=== PATIENT | female | born 1975 | race Caucasian/White ===

== ENCOUNTER 2016-04-16 11:28 | Inpatient (IN) | payer OTHER ==
[2016-04-16 12:50] VITALS: BMI 25.9
[2016-04-16] MEDS ORDERED: NICOTINE POLACRILEX 4 MG GUM BUC PRN (14:50)
[2016-04-16] MEDS ORDERED: ACETAMINOPHEN 325 MG TABLET (FP) PO PRN (14:50)
[2016-04-16] MEDS ORDERED: MENTHOL/PHENOL 1 EACH UD MM PRN (14:50)
[2016-04-16] MEDS ORDERED: IBUPROFEN 400 MG TABLET (FP) PO PRN (14:50)
[2016-04-16] MEDS ORDERED: hydrOXYzine PAMOATE 25 MG CAPSULE (FP) PO PRN (14:50)
[2016-04-16] MEDS ORDERED: P-EPHED 60MG/TRIPROLIDI 2.5MG TABLET PO PRN (14:50)
[2016-04-16] MEDS ORDERED: guaiFENesin/D-METHORPHAN HB 10 ML UNIT-DOSE CUPS PO PRN (14:50)
[2016-04-16] MEDS ORDERED: MAGNESIUM CITRATE 300 ML BOTTLE PO PRN (14:50)
[2016-04-16] MEDS ORDERED: LOPERAMIDE HCL 2 MG CAPSULE PO PRN (14:50)
[2016-04-16] MEDS ORDERED: MAG HYDROX/AL HYDROX/SIMETH 30 ML UNIT-DOSE CUP PO PRN (14:50)
[2016-04-16] MEDS ORDERED: diphenhydrAMINE HCL 50 MG CAPSULE PO PRN (14:50)
[2016-04-16] MEDS ORDERED: MAGNESIUM HYDROX 2400MG/30ML ORAL SUSPENSION 30 ML CUP PO PRN (14:50)
--- NOTE | 2016-04-16 14:58 | HP ---
CIWA Score - CIWA Score Nausea/Vomitin Muscle Tremors: 3 Anxiety: 3 Agitation: 3 Paroxysmal Sweats: 2 Orientation: 0-Oriented Tacttile Disturbances: 1-Very Mild Itch/Numbness Auditory Disturbances: 0-None Visual Disturbances: 0-None Headache: 0-None Present CIWA-Ar Total Score: 15 Admission ROS BHS - HPI Chief Complaint: I need help to stop using drugs Allergies/Adverse Reactions: Allergies Allergy/AdvReac Type Severity Reaction Status Date / Time Penicillins Allergy Rash Verified 04/16/16 14:40 fish derived AdvReac Verified 04/16/16 14:40 Exam Limitations: No Limitations - Ebola screening Have you traveled outside of the country in the last 21 days: No Have you had contact with anyone from an Ebola affected area: No Have you been sick,other than usual withdrawal symptoms: No Do you have a fever: No - Review of Systems Constitutional: Malaise, Changes in sleep EENT: reports: Dental Problems Respiratory: reports: No Symptoms reported Cardiac: reports: No Symptoms Reported GI: reports: Abdominal cramping : reports: No Symptoms Reported Musculoskeletal: reports: Muscle Pain Integumentary: reports: No Symptoms Reported Neuro: reports: Tremors Endocrine: reports: No Symptoms Reported Hematology: reports: No Symptoms Reported Psychiatric: reports: No Sypmtoms Reported, Orientated x3, Agitated, Anxious Patient History - Patient Medical History Hx Anemia: No Hx Asthma: No Hx Chronic Obstructive Pulmonary Disease (COPD): No Hx Cancer: No Hx Cardiac Disorders: No Hx Hypertension: No Hx Hypercholesterolemia: No HX Cerebrovascular Accident: No Hx Seizures: No Hx Diabetes: No Hx Gastrointestinal Disorders: No Hx Genitourinary Disorders: No Hx Sexually Transmitted Disorders: No Hx Renal Disease (ESRD): No Hx Thyroid Disease: No Hx Human Immunodeficiency Virus (HIV): No (NEGATIVE HX) Hx Hepatitis C: Yes (NOT TREATED YET) Hx Depression: Yes Hx Suicide Attempt: No Hx Bipolar Disorder: Yes Hx Schizophrenia: No - Patient Surgical History Past Surgical History: No Hx Neurologic Surgery: No Hx Cataract Extraction: No Hx Cardiac Surgery: No Hx Lung Surgery: No Hx Breast Surgery: No Hx Breast Biopsy: No Hx Abdominal Surgery: No Hx Appendectomy: No Hx Cholecystectomy: No Hx Genitourinary Surgery: No Hx Section: No Hx Orthopedic Surgery: No Hx Hysterectomy: No Anesthesia Reaction: No - PPD History Previous Implant?: Yes Documented Results: Negative w/proof Implanted On Prior R Admission?: Yes Date: 02/25/16 Results: 0 MM - Reproductive History Patient is a Female of Child Bearing Age (11 -55 yrs old): Yes Last Menstrual Period: 03/23/16 Patient : No - Smoking Cessation Smoking history: Current every day smoker Have you smoked in the past 12 months: Yes Aproximately how many cigarettes per day: 8 Cigars Per Day: 0 Hx Chewing Tobacco Use: No Initiated information on smoking cessation: Yes 'Breaking Loose' booklet given: 04/16/16 - Substance & Tx. History Hx Alcohol Use: Yes Hx Substance Use: Yes Substance Use Type: Alcohol, Cocaine Hx Substance Use Treatment: Yes - Substances Abused Cocaine Route: Injection Frequency: Daily Amount used: $100 Age of first use: 18 Date of Last Use: 04/15/16 Heroin Route: Injection Frequency: 1-2 times per week Amount used: 2 BAGS Age of first use: 18 Date of Last Use: 04/13/16 Alcohol Route: Oral Frequency: 3-6 times per week Amount used: 1 BEER Age of first use: 14 Date of Last Use: 04/09/16 KLONOPIN Route: Oral Frequency: Daily Amount used: 8MG Age of first use: 28 Date of Last Use: 04/16/16 Family Disease History - Family Disease History Family Disease History: Other: Father (HTN;ALCOHOLISM) Admission Physical Exam BHS - Vital Signs Vital Signs: Vital Signs - 24 hr 04/16/16 12:47 Temperature 96.8 F L Pulse Rate 72 Respiratory 16 Rate Blood Pressure 122/62 - Physical General Appearance: Yes: Tremorous, Irritable, Sweating, Anxious HEENTM: Yes: EOMI, Hearing grossly Normal, Normocephalic, Normal Voice, EDITA Respiratory: Yes: Chest Non-Tender, Lungs Clear, Normal Breath Sounds, No Respiratory Distress Neck: Yes: Within Normal Limits Breast: Yes: Breast Exam Deferred Cardiology: Yes: Within Normal Limits Abdominal: Yes: Non Tender, Flat, Soft, Increased Bowel Sounds Genitourinary: Yes: Within Normal Limits Back: Yes: Muscle Spasm Musculoskeletal: Yes: Within Normal Limits, Back pain, Muscle weakness Extremities: Yes: Within Normal Limits, Tremors Neurological: Yes: data migration consultant II-XII NML intact, Fully Oriented, Alert, Motor Strength 5/5, Normal Response Integumentary: Yes: Within Normal Limits Lymphatic: Yes: Within Normal Limits - Diagnostic (1) Opioid dependence on agonist therapy Current Visit: Yes Status: Chronic (2) Alcohol dependence with uncomplicated withdrawal Current Visit: Yes Status: Chronic (3) Benzodiazepine dependence Current Visit: Yes Status: Chronic (4) Bipolar disorder Current Visit: Yes Status: Chronic Qualifiers: Active/Remission status: currently active Current episode severity: unspecified Comment: By history. (5) Cocaine dependence Current Visit: Yes Status: Chronic Qualifiers: Substance use status: uncomplicated Qualified Code(s): F14.20 - Cocaine dependence, uncomplicated (6) Hepatitis C Current Visit: Yes Status: Chronic Qualifiers: Viral hepatitis chronicity: chronic Hepatic coma status: without hepatic coma Qualified Code(s): B18.2 - Chronic viral hepatitis C Cleared for Admission BHS - Detox or Rehab [facility] Level of Care: Medically Managed Detox Regimen/Protocol: Valium [facility] Breath Alcohol Content Breath Alcohol Content: 0 Urine Pregancy Test - Result Urine Test Results: Negative- NO Line Present Urine Drug Screen - Results Drug Screen Negative: No Urine Drug Screen Results: THC-Marijuana, STEVIE-Cocaine, OPI-Opiates, BZO- Benzodiazepines, MTD-Methadone, TCA-Tricyclic Antidepress, OXY-Oxycodone
[2016-04-16] MEDS ORDERED: diazePAM 5 MG TABLET PO ONE (15:40)
[2016-04-16 20:30] LABS: URINE APPEARANCE CLOUDY; URINE BILIRUBIN NEGATIVE (NEGATIVE); URINE BLOOD NEGATIVE (NEGATIVE); URINE COLOR AMBER; URINE GLUCOSE (UA) NEGATIVE (NEGATIVE); URINE KETONE NEGATIVE (NEGATIVE); URINE LEUK ESTERASE 2+ (NEGATIVE); URINE NITRITE NEGATIVE (NEGATIVE); URINE PROTEIN 1+ (NEGATIVE); URINE UROBILINOGEN 4.0 E.U/dl E.U./dl (0.2-1.0)
[2016-04-16 20:38] LABS: URINE BACTERIA RARE /hpf (NONE SEEN); URINE MUCUS MANY; URINE RBC 5 /hpf (0-3); URINE WBC 47 /hpf (3-5)
[2016-04-16] MEDS: diazePAM 5 MG TABLET PO SCH (22:07)
[2016-04-16] MEDS: THIAMINE HCL 100 MG TABLET (FP) PO SCH (22:08)
[2016-04-17] MEDS: diazePAM 5 MG TABLET PO SCH ×3 (05:21→22:08)
[2016-04-17] MEDS ORDERED: METHADONE HCL 10 MG TABLET PO SCH (07:15)
[2016-04-17] MEDS ORDERED: METHADONE HCL 40 MG DISPERSABLE TABLET ONE (08:39)
[2016-04-17] MEDS ORDERED: METHADONE HCL 10 MG TABLET ONE (08:39)
[2016-04-17] MEDS: METHADONE 80 MG, METHADONE 10 MG PO SCH (08:40)
[2016-04-17 09:36] LABS: HIV 1 & 2 AB NEGATIVE; HIV 1 AGp24 NEGATIVE
[2016-04-17] MEDS: NICOTINE 14 MG/24 HOURS TOPICAL PATCH TD SCH (10:06)
[2016-04-17] MEDS: PRENATAL VITAMINS W/ FOLIC ACID TABLET (FP) PO SCH (10:06)
[2016-04-17] MEDS: diazePAM 5 MG TABLET PO PRN ×2 (10:08→19:07)
--- NOTE | 2016-04-17 10:09 | CONSULT ---
[facility] Psychiatric Consult - Data Date of interview: 04/17/16 Admission source: [facility] Identifying data: This is 40 nyears old female with psychiatric hospitalization history intoxicated with: lcohol, Heroin, Cocaine, Benzodoazepins and Nicotine Substance Abuse History: - Smoking Cessation. Smoking history: Current every day smoker. Have you smoked in the past 12 months: Yes. Aproximately how many cigarettes per day: 8. Cigars Per Day: 0. Hx Chewing Tobacco Use: No. Initiated information on smoking cessation: Yes. 'Breaking Loose' booklet given : 04/16/16. - Substance & Tx. History. Hx Alcohol Use: Yes. Hx Substance Use : Yes. Substance Use Type: Alcohol, Cocaine. Hx Substance Use Treatment: Yes. - Substances Abused. Cocaine. Route: Injection. Frequency: Daily. Amount used: $100. Age of first use: 18. Date of Last Use: 04/15/16. Heroin. Route: Injection. Frequency: 1-2 times per week. Amount used: 2 BAGS. Age of first use: 18. Date of Last Use: 04/13/16. Alcohol. Route: Oral. Frequency: 3-6 times per week. Amount used: 1 BEER. Age of first use: 14. Date of Last Use: 04/09/16. KLONOPIN. Route: Oral. Frequency: Daily. Amount used: 8MG. Age of first use: 28. Date of Last Use: 04/16/16 Medical History: Hep C+, M,MTP 90mg per day Psychiatric History: Patient reprots history of Bipolar Disorder with most recent psychiatric admission on 2015 at [facility] for safety, reports taking prior to admisison: Abilify 20mg po qhs. Benadryl 50mg po qhs Physical/Sexual Abuse/Trauma History: Denies Additional Comment: Abilify 20mg po qhs. Benadryl 50mg po qhs Mental Status Exam - Mental Status Exam Alert and Oriented to: Person Cognitive Function: Fair Patient Appearance: Unkempt Mood: Sad Affect: Flat Patient Behavior: Sedated Speech Pattern: Delayed Voice Loudness: Mildly Soft/Quiet Thought Process: Circumstantial Thought Disorder: Being Controlled Hallucinations: Denies Suicidal Ideation: Denies Homicidal Ideation: Denies Insight/Judgement: Fair Sleep: Difficulty falling asleep Appetite: Fair Muscle strength/Tone: Mild Hypotonicity Gait/Station: Shuffling Additional Comments: Abilify 20mg po qhs. Benadryl 50mg po qhs Psychiatric Findings - Problem List ([place] 1, 2,3) (1) Alcohol dependence with uncomplicated withdrawal Current Visit: Yes Status: Chronic (2) Benzodiazepine dependence Current Visit: Yes Status: Chronic (3) Bipolar disorder Current Visit: Yes Status: Chronic Qualifiers: Active/Remission status: currently active Current episode severity: unspecified Comment: By history. (4) Cocaine dependence Current Visit: Yes Status: Chronic Qualifiers: Substance use status: uncomplicated Qualified Code(s): F14.20 - Cocaine dependence, uncomplicated (5) Opioid dependence on agonist therapy Current Visit: Yes Status: Chronic (6) Methadone maintenance therapy patient Current Visit: No Status: Chronic (7) Nicotine dependence Current Visit: No Status: Chronic Qualifiers: Nicotine product type: cigarettes Substance use status: uncomplicated Qualified Code(s): F17.210 - Nicotine dependence, cigarettes, uncomplicated
--- NOTE | 2016-04-17 10:41 | PN ---
S CIWA - CIWA Score Nausea/Vomitin-No Nausea/No Vomiting Muscle Tremors: 4-Moderate,w/Arms Extend Anxiety: 3 Agitation: 4-Moderately Restless Paroxysmal Sweats: 3 Orientation: 0-Oriented Tacttile Disturbances: 0-None Auditory Disturbances: 0-None Visual Disturbances: 0-None Headache: 1-Very Mild CIWA-Ar Total Score: 15 BHS Progress Note (SOAP) Subjective: sweats shakes interrupted sleep dizzy agitation anxiety Objective: 04/17/16 10:40 Vital Signs Temperature 98.4 F 04/17/16 09:39 Pulse Rate 84 04/17/16 09:39 Respiratory Rate 18 04/17/16 09:39 Blood Pressure 109/71 04/17/16 09:39 O2 Sat by Pulse Oximetry (%) Laboratory Tests 04/16/16 04/16/16 14:00 19:00 Urine Color Halle Urine Appearance Cloudy Urine pH 6.0 Ur Specific [place] 1.020 Urine Protein 1+ H Urine Glucose (UA) Negative Urine Ketones Negative Urine Blood Negative Urine Nitrite Negative Urine Bilirubin Negative Urine Urobilinogen 4.0 e.u/dl H Ur Leukocyte Esterase 2+ H Urine RBC 5 Urine WBC 47 Ur Epithelial Cells Moderate Urine Bacteria Rare Urine Mucus Many HIV 1&2 Antibody Screen Negative HIV P24 Antigen Negative repeat u/a labs pending awake/alert ambulating no acute distress Assessment: 04/17/16 10:41 withdrawal sx Plan: continue detox increase fluids repeat u/a labs pending
[2016-04-17 10:52] LABS: ALK PHOS 79 U/L (45-117); ANION GAP 9 (8-16); BILIRUBIN,TOTAL 0.7 mg/dL (0.2-1.0); CALCIUM 9.2 mg/dL (8.5-10.1); CO2 25 mmol/L (21-32); CREATININE 0.6 mg/dL (0.55-1.02); GLUCOSE,RANDOM 91 mg/dL (74-106); SGOT/AST 23 U/L (15-37); SGPT/ALT 24 U/L (12-78); TOT PROT 7.9 g/dl (6.4-8.2)
[2016-04-17 10:53] LABS: MCH 30.6 pg (25.7-33.7); MEAN CELL VOLUME 90.2 fl (80-96); MEAN PLT VOLUME 8.5 fl (7.5-11.1); PLATELET COUNT 393 K/MM3 (134-434); RDW 14.2 % (11.6-15.6); WHITE BLOOD COUNT 9.2 K/mm3 (4.0-10.0)
--- NOTE | 2016-04-17 12:31 | EKG ---
Test Reason : Blood Pressure : / mmHG Vent. Rate : 057 BPM Atrial Rate : 057 BPM P-R Int : 144 ms QRS Dur : 082 ms QT Int : 430 ms P-R-T Axes : 053 066 059 degrees QTc Int : 418 ms SINUS BRADYCARDIA OTHERWISE NORMAL ECG WHEN COMPARED WITH ECG OF 17-JAN-2009 15:28, VENT. RATE HAS DECREASED BY 44 BPM T WAVE INVERSION NO LONGER EVIDENT IN INFERIOR LEADS T WAVE INVERSION LESS EVIDENT IN ANTEROLATERAL LEADS Confirmed by ROSA MARIA ROMERO, IRWIN ([id number]) on 04/17/2016 12:31:28 PM Referred By: Anuel Lima Confirmed By:IRWIN CRANE MD
[2016-04-17 16:49] LABS: URINE APPEARANCE CLOUDY; URINE BILIRUBIN NEGATIVE (NEGATIVE); URINE BLOOD NEGATIVE (NEGATIVE); URINE COLOR AMBER; URINE GLUCOSE (UA) NEGATIVE (NEGATIVE); URINE KETONE NEGATIVE (NEGATIVE); URINE NITRITE NEGATIVE (NEGATIVE); URINE PROTEIN NEGATIVE (NEGATIVE); URINE UROBILINOGEN 4.0 E.U/dl E.U./dl (0.2-1.0)
[2016-04-17 17:12] LABS: URINE LEUK ESTERASE 2+ (NEGATIVE)
[2016-04-17 18:00] LABS: CALCIUM OXALATE CRYSTALS FEW /hpf (NONE SEEN); URINE BACTERIA RARE /hpf (NONE SEEN); URINE MUCUS MODERATE; URINE RBC 2 /hpf (0-3); URINE WBC 24 /hpf (3-5)
[2016-04-17] MEDS ORDERED: diphenhydrAMINE HCL 25 MG CAPSULE (FP) PO ONE (21:31)
[2016-04-17] MEDS: diphenhydrAMINE HCL 50 MG CAPSULE PO SCH (22:08)
[2016-04-17] MEDS: ARIPiprazole 10 MG TABLET PO SCH (22:08)
[2016-04-17] MEDS: THIAMINE HCL 100 MG TABLET (FP) PO SCH (22:10)
[2016-04-18] MEDS ORDERED: METHADONE HCL 40 MG DISPERSABLE TABLET ONE (04:48)
[2016-04-18] MEDS ORDERED: METHADONE HCL 10 MG TABLET ONE (04:48)
[2016-04-18] MEDS: METHADONE 80 MG, METHADONE 10 MG PO SCH (05:15)
[2016-04-18] MEDS: diazePAM 5 MG TABLET PO PRN ×2 (06:16→14:44)
[2016-04-18] MEDS: PRENATAL VITAMINS W/ FOLIC ACID TABLET (FP) PO SCH (10:03)
[2016-04-18] MEDS: NICOTINE 14 MG/24 HOURS TOPICAL PATCH TD SCH (10:03)
[2016-04-18] MEDS: diazePAM 5 MG TABLET PO SCH ×2 (10:03→22:19)
--- NOTE | 2016-04-18 12:32 | PN ---
S CIWA - CIWA Score Nausea/Vomitin Muscle Tremors: 2 Anxiety: 2 Agitation: 2 Paroxysmal Sweats: 3 Orientation: 0-Oriented Tacttile Disturbances: 1-Very Mild Itch/Numbness Auditory Disturbances: 0-None Visual Disturbances: 0-None Headache: 0-None Present CIWA-Ar Total Score: 12 S Progress Note (SOAP) Subjective: 0sleeping better, constipation Objective: 04/18/16 12:31 Vital Signs Temperature 98.1 F 04/18/16 10:01 Pulse Rate 67 04/18/16 10:01 Respiratory Rate 18 04/18/16 10:01 Blood Pressure 104/51 04/18/16 10:01 O2 Sat by Pulse Oximetry (%) Laboratory Results - last 24 hr 04/17/16 04/17/16 06:00 13:25 Urine Color Halle Urine Appearance Cloudy Urine pH 7.0 Ur Specific [place] 1.019 Urine Protein Negative Urine Glucose (UA) Negative Urine Ketones Negative Urine Blood Negative Urine Nitrite Negative Urine Bilirubin Negative Urine Urobilinogen 4.0 e.u/dl H Ur Leukocyte Esterase 2+ H Urine RBC 2 Urine WBC 24 Ur Epithelial Cells Moderate Calcium Oxalate Crystal Few Urine Bacteria Rare Urine Mucus Moderate RPR Titer Nonreactive pending labs pt aox3 in nad ambulating Assessment: 04/18/16 12:31 withdrawl sx's Plan: cont. detox increase fluids
[2016-04-18] MEDS: ARIPiprazole 10 MG TABLET PO SCH (22:18)
[2016-04-18] MEDS: diphenhydrAMINE HCL 50 MG CAPSULE PO SCH (22:18)
[2016-04-18] MEDS: THIAMINE HCL 100 MG TABLET (FP) PO SCH (22:19)
[2016-04-19] MEDS ORDERED: METHADONE HCL 10 MG TABLET ONE (04:38)
[2016-04-19] MEDS ORDERED: METHADONE HCL 40 MG DISPERSABLE TABLET ONE (04:39)
[2016-04-19] MEDS: METHADONE 80 MG, METHADONE 10 MG PO SCH (05:25)
[2016-04-19] MEDS: diazePAM 5 MG TABLET PO PRN ×2 (06:41→14:17)
[2016-04-19] MEDS: PRENATAL VITAMINS W/ FOLIC ACID TABLET (FP) PO SCH (10:02)
[2016-04-19] MEDS: diazePAM 5 MG TABLET PO SCH ×2 (10:02→22:03)
[2016-04-19] MEDS: NICOTINE 14 MG/24 HOURS TOPICAL PATCH TD SCH (10:03)
--- NOTE | 2016-04-19 10:36 | PN ---
BHS Progress Note (SOAP) Subjective: anxiety agitation sweats Objective: 04/19/16 10:35 Vital Signs Temperature 98.1 F 04/19/16 09:55 Pulse Rate 81 04/19/16 09:55 Respiratory Rate 16 04/19/16 09:55 Blood Pressure 130/55 04/19/16 09:55 O2 Sat by Pulse Oximetry (%) awake/alert ambulating no acute distress Assessment: 04/19/16 10:36 withdrawal sx Plan: continue detox increase fluids d/c in am
[2016-04-19] MEDS: ARIPiprazole 10 MG TABLET PO SCH (22:02)
[2016-04-19] MEDS: diphenhydrAMINE HCL 50 MG CAPSULE PO SCH (22:04)
[2016-04-19] MEDS: THIAMINE HCL 100 MG TABLET (FP) PO SCH (22:05)
[2016-04-20] MEDS ORDERED: METHADONE HCL 10 MG TABLET ONE (04:44)
[2016-04-20] MEDS ORDERED: METHADONE HCL 40 MG DISPERSABLE TABLET ONE (04:44)
[2016-04-20] MEDS: METHADONE 80 MG, METHADONE 10 MG PO SCH (05:09)
[2016-04-20 06:47] VITALS: BP 120/61; PULSE 92; TEMP 96.8
--- NOTE | 2016-04-20 09:55 | PN ---
BHS Progress Note (SOAP) Subjective: no complaints Objective: 04/20/16 09:54 Vital Signs - 8 hr 04/20/16 04/20/16 03:30 06:00 Temperature 96.8 F L Pulse Rate 92 H Respiratory 18 18 Rate Blood Pressure 120/61 Laboratory Tests 04/16/16 04/16/16 04/17/16 14:00 19:00 06:00 WBC 9.2 RBC 4.42 Hgb 13.5 D Hct 39.9 MCV 90.2 MCHC 34.0 RDW 14.2 Plt Count 393 D MPV 8.5 Sodium Potassium Chloride Carbon Dioxide Anion Gap BUN Creatinine Creat Clearance w eGFR Random Glucose Calcium Total Bilirubin AST ALT Alkaline Phosphatase Total Protein Albumin Urine Color Halle Urine Appearance Cloudy Urine pH 6.0 Ur Specific [place] 1.020 Urine Protein 1+ H Urine Glucose (UA) Negative Urine Ketones Negative Urine Blood Negative Urine Nitrite Negative Urine Bilirubin Negative Urine Urobilinogen 4.0 e.u/dl H Ur Leukocyte Esterase 2+ H Urine RBC 5 Urine WBC 47 Ur Epithelial Cells Moderate Calcium Oxalate Crystal Urine Bacteria Rare Urine Mucus Many RPR Titer HIV 1&2 Antibody Screen Negative HIV P24 Antigen Negative 04/17/16 04/17/16 04/17/16 06:00 06:00 13:25 WBC RBC Hgb Hct MCV MCHC RDW Plt Count MPV Sodium 139 Potassium 3.6 Chloride 105 Carbon Dioxide 25 Anion Gap 9 BUN 10 D Creatinine 0.6 Creat Clearance w eGFR > 60 Random Glucose 91 Calcium 9.2 Total Bilirubin 0.7 AST 23 D ALT 24 D Alkaline Phosphatase 79 D Total Protein 7.9 D Albumin 4.0 D Urine Color Halle Urine Appearance Cloudy Urine pH 7.0 Ur Specific [place] 1.019 Urine Protein Negative Urine Glucose (UA) Negative Urine Ketones Negative Urine Blood Negative Urine Nitrite Negative Urine Bilirubin Negative Urine Urobilinogen 4.0 e.u/dl H Ur Leukocyte Esterase 2+ H Urine RBC 2 Urine WBC 24 Ur Epithelial Cells Moderate Calcium Oxalate Crystal Few Urine Bacteria Rare Urine Mucus Moderate RPR Titer Nonreactive HIV 1&2 Antibody Screen HIV P24 Antigen Assessment: 04/20/16 09:55 completed detox, medically stable Plan: d/c today, f/u PCP for abnormal labwork u/a and bloodwork
--- NOTE | 2016-04-20 09:57 | DS ---
[facility] Detox Discharge Summary Admission Date: 04/16/16 Discharge Date: 04/20/16 - History Present History: Alcohol Dependence, Cocaine Dependence, Sedative Dependence Pertinent Past History: anxiety, depression and insomnia - Physical Exam Results Vital Signs: Vital Signs Temperature 96.8 F L 04/20/16 06:00 Pulse Rate 92 H 04/20/16 06:00 Respiratory Rate 18 04/20/16 06:00 Blood Pressure 120/61 04/20/16 06:00 O2 Sat by Pulse Oximetry (%) Pertinent Admission Physical Exam Findings: withdrawal sx - Treatment Hospital Course: Detox Protocol Followed, Detoxed Safely, Responded well, Discharged Condition Good, Rehab Referral Accepted - Medication Discharge Medications: Ambulatory Orders Aripiprazole [Abilify -] 20 mg PO HS 02/23/16 Diphenhydramine [Benadryl Capsule -] 50 mg PO HS 04/16/16 Hydroxyzine HCl [Atarax -] 50 mg PO BID 04/16/16 Aripiprazole [Abilify -] 20 mg PO HS #30 tablet 04/17/16 Diphenhydramine [Benadryl Capsule -] 50 mg PO HS #30 capsule 04/17/16 - Diagnosis (1) Alcohol dependence with uncomplicated withdrawal Status: Chronic (2) Benzodiazepine dependence Status: Chronic (3) Bipolar disorder Status: Chronic Qualifiers: Active/Remission status: currently active Current episode severity: unspecified (4) Cocaine dependence Status: Chronic Qualifiers: Substance use status: uncomplicated Qualified Code(s): F14.20 - Cocaine dependence, uncomplicated (5) Hepatitis C Status: Chronic Qualifiers: Viral hepatitis chronicity: chronic Hepatic coma status: without hepatic coma Qualified Code(s): B18.2 - Chronic viral hepatitis C (6) Nicotine dependence Status: Chronic Qualifiers: Nicotine product type: cigarettes Substance use status: in withdrawal Qualified Code(s): F17.213 - Nicotine dependence, cigarettes, with withdrawal (7) Opioid dependence on agonist therapy Status: Chronic - AMA Did Patient Leave Against Medical Advice: No
[2016-04-20] MEDS ORDERED: diazePAM 5 MG TABLET PO SCH (10:00)
== END 2016-04-20 09:42 | disposition home or self-care (01) | DRG 773 ==
LOC: YASAS 11:28 → Y6N 15:32
PROVIDERS: ADMIT Internal Medicine Addiction Medicine; ATTEND Internal Medicine Addiction Medicine
PROC: HZ2ZZZZ Detoxification Services for Substance Abuse Treatment (ICD-10-PCS; principal; 2016-04-16)
DX: F10.230 Alcohol dependence with withdrawal, uncomplicated (principal); F13.20 Sedative, hypnotic or anxiolytic dependence, uncomplicated; F11.20 Opioid dependence, uncomplicated; F14.20 Cocaine dependence, uncomplicated; F17.210 Nicotine dependence, cigarettes, uncomplicated; F31.9 Bipolar disorder, unspecified; B18.2 Chronic viral hepatitis C
CPT/HCPCS: 36415; 80053; 81003; 81015; 85027; 86593; 87389; 93005; 93010

== ENCOUNTER 2016-06-25 10:12 | Emergency (ER) | payer OTHER ==
[2016-06-25 11:04] VITALS: BP 109/67; PULSE 69; TEMP 98.2; BMI 25.9
--- NOTE | 2016-06-25 12:43 | PDOC ---
History of Present Illness - General Chief Complaint: Pain Stated Complaint: RT LEG PAIN Time Seen by Provider: 06/25/16 11:43 History Source: Patient Exam Limitations: No Limitations - History of Present Illness Initial Comments: 06/25/16 12:43 CHIEF COMPLAINT: Ankle pain HISTORY OF PRESENT ILLNESS: This is a 40 year old female with a history of bipolar disorder and polysubstance abuse who presents complaining of two days of right ankle and foot pain. She does not recall injuring herself. Vital signs on arrival are all within normal limits. REVIEW OF SYSTEMS: GENERAL/CONSTITUTIONAL: No fever or chills. No weakness. No weight change. MUSCULOSKELETAL: See HPI. SKIN: No rash or easy bruising. NEUROLOGIC: No numbness loss of sensation. HEMATOLOGIC/LYMPHATIC: No anemia, easy bleeding, or history of blood clots. ALLERGIC/IMMUNOLOGIC: No hives or skin allergy. No latex allergy. PHYSICAL EXAM: GENERAL: The patient is awake, alert, and fully oriented, in no acute distress. EXTREMITIES: Bimalleolar tenderness, mild edema. No erythema. Normal range of motion. NEUROLOGICAL: Normal speech, normal gait. CN II-XII grossly intact. PSYCH: Normal mood, normal affect. SKIN: Warm, dry, normal turgor, no rashes or lesions noted. Past History - Past Medical History Allergies/Adverse Reactions: Allergies Allergy/AdvReac Type Severity Reaction Status Date / Time Penicillins Allergy Rash Verified 06/25/16 10:51 fish derived AdvReac Verified 06/25/16 10:51 Home Medications: Ambulatory Orders Aripiprazole [Abilify -] 20 mg PO HS 02/23/16 Diphenhydramine [Benadryl Capsule -] 50 mg PO HS 04/16/16 Hydroxyzine HCl [Atarax -] 50 mg PO BID 04/16/16 Aripiprazole [Abilify -] 20 mg PO HS #30 tablet 04/17/16 Diphenhydramine [Benadryl Capsule -] 50 mg PO HS #30 capsule 04/17/16 Ibuprofen 600 mg PO Q6H PRN #30 tablet 06/25/16 Anemia: No Asthma: No Cancer: No Cardiac Disorders: No CVA: No COPD: No Diabetes: No GI Disorders: No Disorders: No HTN: No Hypercholesterolemia: No Kidney Stones: No Psychiatric Problems: Yes (BIPOLAR,ANXIETY) Suicide Attempt (Hx): No Seizures: No Thyroid Disease: No - Surgical History Abdominal Surgery: No Appendectomy: No Cardiac Surgery: No Cholecystectomy: No Lung Surgery: No Neurologic Surgery: No Orthopedic Surgery: No - Reproductive History PID: No - Psycho/Social/Smoking Cessation Hx Anxiety: Yes Suicidal Ideation: No Smoking History: Current every day smoker Have you smoked in the past 12 months: Yes Number of Cigarettes Smoked Daily: 10 Cigars Per Day: 0 Information on smoking cessation initiated: No 'Breaking Loose' booklet given: 04/16/16 Hx Alcohol Use: Yes Drug/Substance Use Hx: Yes Substance Use Type: Alcohol, Cocaine Hx Substance Use Treatment: Yes *Physical Exam - Vital Signs Last Vital Signs Temp Pulse Resp BP Pulse Ox 98.2 F 69 19 109/67 97 06/25/16 10:52 06/25/16 10:52 06/25/16 10:52 06/25/16 10:52 06/25/16 10:52 ED Treatment Course - ADDITIONAL ORDERS Additional order review: Laboratory Results 06/25/16 12:00 Urine HCG, Qual Negative Medical Decision Making - Medical Decision Making A/P: 40 year old female with ankle pain and mild swelling. Xray: no acute fracture -Brace and crutches -RICE therapy, NSAIDs -Followup instructions and return precautions reviewed *DC/Admit/Observation/Transfer Diagnosis at time of Disposition: Ankle pain, right Qualifiers: Chronicity: acute Qualified Code(s): M25.571 - Pain in right ankle and joints of right foot - Discharge Dispostion Disposition: HOME Condition at time of disposition: Stable Admit: No - Prescriptions Prescriptions: Ibuprofen 600 mg PO Q6H PRN #30 tablet PRN Reason: Pain - Referrals Referrals: Jermaine Calderon MD [Staff Physician] - Call tomorrow (Orthopedics) - Patient Instructions Printed Discharge Instructions: DI for Ankle Pain Additional Instructions: You were seen today for ankle pain. Your xray is normal. Rest and apply ice to the painful area. Take ibuprofen as prescribed for pain. Use the ankle brace and crutches to limit weight-bearing. Follow up with orthopedics (referral enclosed) if your symptoms do not improve. Return here for any new or concerning symptoms.
[2016-06-25] MEDS ORDERED: IBUPROFEN 600 MG TABLET (FP) PO ONE ×2 (12:55→13:02)
== END 2016-06-25 16:35 | disposition home or self-care (01) ==
LOC: JER 10:12 → JERFT 10:12
DX: M25.571 Pain in right ankle and joints of right foot (principal); F41.9 Anxiety disorder, unspecified; F31.9 Bipolar disorder, unspecified; F17.210 Nicotine dependence, cigarettes, uncomplicated
CPT/HCPCS: 73610-TC-RT; 73630-TC-RT; 84703; 99281-25

== ENCOUNTER 2016-08-26 12:26 | Inpatient (IN) | payer OTHER ==
[2016-08-26 15:41] VITALS: BMI 21.4
--- NOTE | 2016-08-26 16:49 | HP ---
CIWA Score - CIWA Score Nausea/Vomitin-No Nausea/No Vomiting Muscle Tremors: 4-Moderate,w/Arms Extend Anxiety: 4-Mod. Anxious/Guarded Agitation: 4-Moderately Restless Paroxysmal Sweats: 1-Minimal Palms Moist Orientation: 2-Disoriented Date<2 days Tacttile Disturbances: 0-None Auditory Disturbances: 0-None Visual Disturbances: 0-None Headache: 0-None Present CIWA-Ar Total Score: 15 Admission ROS S - HPI Chief Complaint: WITHDRAWAL SX Allergies/Adverse Reactions: Allergies Allergy/AdvReac Type Severity Reaction Status Date / Time Penicillins Allergy Rash Verified 08/26/16 16:42 fish derived AdvReac Verified 08/26/16 16:42 History of Present Illness: 40 YEARS OLD FEMALE WITH LONG HISTORY OF ALCOHOL NICOTINE DEPENDENCE, HAS CONSTIPATION, HEPATITIS C AND BIPOLAR II IS ADMITTED TO DETOX Exam Limitations: No Limitations - Ebola screening Have you traveled outside of the country in the last 21 days: No Have you had contact with anyone from an Ebola affected area: No Have you been sick,other than usual withdrawal symptoms: No Do you have a fever: No - Review of Systems Constitutional: Chills, Loss of Appetite, Changes in sleep, Unintentional Wgt. Loss, Unexplained wgt Loss EENT: reports: Nose Congestion, Dental Problems Respiratory: reports: No Symptoms reported Cardiac: reports: No Symptoms Reported GI: reports: Poor Appetite, Poor Fluid Intake, Abdominal cramping : reports: No Symptoms Reported Musculoskeletal: reports: No Symptoms Reported Integumentary: reports: Change in Color (HANDS + WRISTS IV OPIOID) Neuro: reports: Tremors Endocrine: reports: No Symptoms Reported Hematology: reports: No Symptoms Reported Psychiatric: reports: Judgement Intact, Anxious, Depressed Other Systems: Reviewed and Negative Patient History - Patient Medical History Hx Anemia: No Hx Asthma: No Hx Chronic Obstructive Pulmonary Disease (COPD): No Hx Cancer: No Hx Cardiac Disorders: No Hx Congestive Heart Failure: No Hx Hypertension: No Hx Hypercholesterolemia: No Hx Pacemaker: No HX Cerebrovascular Accident: No Hx Seizures: No Hx Dementia: No Hx Diabetes: No Hx Gastrointestinal Disorders: No Hx Liver Disease: No Hx Genitourinary Disorders: No Hx Sexually Transmitted Disorders: No Hx Renal Disease (ESRD): No Hx Thyroid Disease: No Hx Human Immunodeficiency Virus (HIV): No (NEGATIVE HX) Hx Hepatitis C: Yes (SCHEDULE TO TREAT) Hx Depression: No Hx Suicide Attempt: Yes (AGE 30 OVER DOSE) Hx Bipolar Disorder: Yes Hx Schizophrenia: No - Patient Surgical History Past Surgical History: No Hx Neurologic Surgery: No Hx Cataract Extraction: No Hx Cardiac Surgery: No Hx Lung Surgery: No Hx Breast Surgery: No Hx Breast Biopsy: No Hx Abdominal Surgery: No Hx Appendectomy: No Hx Cholecystectomy: No Hx Genitourinary Surgery: No Hx Section: No Hx Orthopedic Surgery: No Hx Hysterectomy: No - PPD History Previous Implant?: Yes Documented Results: Negative w/proof Implanted On Prior R Admission?: Yes Date: 02/25/16 Results: 0 MM PPD to be Administered?: No - Reproductive History Patient is a Female of Child Bearing Age (11 -55 yrs old): Yes Last Menstrual Period: 06/26/16 Patient : No - Smoking Cessation Smoking history: Current every day smoker Have you smoked in the past 12 months: Yes Aproximately how many cigarettes per day: 8 Cigars Per Day: 0 Hx Chewing Tobacco Use: No Initiated information on smoking cessation: Yes 'Breaking Loose' booklet given: 08/26/16 - Substance & Tx. History Hx Alcohol Use: Yes Hx Substance Use: Yes Substance Use Type: Alcohol, Cocaine, Opiates Hx Substance Use Treatment: Yes Family Disease History - Family Disease History Family Disease History: Heart Disease: Father (HTN;ALCOHOLISM), Other: Father Admission Physical Exam BHS - Vital Signs Vital Signs: Vital Signs - 24 hr 08/26/16 15:38 Temperature 96 F L Pulse Rate 86 Respiratory 16 Rate Blood Pressure 92/56 - Physical General Appearance: Yes: Appropriately Dressed, Mild Distress, Thin, Tremorous, Irritable, Sweating, Anxious HEENTM: Yes: Hearing grossly Normal, Normal ENT Inspection, Normocephalic, Normal Voice Respiratory: Yes: Chest Non-Tender, Lungs Clear, Normal Breath Sounds, No Respiratory Distress, No Accessory Muscle Use Neck: Yes: Supple, Trachea in good position Breast: Yes: Breasts Symetrical Cardiology: Yes: Regular Rhythm, Regular Rate, S1, S2 Abdominal: Yes: Non Tender, Soft, Increased Bowel Sounds Genitourinary: Yes: Within Normal Limits Back: Yes: Normal Inspection Musculoskeletal: Yes: full range of Motion, Gait Steady Extremities: Yes: Normal Range of Motion, Non-Tender, Tremors, Other (HANDS + WRISTS IV OPIOID) Neurological: Yes: Motor Strength 5/5, Normal Mood/Affect, Normal Response, Depressed Affect Integumentary: Yes: Warm, Track Guevara Lymphatic: Yes: Within Normal Limits - Diagnostic (1) Alcohol dependence with uncomplicated withdrawal Current Visit: Yes Status: Acute (2) Hepatitis C Current Visit: Yes Status: Chronic Qualifiers: Viral hepatitis chronicity: chronic Hepatic coma status: without hepatic coma Qualified Code(s): B18.2 - Chronic viral hepatitis C (3) Nicotine dependence Current Visit: Yes Status: Acute Qualifiers: Nicotine product type: cigarettes Substance use status: in withdrawal Qualified Code(s): F17.213 - Nicotine dependence, cigarettes, with withdrawal (4) Bipolar II disorder Current Visit: Yes Status: Suspected (5) Weight loss Current Visit: Yes Status: Acute (6) Hemorrhoid Current Visit: Yes Status: Chronic Qualifiers: Hemorrhoid type: other Qualified Code(s): K64.8 - Other hemorrhoids (7) Methadone maintenance therapy patient Current Visit: Yes Status: Chronic Comment: 90 MG VERIFICATION PENDING Cleared for Admission [facility] - Detox or Rehab [facility] Level of Care: Medically Managed Detox Regimen/Protocol: Valium [facility] Breath Alcohol Content Breath Alcohol Content: 0 Urine Pregancy Test - Result Urine Test Results: Negative- NO Line Present Urine Drug Screen - Results Drug Screen Negative: No Urine Drug Screen Results: STEVIE-Cocaine, OPI-Opiates, MTD-Methadone
[2016-08-26] MEDS ORDERED: LOPERAMIDE HCL 2 MG CAPSULE PO PRN (17:00)
[2016-08-26] MEDS ORDERED: NICOTINE POLACRILEX 2 MG GUM BC PRN (17:00)
[2016-08-26] MEDS ORDERED: MENTHOL/PHENOL 1 EACH UD MM PRN (17:00)
[2016-08-26] MEDS ORDERED: P-EPHED 60MG/TRIPROLIDI 2.5MG TABLET PO PRN (17:00)
[2016-08-26] MEDS ORDERED: MAGNESIUM HYDROX 2400MG/30ML ORAL SUSPENSION 30 ML CUP PO PRN (17:00)
[2016-08-26] MEDS ORDERED: IBUPROFEN 400 MG TABLET (FP) PO PRN (17:00)
[2016-08-26] MEDS ORDERED: guaiFENesin/D-METHORPHAN HB 10 ML UNIT-DOSE CUPS PO PRN (17:00)
[2016-08-26] MEDS ORDERED: ACETAMINOPHEN 325 MG TABLET (FP) PO PRN (17:00)
[2016-08-26] MEDS ORDERED: diphenhydrAMINE HCL 50 MG CAPSULE PO PRN (17:00)
[2016-08-26] MEDS ORDERED: MAG HYDROX/AL HYDROX/SIMETH 30 ML UNIT-DOSE CUP PO PRN (17:00)
[2016-08-26] MEDS ORDERED: MAGNESIUM CITRATE 300 ML BOTTLE PO PRN (17:00)
[2016-08-26] MEDS ORDERED: BENZOCAINE 28 GM HEMORRHOIDAL OINTMENT PR PRN (17:11)
[2016-08-26] MEDS ORDERED: diazePAM 5 MG TABLET PO ONE (17:45)
[2016-08-26] MEDS: diazePAM 5 MG TABLET PO SCH (22:17)
[2016-08-26] MEDS: THIAMINE HCL 100 MG TABLET (FP) PO SCH (22:17)
[2016-08-26 23:27] LABS: URINE APPEARANCE SLCLOUDY; URINE BILIRUBIN NEGATIVE (NEGATIVE); URINE BLOOD NEGATIVE (NEGATIVE); URINE COLOR AMBER; URINE GLUCOSE (UA) NEGATIVE (NEGATIVE); URINE KETONE NEGATIVE (NEGATIVE); URINE LEUK ESTERASE 2+ (NEGATIVE); URINE NITRITE NEGATIVE (NEGATIVE); URINE PROTEIN NEGATIVE (NEGATIVE); URINE UROBILINOGEN 4.0 E.U/dl E.U./dl (0.2-1.0)
[2016-08-26 23:47] LABS: CALCIUM OXALATE CRYSTALS FEW /hpf (NONE SEEN); URINE BACTERIA FEW /hpf (NONE SEEN); URINE MUCUS MANY; URINE RBC 4 /hpf (0-3); URINE WBC 34 /hpf (3-5)
[2016-08-27] MEDS: diazePAM 5 MG TABLET PO SCH ×3 (05:56→22:24)
[2016-08-27] MEDS ORDERED: METHADONE HCL 40 MG DISPERSABLE TABLET PO SCH (07:30)
[2016-08-27] MEDS ORDERED: METHADONE HCL 40 MG DISPERSABLE TABLET ONE (07:44)
[2016-08-27] MEDS ORDERED: METHADONE HCL 10 MG TABLET ONE (07:45)
[2016-08-27] MEDS: METHADONE 80 MG, METHADONE 10 MG PO SCH (07:48)
[2016-08-27 10:08] LABS: MCH 30.5 pg (25.7-33.7); MCHC 34.2 g/dl (32.0-36.0); MEAN CELL VOLUME 89.2 fl (80-96); MEAN PLT VOLUME 7.8 fl (7.5-11.1); PLATELET COUNT 383 K/MM3 (134-434); RDW 14.4 % (11.6-15.6); WHITE BLOOD COUNT 7.1 K/mm3 (4.0-10.0)
[2016-08-27] MEDS: PRENATAL VITAMINS W/ FOLIC ACID TABLET (FP) PO SCH (10:35)
[2016-08-27] MEDS: NICOTINE 14 MG/24 HOURS TOPICAL PATCH TD SCH (10:35)
[2016-08-27] MEDS: diazePAM 5 MG TABLET PO PRN (10:36)
[2016-08-27 10:41] LABS: ALBUMIN 3.7 g/dl (3.4-5.0); ALK PHOS 65 U/L (45-117); ANION GAP 9 (8-16); BILIRUBIN,TOTAL 0.5 mg/dL (0.2-1.0); CALCIUM 8.7 mg/dL (8.5-10.1); CO2 27 mmol/L (21-32); COCKROFT - GAULT 102.255; CREATININE 0.6 mg/dL (0.55-1.02); GLUCOSE,RANDOM 90 mg/dL (74-106); SGOT/AST 21 U/L (15-37); SGPT/ALT 23 U/L (12-78)
--- NOTE | 2016-08-27 11:16 | PN ---
[facility] CIWA - CIWA Score Nausea/Vomitin-No Nausea/No Vomiting Muscle Tremors: 3 Anxiety: 3 Agitation: 4-Moderately Restless Paroxysmal Sweats: 3 Orientation: 0-Oriented Tacttile Disturbances: 0-None Auditory Disturbances: 0-None Visual Disturbances: 0-None Headache: 0-None Present CIWA-Ar Total Score: 13 BHS Progress Note (SOAP) Subjective: chills sweats constipation muscle spasms body aches interrupted sleep Objective: 08/27/16 11:20 Vital Signs Temperature 97.9 F 08/27/16 10:50 Pulse Rate 86 08/27/16 10:50 Respiratory Rate 16 08/27/16 10:50 Blood Pressure 114/63 08/27/16 10:50 O2 Sat by Pulse Oximetry (%) Laboratory Tests 08/26/16 08/27/16 08/27/16 Unknown 06:00 06:00 WBC 7.1 RBC 4.07 Hgb 12.4 Hct 36.3 MCV 89.2 MCHC 34.2 RDW 14.4 Plt Count 383 MPV 7.8 Sodium 139 Potassium 3.3 L Chloride 103 Carbon Dioxide 27 Anion Gap 9 BUN 15 D Creatinine 0.6 Creat Clearance w eGFR > 60 Random Glucose 90 Calcium 8.7 Total Bilirubin 0.5 D AST 21 ALT 23 Alkaline Phosphatase 65 Total Protein 7.0 Albumin 3.7 Urine Color Halle Urine Appearance Slcloudy Urine pH 6.0 Urine Protein Negative Urine Glucose (UA) Negative Urine Ketones Negative Urine Blood Negative Urine Nitrite Negative Urine Bilirubin Negative Urine Urobilinogen 4.0 e.u/dl H Ur Leukocyte Esterase 2+ H Urine RBC 4 Urine WBC 34 Ur Epithelial Cells Moderate Calcium Oxalate Crystal Few Urine Bacteria Few Urine Mucus Many repeat u/a awake/alert low potassium 3.3 awake/alert ambulating no acute distress Assessment: 08/27/16 11:28 withdrawal sx Plan: continue detox increase fluids flexiril 10mg prn motrin 600mg prn zantac bid kdur 20meq x 4 days repeat u/a
[2016-08-27 11:24] LABS: HIV 1 & 2 AB NEGATIVE; HIV 1 AGp24 NEGATIVE
[2016-08-27] MEDS ORDERED: IBUPROFEN 600 MG TABLET (FP) PO PRN (11:30)
[2016-08-27] MEDS: POTASSIUM CHLORIDE TABS 20 MEQ TABLET.ER (FP) PO SCH (11:50)
[2016-08-27] MEDS: CYCLOBENZAPRINE HCL 10 MG TABLET (FP) PO PRN ×2 (11:50→22:24)
--- NOTE | 2016-08-27 12:00 | EKG ---
Test Reason : Blood Pressure : / mmHG Vent. Rate : 062 BPM Atrial Rate : 062 BPM P-R Int : 130 ms QRS Dur : 084 ms QT Int : 428 ms P-R-T Axes : 042 070 053 degrees QTc Int : 434 ms NORMAL SINUS RHYTHM NORMAL ECG WHEN COMPARED WITH ECG OF 16-APR-2016 17:05, NO SIGNIFICANT CHANGE WAS FOUND Confirmed by KAJAL BRANDT MD ([id number]) on 08/27/2016 12:00:04 PM Referred By: Confirmed By:KAJAL BRANDT MD
--- NOTE | 2016-08-27 14:49 | CONSULT ---
[facility] Psychiatric Consult - Data Date of interview: 08/27/16 Admission source: [facility] Identifying data: Another admission to [facility] for this 40 y/o female seeking detox treatment on for alcohol,heroin,benzodiazepine ( xanax) and cocaine dependence.Patient is single,a mother of two,domiciled, unemployed and supported on SSI benefits. Substance Abuse History: - Smoking Cessation. Smoking history: Current every day smoker. Have you smoked in the past 12 months: Yes. Aproximately how many cigarettes per day: 8. Cigars Per Day: 0. Hx Chewing Tobacco Use: No. Initiated information on smoking cessation: Yes. 'Breaking Loose' booklet given : 08/26/16. - Substance & Tx. History. Hx Alcohol Use: Yes. Hx Substance Use : Yes. Substance Use Type: Alcohol, Cocaine, Opiates. Hx Substance Use Treatment: Yes. Confirmed by patient. Medical History: Hepatitis C. Psychiatric History: Patient presents with an extensive history of psychiatric illness.Discharged from [facility] about two weeks ago.Diagnosed with Bipolar Disorder,MDD and Anxiety Disorder.Ms Camarillo reports that she was " thrown out " of [facility] in 2016 for " non-compliance with rules " and non-adherence to her aftercare plan.Patient reports that she is prescribed abilify 20 mg/hs and ambien 10 mg/hs.On methadone maintenance (90 mg/day).She denies history of suicide attempts. Physical/Sexual Abuse/Trauma History: Patient denies. Additional Comment: Urine Drug Screen Results: STEVIE-Cocaine, OPI-Opiates, MTD- Methadone.Noted. Mental Status Exam - Mental Status Exam Alert and Oriented to: Time, Place, Person Cognitive Function: Good Patient Appearance: Well Groomed (hin frame) Mood: Nervous, Anxious Affect: Mood Congruent Patient Behavior: Fatigued, Cooperative Speech Pattern: Clear, Excessive Voice Loudness: Normal Thought Process: Goal Oriented Thought Disorder: Not Present Hallucinations: Denies Suicidal Ideation: Denies Homicidal Ideation: Denies Insight/Judgement: Poor Sleep: Poorly, Difficulty falling asleep Appetite: Good Muscle strength/Tone: Normal Gait/Station: Normal Psychiatric Findings - Problem List ([place] 1, 2,3) (1) Alcohol dependence with uncomplicated withdrawal Current Visit: Yes Status: Acute (2) Cocaine dependence Current Visit: Yes Status: Chronic Qualifiers: Substance use status: uncomplicated Qualified Code(s): F14.20 - Cocaine dependence, uncomplicated (3) Opioid dependence on agonist therapy Current Visit: Yes Status: Chronic (4) Nicotine dependence Current Visit: Yes Status: Acute Qualifiers: Nicotine product type: cigarettes Substance use status: in withdrawal Qualified Code(s): F17.213 - Nicotine dependence, cigarettes, with withdrawal (5) Bipolar disorder Current Visit: Yes Status: Chronic Qualifiers: Active/Remission status: currently active Current episode severity: unspecified Comment: By history. (6) Weight loss Current Visit: Yes Status: Acute (7) Hemorrhoid Current Visit: Yes Status: Chronic Qualifiers: Hemorrhoid type: other Qualified Code(s): K64.8 - Other hemorrhoids (8) Hepatitis C Current Visit: Yes Status: Chronic Qualifiers: Viral hepatitis chronicity: chronic Hepatic coma status: without hepatic coma Qualified Code(s): B18.2 - Chronic viral hepatitis C (9) Insomnia Current Visit: Yes Status: Acute - Initial Treatment Plan Initial Treatment Plan: Psychoeducation.Detoxification.Medications : abilify 20 mg po hs + ambien 5 mg po hs.Side effects/benefits discussed with the patient.She is in agreement with this careplan.Observation.Pharmacy claims are reviewed : noted scripts for lexapro 20 mg/day + seroquel 100 mg/hs + abilify 15 mg/day on 08/15/16 at [facility].Patient apppears to be unconcerned with this discrepancy.She only wants ambien and abilify.NO scripts will be issued at discharge from [facility].
[2016-08-27] MEDS ORDERED: ONDANSETRON *ODT* 4 MG TABLET SL PRN (16:30)
[2016-08-27] MEDS: ARIPiprazole 15 MG TABLET PO SCH (22:24)
[2016-08-27] MEDS: RANITIDINE HCL 150 MG TABLET (FP) PO SCH (22:24)
[2016-08-27] MEDS: THIAMINE HCL 100 MG TABLET (FP) PO SCH (22:24)
[2016-08-28] MEDS ORDERED: METHADONE HCL 40 MG DISPERSABLE TABLET ONE (03:14)
[2016-08-28] MEDS ORDERED: METHADONE HCL 10 MG TABLET ONE (03:15)
[2016-08-28] MEDS: METHADONE 80 MG, METHADONE 10 MG PO SCH (06:09)
[2016-08-28] MEDS: diazePAM 5 MG TABLET PO PRN ×2 (06:52→14:01)
--- NOTE | 2016-08-28 09:26 | PN ---
Psychiatric Progress Note Vital Signs: Vital Signs Period Temp Pulse Resp BP Sys/Real Pulse Ox Last 24 Hr 97.3 F-98.6 F 54-94 16-18 100-114/52-70 Date of Session: 08/28/16 Chief Complaint:: Insomnia HPI: Patient reports taking prior to admsision for severe insomnia Ambien 10mg po prn qhs Current Medications: Active Medications Generic Name Dose Route Start Last Admin Trade Name Freq PRN Reason Stop Dose Admin Acetaminophen 650 mg 08/26/16 17:00 Tylenol - PO Q4H PRN FEVER OR PAIN Al Hydroxide/Mg Hydroxide 30 ml 08/26/16 17:00 Mylanta Oral Suspension - PO Q6H PRN DYSPEPSIA Aripiprazole 15 mg 08/27/16 22:00 08/27/16 22:24 Abilify PO 15 mg HS OSVALDO Administration Benzocaine 1 applic 08/26/16 17:11 Americaine Ointment - SD PRN PRN PAIN Cyclobenzaprine HCl 10 mg 08/27/16 11:31 08/27/16 22:24 Flexeril - PO 10 mg TID PRN Administration MUSCLE SPASMS Diazepam 10 mg 08/26/16 17:00 08/28/16 06:52 Valium - PO 08/29/16 16:59 10 mg Q4H PRN Administration WITHDRAWAL(CONT SUBST) Diazepam 5 mg 08/28/16 10:00 Valium - PO 08/29/16 22:01 BID OSVALDO Diazepam 5 mg 08/30/16 10:00 Valium - PO 08/30/16 10:01 DAILY OSVALDO Diphenhydramine HCl 50 mg 08/26/16 17:00 08/26/16 22:17 Benadryl - PO 50 mg HSMR1 PRN Administration INSOMNIA Eucalyptus/Menthol/Phenol/Sorbitol 1 each 08/26/16 17:00 Cepastat Lozenge - MM Q4H PRN SORE THROAT Guaifenesin 10 ml 08/26/16 17:00 Robitussin Dm - PO Q6H PRN COUGH Ibuprofen 600 mg 08/27/16 11:30 Motrin - PO Q6H PRN SEVERE PAIN Loperamide HCl 4 mg 08/26/16 17:00 08/27/16 16:56 Imodium - PO 4 mg Q6H PRN Administration DIARRHEA Magnesium Citrate 300 ml 08/26/16 17:00 Citroma - PO Q48H PRN CONSTIPATION Magnesium Hydroxide 30 ml 08/26/16 17:00 Milk Of Magnesia - PO DAILY PRN CONSTIPATION Methadone HCl 80 mg/ Methadone 90 mg 08/27/16 07:45 08/28/16 06:09 HCl 10 mg PO 90 mg DAILY@0600 OSVALDO Administration Nicotine 14 mg 08/27/16 10:00 08/27/16 10:35 Nicoderm Patch - TD 14 mg DAILY OSVALDO Administration Nicotine Polacrilex 2 mg 08/26/16 17:00 Nicorette Gum - BC Q2H PRN NICOTINE REPLACEMENT RX Ondansetron HCl 4 mg 08/27/16 16:30 08/27/16 16:56 Zofran Odt - SL 4 mg Q6H PRN Administration NAUSEA AND/OR VOMITING Potassium Chloride 20 meq 08/27/16 11:15 08/27/16 11:50 K-Dur - PO 08/31/16 11:14 20 meq DAILY OSVALDO Administration Multivit/Folic Acid/Iron 1 tab 08/27/16 10:00 08/27/16 10:35 Vitamins (Sjr) - PO 1 tab DAILY OSVALDO Administration Pseudoephedrine/Triprolidine 1 combo 08/26/16 17:00 Actifed - PO TID PRN NASAL CONGESTION Ranitidine HCl 150 mg 08/27/16 22:00 08/27/16 22:24 Zantac - PO 150 mg BID OSVALDO Administration Thiamine HCl 100 mg 08/26/16 22:00 08/27/16 22:24 Vitamin B1 - PO 100 mg HS OSVALDO Administration Zolpidem Tartrate 10 mg 08/28/16 22:00 Ambien - PO 08/31/16 21:59 HS PRN INSOMNIA Medication(s) Change(s): Ambien 10mg po prn qhs Mental Status Exam - Mental Status Exam Alert and Oriented to: Person Cognitive Function: Fair Patient Appearance: Unkempt Mood: Anxious Affect: Flat Patient Behavior: Sedated Speech Pattern: Delayed Voice Loudness: Mildly Soft/Quiet Thought Process: Goal Oriented Thought Disorder: Being Controlled Hallucinations: Denies Suicidal Ideation: Denies Homicidal Ideation: Denies Sleep: Difficulty falling asleep Appetite: Weight gain Muscle strength/Tone: Normal Gait/Station: Normal Additional Comments: Ambien 10mg po prn qhs Psychiatric Treatment Plan - Problem List (1) Alcohol dependence with uncomplicated withdrawal Current Visit: Yes (2) Nicotine dependence Current Visit: Yes Qualifiers: Nicotine product type: cigarettes Substance use status: in withdrawal Qualified Code(s): F17.213 - Nicotine dependence, cigarettes, with withdrawal (3) Weight loss Current Visit: Yes (4) Bipolar disorder Current Visit: Yes Qualifiers: Active/Remission status: currently active Current episode severity: unspecified Comment: By history. (5) Cocaine dependence Current Visit: Yes Qualifiers: Substance use status: uncomplicated Qualified Code(s): F14.20 - Cocaine dependence, uncomplicated (6) Opioid dependence on agonist therapy Current Visit: Yes (7) Benzodiazepine dependence Current Visit: No Initial treatment plan: Ambien 10mg po prn qhs
[2016-08-28] MEDS: PRENATAL VITAMINS W/ FOLIC ACID TABLET (FP) PO SCH (10:43)
[2016-08-28] MEDS: diazePAM 5 MG TABLET PO SCH ×2 (10:43→22:39)
[2016-08-28] MEDS: RANITIDINE HCL 150 MG TABLET (FP) PO SCH ×2 (10:43→22:39)
[2016-08-28] MEDS: NICOTINE 14 MG/24 HOURS TOPICAL PATCH TD SCH (10:43)
[2016-08-28] MEDS: POTASSIUM CHLORIDE TABS 20 MEQ TABLET.ER (FP) PO SCH (10:43)
--- NOTE | 2016-08-28 10:43 | PN ---
[facility] CIWA - CIWA Score Nausea/Vomitin-No Nausea/No Vomiting Muscle Tremors: 3 Anxiety: 3 Agitation: 3 Paroxysmal Sweats: 3 Orientation: 0-Oriented Tacttile Disturbances: 0-None Auditory Disturbances: 0-None Visual Disturbances: 0-None Headache: 0-None Present CIWA-Ar Total Score: 12 S Progress Note (SOAP) Subjective: agitation sweats interrupted sleep I need to see psych again Objective: 08/28/16 10:43 Vital Signs Temperature 97.2 F L 08/28/16 10:11 Pulse Rate 78 08/28/16 10:11 Respiratory Rate 20 08/28/16 10:11 Blood Pressure 97/50 08/28/16 10:11 O2 Sat by Pulse Oximetry (%) Laboratory Tests 08/26/16 08/26/16 08/27/16 06:00 Unknown 06:00 WBC 7.1 RBC 4.07 Hgb 12.4 Hct 36.3 MCV 89.2 MCHC 34.2 RDW 14.4 Plt Count 383 MPV 7.8 Sodium Potassium Chloride Carbon Dioxide Anion Gap BUN Creatinine Creat Clearance w eGFR Random Glucose Calcium Total Bilirubin AST ALT Alkaline Phosphatase Total Protein Albumin Urine Color Halle Urine Appearance Slcloudy Urine pH 6.0 Ur Specific [place] 1.025 Urine Protein Negative Urine Glucose (UA) Negative Urine Ketones Negative Urine Blood Negative Urine Nitrite Negative Urine Bilirubin Negative Urine Urobilinogen 4.0 e.u/dl H Ur Leukocyte Esterase 2+ H Urine RBC 4 Urine WBC 34 Ur Epithelial Cells Moderate Calcium Oxalate Crystal Few Urine Bacteria Few Urine Mucus Many RPR Titer HIV 1&2 Antibody Screen Negative HIV P24 Antigen Negative 08/27/16 08/27/16 06:00 06:00 WBC RBC Hgb Hct MCV MCHC RDW Plt Count MPV Sodium 139 Potassium 3.3 L Chloride 103 Carbon Dioxide 27 Anion Gap 9 BUN 15 D Creatinine 0.6 Creat Clearance w eGFR > 60 Random Glucose 90 Calcium 8.7 Total Bilirubin 0.5 D AST 21 ALT 23 Alkaline Phosphatase 65 Total Protein 7.0 Albumin 3.7 Urine Color Urine Appearance Urine pH Ur Specific [place] Urine Protein Urine Glucose (UA) Urine Ketones Urine Blood Urine Nitrite Urine Bilirubin Urine Urobilinogen Ur Leukocyte Esterase Urine RBC Urine WBC Ur Epithelial Cells Calcium Oxalate Crystal Urine Bacteria Urine Mucus RPR Titer Nonreactive HIV 1&2 Antibody Screen HIV P24 Antigen repeat u/a awake/alert ambulating no acute distress Assessment: 08/28/16 10:44 withdrawal sx Plan: continue detox increase fluids psych order for revisit
[2016-08-28] MEDS ORDERED: ZOLPIDEM TARTRATE 10 MG TABLET (PARK CARE ONLY) PO PRN (22:00)
[2016-08-28] MEDS: ARIPiprazole 15 MG TABLET PO SCH (22:38)
[2016-08-28] MEDS: CYCLOBENZAPRINE HCL 10 MG TABLET (FP) PO PRN (22:38)
[2016-08-28] MEDS: THIAMINE HCL 100 MG TABLET (FP) PO SCH (22:39)
[2016-08-29] MEDS ORDERED: METHADONE HCL 40 MG DISPERSABLE TABLET ONE (03:52)
[2016-08-29] MEDS ORDERED: METHADONE HCL 10 MG TABLET ONE (03:53)
[2016-08-29] MEDS: METHADONE 80 MG, METHADONE 10 MG PO SCH (05:24)
[2016-08-29] MEDS: diazePAM 5 MG TABLET PO PRN ×2 (06:31→14:06)
[2016-08-29] MEDS: RANITIDINE HCL 150 MG TABLET (FP) PO SCH ×2 (10:28→22:14)
[2016-08-29] MEDS: PRENATAL VITAMINS W/ FOLIC ACID TABLET (FP) PO SCH (10:28)
[2016-08-29] MEDS: POTASSIUM CHLORIDE TABS 20 MEQ TABLET.ER (FP) PO SCH (10:29)
[2016-08-29] MEDS: NICOTINE 14 MG/24 HOURS TOPICAL PATCH TD SCH (10:29)
[2016-08-29] MEDS: diazePAM 5 MG TABLET PO SCH ×2 (10:29→22:14)
--- NOTE | 2016-08-29 11:13 | PN ---
[facility] Progress Note (SOAP) Subjective: sweats feeling better Objective: 08/29/16 11:11 Vital Signs Temperature 98.1 F 08/29/16 09:50 Pulse Rate 79 08/29/16 09:50 Respiratory Rate 18 08/29/16 09:50 Blood Pressure 103/57 08/29/16 09:50 O2 Sat by Pulse Oximetry (%) awake/alert ambulating no acute distress Assessment: 08/29/16 11:12 withdrawals sx Plan: continue detox increase fluids d/c in the am
[2016-08-29] MEDS: CYCLOBENZAPRINE HCL 10 MG TABLET (FP) PO PRN (22:14)
[2016-08-29] MEDS: THIAMINE HCL 100 MG TABLET (FP) PO SCH (22:14)
[2016-08-29] MEDS: ARIPiprazole 15 MG TABLET PO SCH (22:14)
[2016-08-30] MEDS ORDERED: METHADONE HCL 10 MG TABLET ONE (05:27)
[2016-08-30] MEDS ORDERED: METHADONE HCL 40 MG DISPERSABLE TABLET ONE (05:27)
[2016-08-30] MEDS: METHADONE 80 MG, METHADONE 10 MG PO SCH (05:47)
[2016-08-30 06:43] VITALS: BP 100/61; PULSE 85; TEMP 97.9
--- NOTE | 2016-08-30 08:40 | DS ---
[facility] Detox Discharge Summary Admission Date: 08/26/16 Discharge Date: 08/30/16 - History Present History: Alcohol Dependence, Cocaine Dependence, Sedative Dependence, MMTP - Physical Exam Results Vital Signs: Vital Signs Temperature 97.9 F 08/30/16 06:00 Pulse Rate 85 08/30/16 06:00 Respiratory Rate 16 08/30/16 06:00 Blood Pressure 100/61 08/30/16 06:00 O2 Sat by Pulse Oximetry (%) - Treatment Hospital Course: Detox Protocol Followed, Detoxed Safely, Responded well, Discharged Condition Good, Rehab Referral Accepted - Medication Discharge Medications: Ambulatory Orders Aripiprazole [Abilify -] 20 mg PO HS 02/23/16 - Diagnosis (1) Alcohol dependence with uncomplicated withdrawal Current Visit: Yes Status: Chronic (2) Insomnia Current Visit: Yes Status: Acute (3) Nicotine dependence Current Visit: Yes Status: Chronic Qualifiers: Nicotine product type: cigarettes Substance use status: uncomplicated Qualified Code(s): F17.210 - Nicotine dependence, cigarettes, uncomplicated (4) Weight loss Current Visit: Yes Status: Acute (5) Bipolar disorder Current Visit: Yes Status: Chronic Qualifiers: Active/Remission status: currently active Current episode severity: unspecified (6) Cocaine dependence Current Visit: Yes Status: Chronic Qualifiers: Substance use status: uncomplicated Qualified Code(s): F14.20 - Cocaine dependence, uncomplicated (7) Hemorrhoid Current Visit: Yes Status: Resolved Qualifiers: Hemorrhoid type: other Qualified Code(s): K64.8 - Other hemorrhoids (8) Hepatitis C Current Visit: Yes Status: Chronic Qualifiers: Viral hepatitis chronicity: chronic Hepatic coma status: without hepatic coma Qualified Code(s): B18.2 - Chronic viral hepatitis C (9) Methadone maintenance therapy patient Current Visit: Yes Status: Chronic (10) Opioid dependence on agonist therapy Current Visit: Yes Status: Chronic (11) Bipolar II disorder Current Visit: Yes Status: Suspected (12) Ankle pain, right Current Visit: No Status: Acute Qualifiers: Chronicity: acute Qualified Code(s): M25.571 - Pain in right ankle and joints of right foot (13) Benzodiazepine dependence Current Visit: Yes Status: Chronic - AMA Did Patient Leave Against Medical Advice: No (referred to go to [facility] rehab)
[2016-08-30] MEDS ORDERED: diazePAM 5 MG TABLET PO SCH (10:00)
[2016-08-30] MEDS: POTASSIUM CHLORIDE TABS 20 MEQ TABLET.ER (FP) PO SCH (10:59)
[2016-08-30] MEDS: RANITIDINE HCL 150 MG TABLET (FP) PO SCH (10:59)
[2016-08-30] MEDS: PRENATAL VITAMINS W/ FOLIC ACID TABLET (FP) PO SCH (10:59)
== END 2016-08-30 12:36 | disposition home or self-care (01) | DRG 773 ==
LOC: YASAS 12:26 → Y6N 18:12
PROVIDERS: ADMIT Internal Medicine; ATTEND Internal Medicine
PROC: HZ2ZZZZ Detoxification Services for Substance Abuse Treatment (ICD-10-PCS; principal; 2016-08-26)
DX: F10.230 Alcohol dependence with withdrawal, uncomplicated (principal); F11.20 Opioid dependence, uncomplicated; F14.20 Cocaine dependence, uncomplicated; F13.20 Sedative, hypnotic or anxiolytic dependence, uncomplicated; F17.210 Nicotine dependence, cigarettes, uncomplicated; F31.81 Bipolar II disorder; E87.6 Hypokalemia; B18.2 Chronic viral hepatitis C; G47.00 Insomnia, unspecified; K64.8 Other hemorrhoids; M25.571 Pain in right ankle and joints of right foot; Z87.898 Personal history of other specified conditions; Z91.5 Personal history of self-harm
CPT/HCPCS: 36415; 80053; 81003; 81015; 85027; 86593; 87389; 93005; 93010

== ENCOUNTER 2016-10-07 11:34 | Inpatient (IN) | payer OTHER ==
[2016-10-07 13:17] VITALS: BMI 20.6
--- NOTE | 2016-10-07 18:41 | HP ---
CIWA Score - CIWA Score Nausea/Vomitin Muscle Tremors: 4-Moderate,w/Arms Extend Anxiety: 3 Agitation: 3 Paroxysmal Sweats: 1-Minimal Palms Moist Orientation: 0-Oriented Tacttile Disturbances: 0-None Auditory Disturbances: 0-None Visual Disturbances: 0-None Headache: 1-Very Mild CIWA-Ar Total Score: 14 Admission ROS BHS - HPI Chief Complaint: WITHDRAWAL SX LAST DETOX 08/26- [facility] Allergies/Adverse Reactions: Allergies Allergy/AdvReac Type Severity Reaction Status Date / Time Penicillins Allergy Rash Verified 10/07/16 16:43 fish derived AdvReac Verified 10/07/16 16:43 History of Present Illness: 40 YEARS OLD FEMALE WITH LONG HISTORY OF ALCOHOL NICOTINE DEPENDENCE DENIES MEDICAL ISSUE HAS BIPOLAR II NONE COMPLIANCE WITH MEDICATION IS ADMITTED TO DETOX Exam Limitations: No Limitations - Ebola screening Have you traveled outside of the country in the last 21 days: No Have you had contact with anyone from an Ebola affected area: No Have you been sick,other than usual withdrawal symptoms: No Do you have a fever: No - Review of Systems Constitutional: Chills, Loss of Appetite, Changes in sleep, Unintentional Wgt. Loss, Unexplained wgt Loss EENT: reports: Dental Problems (UPPER AND LOWER DENTURE) Respiratory: reports: No Symptoms reported Cardiac: reports: No Symptoms Reported GI: reports: Nausea, Poor Appetite, Poor Fluid Intake, Vomiting, Abdominal cramping : reports: No Symptoms Reported Musculoskeletal: reports: Joint Pain (LEFT FOOT FX TREATED WITH 09/29/16 HALF HARD CAST AMBULATE WITH CRUTCHES) Integumentary: reports: No Symptoms Reported Neuro: reports: Tremors Endocrine: reports: No Symptoms Reported Hematology: reports: No Symptoms Reported Psychiatric: reports: Judgement Intact, Mood/Affect Appropiate, Orientated x3 Other Systems: Reviewed and Negative Patient History - Patient Medical History Hx Anemia: No Hx Asthma: No Hx Chronic Obstructive Pulmonary Disease (COPD): No Hx Cancer: No Hx Cardiac Disorders: No Hx Congestive Heart Failure: No Hx Hypertension: No Hx Hypercholesterolemia: No Hx Pacemaker: No HX Cerebrovascular Accident: No Hx Seizures: No Hx Dementia: No Hx Diabetes: No Hx Gastrointestinal Disorders: No Hx Liver Disease: No Hx Genitourinary Disorders: No Hx Sexually Transmitted Disorders: No Hx Renal Disease (ESRD): No Hx Thyroid Disease: No Hx Human Immunodeficiency Virus (HIV): No (NEGATIVE HX) Hx Hepatitis C: Yes (SCHEDULE TO TREAT) Hx Depression: No Hx Suicide Attempt: Yes (AGE 30 OVER DOSE) Hx Bipolar Disorder: Yes Hx Schizophrenia: No - Patient Surgical History Past Surgical History: No Hx Neurologic Surgery: No Hx Cataract Extraction: No Hx Cardiac Surgery: No Hx Lung Surgery: No Hx Breast Surgery: No Hx Breast Biopsy: No Hx Abdominal Surgery: No Hx Appendectomy: No Hx Cholecystectomy: No Hx Genitourinary Surgery: No Hx Section: No Hx Orthopedic Surgery: No Hx Hysterectomy: No - PPD History Previous Implant?: Yes Documented Results: Negative w/proof Implanted On Prior [facility] Admission?: Yes Date: 02/25/16 Results: 0 MM PPD to be Administered?: No - Reproductive History Patient is a Female of Child Bearing Age (11 -55 yrs old): Yes Last Menstrual Period: 09/26/16 Patient : No - Smoking Cessation Smoking history: Current every day smoker Have you smoked in the past 12 months: Yes Aproximately how many cigarettes per day: 8 Cigars Per Day: 0 Hx Chewing Tobacco Use: No Initiated information on smoking cessation: Yes 'Breaking Loose' booklet given: 10/07/16 - Substance & Tx. History Hx Alcohol Use: Yes Hx Substance Use: Yes Substance Use Type: Alcohol, Cocaine Hx Substance Use Treatment: Yes (08/26-08/30/16 [facility]) - Substances Abused Alcohol Route: Oral Frequency: Daily Amount used: BEER- 1 SIX PACK(18oz) Age of first use: 13 Date of Last Use: 10/07/16 Cocaine Route: Injection Frequency: Daily Amount used: 10 bags Age of first use: 24 Date of Last Use: 10/06/16 Heroin Route: Injection Frequency: Daily Amount used: 4 bags Age of first use: 24 Date of Last Use: 10/06/16 Family Disease History - Family Disease History Family Disease History: Heart Disease: Father (HTN;ALCOHOLISM), Other: Father Admission Physical Exam S - Vital Signs Vital Signs: Vital Signs - 24 hr 10/07/16 13:10 Temperature 97.8 F Pulse Rate 65 Respiratory 18 Rate Blood Pressure 99/59 - Physical General Appearance: Yes: Appropriately Dressed, Mild Distress, Thin, Tremorous, Irritable, Sweating, Anxious HEENTM: Yes: Hearing grossly Normal, Normal ENT Inspection, Normocephalic, Normal Voice Respiratory: Yes: Chest Non-Tender, Lungs Clear, Normal Breath Sounds, No Respiratory Distress, No Accessory Muscle Use Neck: Yes: Supple, Trachea in good position Breast: Yes: Breasts Symetrical Cardiology: Yes: Regular Rhythm, Regular Rate, S1, S2 Abdominal: Yes: Non Tender, Soft Genitourinary: Yes: Within Normal Limits Back: Yes: Normal Inspection Musculoskeletal: Yes: Gait Steady (CRUTCHES), Muscle Pain (LEFT FOOT) Extremities: Yes: Non-Tender, Tremors, Swelling (LEFT FOOT) Neurological: Yes: Fully Oriented, Alert, Normal Mood/Affect, Normal Response Integumentary: Yes: Normal Color, Warm Lymphatic: Yes: Within Normal Limits - Diagnostic (1) Weight loss Current Visit: Yes Status: Acute (2) Alcohol dependence with uncomplicated withdrawal Current Visit: Yes Status: Acute (3) Hepatitis C Current Visit: Yes Status: Chronic Qualifiers: Viral hepatitis chronicity: chronic Hepatic coma status: without hepatic coma Qualified Code(s): B18.2 - Chronic viral hepatitis C (4) Methadone maintenance therapy patient Current Visit: Yes Status: Chronic Comment: 100 MG VERIFICATION PENDING (5) Nicotine dependence Current Visit: Yes Status: Acute Qualifiers: Nicotine product type: cigarettes Substance use status: in withdrawal Qualified Code(s): F17.213 - Nicotine dependence, cigarettes, with withdrawal (6) Bipolar II disorder Current Visit: Yes Status: Suspected (7) Cocaine dependence, uncomplicated Current Visit: Yes Status: Chronic Cleared for Admission [facility] - Detox or Rehab [facility] Level of Care: Medically Managed Detox Regimen/Protocol: Valium [facility] Breath Alcohol Content Breath Alcohol Content: 0 Urine Pregancy Test - Result Urine Test Results: Negative- NO Line Present Urine Drug Screen - Results Drug Screen Negative: No Urine Drug Screen Results: STEVIE-Cocaine, OPI-Opiates, MTD-Methadone
[2016-10-07] MEDS ORDERED: P-EPHED 60MG/TRIPROLIDI 2.5MG TABLET PO PRN (18:55)
[2016-10-07] MEDS ORDERED: MENTHOL/PHENOL 1 EACH UD MM PRN (18:55)
[2016-10-07] MEDS ORDERED: guaiFENesin/D-METHORPHAN HB 10 ML UNIT-DOSE CUPS PO PRN (18:55)
[2016-10-07] MEDS ORDERED: NICOTINE POLACRILEX 2 MG GUM BUC PRN (18:55)
[2016-10-07] MEDS ORDERED: MAGNESIUM HYDROX 2400MG/30ML ORAL SUSPENSION 30 ML CUP PO PRN (18:55)
[2016-10-07] MEDS ORDERED: ACETAMINOPHEN 325 MG TABLET (FP) PO PRN (18:55)
[2016-10-07] MEDS ORDERED: LOPERAMIDE HCL 2 MG CAPSULE PO PRN (18:55)
[2016-10-07] MEDS ORDERED: MAG HYDROX/AL HYDROX/SIMETH 30 ML UNIT-DOSE CUP PO PRN (18:55)
[2016-10-07] MEDS ORDERED: MAGNESIUM CITRATE 300 ML BOTTLE PO PRN (18:55)
[2016-10-07] MEDS ORDERED: diazePAM 5 MG TABLET PO ONE (19:15)
[2016-10-07] MEDS: diazePAM 5 MG TABLET PO SCH (22:08)
[2016-10-07] MEDS: THIAMINE HCL 100 MG TABLET (FP) PO SCH (22:08)
[2016-10-07] MEDS: IBUPROFEN 400 MG TABLET (FP) PO PRN (22:09)
[2016-10-07 23:12] LABS: URINE APPEARANCE CLOUDY; URINE COLOR AMBER; URINE GLUCOSE (UA) NEGATIVE (NEGATIVE); URINE KETONE TRACE (NEGATIVE); URINE NITRITE NEGATIVE (NEGATIVE); URINE UROBILINOGEN 4.0 E.U/dl mg/dL (0.2-1.0)
[2016-10-07 23:14] LABS: URINE BLOOD 1+ (NEGATIVE); URINE LEUK ESTERASE 2+ (NEGATIVE); URINE PROTEIN 1+ (NEGATIVE)
[2016-10-07 23:22] LABS: URINE BACTERIA RARE /hpf (NONE SEEN); URINE MUCUS MANY; URINE RBC 11 /hpf (0-3); URINE WBC 53 /hpf (3-5)
[2016-10-08] MEDS: diazePAM 5 MG TABLET PO PRN (00:58)
[2016-10-08] MEDS: diazePAM 5 MG TABLET PO SCH ×3 (05:55→22:08)
[2016-10-08] MEDS ORDERED: METHADONE HCL 40 MG DISPERSABLE TABLET PO SCH (07:30)
[2016-10-08] MEDS ORDERED: METHADONE HCL 10 MG TABLET ONE (07:47)
[2016-10-08] MEDS ORDERED: METHADONE HCL 40 MG DISPERSABLE TABLET ONE (07:47)
[2016-10-08] MEDS: METHADONE 80 MG, METHADONE 20 MG PO SCH (07:48)
--- NOTE | 2016-10-08 09:33 | PN ---
S CIWA - CIWA Score Nausea/Vomitin-No Nausea/No Vomiting Muscle Tremors: 4-Moderate,w/Arms Extend Anxiety: 3 Agitation: 4-Moderately Restless Paroxysmal Sweats: 3 Orientation: 0-Oriented Tacttile Disturbances: 0-None Auditory Disturbances: 0-None Visual Disturbances: 0-None Headache: 2-Mild CIWA-Ar Total Score: 16 BHS Progress Note (SOAP) Subjective: diarrhea sweats body aches shakes irritable Objective: 10/08/16 09:31 Vital Signs Temperature 98.1 F 10/08/16 06:25 Pulse Rate 73 10/08/16 06:25 Respiratory Rate 18 10/08/16 06:25 Blood Pressure 94/50 10/08/16 06:25 O2 Sat by Pulse Oximetry (%) Laboratory Tests 10/07/16 19:05 Urine Color Halle Urine Appearance Cloudy Urine pH 6.0 Ur Specific [place] 1.025 Urine Protein 1+ H Urine Glucose (UA) Negative Urine Ketones Trace H Urine Blood 1+ H Urine Nitrite Negative Urine Bilirubin 2.0 Urine Urobilinogen 4.0 e.u/dl H Ur Leukocyte Esterase 2+ H Urine RBC 11 Urine WBC 53 Ur Epithelial Cells Moderate Urine Bacteria Rare Urine Mucus Many repeat u/a with c&s labs pending awake/alert ambulating with crutches Assessment: 10/08/16 09:33 withdrawal sx Plan: continue detox increase fluids f/u pending labs
[2016-10-08 10:06] LABS: MCH 30.4 pg (25.7-33.7); MCHC 34.1 g/dl (32.0-36.0); MEAN CELL VOLUME 89.4 fl (80-96); PLATELET COUNT 356 K/MM3 (134-434); RDW 14.1 % (11.6-15.6)
[2016-10-08] MEDS: PRENATAL VITAMINS W/ FOLIC ACID TABLET (FP) PO SCH (10:08)
[2016-10-08] MEDS: NICOTINE 14 MG/24 HOURS TOPICAL PATCH TD SCH (10:08)
[2016-10-08] MEDS: SULFAMETHOXAZOLE/TRIMETHOPRIM 800MG/160MG D.S. TABLET PO SCH ×2 (10:10→22:10)
[2016-10-08 10:19] LABS: ALBUMIN 3.2 g/dl (3.4-5.0); ANION GAP 6 (8-16); CALCIUM 8.9 mg/dL (8.5-10.1); CO2 34 mmol/L (21-32); GLUCOSE,RANDOM 68 mg/dL (74-106)
[2016-10-08 10:23] LABS: ALK PHOS 77 U/L (45-117); BILIRUBIN,TOTAL 0.6 mg/dL (0.2-1.0); CREATININE 0.6 mg/dL (0.55-1.02); SGOT/AST 23 U/L (15-37); SGPT/ALT 24 U/L (12-78)
--- NOTE | 2016-10-08 13:47 | CONSULT ---
[facility] Psychiatric Consult - Data Date of interview: 10/08/16 Admission source: [facility] Identifying data: Readmission to [facility] for this 40 y/o female seeking detox treatment on for alcohol,heroin,benzodiazepine (xanax) and cocaine dependence.Patient is single,a mother of two,domiciled,unemployed and supported on SSI benefits. Substance Abuse History: Patient admits to abusing alcohol since age 13.Consumes on e 6 pack of beer daily and last used alcohol on 10/07/16.Uses 4 bags of heroin a day (intarvenous route).Started at age 22.Used heroin last week.Spends 100 dollars a day of crack.Used two days ago.Age at onset : 22. Medical History: Hepatitis C and recent fracture of left foot (09/29/16).Wears a 1 /2 hard cast and uses crutches for ambulation. Psychiatric History: Extensive history of psychiatric illness.Discharged from [facility] about three months ago.Diagnosed with Bipolar Disorder,MDD and Anxiety Disorder.Patient reports that she is prescribed abilify 20 mg/hs and clonazepam.Reports non-adherence to medications for past four months.On methadone maintenance (100 mg/day) at the [facility] MMTP program.Ms araujo denies history of suicide attempts. Physical/Sexual Abuse/Trauma History: Patient denies. Additional Comment: Urine Drug Screen is positive for cocaine,opiates and methadone. Mental Status Exam - Mental Status Exam Alert and Oriented to: Time, Place, Person Cognitive Function: Good Patient Appearance: Well Groomed Mood: Anxious, Apprehensive Affect: Mood Congruent Patient Behavior: Fatigued, Cooperative Speech Pattern: Clear Voice Loudness: Normal Thought Process: Goal Oriented Thought Disorder: Not Present Hallucinations: Denies Suicidal Ideation: Denies Homicidal Ideation: Denies Insight/Judgement: Poor Sleep: Fair Appetite: Good Muscle strength/Tone: Normal (no complaint of rigidity) Gait/Station: Other (uses a pair of crutches for ambulation) Psychiatric Findings - Problem List ([place] 1, 2,3) (1) Alcohol dependence with uncomplicated withdrawal Current Visit: Yes Status: Acute (2) Nicotine dependence Current Visit: Yes Status: Acute Qualifiers: Nicotine product type: cigarettes Substance use status: in withdrawal Qualified Code(s): F17.213 - Nicotine dependence, cigarettes, with withdrawal (3) Cocaine dependence, uncomplicated Current Visit: Yes Status: Acute (4) Opioid dependence on agonist therapy Current Visit: Yes Status: Acute (5) Bipolar disorder Current Visit: Yes Status: Chronic Qualifiers: Active/Remission status: currently active Current episode severity: unspecified Comment: By history. (6) Weight loss Current Visit: Yes Status: Chronic (7) Hepatitis C Current Visit: Yes Status: Chronic Qualifiers: Viral hepatitis chronicity: chronic Hepatic coma status: without hepatic coma Qualified Code(s): B18.2 - Chronic viral hepatitis C (8) Ankle pain, right Current Visit: Yes Status: Acute Qualifiers: Chronicity: acute Qualified Code(s): M25.571 - Pain in right ankle and joints of right foot - Initial Treatment Plan Initial Treatment Plan: Psychoeducation provided in this session.S report read.Detoxification in progress.Medication: abilify 5 mg po hs.Ordered.Side effects/benefits discussed with the patient.She agrees (verbally) to take the medication.Observation.
[2016-10-08 16:46] LABS: URINE APPEARANCE SLCLOUDY; URINE BILIRUBIN NEGATIVE (NEGATIVE); URINE BLOOD NEGATIVE (NEGATIVE); URINE COLOR DKYELLOW; URINE GLUCOSE (UA) NEGATIVE (NEGATIVE); URINE KETONE TRACE (NEGATIVE); URINE NITRITE NEGATIVE (NEGATIVE); URINE PROTEIN NEGATIVE (NEGATIVE); URINE UROBILINOGEN 4.0 E.U/dl mg/dL (0.2-1.0)
[2016-10-08 16:47] LABS: URINE LEUK ESTERASE 1+ (NEGATIVE)
--- NOTE | 2016-10-08 17:09 | EKG ---
Test Reason : Blood Pressure : / mmHG Vent. Rate : 061 BPM Atrial Rate : 061 BPM P-R Int : 134 ms QRS Dur : 084 ms QT Int : 460 ms P-R-T Axes : 032 071 063 degrees QTc Int : 463 ms NORMAL SINUS RHYTHM PROLONGED QTC WHEN COMPARED WITH ECG OF 26-AUG-2016 17:58, NO SIGNIFICANT CHANGE WAS FOUND CORELATE CLINICALLY Confirmed by KWESI GONZALEZ MD ([id number]) on 10/08/2016 5:08:53 PM Referred By: Yasmin Lorenzo Confirmed By:KWESI GONZALEZ MD
[2016-10-08 19:45] LABS: URINE MUCUS MANY; URINE RBC 15 /hpf (0-3); URINE WBC 4 /hpf (3-5)
[2016-10-08] MEDS: ARIPiprazole 5 MG TABLET (FP) PO SCH (22:08)
[2016-10-08] MEDS: IBUPROFEN 400 MG TABLET (FP) PO PRN (22:08)
[2016-10-08] MEDS: diphenhydrAMINE HCL 50 MG CAPSULE PO PRN (22:09)
[2016-10-08] MEDS: THIAMINE HCL 100 MG TABLET (FP) PO SCH (22:09)
[2016-10-09] MEDS ORDERED: METHADONE HCL 40 MG DISPERSABLE TABLET ONE (04:40)
[2016-10-09] MEDS ORDERED: METHADONE HCL 10 MG TABLET ONE (04:41)
[2016-10-09] MEDS: METHADONE 80 MG, METHADONE 20 MG PO SCH (06:01)
[2016-10-09] MEDS: diazePAM 5 MG TABLET PO PRN ×3 (06:06→19:32)
[2016-10-09] MEDS: PRENATAL VITAMINS W/ FOLIC ACID TABLET (FP) PO SCH (09:37)
[2016-10-09] MEDS: SULFAMETHOXAZOLE/TRIMETHOPRIM 800MG/160MG D.S. TABLET PO SCH ×2 (09:37→22:25)
[2016-10-09] MEDS: IBUPROFEN 400 MG TABLET (FP) PO PRN ×2 (09:38→19:31)
[2016-10-09] MEDS: diazePAM 5 MG TABLET PO SCH ×2 (09:38→22:25)
[2016-10-09] MEDS: NICOTINE 14 MG/24 HOURS TOPICAL PATCH TD SCH (09:39)
--- NOTE | 2016-10-09 10:31 | PN ---
[facility] CIWA - CIWA Score Nausea/Vomitin-No Nausea/No Vomiting Muscle Tremors: 4-Moderate,w/Arms Extend Anxiety: 3 Agitation: 4-Moderately Restless Paroxysmal Sweats: 3 Orientation: 0-Oriented Tacttile Disturbances: 0-None Auditory Disturbances: 0-None Visual Disturbances: 0-None Headache: 1-Very Mild CIWA-Ar Total Score: 15 S Progress Note (SOAP) Subjective: sweats mild shakes interrupted sleep little diarrhea Objective: 10/09/16 10:28 Vital Signs Temperature 97. F 10/09/16 10:00 Pulse Rate 67 10/09/16 10:00 Respiratory Rate 16 10/09/16 10:00 Blood Pressure 95/50 10/09/16 10:00 O2 Sat by Pulse Oximetry (%) Laboratory Tests 10/07/16 10/08/16 10/08/16 19:05 06:30 06:30 WBC 7.0 RBC 3.99 Hgb 12.1 Hct 35.6 MCV 89.4 MCH 30.4 MCHC 34.1 RDW 14.1 Plt Count 356 MPV 8.0 Sodium 139 Potassium 3.7 Chloride 99 Carbon Dioxide 34 H D Anion Gap 6 L BUN 20 H D Creatinine 0.6 Creat Clearance w eGFR > 60 Random Glucose 68 L D Calcium 8.9 Total Bilirubin 0.6 AST 23 ALT 24 Alkaline Phosphatase 77 Total Protein 7.0 Albumin 3.2 L Urine Color Halle Urine Appearance Cloudy Urine pH 6.0 Ur Specific [place] 1.025 Urine Protein 1+ H Urine Glucose (UA) Negative Urine Ketones Trace H Urine Blood 1+ H Urine Nitrite Negative Urine Bilirubin 2.0 Urine Urobilinogen 4.0 e.u/dl H Ur Leukocyte Esterase 2+ H Urine RBC 11 Urine WBC 53 Ur Epithelial Cells Moderate Urine Bacteria Rare Urine Mucus Many RPR Titer 10/08/16 10/08/16 06:30 14:40 WBC RBC Hgb Hct MCV MCH MCHC RDW Plt Count MPV Sodium Potassium Chloride Carbon Dioxide Anion Gap BUN Creatinine Creat Clearance w eGFR Random Glucose Calcium Total Bilirubin AST ALT Alkaline Phosphatase Total Protein Albumin Urine Color Dkyellow Urine Appearance Slcloudy Urine pH 5.0 Ur Specific [place] >= 1.030 H Urine Protein Negative Urine Glucose (UA) Negative Urine Ketones Trace H Urine Blood Negative Urine Nitrite Negative Urine Bilirubin Negative Urine Urobilinogen 4.0 e.u/dl H Ur Leukocyte Esterase 1+ H Urine RBC 15 Urine WBC 4 Ur Epithelial Cells Rare Urine Bacteria Urine Mucus Many RPR Titer Nonreactive awake/alert ambulating no acute distress repeated u/a improving; continue ABX Assessment: 10/09/16 10:35 withdrawal sx Plan: continue detox increase fluids
[2016-10-09] MEDS: THIAMINE HCL 100 MG TABLET (FP) PO SCH (22:25)
[2016-10-09] MEDS: diphenhydrAMINE HCL 50 MG CAPSULE PO PRN (22:25)
[2016-10-09] MEDS: ARIPiprazole 5 MG TABLET (FP) PO SCH (22:25)
[2016-10-10] MEDS: diazePAM 5 MG TABLET PO PRN (03:36)
[2016-10-10] MEDS ORDERED: METHADONE HCL 40 MG DISPERSABLE TABLET ONE (04:43)
[2016-10-10] MEDS ORDERED: METHADONE HCL 10 MG TABLET ONE (04:44)
[2016-10-10] MEDS: METHADONE 80 MG, METHADONE 20 MG PO SCH (05:26)
[2016-10-10] MEDS: IBUPROFEN 400 MG TABLET (FP) PO PRN (07:11)
--- NOTE | 2016-10-10 08:56 | PN ---
BHS Progress Note (SOAP) Subjective: ALERT,NO COMPLAINT,AMBULATION WITH CRUTCHES Objective: 10/10/16 08:52 Vital Signs Temperature 97.5 F L 10/10/16 06:46 Pulse Rate 69 10/10/16 06:46 Respiratory Rate 18 10/10/16 06:46 Blood Pressure 107/73 10/10/16 06:46 O2 Sat by Pulse Oximetry (%) Assessment: 10/10/16 08:53 PATIENT IS STABLE,NO WITHDRAWAL SYMPTOM Plan: STABLE FOR DISCHARGE TODAY TO REHAB
--- NOTE | 2016-10-10 09:01 | DS ---
[facility] Detox Discharge Summary Admission Date: 10/07/16 Discharge Date: 10/10/16 - History Present History: Alcohol Dependence, Cocaine Dependence, Opioid Dependence, MMTP Additional Comments: FOLLOW UP WITH [facility] Pertinent Past History: HEPATITIS C NICOTINE DEPENDENCE BI[OLAR 2 DISORDER AMBULATE WITH CRUTCHES FX OF LEFT FOOT - Physical Exam Results Vital Signs: Vital Signs Temperature 97.5 F L 10/10/16 06:46 Pulse Rate 69 10/10/16 06:46 Respiratory Rate 18 10/10/16 06:46 Blood Pressure 107/73 10/10/16 06:46 O2 Sat by Pulse Oximetry (%) Pertinent Admission Physical Exam Findings: WITHDRAWAL SYMPTOM - Treatment Hospital Course: Detox Protocol Followed, Detoxed Safely, Responded well, Discharged Condition Good, Rehab Referral Accepted Patient has Accepted a Rehab Referral to: [facility] - Medication Discharge Medications: Ambulatory Orders Aripiprazole [Abilify -] 20 mg PO HS 02/23/16 Aripiprazole [Abilify -] 5 mg PO HS #30 tablet 10/08/16 - AMA Did Patient Leave Against Medical Advice: No
[2016-10-10] MEDS: SULFAMETHOXAZOLE/TRIMETHOPRIM 800MG/160MG D.S. TABLET PO SCH (10:20)
[2016-10-10] MEDS: PRENATAL VITAMINS W/ FOLIC ACID TABLET (FP) PO SCH (10:20)
[2016-10-10] MEDS: diazePAM 5 MG TABLET PO SCH (10:20)
[2016-10-10] MEDS: NICOTINE 14 MG/24 HOURS TOPICAL PATCH TD SCH (10:22)
[2016-10-10 11:02] VITALS: BP 105/60; PULSE 74; TEMP 96.1
[2016-10-11] MEDS ORDERED: diazePAM 5 MG TABLET PO SCH (10:00)
== END 2016-10-10 13:58 | disposition other institution (70) | DRG 773 ==
LOC: YASAS 11:34 → Y6N 17:15
PROVIDERS: ADMIT Internal Medicine Addiction Medicine; ATTEND Internal Medicine Addiction Medicine
PROC: HZ2ZZZZ Detoxification Services for Substance Abuse Treatment (ICD-10-PCS; principal; 2016-10-10)
DX: F11.20 Opioid dependence, uncomplicated (principal); F10.230 Alcohol dependence with withdrawal, uncomplicated; F14.20 Cocaine dependence, uncomplicated; F31.81 Bipolar II disorder; B18.2 Chronic viral hepatitis C; M25.571 Pain in right ankle and joints of right foot; Z87.81 Personal history of (healed) traumatic fracture; R63.4 Abnormal weight loss; Z68.22 Body mass index [BMI] 22.0-22.9, adult; R26.89 Other abnormalities of gait and mobility; Z99.89 Dependence on other enabling machines and devices
CPT/HCPCS: 36415; 80053; 81003; 81015; 85027; 86593; 87086; 93005; 93010

== ENCOUNTER 2016-10-10 14:07 | Inpatient (IN) | payer OTHER ==
--- NOTE | 2016-10-10 14:46 | HP ---
Psychiatrist Admission - Data Date of interview: 10/10/16 Admission source: [facility] Identifying data: This is the second [facility] rehabilitation admission, first to [facility] for this 40 year old single female, mother of two, she is domiciled unemployed and supported on [employer]. Medical History: Patient reports history of Hep C and fracture of left foot, on cast and uses crutches. On MMTP 100 mg /daily. Psychiatric History: Patient reports first psychiatric contact at age of 16, [facility]. Was diagnosed as depreesion, bipolar and anxiety. Reports several psychiatric hospitalizations at [facility] and [facility], most recent was on due to depression. Patient reports was on Abilify 20 mg po daily at [facility], she is non-compliant with her medications. Seen by while at [facility] and restarted Abilify 5 mg po daily. Past treatment with Risprerdal and Zyprexa. Physical/Sexual Abuse/Trauma History: Denies history of abuse. Allergies/Adverse Reactions: Allergies Allergy/AdvReac Type Severity Reaction Status Date / Time Penicillins Allergy Rash Verified 10/07/16 16:43 fish derived AdvReac Verified 10/07/16 16:43 Date of last physical exam: 10/07/16 Concur with the findings of this exam: Yes - Substance Abuse/Tx History Hx Alcohol Use: Yes (started at age 13, consummes 6 packs of beer daily) Substance Use Type: Cocaine (spends $100 daily), Heroin (IV use 4 bags daily) Hx Substance Use Treatment: Yes - Admission Criteria Previous failed treatment: Yes Poor recovery environment: Yes Comorbidities: Yes Lacks judgement: Yes Mental Status Exam - Mental Status Exam Alert and Oriented to: Time, Place, Person Cognitive Function: Grossly Intact Patient Appearance: Well Groomed Mood: Sad, Anxious Affect: Mood Congruent Patient Behavior: Sedated, Appropriate Speech Pattern: Appropriate Voice Loudness: Normal Thought Process: Goal Oriented Thought Disorder: Not Present Hallucinations: Denies Suicidal Ideation: Denies Homicidal Ideation: Denies Insight/Judgement: Fair Sleep: Fair Appetite: Fair Muscle strength/Tone: Normal Gait/Station: Other (ambulets with crutches) Psychiatric Findings - Problem List ([place] 1, 2,3) (1) Cocaine dependence, uncomplicated Current Visit: No Status: Acute (2) Nicotine dependence Current Visit: No Status: Acute Qualifiers: Nicotine product type: cigarettes Substance use status: in withdrawal Qualified Code(s): F17.213 - Nicotine dependence, cigarettes, with withdrawal (3) Opioid dependence on agonist therapy Current Visit: No Status: Acute (4) Alcohol dependence Current Visit: Yes Status: Acute (5) Bipolar disorder Current Visit: No Status: Chronic Qualifiers: Active/Remission status: currently active Current episode severity: unspecified Comment: By history. - Initial Treatment Plan Initial Treatment Plan: Psychoeducation provided in this session.Continue abilify 5 mg po hs. Side- effects/benefits discussed with the patient, will monitor progress as needed.
[2016-10-10] MEDS ORDERED: guaiFENesin/D-METHORPHAN HB 10 ML UNIT-DOSE CUPS PO PRN (16:16)
[2016-10-10] MEDS ORDERED: MENTHOL/PHENOL 1 EACH UD MM PRN (16:16)
[2016-10-10] MEDS ORDERED: NICOTINE POLACRILEX 4 MG GUM BUC PRN (16:16)
[2016-10-10] MEDS ORDERED: P-EPHED 60MG/TRIPROLIDI 2.5MG TABLET PO PRN (16:16)
[2016-10-10] MEDS ORDERED: hydrOXYzine PAMOATE 50 MG CAPSULE (FP) PO PRN (16:16)
[2016-10-10] MEDS ORDERED: MAG HYDROX/AL HYDROX/SIMETH 30 ML UNIT-DOSE CUP PO PRN (16:16)
[2016-10-10] MEDS ORDERED: MAGNESIUM CITRATE 300 ML BOTTLE PO PRN (16:16)
[2016-10-10] MEDS ORDERED: MAGNESIUM HYDROX 2400MG/30ML ORAL SUSPENSION 30 ML CUP PO PRN (16:16)
[2016-10-10] MEDS ORDERED: LOPERAMIDE HCL 2 MG CAPSULE PO PRN (16:16)
[2016-10-10] MEDS: NICOTINE 21 MG/24 HOURS TOPICAL PATCH TD SCH (21:11)
[2016-10-10] MEDS: THIAMINE HCL 100 MG TABLET (FP) PO SCH (21:17)
[2016-10-10] MEDS: diphenhydrAMINE HCL 50 MG CAPSULE PO PRN (21:17)
[2016-10-10] MEDS: ARIPiprazole 5 MG TABLET (FP) PO SCH (21:17)
[2016-10-10] MEDS: IBUPROFEN 400 MG TABLET (FP) PO PRN (21:19)
[2016-10-11] MEDS ORDERED: METHADONE HCL 40 MG DISPERSABLE TABLET PO SCH (06:00)
[2016-10-11] MEDS ORDERED: METHADONE HCL 10 MG TABLET ONE (06:13)
[2016-10-11] MEDS ORDERED: METHADONE HCL 40 MG DISPERSABLE TABLET ONE (06:13)
[2016-10-11] MEDS: METHADONE 80 MG, METHADONE 20 MG PO SCH (06:22)
[2016-10-11] MEDS: IBUPROFEN 400 MG TABLET (FP) PO PRN ×2 (09:12→15:22)
[2016-10-11] MEDS: NICOTINE 21 MG/24 HOURS TOPICAL PATCH TD SCH (09:12)
[2016-10-11] MEDS: PRENATAL VITAMINS W/ FOLIC ACID TABLET (FP) PO SCH (09:12)
[2016-10-11] MEDS: ACETAMINOPHEN 325 MG TABLET (FP) PO PRN (11:26)
[2016-10-11 14:45] LABS: HIV 1 & 2 AB NEGATIVE; HIV 1 AGp24 NEGATIVE
[2016-10-11] MEDS: CYCLOBENZAPRINE HCL 10 MG TABLET (FP) PO PRN ×2 (15:21→21:39)
[2016-10-11] MEDS: diphenhydrAMINE HCL 50 MG CAPSULE PO PRN (21:37)
[2016-10-11] MEDS: ARIPiprazole 5 MG TABLET (FP) PO SCH (21:37)
[2016-10-11] MEDS: THIAMINE HCL 100 MG TABLET (FP) PO SCH (21:40)
[2016-10-12] MEDS ORDERED: METHADONE HCL 40 MG DISPERSABLE TABLET ONE (05:28)
[2016-10-12] MEDS ORDERED: METHADONE HCL 10 MG TABLET ONE (05:28)
[2016-10-12] MEDS: METHADONE 80 MG, METHADONE 20 MG PO SCH (06:45)
[2016-10-12] MEDS: CYCLOBENZAPRINE HCL 10 MG TABLET (FP) PO PRN ×2 (07:12→17:40)
--- NOTE | 2016-10-12 07:47 | HP ---
[facility] Rehab Assess/Revision - Admission History Admitted to Rehab from: [facility] Date of Admission to Rehab: 10/10/16 - Vital signs Vital Signs: Vital Signs Period Temp Pulse Resp BP Sys/Real Pulse Ox Last 24 Hr 98.3 F 90 18-18 98/61 - Findings Detox History & Physical reviewed: Yes Concur with findings: Yes Comments/Additional Findings: for rehyab as protocol
--- NOTE | 2016-10-12 07:49 | PN ---
S Progress Note Note: addendum pplease be note that patient wwas admitted to rhab on 10/10/16
--- NOTE | 2016-10-12 08:07 | PN ---
BHS Progress Note Note: called by nurse to evaluate patient with head injury patient get up and hit the forehead on the corner of table no loc alert,oriented x 3 no neck pain pupil equal and react to light Vital Signs Temperature 98.3 F 10/12/16 07:01 Pulse Rate 90 10/12/16 07:01 Respiratory Rate 18 10/12/16 07:01 Blood Pressure 98/61 10/12/16 07:01 O2 Sat by Pulse Oximetry (%) history of left foot injury on splint ambulation with crutches impression head injury protocol 1 initiate ice pack,neuro watch as protocol patient refused treatment
[2016-10-12] MEDS: IBUPROFEN 400 MG TABLET (FP) PO PRN (09:05)
[2016-10-12] MEDS: NICOTINE 21 MG/24 HOURS TOPICAL PATCH TD SCH (09:05)
[2016-10-12] MEDS: PRENATAL VITAMINS W/ FOLIC ACID TABLET (FP) PO SCH (09:05)
[2016-10-12] MEDS: ACETAMINOPHEN 325 MG TABLET (FP) PO PRN (12:09)
[2016-10-12] MEDS: diphenhydrAMINE HCL 50 MG CAPSULE PO PRN (21:43)
[2016-10-12] MEDS: ARIPiprazole 5 MG TABLET (FP) PO SCH (21:43)
[2016-10-12] MEDS: THIAMINE HCL 100 MG TABLET (FP) PO SCH (21:44)
[2016-10-13] MEDS ORDERED: METHADONE HCL 10 MG TABLET ONE (05:52)
[2016-10-13] MEDS ORDERED: METHADONE HCL 40 MG DISPERSABLE TABLET ONE (05:52)
[2016-10-13] MEDS: METHADONE 80 MG, METHADONE 20 MG PO SCH (06:17)
[2016-10-13] MEDS: CYCLOBENZAPRINE HCL 10 MG TABLET (FP) PO PRN ×2 (08:48→16:31)
[2016-10-13] MEDS: PRENATAL VITAMINS W/ FOLIC ACID TABLET (FP) PO SCH (09:45)
[2016-10-13] MEDS: NICOTINE 21 MG/24 HOURS TOPICAL PATCH TD SCH (09:45)
[2016-10-13] MEDS: IBUPROFEN 400 MG TABLET (FP) PO PRN (09:46)
[2016-10-13] MEDS: THIAMINE HCL 100 MG TABLET (FP) PO SCH (21:44)
[2016-10-13] MEDS: ARIPiprazole 5 MG TABLET (FP) PO SCH (22:30)
[2016-10-14] MEDS ORDERED: METHADONE HCL 40 MG DISPERSABLE TABLET ONE (06:14)
[2016-10-14] MEDS ORDERED: METHADONE HCL 10 MG TABLET ONE (06:14)
[2016-10-14] MEDS: METHADONE 80 MG, METHADONE 20 MG PO SCH (06:14)
[2016-10-14] MEDS: CYCLOBENZAPRINE HCL 10 MG TABLET (FP) PO PRN ×2 (08:55→17:12)
[2016-10-14] MEDS: NICOTINE 21 MG/24 HOURS TOPICAL PATCH TD SCH (10:17)
[2016-10-14] MEDS: PRENATAL VITAMINS W/ FOLIC ACID TABLET (FP) PO SCH (10:17)
[2016-10-14] MEDS: THIAMINE HCL 100 MG TABLET (FP) PO SCH (21:28)
[2016-10-14] MEDS: ARIPiprazole 5 MG TABLET (FP) PO SCH (21:28)
[2016-10-15] MEDS ORDERED: METHADONE HCL 40 MG DISPERSABLE TABLET ONE (03:15)
[2016-10-15] MEDS ORDERED: METHADONE HCL 10 MG TABLET ONE (03:15)
[2016-10-15] MEDS: METHADONE 80 MG, METHADONE 20 MG PO SCH (06:16)
[2016-10-15] MEDS: CYCLOBENZAPRINE HCL 10 MG TABLET (FP) PO PRN ×2 (10:13→21:14)
[2016-10-15] MEDS: IBUPROFEN 400 MG TABLET (FP) PO PRN (10:15)
[2016-10-15] MEDS: NICOTINE 21 MG/24 HOURS TOPICAL PATCH TD SCH (10:18)
[2016-10-15] MEDS: PRENATAL VITAMINS W/ FOLIC ACID TABLET (FP) PO SCH (10:18)
[2016-10-15] MEDS: THIAMINE HCL 100 MG TABLET (FP) PO SCH (21:11)
[2016-10-15] MEDS: diphenhydrAMINE HCL 50 MG CAPSULE PO PRN (21:11)
[2016-10-15] MEDS: ARIPiprazole 5 MG TABLET (FP) PO SCH (21:12)
[2016-10-16] MEDS ORDERED: METHADONE HCL 10 MG TABLET ONE (03:12)
[2016-10-16] MEDS ORDERED: METHADONE HCL 40 MG DISPERSABLE TABLET ONE (03:12)
[2016-10-16] MEDS: METHADONE 80 MG, METHADONE 20 MG PO SCH (06:06)
[2016-10-16] MEDS: NICOTINE 21 MG/24 HOURS TOPICAL PATCH TD SCH (10:01)
[2016-10-16] MEDS: PRENATAL VITAMINS W/ FOLIC ACID TABLET (FP) PO SCH (10:01)
[2016-10-16] MEDS: CYCLOBENZAPRINE HCL 10 MG TABLET (FP) PO PRN ×2 (10:01→21:18)
[2016-10-16] MEDS: THIAMINE HCL 100 MG TABLET (FP) PO SCH (21:18)
[2016-10-16] MEDS: ARIPiprazole 5 MG TABLET (FP) PO SCH (21:18)
[2016-10-17] MEDS ORDERED: METHADONE HCL 10 MG TABLET ONE (03:15)
[2016-10-17] MEDS ORDERED: METHADONE HCL 40 MG DISPERSABLE TABLET ONE (03:15)
[2016-10-17] MEDS: METHADONE 80 MG, METHADONE 20 MG PO SCH (06:06)
[2016-10-17] MEDS: NICOTINE 21 MG/24 HOURS TOPICAL PATCH TD SCH (09:43)
[2016-10-17] MEDS: PRENATAL VITAMINS W/ FOLIC ACID TABLET (FP) PO SCH (09:44)
[2016-10-17] MEDS: CYCLOBENZAPRINE HCL 10 MG TABLET (FP) PO PRN ×2 (09:44→21:24)
[2016-10-17] MEDS: THIAMINE HCL 100 MG TABLET (FP) PO SCH (21:24)
[2016-10-17] MEDS: ARIPiprazole 5 MG TABLET (FP) PO SCH (21:24)
[2016-10-18] MEDS ORDERED: METHADONE HCL 10 MG TABLET ONE (05:36)
[2016-10-18] MEDS ORDERED: METHADONE HCL 40 MG DISPERSABLE TABLET ONE (05:36)
[2016-10-18] MEDS: METHADONE 80 MG, METHADONE 20 MG PO SCH (05:57)
[2016-10-18] MEDS: CYCLOBENZAPRINE HCL 10 MG TABLET (FP) PO PRN (10:00)
[2016-10-18] MEDS: NICOTINE 21 MG/24 HOURS TOPICAL PATCH TD SCH (10:31)
[2016-10-18] MEDS: PRENATAL VITAMINS W/ FOLIC ACID TABLET (FP) PO SCH (10:32)
[2016-10-18] MEDS ORDERED: PT OWN MED DRAWER 7, Y5N ONE (14:42)
[2016-10-18] MEDS: IBUPROFEN 400 MG TABLET (FP) PO PRN (17:21)
[2016-10-18] MEDS: THIAMINE HCL 100 MG TABLET (FP) PO SCH (21:30)
[2016-10-18] MEDS: ARIPiprazole 5 MG TABLET (FP) PO SCH (22:30)
[2016-10-19] MEDS ORDERED: METHADONE HCL 40 MG DISPERSABLE TABLET ONE (06:18)
[2016-10-19] MEDS ORDERED: METHADONE HCL 10 MG TABLET ONE (06:18)
[2016-10-19] MEDS: METHADONE 80 MG, METHADONE 20 MG PO SCH (06:25)
[2016-10-19] MEDS: NICOTINE 21 MG/24 HOURS TOPICAL PATCH TD SCH (09:59)
[2016-10-19] MEDS: CYCLOBENZAPRINE HCL 10 MG TABLET (FP) PO PRN (10:00)
[2016-10-19] MEDS: PRENATAL VITAMINS W/ FOLIC ACID TABLET (FP) PO SCH (10:00)
[2016-10-19] MEDS: IBUPROFEN 400 MG TABLET (FP) PO PRN (11:12)
[2016-10-19] MEDS: THIAMINE HCL 100 MG TABLET (FP) PO SCH (21:31)
[2016-10-19] MEDS: ARIPiprazole 5 MG TABLET (FP) PO SCH (21:31)
[2016-10-20] MEDS ORDERED: METHADONE HCL 40 MG DISPERSABLE TABLET ONE (06:09)
[2016-10-20] MEDS ORDERED: METHADONE HCL 10 MG TABLET ONE (06:09)
[2016-10-20] MEDS: METHADONE 80 MG, METHADONE 20 MG PO SCH (06:14)
[2016-10-20] MEDS: NICOTINE 21 MG/24 HOURS TOPICAL PATCH TD SCH (09:46)
[2016-10-20] MEDS: PRENATAL VITAMINS W/ FOLIC ACID TABLET (FP) PO SCH (09:47)
[2016-10-20] MEDS: CYCLOBENZAPRINE HCL 10 MG TABLET (FP) PO PRN ×2 (09:47→21:13)
[2016-10-20] MEDS: IBUPROFEN 400 MG TABLET (FP) PO PRN (12:30)
[2016-10-20] MEDS: ARIPiprazole 5 MG TABLET (FP) PO SCH (21:12)
[2016-10-20] MEDS: THIAMINE HCL 100 MG TABLET (FP) PO SCH (21:13)
[2016-10-20] MEDS: diphenhydrAMINE HCL 50 MG CAPSULE PO PRN (23:25)
[2016-10-21] MEDS ORDERED: METHADONE HCL 10 MG TABLET ONE (03:11)
[2016-10-21] MEDS ORDERED: METHADONE HCL 40 MG DISPERSABLE TABLET ONE (03:11)
[2016-10-21] MEDS: METHADONE 80 MG, METHADONE 20 MG PO SCH (06:13)
[2016-10-21 06:46] VITALS: BP 97/60; PULSE 90; TEMP 97.7
--- NOTE | 2016-10-21 09:07 | PN ---
Psychiatric Progress Note Vital Signs: Vital Signs Period Temp Pulse Resp BP Sys/Real Pulse Ox Last 24 Hr 97.7 F 90 16-16 97/60 Date of Session: 10/21/16 Chief Complaint:: Discharge visit HPI: Patient addressed Alcohol,Cocaine and Opioid dependence (MMTP)comorbid with Bipolar disorder. ROS: Significant for Hep C. Current Medications: Active Medications Generic Name Dose Route Start Last Admin Trade Name Freq PRN Reason Stop Dose Admin Acetaminophen 650 mg 10/10/16 16:16 10/12/16 12:09 Tylenol - PO 650 mg Q4H PRN Administration FEVER OR PAIN Al Hydroxide/Mg Hydroxide 30 ml 10/10/16 16:16 Mylanta Oral Suspension - PO Q6H PRN DYSPEPSIA Aripiprazole 5 mg 10/10/16 22:00 10/20/16 21:12 Abilify PO 5 mg HS OSVALDO Administration Cyclobenzaprine HCl 10 mg 10/11/16 14:44 10/20/16 21:13 Flexeril - PO 10 mg TID PRN Administration MUSCLE SPASMS Diphenhydramine HCl 50 mg 10/10/16 16:16 10/20/16 23:25 Benadryl - PO 50 mg HSMR1 PRN Administration FOR ITCHING Eucalyptus/Menthol/Phenol/Sorbitol 1 each 10/10/16 16:16 Cepastat Lozenge - MM Q4H PRN SORE THROAT Guaifenesin 10 ml 10/10/16 16:16 Robitussin Dm - PO Q6H PRN COUGH Hydroxyzine Pamoate 50 mg 10/10/16 16:16 Vistaril - PO Q4H PRN AGITATION Ibuprofen 800 mg 10/16/16 14:08 10/20/16 12:30 Motrin - PO 800 mg Q6H PRN Administration PAIN Loperamide HCl 4 mg 10/10/16 16:16 Imodium - PO Q6H PRN DIARRHEA Magnesium Hydroxide 30 ml 10/10/16 16:16 Milk Of Magnesia - PO DAILY PRN CONSTIPATION Methadone HCl 80 mg/ Methadone 100 mg 10/19/16 06:00 10/21/16 06:13 HCl 20 mg PO 100 mg DAILY@0600 OSVALDO Administration Nicotine 21 mg 10/10/16 18:00 10/20/16 09:46 Nicoderm Patch - TD 21 mg DAILY OSVALDO Administration Nicotine Polacrilex 4 mg 10/10/16 16:16 Nicorette Gum - BUC Q2H PRN NICOTINE REPLACEMENT RX Multivit/Folic Acid/Iron 1 tab 10/11/16 10:00 10/20/16 09:47 Vitamins (Sjr) - PO Not Given DAILY OSVALDO Pseudoephedrine/Triprolidine 1 combo 10/10/16 16:16 Actifed - PO TID PRN NASAL CONGESTION Thiamine HCl 100 mg 10/10/16 22:00 10/20/16 21:13 Vitamin B1 - PO Not Given HS OSVALDO Current Side Effect: No Lab tests ordered: No Lab tests reviewed: Yes Provider note:: Patient completed this program today and will continue to address her issues on outpatient basis at [facility] in [place].She has met her treatment goals partially .Patient continues to find that current medications; Abilify 5 mg po hs and Vistaril 50 mg po Q 4 hrs daily prn help her to reduce anxiety,mood instability.Scripts for 30 days supply provided. Supportive therapy provided focusing on relapse prevention,support system,coping skills utlization to maintain recovery. Patient is stable for discharge today. Total face to face time:: 25 Mental Status Exam - Mental Status Exam Alert and Oriented to: Time, Place, Person Cognitive Function: Grossly Intact Patient Appearance: Unkempt Mood: Anxious Affect: Mood Congruent, Labile Patient Behavior: Cooperative Speech Pattern: Clear Voice Loudness: Normal Thought Process: Goal Oriented Thought Disorder: Not Present Hallucinations: Denies Suicidal Ideation: Denies Homicidal Ideation: Denies Insight/Judgement: Fair Sleep: Fair Appetite: Fair Muscle strength/Tone: Normal Gait/Station: Normal Psychiatric Treatment Plan - Problem List (4) Nicotine dependence Qualifiers: Nicotine product type: cigarettes Substance use status: in withdrawal Qualified Code(s): F17.213 - Nicotine dependence, cigarettes, with withdrawal (5) Bipolar disorder Qualifiers: Active/Remission status: currently active Current episode severity: unspecified Comment: By history.
[2016-10-21] MEDS: NICOTINE 21 MG/24 HOURS TOPICAL PATCH TD SCH (09:32)
[2016-10-21] MEDS: PRENATAL VITAMINS W/ FOLIC ACID TABLET (FP) PO SCH (09:33)
== END 2016-10-21 09:33 | disposition home or self-care (01) | DRG 772 ==
LOC: YASAS 14:07 → Y3E 14:08
PROVIDERS: ADMIT Psychiatry & Neurology Psychiatry; ATTEND Psychiatry & Neurology Psychiatry
PROC: HZ42ZZZ Group Counseling for Substance Abuse Treatment, Cognitive-Behavioral (ICD-10-PCS; principal; 2016-10-10)
DX: F10.20 Alcohol dependence, uncomplicated (principal); F11.20 Opioid dependence, uncomplicated; F14.20 Cocaine dependence, uncomplicated; F17.213 Nicotine dependence, cigarettes, with withdrawal; F31.9 Bipolar disorder, unspecified; B18.2 Chronic viral hepatitis C; S09.90XA Unspecified injury of head, initial encounter; W22.03XA Walked into furniture, initial encounter; Y93.89 Activity, other specified; Y92.239 Unspecified place in hospital as the place of occurrence of the external cause
CPT/HCPCS: 36415; 87389

== ENCOUNTER 2016-12-13 20:14 | Inpatient (IN) | payer OTHER ==
[2016-12-13 20:29] VITALS: BMI 17.2
--- NOTE | 2016-12-13 20:45 | HP ---
CIWA Score - CIWA Score Nausea/Vomitin Muscle Tremors: 4-Moderate,w/Arms Extend Anxiety: 4-Mod. Anxious/Guarded Agitation: 4-Moderately Restless Paroxysmal Sweats: 1-Minimal Palms Moist Orientation: 1-Uncertain about Date Tacttile Disturbances: 0-None Auditory Disturbances: 0-None Visual Disturbances: 0-None Headache: 0-None Present CIWA-Ar Total Score: 16 Admission ROS BHS - HPI Chief Complaint: withdrawal sx Allergies/Adverse Reactions: Allergies Allergy/AdvReac Type Severity Reaction Status Date / Time Penicillins Allergy Rash Verified 10/07/16 16:43 fish derived AdvReac Verified 10/07/16 16:43 History of Present Illness: 41 years old female with long history of alcohol cocaine nicotine dependence has hepatitis c weight loss, refuses to see a psychiatrist history of bipolar ii is admitted to detox Exam Limitations: No Limitations - Ebola screening Have you traveled outside of the country in the last 21 days: No (N) Have you had contact with anyone from an Ebola affected area: No Have you been sick,other than usual withdrawal symptoms: No Do you have a fever: No - Review of Systems Constitutional: Loss of Appetite, Changes in sleep, Unintentional Wgt. Loss, Unexplained wgt Loss EENT: reports: Dental Problems (no teeth) Respiratory: reports: No Symptoms reported Cardiac: reports: No Symptoms Reported GI: reports: Nausea, Poor Appetite, Poor Fluid Intake, Vomiting, Indigestion, Abdominal cramping : reports: No Symptoms Reported Musculoskeletal: reports: Back Pain, Joint Pain, Muscle Pain, Neck Pain Integumentary: reports: Change in Color (arms) Neuro: reports: Tremors Endocrine: reports: No Symptoms Reported Hematology: reports: No Symptoms Reported Psychiatric: reports: Judgement Intact, Orientated x3, Anxious, Depressed Other Systems: Reviewed and Negative Patient History - Patient Medical History Hx Anemia: No Hx Asthma: No Hx Chronic Obstructive Pulmonary Disease (COPD): No Hx Cancer: No Hx Cardiac Disorders: No Hx Congestive Heart Failure: No Hx Hypertension: No Hx Hypercholesterolemia: No Hx Pacemaker: No HX Cerebrovascular Accident: No Hx Seizures: No Hx Dementia: No Hx Diabetes: No Hx Gastrointestinal Disorders: No Hx Liver Disease: No Hx Genitourinary Disorders: No Hx Sexually Transmitted Disorders: No Hx Renal Disease (ESRD): No Hx Thyroid Disease: No Hx Human Immunodeficiency Virus (HIV): No (NEGATIVE HX) Hx Hepatitis C: Yes (SCHEDULE TO TREAT) Hx Depression: No Hx Suicide Attempt: No Hx Bipolar Disorder: Yes Hx Schizophrenia: No - Patient Surgical History Past Surgical History: No Hx Neurologic Surgery: No Hx Cataract Extraction: No Hx Cardiac Surgery: No Hx Lung Surgery: No Hx Breast Surgery: No Hx Breast Biopsy: No Hx Abdominal Surgery: No Hx Appendectomy: No Hx Cholecystectomy: No Hx Genitourinary Surgery: No Hx Section: No Hx Orthopedic Surgery: No Hx Hysterectomy: No - PPD History Previous Implant?: Yes Documented Results: Negative w/proof Implanted On Prior [facility] Admission?: Yes Date: 02/25/16 Results: 0 mm PPD to be Administered?: No - Reproductive History Patient is a Female of Child Bearing Age (11 -55 yrs old): Yes Last Menstrual Period: 11/29/16 Patient : No - Smoking Cessation Smoking history: Current every day smoker Have you smoked in the past 12 months: Yes Aproximately how many cigarettes per day: 20 Cigars Per Day: 0 Hx Chewing Tobacco Use: No Initiated information on smoking cessation: Yes 'Breaking Loose' booklet given: 12/13/16 - Substance & Tx. History Hx Alcohol Use: Yes Hx Substance Use: Yes Substance Use Type: Alcohol, Cocaine, Heroin Hx Substance Use Treatment: Yes Family Disease History - Family Disease History Family Disease History: Heart Disease: Father (HTN;ALCOHOLISM), Other: Father Admission Physical Exam BHS - Vital Signs Vital Signs: Vital Signs - 24 hr 12/13/16 20:22 Temperature 99.9 F H Pulse Rate 96 H Respiratory 18 Rate Blood Pressure 108/58 - Physical General Appearance: Yes: Appropriately Dressed, Mild Distress, Thin, Tremorous, Irritable, Sweating, Anxious HEENTM: Yes: Hearing grossly Normal, Normal ENT Inspection, Normocephalic, Normal Voice Respiratory: Yes: Chest Non-Tender, Lungs Clear, Normal Breath Sounds, No Respiratory Distress, No Accessory Muscle Use Neck: Yes: Supple, Trachea in good position Breast: Yes: Breasts Symetrical Cardiology: Yes: Regular Rhythm, S1, S2, Tachycardia Abdominal: Yes: Normal Bowel Sounds, Non Tender, Soft Genitourinary: Yes: Within Normal Limits Back: Yes: Normal Inspection Musculoskeletal: Yes: full range of Motion, Gait Steady, Back pain, Muscle Pain Extremities: Yes: Normal Range of Motion, Non-Tender, Tremors Neurological: Yes: Fully Oriented, Alert, Motor Strength 5/5, Normal Response, Depressed Affect Integumentary: Yes: Warm, Track G[place]a Lymphatic: Yes: Within Normal Limits - Diagnostic (1) Alcohol dependence with uncomplicated withdrawal Current Visit: Yes Status: Acute (2) Nicotine dependence Current Visit: Yes Status: Acute Qualifiers: Nicotine product type: cigarettes Substance use status: in withdrawal Qualified Code(s): F17.213 - Nicotine dependence, cigarettes, with withdrawal (3) Hepatitis C Current Visit: Yes Status: Resolved Qualifiers: Viral hepatitis chronicity: chronic Hepatic coma status: without hepatic coma Qualified Code(s): B18.2 - Chronic viral hepatitis C (4) Methadone maintenance therapy patient Current Visit: Yes Status: Chronic Comment: 50 MG VERIFICATION PENDING (5) Weight loss Current Visit: Yes Status: Acute BHS Breath Alcohol Content Breath Alcohol Content: 0 Urine Pregancy Test - Result Urine Test Results: Negative- NO Line Present Urine Drug Screen - Results Drug Screen Negative: No Urine Drug Screen Results: STEVIE-Cocaine, OPI-Opiates, MTD-Methadone
[2016-12-13] MEDS ORDERED: guaiFENesin/D-METHORPHAN HB 10 ML UNIT-DOSE CUPS PO PRN (20:51)
[2016-12-13] MEDS ORDERED: MAG HYDROX/AL HYDROX/SIMETH 30 ML UNIT-DOSE CUP PO PRN (20:51)
[2016-12-13] MEDS ORDERED: diazePAM 5 MG TABLET PO ONE (20:51)
[2016-12-13] MEDS ORDERED: NICOTINE POLACRILEX 4 MG GUM BUC PRN (20:51)
[2016-12-13] MEDS ORDERED: MAGNESIUM CITRATE 300 ML BOTTLE PO PRN (20:51)
[2016-12-13] MEDS ORDERED: MENTHOL/PHENOL 1 EACH UD MM PRN (20:51)
[2016-12-13] MEDS ORDERED: MAGNESIUM HYDROX 2400MG/30ML ORAL SUSPENSION 30 ML CUP PO PRN (20:51)
[2016-12-13] MEDS ORDERED: LOPERAMIDE HCL 2 MG CAPSULE PO PRN (20:51)
[2016-12-13] MEDS ORDERED: ACETAMINOPHEN 325 MG TABLET (FP) PO PRN (20:51)
[2016-12-13] MEDS ORDERED: P-EPHED 60MG/TRIPROLIDI 2.5MG TABLET PO PRN (20:51)
[2016-12-13 22:44] LABS: URINE APPEARANCE CLEAR; URINE BILIRUBIN NEGATIVE (NEGATIVE); URINE BLOOD NEGATIVE (NEGATIVE); URINE COLOR LT. YELLOW; URINE GLUCOSE (UA) NEGATIVE (NEGATIVE); URINE KETONE TRACE (NEGATIVE); URINE LEUK ESTERASE NEGATIVE (NEGATIVE); URINE NITRITE NEGATIVE (NEGATIVE)
[2016-12-13 22:45] LABS: URINE PROTEIN 1+ (NEGATIVE)
[2016-12-13] MEDS: RANITIDINE HCL 150 MG TABLET (FP) PO SCH (22:55)
[2016-12-13] MEDS: THIAMINE HCL 100 MG TABLET (FP) PO SCH (22:55)
[2016-12-13 23:07] LABS: URINE BACTERIA RARE /hpf (NONE SEEN); URINE MUCUS FEW; URINE RBC 10 /hpf (0-3); URINE WBC 13 /hpf (3-5)
[2016-12-13] MEDS: diazePAM 5 MG TABLET PO SCH (23:37)
[2016-12-14] MEDS: ONDANSETRON *ODT* 4 MG TABLET SL PRN ×2 (03:44→10:20)
[2016-12-14] MEDS: diazePAM 5 MG TABLET PO SCH ×3 (05:51→22:21)
--- NOTE | 2016-12-14 09:50 | EKG ---
Test Reason : Blood Pressure : / mmHG Vent. Rate : 046 BPM Atrial Rate : 046 BPM P-R Int : 124 ms QRS Dur : 084 ms QT Int : 502 ms P-R-T Axes : 068 073 079 degrees QTc Int : 439 ms SINUS BRADYCARDIA WITH PREMATURE ATRIAL COMPLEXES MINIMAL VOLTAGE CRITERIA FOR LVH, MAY BE NORMAL VARIANT ABNORMAL ECG Confirmed by MD MICHEL, ALESSANDRA ([id number]) on 12/14/2016 9:49:36 AM Referred By: Confirmed By:ALESSANDRA PEARSON MD
[2016-12-14] MEDS ORDERED: METHADONE HCL 10 MG TABLET PO ONE (10:05)
[2016-12-14] MEDS: RANITIDINE HCL 150 MG TABLET (FP) PO SCH ×2 (10:20→22:21)
[2016-12-14] MEDS: diazePAM 5 MG TABLET PO PRN (10:21)
[2016-12-14] MEDS: NICOTINE 21 MG/24 HOURS TOPICAL PATCH TD SCH (10:21)
[2016-12-14] MEDS: PRENATAL VITAMINS W/ FOLIC ACID TABLET (FP) PO SCH (10:22)
[2016-12-14] MEDS ORDERED: METHADONE HCL 10 MG TABLET ONE (10:27)
[2016-12-14] MEDS ORDERED: METHADONE HCL 40 MG DISPERSABLE TABLET ONE (10:27)
[2016-12-14] MEDS ORDERED: METHADONE 40 MG, METHADONE 10 MG PO ONE (10:30)
[2016-12-14 10:32] LABS: MCH 30.2 pg (25.7-33.7); MCHC 34.1 g/dl (32.0-36.0); MEAN CELL VOLUME 88.6 fl (80-96); MEAN PLT VOLUME 7.8 fl (7.5-11.1); PLATELET COUNT 401 K/MM3 (134-434); RDW 13.9 % (11.6-15.6); WHITE BLOOD COUNT 12.5 K/mm3 (4.0-10.0)
[2016-12-14 11:23] LABS: ALBUMIN 3.8 g/dl (3.4-5.0); ANION GAP 9 (8-16); BILIRUBIN,TOTAL 0.5 mg/dL (0.2-1.0); CO2 27 mmol/L (21-32); GLUCOSE,RANDOM 101 mg/dL (74-106); SGOT/AST 20 U/L (15-37); SGPT/ALT 26 U/L (12-78)
[2016-12-14 11:25] LABS: ALK PHOS 70 U/L (45-117); CALCIUM 9.8 mg/dL (8.5-10.1); CREATININE 0.6 mg/dL (0.55-1.02); TOT PROT 7.6 g/dl (6.4-8.2)
--- NOTE | 2016-12-14 14:23 | PN ---
S CIWA - CIWA Score Nausea/Vomitin Muscle Tremors: 3 Anxiety: 3 Agitation: 3 Paroxysmal Sweats: 1-Minimal Palms Moist Orientation: 0-Oriented Tacttile Disturbances: 1-Very Mild Itch/Numbness Auditory Disturbances: 1-Very Mild Visual Disturbances: 0-None Headache: 2-Mild CIWA-Ar Total Score: 17 BHS Progress Note (SOAP) Subjective: alert,irritable,anxious,interrupted sleep,pain in the body and back Objective: 12/14/16 14:17 Vital Signs Temperature 97.4 F L 12/14/16 11:10 Pulse Rate 83 12/14/16 11:10 Respiratory Rate 16 12/14/16 11:10 Blood Pressure 117/64 12/14/16 11:10 O2 Sat by Pulse Oximetry (%) ekg sinus bradycardia with pac inverted t in v2,v3 heart rate 46 no chest pain,no sob,no dizziness Laboratory Last Values WBC 12.5 K/mm3 (4.0-10.0) H D 12/14/16 08:00 RBC 4.48 M/mm3 (3.60-5.2) 12/14/16 08:00 Hgb 13.5 GM/dL (10.7-15.3) D 12/14/16 08:00 Hct 39.6 % (32.4-45.2) 12/14/16 08:00 MCV 88.6 fl (80-96) 12/14/16 08:00 MCH 30.2 pg (25.7-33.7) 12/14/16 08:00 MCHC 34.1 g/dl (32.0-36.0) 12/14/16 08:00 RDW 13.9 % (11.6-15.6) 12/14/16 08:00 Plt Count 401 K/MM3 (134-434) 12/14/16 08:00 MPV 7.8 fl (7.5-11.1) 12/14/16 08:00 Sodium 138 mmol/L (136-145) 12/14/16 08:00 Potassium 3.3 mmol/L (3.5-5.1) L 12/14/16 08:00 Chloride 102 mmol/L (98-107) 12/14/16 08:00 Carbon Dioxide 27 mmol/L (21-32) D 12/14/16 08:00 Anion Gap 9 (8-16) 12/14/16 08:00 BUN 14 mg/dL (7-18) D 12/14/16 08:00 Creatinine 0.6 mg/dL (0.55-1.02) 12/14/16 08:00 Creat Clearance w eGFR > 60 (>60) 12/14/16 08:00 Random Glucose 101 mg/dL (74-106) D 12/14/16 08:00 Calcium 9.8 mg/dL (8.5-10.1) 12/14/16 08:00 Total Bilirubin 0.5 mg/dL (0.2-1.0) 12/14/16 08:00 AST 20 U/L (15-37) 12/14/16 08:00 ALT 26 U/L (12-78) 12/14/16 08:00 Alkaline Phosphatase 70 U/L (45-117) 12/14/16 08:00 Total Protein 7.6 g/dl (6.4-8.2) 12/14/16 08:00 Albumin 3.8 g/dl (3.4-5.0) 12/14/16 08:00 Urine Color Lt. yellow 12/13/16 21:57 Urine Appearance Clear 12/13/16 21:57 Urine pH 7.0 (5.0-8.0) D 12/13/16 21:57 Ur Specific [place] 1.025 (1.005-1.025) 12/13/16 21:57 Urine Protein 1+ (NEGATIVE) H 12/13/16 21:57 Urine Glucose (UA) Negative (NEGATIVE) 12/13/16 21:57 Urine Ketones Trace (NEGATIVE) H 12/13/16 21:57 Urine Blood Negative (NEGATIVE) 12/13/16 21:57 Urine Nitrite Negative (NEGATIVE) 12/13/16 21:57 Urine Bilirubin Negative (NEGATIVE) 12/13/16 21:57 Urine Urobilinogen 1.0 mg/dL (0.2-1.0) 12/13/16 21:57 Urine RBC 10 /hpf (0-3) 12/13/16 21:57 Urine WBC 13 /hpf (3-5) 12/13/16 21:57 Ur Epithelial Cells Few /hpf (FEW) 12/13/16 21:57 Urine Bacteria Rare /hpf (NONE SEEN) 12/13/16 21:57 Urine Mucus Few 12/13/16 21:57 RPR Titer Nonreactive (NONREACTIVE) 12/14/16 08:00 Assessment: 12/14/16 14:23 withdrawal symptom Plan: continue detox,encourage oral fluid,k dur 20 meq po daily,reoeat ua
[2016-12-14] MEDS: POTASSIUM CHLORIDE TABS 20 MEQ TABLET.ER (FP) PO SCH (15:44)
[2016-12-14] MEDS: diphenhydrAMINE HCL 50 MG CAPSULE PO PRN (22:21)
[2016-12-14] MEDS: THIAMINE HCL 100 MG TABLET (FP) PO SCH (22:21)
[2016-12-15] MEDS ORDERED: METHADONE HCL 10 MG TABLET ONE (04:49)
[2016-12-15] MEDS ORDERED: METHADONE HCL 40 MG DISPERSABLE TABLET ONE (04:49)
[2016-12-15] MEDS ORDERED: METHADONE HCL 5 MG TABLET PO SCH (06:00)
[2016-12-15] MEDS ORDERED: METHADONE 40 MG, METHADONE 10 MG PO SCH ×3 (06:00)
[2016-12-15] MEDS: METHADONE 40 MG, METHADONE 10 MG PO SCH (06:10)
[2016-12-15] MEDS: diazePAM 5 MG TABLET PO PRN ×2 (06:13→15:50)
[2016-12-15] MEDS ORDERED: diphenhydrAMINE HCL 25 MG CAPSULE (FP) PO ONE (10:06)
[2016-12-15] MEDS ORDERED: diphenhydrAMINE HCL 25 MG CAPSULE (FP) PO PRN (10:07)
[2016-12-15] MEDS: RANITIDINE HCL 150 MG TABLET (FP) PO SCH ×2 (10:18→23:21)
[2016-12-15] MEDS: POTASSIUM CHLORIDE TABS 20 MEQ TABLET.ER (FP) PO SCH (10:18)
[2016-12-15] MEDS: diazePAM 5 MG TABLET PO SCH ×2 (10:18→23:21)
[2016-12-15] MEDS: PRENATAL VITAMINS W/ FOLIC ACID TABLET (FP) PO SCH (10:18)
[2016-12-15] MEDS: NICOTINE 21 MG/24 HOURS TOPICAL PATCH TD SCH (10:19)
--- NOTE | 2016-12-15 10:41 | PN ---
BHS CIWA - CIWA Score Nausea/Vomitin Muscle Tremors: 3 Anxiety: 3 Agitation: 2 Paroxysmal Sweats: 1-Minimal Palms Moist Orientation: 0-Oriented Tacttile Disturbances: 1-Very Mild Itch/Numbness Auditory Disturbances: 1-Very Mild Visual Disturbances: 0-None Headache: 2-Mild CIWA-Ar Total Score: 16 BHS Progress Note (SOAP) Subjective: ALERT,IRRITABLE,ANXIOUS,INTERRUPTED SLEEP,TREMOR,ITCHING,PAIN IN THE BODY Objective: 12/15/16 10:37 Vital Signs Temperature 97.0 F L 12/15/16 10:05 Pulse Rate 18 L 12/15/16 10:05 Respiratory Rate 80 H 12/15/16 10:05 Blood Pressure 92/67 12/15/16 10:05 O2 Sat by Pulse Oximetry (%) 12/15/16 10:39 Assessment: 12/15/16 10:39 WITHDRAWAL SYMPTOM Plan: CONTINUE DETOX,BENADRYL 25 MGS PO Q6H PRN FOR ITCHING,FLUID,
[2016-12-15] MEDS: BACITRACIN 15 GM TUBE TOPICAL OINTMENT TP SCH ×2 (10:48→23:20)
[2016-12-15] MEDS ORDERED: BACITRACIN 0.9 GM PACKET ONE (10:48)
[2016-12-15] MEDS: TOLNAFTATE 1% CREAM 15 GM TUBE TP SCH ×2 (12:46→23:20)
[2016-12-15] MEDS: HYDROCORTISONE 1% TOPICAL CREAM 30 GM TUBE TP SCH ×2 (12:46→23:20)
[2016-12-15 21:18] LABS: URINE APPEARANCE CLOUDY; URINE BILIRUBIN NEGATIVE (NEGATIVE); URINE BLOOD NEGATIVE (NEGATIVE); URINE COLOR AMBER; URINE GLUCOSE (UA) NEGATIVE (NEGATIVE); URINE KETONE TRACE (NEGATIVE); URINE NITRITE NEGATIVE (NEGATIVE); URINE PROTEIN NEGATIVE (NEGATIVE); URINE UROBILINOGEN NEGATIVE mg/dL (0.2-1.0)
[2016-12-15 21:19] LABS: URINE LEUK ESTERASE 3+ (NEGATIVE)
[2016-12-15 21:49] LABS: CALCIUM OXALATE CRYSTALS MODERATE /hpf (NONE SEEN); URINE BACTERIA FEW /hpf (NONE SEEN); URINE HYALINE CAST 1 /lpf; URINE MUCUS RARE; URINE RBC 18 /hpf (0-3); URINE WBC 50 /hpf (3-5)
[2016-12-15] MEDS: THIAMINE HCL 100 MG TABLET (FP) PO SCH (23:21)
[2016-12-16] MEDS ORDERED: TRIMETHOBENZAMIDE HCL 200MG/2ML INJ IM PRN (00:45)
[2016-12-16] MEDS ORDERED: METHADONE HCL 40 MG DISPERSABLE TABLET ONE (05:01)
[2016-12-16] MEDS ORDERED: METHADONE HCL 10 MG TABLET ONE (05:02)
[2016-12-16] MEDS: METHADONE 40 MG, METHADONE 10 MG PO SCH (05:43)
[2016-12-16] MEDS: diazePAM 5 MG TABLET PO PRN ×2 (09:37→14:05)
[2016-12-16] MEDS: TOLNAFTATE 1% CREAM 15 GM TUBE TP SCH ×2 (10:14→22:25)
[2016-12-16] MEDS: PRENATAL VITAMINS W/ FOLIC ACID TABLET (FP) PO SCH (10:14)
[2016-12-16] MEDS: RANITIDINE HCL 150 MG TABLET (FP) PO SCH ×2 (10:14→22:25)
[2016-12-16] MEDS: HYDROCORTISONE 1% TOPICAL CREAM 30 GM TUBE TP SCH ×2 (10:14→22:25)
[2016-12-16] MEDS: POTASSIUM CHLORIDE TABS 20 MEQ TABLET.ER (FP) PO SCH (10:14)
[2016-12-16] MEDS: diazePAM 5 MG TABLET PO SCH ×2 (10:15→22:25)
[2016-12-16] MEDS: NICOTINE 21 MG/24 HOURS TOPICAL PATCH TD SCH (10:15)
--- NOTE | 2016-12-16 10:33 | PN ---
BHS Progress Note (SOAP) Subjective: sweats anxiety body aches Objective: 12/16/16 10:31 Vital Signs Temperature 97.1 F L 12/16/16 10:00 Pulse Rate 95 12/16/16 10:00 Respiratory Rate 18 12/16/16 10:00 Blood Pressure 146/61 12/16/16 10:00 O2 Sat by Pulse Oximetry (%) AAOx3 ambulating no acute distress Assessment: 12/16/16 10:33 withdrawal sx Plan: continue detox increase fluids d/c in am
--- NOTE | 2016-12-16 10:43 | PN ---
S Progress Note Note: discussed pt methadone dose with [facility] and they states that pt has been administrative discharge from the program. pt will continue to be tapered off her methadone accordingly from [facility]. pt is well aware of this plan.
[2016-12-16] MEDS ORDERED: BACITRACIN 0.9 GM PACKET ONE (10:49)
[2016-12-16] MEDS: BACITRACIN 15 GM TUBE TOPICAL OINTMENT TP SCH (10:52)
[2016-12-16] MEDS: THIAMINE HCL 100 MG TABLET (FP) PO SCH (22:25)
[2016-12-16] MEDS: BACITRACIN 0.9 GM PACKET TP SCH (22:25)
[2016-12-16] MEDS: diphenhydrAMINE HCL 50 MG CAPSULE PO PRN (22:39)
[2016-12-17] MEDS ORDERED: METHADONE HCL 40 MG DISPERSABLE TABLET PO SCH (06:00)
--- NOTE | 2016-12-17 08:52 | DS ---
[facility] Detox Discharge Summary Admission Date: 12/13/16 Discharge Date: 12/17/16 - History Present History: Alcohol Dependence, Cocaine Dependence, Opioid Dependence, MMTP - Physical Exam Results Vital Signs: Vital Signs Temperature 98 F 12/17/16 06:53 Pulse Rate 101 H 12/17/16 06:53 Respiratory Rate 20 12/17/16 06:53 Blood Pressure 101/70 12/17/16 06:53 O2 Sat by Pulse Oximetry (%) - Treatment Hospital Course: Detox Protocol Followed, Detoxed Safely, Responded well, Discharged Condition Good, Rehab Referral Accepted - Medication Discharge Medications: Ambulatory Orders Aripiprazole [Abilify -] 20 mg PO HS 02/23/16 - Diagnosis (1) Alcohol dependence with uncomplicated withdrawal Current Visit: Yes Status: Chronic (2) Nicotine dependence Current Visit: Yes Status: Chronic Qualifiers: Nicotine product type: cigarettes Substance use status: uncomplicated Qualified Code(s): F17.210 - Nicotine dependence, cigarettes, uncomplicated (3) Weight loss Current Visit: Yes Status: Chronic (4) Methadone maintenance therapy patient Current Visit: Yes Status: Chronic (5) Hepatitis C Current Visit: Yes Status: Chronic Qualifiers: Viral hepatitis chronicity: chronic Hepatic coma status: without hepatic coma Qualified Code(s): B18.2 - Chronic viral hepatitis C (6) Cocaine dependence, uncomplicated Current Visit: Yes Status: Chronic - AMA [facility]
[2016-12-17] MEDS: HYDROCORTISONE 1% TOPICAL CREAM 30 GM TUBE TP SCH (09:36)
[2016-12-17] MEDS: BACITRACIN 0.9 GM PACKET TP SCH (09:36)
[2016-12-17] MEDS: TOLNAFTATE 1% CREAM 15 GM TUBE TP SCH (09:36)
[2016-12-17] MEDS: PRENATAL VITAMINS W/ FOLIC ACID TABLET (FP) PO SCH (09:37)
[2016-12-17] MEDS: NICOTINE 21 MG/24 HOURS TOPICAL PATCH TD SCH (09:37)
[2016-12-17] MEDS: RANITIDINE HCL 150 MG TABLET (FP) PO SCH (09:37)
[2016-12-17] MEDS: POTASSIUM CHLORIDE TABS 20 MEQ TABLET.ER (FP) PO SCH (09:37)
[2016-12-17] MEDS ORDERED: diazePAM 5 MG TABLET PO SCH (10:00)
[2016-12-17 10:39] VITALS: BP 94/62; PULSE 84; TEMP 97.9
== END 2016-12-17 11:24 | disposition home or self-care (01) | DRG 773 ==
LOC: YASAS 20:14 → Y6N 21:15
PROVIDERS: ADMIT Internal Medicine; ATTEND Internal Medicine
PROC: HZ2ZZZZ Detoxification Services for Substance Abuse Treatment (ICD-10-PCS; principal; 2016-12-13)
DX: F10.230 Alcohol dependence with withdrawal, uncomplicated (principal); F11.20 Opioid dependence, uncomplicated; F14.20 Cocaine dependence, uncomplicated; F17.210 Nicotine dependence, cigarettes, uncomplicated; B18.2 Chronic viral hepatitis C; R00.1 Bradycardia, unspecified; Z91.013 Allergy to seafood; Z88.0 Allergy status to penicillin; Z87.898 Personal history of other specified conditions
CPT/HCPCS: 36415; 80053; 81003; 81015; 85027; 86593; 93005; 93010

== ENCOUNTER 2017-02-04 08:26 | Inpatient (IN) | payer OTHER ==
[2017-02-04 08:54] VITALS: BMI 19.5
--- NOTE | 2017-02-04 10:41 | HP ---
COWS - Scale Resting Pulse: 2= NC 101-120 Sweatin= Chills/Flushing Restless Observation: 3= Extraneous Movement Pupil Size: 1= Pupils >than Normal Bone or Joint Aches: 2= Severe Diffuse Aches Runny Nose/ Eye Tearin= Runny Nose/Eyes GI Upset > 30mins: 3= Vomiting/Diarrhea Tremor Observation: 2= Slight Tremor Visible Yawning Observation: 2= >3x During Session Anxiety or Irritability: 2=Irritable/Anxious Goose Flesh Skin: 0=Smooth Skin COWS Score: 20 Admission ROS S - HPI Chief Complaint: i need help to stop using heroin and cocaine Allergies/Adverse Reactions: Allergies Allergy/AdvReac Type Severity Reaction Status Date / Time fish derived Allergy Severe Hives Verified 02/04/17 09:47 Penicillins Allergy Rash Verified 02/04/17 09:47 History of Present Illness: this 41 years old female with heroin and cocaine dependence,seeking detox,last treatment [facility] 12/13/16 to 12/17/16 nicotine dependence depression longest sobriety 4 years weight loss Exam Limitations: No Limitations - Ebola screening Have you traveled outside of the country in the last 21 days: No Have you had contact with anyone from an Ebola affected area: No Have you been sick,other than usual withdrawal symptoms: No Do you have a fever: No - Review of Systems Constitutional: Chills, Loss of Appetite, Malaise, Night Sweats, Changes in sleep, Weakness, Unintentional Wgt. Loss EENT: reports: Tearing, Nose Congestion Respiratory: reports: No Symptoms reported Cardiac: reports: Palpitations GI: reports: Diarrhea, Nausea, Vomiting, Abdominal cramping : reports: No Symptoms Reported Musculoskeletal: reports: Back Pain, Joint Pain, Muscle Pain, Joint Stiffness Integumentary: reports: Dryness Neuro: reports: Headache, Tremors Endocrine: reports: No Symptoms Reported Hematology: reports: No Symptoms Reported Psychiatric: reports: No Sypmtoms Reported, Judgement Intact, Mood/Affect Appropiate, Orientated x3, Depressed Patient History - Patient Medical History Hx Anemia: No Hx Asthma: No Hx Chronic Obstructive Pulmonary Disease (COPD): No Hx Cancer: No Hx Cardiac Disorders: No Hx Congestive Heart Failure: No Hx Hypertension: No Hx Hypercholesterolemia: No Hx Pacemaker: No HX Cerebrovascular Accident: No Hx Seizures: No Hx Dementia: No Hx Diabetes: No Hx Gastrointestinal Disorders: No Hx Liver Disease: No Hx Genitourinary Disorders: No Hx Sexually Transmitted Disorders: No Hx Renal Disease (ESRD): No Hx Thyroid Disease: No Hx Human Immunodeficiency Virus (HIV): No (NEGATIVE HX) Hx Hepatitis C: Yes (SCHEDULE TO BE TREATED) Hx Depression: Yes Hx Suicide Attempt: No Hx Bipolar Disorder: Yes Hx Schizophrenia: No Other Medical History: NO SUICIDAL,NO HOMICIDAL - Patient Surgical History Past Surgical History: No Hx Neurologic Surgery: No Hx Cataract Extraction: No Hx Cardiac Surgery: No Hx Lung Surgery: No Hx Breast Surgery: No Hx Breast Biopsy: No Hx Abdominal Surgery: No Hx Appendectomy: No Hx Cholecystectomy: No Hx Genitourinary Surgery: No Hx Section: No Hx Orthopedic Surgery: No Hx Hysterectomy: No Anesthesia Reaction: No - PPD History Previous Implant?: Yes Documented Results: Negative w/proof Implanted On Prior [facility] Admission?: Yes Date: 02/25/16 Results: 0 mm PPD to be Administered?: No - Reproductive History Patient is a Female of Child Bearing Age (11 -55 yrs old): Yes Last Menstrual Period: 12/30/16 Patient : No - Smoking Cessation Smoking history: Current every day smoker Have you smoked in the past 12 months: Yes Aproximately how many cigarettes per day: 10 Cigars Per Day: 0 Hx Chewing Tobacco Use: No Initiated information on smoking cessation: Yes 'Breaking Loose' booklet given: 02/04/17 - Substance & Tx. History Hx Alcohol Use: No Hx Substance Use: Yes Substance Use Type: Cocaine, Heroin Hx Substance Use Treatment: Yes ([facility] 12/13/16 TO 12/17/16) - Substances Abused Heroin Route: Injection Frequency: Daily Amount used: 6 bags Age of first use: 24 Date of Last Use: 02/03/17 Cocaine Route: Injection Frequency: Daily Amount used: $100 Age of first use: 24 Date of Last Use: 02/03/17 Family Disease History - Family Disease History Family Disease History: Heart Disease: Father (HTN;ALCOHOLISM), Other: Father Admission Physical Exam BHS - Vital Signs Vital Signs: Vital Signs - 24 hr 02/04/17 08:48 Temperature 98.8 F Pulse Rate 101 H Respiratory 20 Rate Blood Pressure 92/61 - Physical General Appearance: Yes: Moderate Distress, Tremorous, Irritable, Sweating, Anxious HEENTM: Yes: Normal ENT Inspection, EDITA, Pharynx Normal Respiratory: Yes: Lungs Clear, Normal Breath Sounds, No Respiratory Distress Neck: Yes: Within Normal Limits Breast: Yes: Breast Exam Deferred Cardiology: Yes: Within Normal Limits, Regular Rhythm, Regular Rate, S1, S2 Abdominal: Yes: Within Normal Limits, Normal Bowel Sounds, Non Tender, Flat, Soft Genitourinary: Yes: Within Normal Limits Back: Yes: Within Normal Limits Musculoskeletal: Yes: full range of Motion, Back pain, Joint Stiffness, Muscle Pain Extremities: Yes: Tremors, Inflammation (SWELLING WITH ERYTHEMA LEFT HAND CELLULITIS) Neurological: Yes: Within Normal Limits, sales executive insurance II-XII NML intact, Fully Oriented, Alert, Motor Strength 5/5 Integumentary: Yes: Dry Lymphatic: Yes: Within Normal Limits - Diagnostic (1) Opioid dependence with withdrawal Current Visit: Yes Status: Acute (2) Cocaine dependence, uncomplicated Current Visit: No Status: Chronic (3) Hepatitis C Current Visit: No Status: Chronic Qualifiers: Viral hepatitis chronicity: chronic Hepatic coma status: without hepatic coma Qualified Code(s): B18.2 - Chronic viral hepatitis C (4) Insomnia Current Visit: No Status: Chronic (5) Nicotine dependence Current Visit: No Status: Chronic Qualifiers: Nicotine product type: cigarettes Substance use status: uncomplicated Qualified Code(s): F17.210 - Nicotine dependence, cigarettes, uncomplicated (6) Weight loss Current Visit: No Status: Chronic (7) Bipolar II disorder Current Visit: No Status: Suspected (8) Cellulitis of left hand Current Visit: Yes Status: Acute Cleared for Admission [facility] - Detox or Rehab [facility] Level of Care: Medically Managed Detox Regimen/Protocol: Methadone [facility] Breath Alcohol Content Breath Alcohol Content: 0 Urine Pregancy Test - Result Urine Test Results: Negative- NO Line Present Urine Drug Screen - Results Drug Screen Negative: Yes Urine Drug Screen Results: STEVIE-Cocaine, OPI-Opiates
[2017-02-04] MEDS ORDERED: MENTHOL/PHENOL 1 EACH UD MM PRN (10:59)
[2017-02-04] MEDS ORDERED: hydrOXYzine PAMOATE 25 MG CAPSULE (FP) PO PRN (10:59)
[2017-02-04] MEDS ORDERED: MAGNESIUM CITRATE 300 ML BOTTLE PO PRN (10:59)
[2017-02-04] MEDS ORDERED: ACETAMINOPHEN 325 MG TABLET (FP) PO PRN (10:59)
[2017-02-04] MEDS ORDERED: MAG HYDROX/AL HYDROX/SIMETH 30 ML UNIT-DOSE CUP PO PRN (10:59)
[2017-02-04] MEDS ORDERED: LOPERAMIDE HCL 2 MG CAPSULE PO PRN (10:59)
[2017-02-04] MEDS ORDERED: IBUPROFEN 400 MG TABLET (FP) PO PRN (10:59)
[2017-02-04] MEDS ORDERED: P-EPHED 60MG/TRIPROLIDI 2.5MG TABLET PO PRN (10:59)
[2017-02-04] MEDS ORDERED: guaiFENesin/D-METHORPHAN HB 10 ML UNIT-DOSE CUPS PO PRN (10:59)
[2017-02-04] MEDS ORDERED: MAGNESIUM HYDROX 2400MG/30ML ORAL SUSPENSION 30 ML CUP PO PRN (10:59)
[2017-02-04] MEDS ORDERED: METHADONE HCL 10 MG TABLET (FOR DETOX USE ONLY) PO ONE ×2 (11:10→23:00)
[2017-02-04] MEDS: diazePAM 5 MG TABLET PO PRN ×2 (11:56→22:28)
[2017-02-04] MEDS: SULFAMETHOXAZOLE/TRIMETHOPRIM 800MG/160MG D.S. TABLET PO SCH ×2 (11:56→22:26)
[2017-02-04] MEDS: NICOTINE 21 MG/24 HOURS TOPICAL PATCH TD SCH (11:59)
[2017-02-04] MEDS: CYCLOBENZAPRINE HCL 10 MG TABLET (FP) PO PRN (13:49)
[2017-02-04] MEDS ORDERED: cloNIDine HCL 0.1 MG TABLET PO ONE (16:15)
--- NOTE | 2017-02-04 17:23 | CONSULT ---
[facility] Psychiatric Consult - Data Date of interview: 02/04/17 Admission source: [facility] Identifying data: Approached patient for psychiatric interview."I am good.I don' t need totalk to psychiatrists." Witnessed by JASSI Quintanilla.
[2017-02-04 17:32] LABS: URINE APPEARANCE CLOUDY; URINE BILIRUBIN NEGATIVE (NEGATIVE); URINE BLOOD NEGATIVE (NEGATIVE); URINE COLOR DKYELLOW; URINE GLUCOSE (UA) NEGATIVE (NEGATIVE); URINE KETONE NEGATIVE (NEGATIVE); URINE NITRITE NEGATIVE (NEGATIVE); URINE PROTEIN NEGATIVE (NEGATIVE)
[2017-02-04 19:39] LABS: URINE LEUK ESTERASE 2+ (NEGATIVE)
[2017-02-04 21:56] LABS: URINE BACTERIA FEW /hpf (NEGATIVE)
[2017-02-04] MEDS: THIAMINE HCL 100 MG TABLET (FP) PO SCH (22:26)
[2017-02-04] MEDS: cloNIDine HCL 0.1 MG TABLET PO SCH (22:26)
[2017-02-05] MEDS: diazePAM 5 MG TABLET PO PRN ×4 (04:59→22:07)
[2017-02-05] MEDS ORDERED: METHADONE HCL 10 MG TABLET (FOR DETOX USE ONLY) PO ONE (10:00)
[2017-02-05] MEDS: cloNIDine HCL 0.1 MG TABLET PO SCH ×2 (10:05→22:08)
[2017-02-05] MEDS: SULFAMETHOXAZOLE/TRIMETHOPRIM 800MG/160MG D.S. TABLET PO SCH ×2 (10:05→22:07)
[2017-02-05 10:06] LABS: MCH 30.2 pg (25.7-33.7); MCHC 33.9 g/dl (32.0-36.0); MEAN CELL VOLUME 89.1 fl (80-96); MEAN PLT VOLUME 7.7 fl (7.5-11.1); PLATELET COUNT 425 K/MM3 (134-434); RDW 13.8 % (11.6-15.6); WHITE BLOOD COUNT 8.9 K/mm3 (4.0-10.0)
[2017-02-05] MEDS: PRENATAL VITAMINS W/ FOLIC ACID TABLET (FP) PO SCH (10:06)
[2017-02-05] MEDS: NICOTINE 21 MG/24 HOURS TOPICAL PATCH TD SCH (10:06)
[2017-02-05 10:19] LABS: ALBUMIN 3.2 g/dl (3.4-5.0); ALK PHOS 65 U/L (45-117); ANION GAP 14 (8-16); BILIRUBIN,TOTAL 0.4 mg/dL (0.2-1.0); CALCIUM 8.5 mg/dL (8.5-10.1); CO2 26 mmol/L (21-32); CREATININE 0.7 mg/dL (0.55-1.02); GLUCOSE,RANDOM 106 mg/dL (74-106); SGOT/AST 22 U/L (15-37); SGPT/ALT 27 U/L (12-78); TOT PROT 6.4 g/dl (6.4-8.2)
--- NOTE | 2017-02-05 10:45 | PN ---
BHS COWS - Scale Resting Pulse: 2= DE 101-120 Sweatin=Flushed/Facial Moisture Restless Observation: 1= Difficult to Sit Still Pupil Size: 0= Normal to Room Light Bone or Joint Aches: 2= Severe Diffuse Aches Runny Nose/ Eye Tearin= Runny Nose/Eyes GI Upset > 30mins: 2= Nausea/Diarrhea Tremor Observation of Outstretched Hands: 2= Slight Tremor Visible Yawning Observation: 2= >3x During Session Anxiety or Irritability: 2=Irritable/Anxious Goose Flesh Skin: 3=Piloerection COWS Score: 20 BHS Progress Note (SOAP) Subjective: sweats shakes irritable agitation anxiety interrupted sleep Objective: 02/05/17 10:43 Vital Signs Temperature 98.4 F 02/05/17 06:27 Pulse Rate 110 H 02/05/17 10:06 Respiratory Rate 18 02/05/17 10:06 Blood Pressure 112/71 02/05/17 10:06 O2 Sat by Pulse Oximetry (%) Laboratory Tests 02/04/17 02/05/17 02/05/17 15:00 05:45 05:45 WBC 8.9 RBC 4.02 Hgb 12.2 Hct 35.9 MCV 89.1 MCH 30.2 MCHC 33.9 RDW 13.8 Plt Count 425 MPV 7.7 Sodium 141 Potassium 3.2 L Chloride 101 Carbon Dioxide 26 Anion Gap 14 BUN 14 Creatinine 0.7 Creat Clearance w eGFR > 60 Random Glucose 106 Calcium 8.5 Total Bilirubin 0.4 AST 22 ALT 27 Alkaline Phosphatase 65 Total Protein 6.4 Albumin 3.2 L Urine Color Dkyellow Urine Appearance Cloudy Urine pH 6.0 Ur Specific [place] 1.019 Urine Protein Negative Urine Glucose (UA) Negative Urine Ketones Negative Urine Blood Negative Urine Nitrite Negative Urine Bilirubin Negative Urine Urobilinogen 2.0 H Ur Leukocyte Esterase 2+ H Urine RBC 2-4 Urine WBC 10-20 Ur Epithelial Cells Few Urine Bacteria Few low potassium 3.2; replenish with k-dur aaox3 ambulating no acute distress Assessment: 02/05/17 10:44 withdrawal sx Plan: continue detox increase fluids k-dur 20meq x 4 days
[2017-02-05] MEDS: POTASSIUM CHLORIDE TABS 20 MEQ TABLET.ER (FP) PO SCH (11:36)
--- NOTE | 2017-02-05 11:38 | EKG ---
Test Reason : Blood Pressure : / mmHG Vent. Rate : 088 BPM Atrial Rate : 088 BPM P-R Int : 124 ms QRS Dur : 082 ms QT Int : 370 ms P-R-T Axes : 059 074 068 degrees QTc Int : 447 ms NORMAL SINUS RHYTHM NORMAL ECG WHEN COMPARED WITH ECG OF 13-DEC-2016 21:02, PREMATURE ATRIAL COMPLEXES ARE NO LONGER PRESENT VENT. RATE HAS INCREASED BY 42 BPM T WAVE INVERSION NO LONGER EVIDENT IN ANTERIOR LEADS Confirmed by IRWIN CRANE MD ([id number]) on 02/05/2017 11:38:01 AM Referred By: Confirmed By:IRWIN CRANE MD
--- NOTE | 2017-02-05 16:58 | CONSULT ---
[facility] Psychiatric Consult - Data Date of interview: 02/05/17 Admission source: [facility] Identifying data: Another admission to [facility] for this 41 y/o female seeking detox treatment on for heroin and cocaine dependence.Patient is single,a mother of two,domiciled,unemployed and supported on SSI benefits. Substance Abuse History: Active use of heroin and cocaine as per self-report. Smoking history: Current every day smoker. Have you smoked in the past 12 months: Yes. Aproximately how many cigarettes per day: 10. Cigars Per Day: 0. Hx Chewing Tobacco Use: No. Initiated information on smoking cessation: Yes. 'Breaking Loose' booklet given: 02/04/17. - Substance & Tx. History. Hx Alcohol Use: No. Hx Substance Use: Yes. Substance Use Type: Cocaine, Heroin. Hx Substance Use Treatment: Yes ([facility] 12/13/16 TO 12/17/16). - Substances Abused. Heroin. Route: Injection. Frequency: Daily. Amount used: 6 bags. Age of first use: 24. Date of Last Use: 02/03/17. Cocaine. Route: Injection. Frequency: Daily. Amount used: $100. Age of first use: 24. Date of Last Use: 02/03/17 Medical History: Hepatitis C and recent fracture of left foot (09/29/16) Psychiatric History: History of multiple psychiatric hospitalizations.Known to [facility] and [facility].Diagnosed with Bipolar Disorder,MDD and Anxiety Disorder.Patient reports that she used to be prescribed abilify 20 mg/hs and clonazepam (at the time that she was followed at the [facility] in [facility]).Non-adherence to medications since April 2016 (self-report).No longer on methadone maintenance.Ms Camarillo denies history of suicide attempts. Physical/Sexual Abuse/Trauma History: No reported history of abuse. Additional Comment: Urine Drug Screen Results: STEVIE-Cocaine, OPI-Opiates.Noted. Mental Status Exam - Mental Status Exam Alert and Oriented to: Time, Place, Person Cognitive Function: Good Patient Appearance: Well Groomed (thin habitus,short stature) Mood: Nervous, Withdrawn, Irritable Affect: Mood Congruent Patient Behavior: Fatigued, Appropriate (apologetic to this press writer for previous acting out behavior ), Cooperative (at this time) Speech Pattern: Clear, Appropriate Voice Loudness: Normal Thought Process: Goal Oriented Thought Disorder: Not Present Hallucinations: Denies Suicidal Ideation: Denies Homicidal Ideation: Denies Insight/Judgement: Poor Sleep: Poorly, Difficulty falling asleep Appetite: Good Muscle strength/Tone: Normal Gait/Station: Normal Psychiatric Findings - Problem List ([place] 1, 2,3) (1) Opioid dependence with withdrawal Current Visit: Yes Status: Chronic (2) Cocaine dependence, uncomplicated Current Visit: Yes Status: Acute (3) Nicotine dependence Current Visit: Yes Status: Acute Qualifiers: Nicotine product type: cigarettes Substance use status: uncomplicated Qualified Code(s): F17.210 - Nicotine dependence, cigarettes, uncomplicated (4) Substance induced mood disorder Current Visit: Yes Status: Acute (5) Insomnia Current Visit: Yes Status: Chronic - Initial Treatment Plan Initial Treatment Plan: Psychoeducation.Sleep hygiene.Detoxification.Patient requests that abilify + ambien be resumed in this hospital course.Will restart abilify 5 mg po hs + ambien 10 mg po hs prn.Side effects/benefits of both drugs are discussed with the patient.She is in agreement with careplan.Observation.
[2017-02-05] MEDS ORDERED: ZOLPIDEM TARTRATE 10 MG TABLET (PARK CARE ONLY) PO PRN (22:00)
[2017-02-05] MEDS ORDERED: ARIPiprazole 5 MG TABLET (FP) PO SCH (22:00)
[2017-02-05] MEDS: CYCLOBENZAPRINE HCL 10 MG TABLET (FP) PO PRN (22:07)
[2017-02-05] MEDS: THIAMINE HCL 100 MG TABLET (FP) PO SCH (22:08)
[2017-02-06] MEDS: diazePAM 5 MG TABLET PO PRN ×2 (06:01→10:27)
[2017-02-06] MEDS ORDERED: METHADONE HCL 5 MG TABLET (FOR DETOX USE ONLY) PO ONE (10:00)
[2017-02-06] MEDS: POTASSIUM CHLORIDE TABS 20 MEQ TABLET.ER (FP) PO SCH (10:27)
[2017-02-06] MEDS: SULFAMETHOXAZOLE/TRIMETHOPRIM 800MG/160MG D.S. TABLET PO SCH (10:27)
[2017-02-06] MEDS: cloNIDine HCL 0.1 MG TABLET PO SCH (10:27)
[2017-02-06] MEDS: PRENATAL VITAMINS W/ FOLIC ACID TABLET (FP) PO SCH (10:27)
[2017-02-06] MEDS: NICOTINE 21 MG/24 HOURS TOPICAL PATCH TD SCH (10:29)
--- NOTE | 2017-02-06 12:44 | PN ---
BHS COWS - Scale Resting Pulse: 2= [place] 101-120 Sweatin= Chills/Flushing Restless Observation: 3= Extraneous Movement Pupil Size: 1= Pupils >than Normal Bone or Joint Aches: 2= Severe Diffuse Aches Runny Nose/ Eye Tearin= Runny Nose/Eyes GI Upset > 30mins: 2= Nausea/Diarrhea Tremor Observation of Outstretched Hands: 2= Slight Tremor Visible Yawning Observation: 1= 1-2x During Session Anxiety or Irritability: 2=Irritable/Anxious Goose Flesh Skin: 0=Smooth Skin COWS Score: 18 S Progress Note (SOAP) Subjective: ALERT,IRRITABLE,ANXIOUS,INTERRUPTED SLEEP,TREMOR,PAIN IN THE BODY AND BACK Objective: 02/06/17 12:41 Vital Signs Temperature 99.3 F 02/06/17 10:43 Pulse Rate 103 H 02/06/17 10:43 Respiratory Rate 18 02/06/17 10:43 Blood Pressure 113/66 02/06/17 10:43 O2 Sat by Pulse Oximetry (%) EKG NSR,NORMAL ECG 02/06/17 12:42 Laboratory Last Values WBC 8.9 K/mm3 (4.0-10.0) 02/05/17 05:45 RBC 4.02 M/mm3 (3.60-5.2) 02/05/17 05:45 Hgb 12.2 GM/dL (10.7-15.3) 02/05/17 05:45 Hct 35.9 % (32.4-45.2) 02/05/17 05:45 MCV 89.1 fl (80-96) 02/05/17 05:45 MCH 30.2 pg (25.7-33.7) 02/05/17 05:45 MCHC 33.9 g/dl (32.0-36.0) 02/05/17 05:45 RDW 13.8 % (11.6-15.6) 02/05/17 05:45 Plt Count 425 K/MM3 (134-434) 02/05/17 05:45 MPV 7.7 fl (7.5-11.1) 02/05/17 05:45 Sodium 141 mmol/L (136-145) 02/05/17 05:45 Potassium 3.2 mmol/L (3.5-5.1) L 02/05/17 05:45 Chloride 101 mmol/L (98-107) 02/05/17 05:45 Carbon Dioxide 26 mmol/L (21-32) 02/05/17 05:45 Anion Gap 14 (8-16) 02/05/17 05:45 BUN 14 mg/dL (7-18) 02/05/17 05:45 Creatinine 0.7 mg/dL (0.55-1.02) 02/05/17 05:45 Creat Clearance w eGFR > 60 (>60) 02/05/17 05:45 Random Glucose 106 mg/dL (74-106) 02/05/17 05:45 Calcium 8.5 mg/dL (8.5-10.1) 02/05/17 05:45 Total Bilirubin 0.4 mg/dL (0.2-1.0) 02/05/17 05:45 AST 22 U/L (15-37) 02/05/17 05:45 ALT 27 U/L (12-78) 02/05/17 05:45 Alkaline Phosphatase 65 U/L (45-117) 02/05/17 05:45 Total Protein 6.4 g/dl (6.4-8.2) 02/05/17 05:45 Albumin 3.2 g/dl (3.4-5.0) L 02/05/17 05:45 Urine Color Dkyellow 02/04/17 15:00 Urine Appearance Cloudy 02/04/17 15:00 Urine pH 6.0 (5.0-8.0) 02/04/17 15:00 Ur Specific [place] 1.019 (1.001-1.035) 02/04/17 15:00 Urine Protein Negative (NEGATIVE) 02/04/17 15:00 Urine Glucose (UA) Negative (NEGATIVE) 02/04/17 15:00 Urine Ketones Negative (NEGATIVE) 02/04/17 15:00 Urine Blood Negative (NEGATIVE) 02/04/17 15:00 Urine Nitrite Negative (NEGATIVE) 02/04/17 15:00 Urine Bilirubin Negative (NEGATIVE) 02/04/17 15:00 Urine Urobilinogen 2.0 mg/dL (0.2-1.0) H 02/04/17 15:00 Ur Leukocyte Esterase 2+ (NEGATIVE) H 02/04/17 15:00 Urine RBC 2-4 /hpf (0-3) 02/04/17 15:00 Urine WBC 10-20 (0-5) 02/04/17 15:00 Ur Epithelial Cells Few /HPF 02/04/17 15:00 Urine Bacteria Few /hpf (NEGATIVE) 02/04/17 15:00 RPR Titer Nonreactive (NONREACTIVE) 02/05/17 05:45 Assessment: 02/06/17 12:43 WITHDRAWAL SYMPTOM Plan: CONTINUE DETOX,HYPOKALEMIA K IS 3.2,K DUR 20 MEQ PO DAILY,REPEAT UA R/O UTI
--- NOTE | 2017-02-06 12:59 | PN ---
S Progress Note Note: PATIENT DID NOT WANT TO COMPLETE TREATMENT,SIGNED RELEASE AMA,SEEN BY COUNSELOR
--- NOTE | 2017-02-06 13:05 | DS ---
[facility] Detox Discharge Summary Admission Date: 02/04/17 Discharge Date: 02/06/17 - History Present History: Cocaine Dependence, Opioid Dependence Additional Comments: PATIENT DID NOT WANT TO COMPLETE TREATMENT,SEEN BY COUNSELOR,SIGNED RELEASE AMA Pertinent Past History: HEPATITIS C INSOMNIA NICOTINE DEPENDENCE WEIGHT LOSS BIPOLAR DISORDER CELLULITIS LEFT HAND - Physical Exam Results Vital Signs: Vital Signs Temperature 99.3 F 02/06/17 10:43 Pulse Rate 103 H 02/06/17 10:43 Respiratory Rate 18 02/06/17 10:43 Blood Pressure 113/66 02/06/17 10:43 O2 Sat by Pulse Oximetry (%) Pertinent Admission Physical Exam Findings: WITHDRAWAL SYMPTOM - Medication Discharge Medications: Ambulatory Orders Aripiprazole [Abilify -] 20 mg PO HS 02/23/16 Aripiprazole [Abilify -] 5 mg PO HS #30 tablet 02/05/17 - Diagnosis (1) Opioid dependence with withdrawal Current Visit: Yes Status: Chronic (2) Cocaine dependence, uncomplicated Current Visit: Yes Status: Acute (3) Hepatitis C Current Visit: No Status: Chronic Qualifiers: Viral hepatitis chronicity: chronic Hepatic coma status: without hepatic coma Qualified Code(s): B18.2 - Chronic viral hepatitis C (4) Insomnia Current Visit: Yes Status: Chronic (5) Nicotine dependence Current Visit: Yes Status: Acute Qualifiers: Nicotine product type: cigarettes Substance use status: uncomplicated Qualified Code(s): F17.210 - Nicotine dependence, cigarettes, uncomplicated (6) Weight loss Current Visit: No Status: Chronic (7) Bipolar II disorder Current Visit: No Status: Suspected (8) Cellulitis of left hand Current Visit: Yes Status: Acute (9) Hypokalemia Current Visit: Yes Status: Acute
[2017-02-06 13:48] VITALS: BP 106/63; PULSE 100; TEMP 97.6
[2017-02-07] MEDS ORDERED: METHADONE HCL 5 MG TABLET (FOR DETOX USE ONLY) PO ONE (10:00)
[2017-02-08] MEDS ORDERED: METHADONE HCL 10 MG TABLET (FOR DETOX USE ONLY) PO ONE (10:00)
[2017-02-09] MEDS ORDERED: METHADONE HCL 5 MG TABLET (FOR DETOX USE ONLY) PO ONE (06:00)
== END 2017-02-06 13:17 | disposition left against medical advice (07) | DRG 770 ==
LOC: YASAS 08:26 → Y6N 10:55
PROVIDERS: ADMIT Internal Medicine; ATTEND Internal Medicine
PROC: HZ2ZZZZ Detoxification Services for Substance Abuse Treatment (ICD-10-PCS; principal; 2017-02-04)
DX: F11.23 Opioid dependence with withdrawal (principal); F14.20 Cocaine dependence, uncomplicated; F17.210 Nicotine dependence, cigarettes, uncomplicated; F31.81 Bipolar II disorder; F19.24 Other psychoactive substance dependence with psychoactive substance-induced mood disorder; B18.2 Chronic viral hepatitis C; E87.6 Hypokalemia; G47.00 Insomnia, unspecified; L03.114 Cellulitis of left upper limb; Z88.0 Allergy status to penicillin; Z91.013 Allergy to seafood; Z87.898 Personal history of other specified conditions
CPT/HCPCS: 36415; 80053; 81003; 81015; 85027; 86593; 93005; 93010

== ENCOUNTER 2017-03-27 10:41 | Inpatient (IN) | payer OTHER ==
[2017-03-27 11:03] VITALS: BMI 19.7
--- NOTE | 2017-03-27 11:40 | HP ---
COWS - Scale Resting Pulse: 1= [place] 81-100 Sweatin= Chills/Flushing Restless Observation: 3= Extraneous Movement Pupil Size: 2= Moderately Dilated Bone or Joint Aches: 4=Acute Joint/Muscle Pain Runny Nose/ Eye Tearin= Runny Nose/Eyes GI Upset > 30mins: 2= Nausea/Diarrhea (nausea) Tremor Observation: 2= Slight Tremor Visible Yawning Observation: 1= 1-2x During Session Anxiety or Irritability: 2=Irritable/Anxious Goose Flesh Skin: 0=Smooth Skin COWS Score: 20 Admission ROS S - HPI Chief Complaint: WITHDRAWAL SX FROM HEROIN Allergies/Adverse Reactions: Allergies Allergy/AdvReac Type Severity Reaction Status Date / Time fish derived Allergy Severe Hives Verified 02/04/17 09:47 Penicillins Allergy Rash Verified 02/04/17 09:47 History of Present Illness: 41 Y/O FEMALE WITH A LONG HX HEROIN AND COCAINE DEPENDENCE SEEKING DETOX TX. PT REPORTS 4 1/2 YRS SOBER TIME BUT RELAPSED LAST OCTOBER 2016 [place] IN HER APARTMENT AND MAINTAINING A JOB. PT HOPES TO TRY HER BEST TO REMAIN SOBER AND GET BACK TO NORMAL FUNCTIONING. Exam Limitations: No Limitations - Ebola screening Have you traveled outside of the country in the last 21 days: No (N) Have you had contact with anyone from an Ebola affected area: No Have you been sick,other than usual withdrawal symptoms: No Do you have a fever: No - Review of Systems Constitutional: Chills, Night Sweats, Changes in sleep, Unintentional Wgt. Loss EENT: reports: Blurred Vision, Tearing, Nose Congestion, Dental Problems ( BILATERAL DENTURES) Respiratory: reports: No Symptoms reported Cardiac: reports: Lightheadedness GI: reports: Constipated, Diarrhea, Nausea, Vomiting, Abdominal cramping : reports: No Symptoms Reported Musculoskeletal: reports: Back Pain, Joint Pain, Muscle Pain Integumentary: reports: Bruising (DUE TO IVD INJECTION), Dryness Neuro: reports: Headache, Tremors, Dizziness Endocrine: reports: No Symptoms Reported Hematology: reports: No Symptoms Reported Psychiatric: reports: Orientated x3, Anxious, Depressed Other Systems: Reviewed and Negative Patient History - Patient Medical History Hx Anemia: No Hx Asthma: No Hx Chronic Obstructive Pulmonary Disease (COPD): No Hx Cancer: No Hx Cardiac Disorders: No Hx Congestive Heart Failure: No Hx Hypertension: No Hx Hypercholesterolemia: No Hx Pacemaker: No HX Cerebrovascular Accident: No Hx Seizures: No Hx Dementia: No Hx Diabetes: No Hx Gastrointestinal Disorders: No Hx Liver Disease: No Hx Genitourinary Disorders: No Hx Sexually Transmitted Disorders: No Hx Renal Disease (ESRD): No Hx Thyroid Disease: No Hx Human Immunodeficiency Virus (HIV): No (NEGATIVE HX) Hx Hepatitis C: Yes (NOT TREATED) Hx Depression: Yes (NO CURRENT MEDS BUT "I'M SUPPOSED TO".) Hx Suicide Attempt: No (DENIES) Hx Bipolar Disorder: Yes Hx Schizophrenia: No - Patient Surgical History Past Surgical History: Yes Hx Neurologic Surgery: No Hx Cataract Extraction: No Hx Cardiac Surgery: No Hx Lung Surgery: No Hx Breast Surgery: No Hx Breast Biopsy: No Hx Abdominal Surgery: No Hx Appendectomy: No Hx Cholecystectomy: No Hx Genitourinary Surgery: No Hx Section: No Hx Orthopedic Surgery: No Hx Hysterectomy: No Other Surgical History: ON NECK DUE TO ABCESS. Anesthesia Reaction: No - PPD History Previous Implant?: Yes Implanted On Prior [facility] Admission?: Yes Date: 02/25/16 Results: 0 mm - Reproductive History Patient is a Female of Child Bearing Age (11 -55 yrs old): Yes Last Menstrual Period: 12/30/16 Patient : No - Smoking Cessation Smoking history: Current every day smoker Have you smoked in the past 12 months: Yes Aproximately how many cigarettes per day: 10 Cigars Per Day: 0 Hx Chewing Tobacco Use: No Initiated information on smoking cessation: Yes 'Breaking Loose' booklet given: 03/27/17 - Substance & Tx. History Hx Alcohol Use: No (DENIES AT THIS TIME) Hx Substance Use: Yes (HEROIN/COCAINE) Substance Use Type: Cocaine, Heroin Hx Substance Use Treatment: Yes (LAST TX AT [facility] DETOX) - Substances Abused Cocaine Route: Injection Frequency: Daily Amount used: $60 Age of first use: 25 Date of Last Use: 03/26/17 Heroin Route: Injection Frequency: Daily Amount used: 12 BAGS Age of first use: 25 Date of Last Use: 03/27/17 Family Disease History - Family Disease History Family Disease History: Heart Disease: Father (HTN;ALCOHOLISM), Other: Father Admission Physical Exam BHS - Vital Signs Vital Signs: Vital Signs - 24 hr 03/27/17 11:00 Temperature 97.9 F Pulse Rate 85 Respiratory 16 Rate Blood Pressure 98/68 - Physical General Appearance: Yes: Moderate Distress, Irritable, Anxious HEENTM: Yes: EOMI, Normocephalic, EDITA, Pharynx Normal, Nasal Congestion, Rhinorrhea Respiratory: Yes: Chest Non-Tender, Lungs Clear, Normal Breath Sounds, No Respiratory Distress Neck: Yes: No masses,lesions,Nodules, Supple, Trachea in good position Breast: Yes: Breast Exam Deferred Cardiology: Yes: Regular Rhythm, Regular Rate, S1, S2 Abdominal: Yes: Normal Bowel Sounds, Non Tender, Flat Genitourinary: Yes: Other (N/C) Back: Yes: Within Normal Limits Musculoskeletal: Yes: full range of Motion, Gait Steady Extremities: Yes: Normal Range of Motion, Non-Tender, Tremors Neurological: Yes: candy polisher II-XII NML intact, Fully Oriented, Alert, Motor Strength 5/5 Integumentary: Yes: Dry, Warm, Track G[place]a (BOTH FOREARMS) - Diagnostic (1) Cocaine dependence, uncomplicated Current Visit: Yes Status: Acute (2) Nicotine dependence Current Visit: Yes Status: Acute Qualifiers: Nicotine product type: cigarettes Substance use status: in withdrawal Qualified Code(s): F17.213 - Nicotine dependence, cigarettes, with withdrawal (3) Opioid dependence with withdrawal Current Visit: Yes Status: Chronic (4) Weight loss Current Visit: No Status: Chronic (5) Cellulitis of right arm Current Visit: Yes Status: Acute (6) Cellulitis of left hand Current Visit: Yes Status: Acute Cleared for Admission BHS - Detox or Rehab Detox Regimen/Protocol: Methadone BHS Breath Alcohol Content Breath Alcohol Content: 0 Urine Pregancy Test - Result Urine Test Results: Negative- NO Line Present Urine Drug Screen - Results Drug Screen Negative: No Urine Drug Screen Results: STEVIE-Cocaine, OPI-Opiates, OXY-Oxycodone
[2017-03-27] MEDS ORDERED: NICOTINE POLACRILEX 2 MG GUM BUC PRN (12:02)
[2017-03-27] MEDS ORDERED: MAGNESIUM HYDROX 2400MG/30ML ORAL SUSPENSION 30 ML CUP PO PRN (12:02)
[2017-03-27] MEDS ORDERED: MENTHOL/PHENOL 1 EACH UD MM PRN (12:02)
[2017-03-27] MEDS ORDERED: ACETAMINOPHEN 325 MG TABLET (FP) PO PRN (12:02)
[2017-03-27] MEDS ORDERED: P-EPHED 60MG/TRIPROLIDI 2.5MG TABLET PO PRN (12:02)
[2017-03-27] MEDS ORDERED: IBUPROFEN 400 MG TABLET (FP) PO PRN (12:02)
[2017-03-27] MEDS ORDERED: guaiFENesin/D-METHORPHAN HB 10 ML UNIT-DOSE CUPS PO PRN (12:02)
[2017-03-27] MEDS ORDERED: MAG HYDROX/AL HYDROX/SIMETH 30 ML UNIT-DOSE CUP PO PRN (12:02)
[2017-03-27] MEDS ORDERED: MAGNESIUM CITRATE 300 ML BOTTLE PO PRN (12:02)
[2017-03-27] MEDS ORDERED: LOPERAMIDE HCL 2 MG CAPSULE PO PRN (12:02)
[2017-03-27] MEDS ORDERED: METHADONE HCL 10 MG TABLET (FOR DETOX USE ONLY) PO ONE ×2 (13:47→23:00)
[2017-03-27] MEDS: diazePAM 5 MG TABLET PO PRN ×2 (13:57→22:38)
[2017-03-27] MEDS: NICOTINE 14 MG/24 HOURS TOPICAL PATCH TD SCH (13:58)
--- NOTE | 2017-03-27 15:36 | EKG ---
Test Reason : Blood Pressure : / mmHG Vent. Rate : 094 BPM Atrial Rate : 094 BPM P-R Int : 136 ms QRS Dur : 100 ms QT Int : 366 ms P-R-T Axes : 069 076 071 degrees QTc Int : 457 ms NORMAL SINUS RHYTHM NORMAL ECG WHEN COMPARED WITH ECG OF 04-FEB-2017 11:48, NO SIGNIFICANT CHANGE WAS FOUND Confirmed by ANDRE OLIVA MD ([id number]) on 03/27/2017 3:35:53 PM Referred By: Confirmed By:ANDRE OLIVA MD
[2017-03-27 15:38] LABS: HEMATOCRIT 34.6 % (32.4-45.2); HEMOGLOBIN 11.6 GM/dL (10.7-15.3); MCH 29.7 pg (25.7-33.7); MCHC 33.6 g/dl (32.0-36.0); MEAN CELL VOLUME 88.6 fl (80-96); MEAN PLT VOLUME 7.1 fl (7.5-11.1); PLATELET COUNT 467 K/MM3 (134-434); RBC 3.91 M/mm3 (3.60-5.2); RDW 13.5 % (11.6-15.6); WHITE BLOOD COUNT 11.2 K/mm3 (4.0-10.0)
[2017-03-27 15:49] LABS: ALBUMIN 3.1 g/dl (3.4-5.0); ALK PHOS 82 U/L (45-117); ANION GAP 9 (8-16); BILIRUBIN,TOTAL 0.3 mg/dL (0.2-1.0); BLOOD UREA NITROGEN 19 mg/dL (7-18); CALCIUM 8.8 mg/dL (8.5-10.1); CHLORIDE 102 mmol/L (98-107); CO2 32 mmol/L (21-32); CREATININE 0.7 mg/dL (0.55-1.02); GLUCOSE,RANDOM 112 mg/dL (74-106); POTASSIUM 3.2 mmol/L (3.5-5.1); SGOT/AST 25 U/L (15-37); SGPT/ALT 30 U/L (12-78); SODIUM 143 mmol/L (136-145); TOT PROT 6.8 g/dl (6.4-8.2)
[2017-03-27 15:52] LABS: URINE APPEARANCE CLOUDY; URINE BILIRUBIN NEGATIVE (NEGATIVE); URINE BLOOD NEGATIVE (NEGATIVE); URINE COLOR DKYELLOW; URINE GLUCOSE (UA) NEGATIVE (NEGATIVE); URINE KETONE NEGATIVE (NEGATIVE); URINE NITRITE NEGATIVE (NEGATIVE); URINE PROTEIN NEGATIVE (NEGATIVE); URINE UROBILINOGEN 4.0 E.U/dl mg/dL (0.2-1.0)
[2017-03-27 16:14] LABS: URINE LEUK ESTERASE 1+ (NEGATIVE)
[2017-03-27 17:06] LABS: CALCIUM OXALATE CRYSTALS MANY /hpf (NONE SEEN); EPI CELLS RARE /HPF (FEW); URINE BACTERIA FEW /hpf (NONE SEEN); URINE HYALINE CAST 3 /lpf; URINE MUCUS RARE
[2017-03-27] MEDS ORDERED: ONDANSETRON *ODT* 4 MG TABLET SL ONE (18:15)
--- NOTE | 2017-03-27 18:23 | PN ---
[facility] Progress Note Note: received nurse call that the patient vomiting x 3 today zofrain sl 4 mg x 1 now increase oral fluid K+ 3.2 long history of hypokalemia begin potassium supplement 20 meq po bid nurse reports that the patient bump her nose on bedside table c/o pain observed patient laying on bed breath even and ease easy to aroused patient refuses to be seen and refuses nose examine "nothing wrong with me" encourage nurse continue monitor and inform provider if any further development
[2017-03-27] MEDS ORDERED: POTASSIUM CHLORIDE ORAL LIQUID 20 MEQ/15 ML PO SCH (22:00)
[2017-03-27] MEDS: THIAMINE HCL 100 MG TABLET (FP) PO SCH (22:36)
[2017-03-28] MEDS: diazePAM 5 MG TABLET PO PRN ×4 (07:47→20:21)
--- NOTE | 2017-03-28 09:07 | PN ---
BHS COWS - Scale Resting Pulse: 1= [place] 81-100 Sweatin= Chills/Flushing Restless Observation: 3= Extraneous Movement Pupil Size: 1= Pupils >than Normal Bone or Joint Aches: 2= Severe Diffuse Aches Runny Nose/ Eye Tearin= Runny Nose/Eyes GI Upset > 30mins: 2= Nausea/Diarrhea Tremor Observation of Outstretched Hands: 2= Slight Tremor Visible Yawning Observation: 1= 1-2x During Session Anxiety or Irritability: 2=Irritable/Anxious Goose Flesh Skin: 0=Smooth Skin COWS Score: 17 S Progress Note (SOAP) Subjective: ALERT,IRRITABLE,ANXIOUS,INTERRUPTED SLEEP,TREMOR,PAIN IN THE BODY AND BACK Objective: 03/28/17 09:06 Vital Signs Temperature 97.9 F 03/28/17 07:45 Pulse Rate 96 H 03/28/17 07:45 Respiratory Rate 18 03/28/17 07:45 Blood Pressure 116/72 03/28/17 07:45 O2 Sat by Pulse Oximetry (%) EKG NSR,NORMAL ECG Laboratory Last Values WBC 11.2 K/mm3 (4.0-10.0) H 03/27/17 12:00 RBC 3.91 M/mm3 (3.60-5.2) 03/27/17 12:00 Hgb 11.6 GM/dL (10.7-15.3) 03/27/17 12:00 Hct 34.6 % (32.4-45.2) 03/27/17 12:00 MCV 88.6 fl (80-96) 03/27/17 12:00 MCH 29.7 pg (25.7-33.7) 03/27/17 12:00 MCHC 33.6 g/dl (32.0-36.0) 03/27/17 12:00 RDW 13.5 % (11.6-15.6) 03/27/17 12:00 Plt Count 467 K/MM3 (134-434) H 03/27/17 12:00 MPV 7.1 fl (7.5-11.1) L 03/27/17 12:00 Sodium 143 mmol/L (136-145) 03/27/17 12:00 Potassium 3.2 mmol/L (3.5-5.1) L 03/27/17 12:00 Chloride 102 mmol/L (98-107) 03/27/17 12:00 Carbon Dioxide 32 mmol/L (21-32) D 03/27/17 12:00 Anion Gap 9 (8-16) 03/27/17 12:00 BUN 19 mg/dL (7-18) H D 03/27/17 12:00 Creatinine 0.7 mg/dL (0.55-1.02) 03/27/17 12:00 Creat Clearance w eGFR > 60 (>60) 03/27/17 12:00 Random Glucose 112 mg/dL (74-106) H 03/27/17 12:00 Calcium 8.8 mg/dL (8.5-10.1) 03/27/17 12:00 Total Bilirubin 0.3 mg/dL (0.2-1.0) D 03/27/17 12:00 AST 25 U/L (15-37) 03/27/17 12:00 ALT 30 U/L (12-78) 03/27/17 12:00 Alkaline Phosphatase 82 U/L (45-117) D 03/27/17 12:00 Total Protein 6.8 g/dl (6.4-8.2) 03/27/17 12:00 Albumin 3.1 g/dl (3.4-5.0) L 03/27/17 12:00 Urine Color Dkyellow 03/27/17 13:00 Urine Appearance Cloudy 03/27/17 13:00 Urine pH 5.0 (5.0-8.0) 03/27/17 13:00 Ur Specific [place] 1.025 (1.001-1.035) 03/27/17 13:00 Urine Protein Negative (NEGATIVE) 03/27/17 13:00 Urine Glucose (UA) Negative (NEGATIVE) 03/27/17 13:00 Urine Ketones Negative (NEGATIVE) 03/27/17 13:00 Urine Blood Negative (NEGATIVE) 03/27/17 13:00 Urine Nitrite Negative (NEGATIVE) 03/27/17 13:00 Urine Bilirubin Negative (NEGATIVE) 03/27/17 13:00 Urine Urobilinogen 4.0 e.u/dl mg/dL (0.2-1.0) H 03/27/17 13:00 Urine WBC (Auto) 32 /hpf (3-5) 03/27/17 13:00 Urine RBC (Auto) 4 /hpf (0-3) 03/27/17 13:00 Ur Epithelial Cells Rare /HPF (FEW) 03/27/17 13:00 Calcium Oxalate Crystal Many /hpf (NONE SEEN) 03/27/17 13:00 Urine Bacteria Few /hpf (NONE SEEN) 03/27/17 13:00 Hyaline Casts 3 /lpf 03/27/17 13:00 Urine Mucus Rare 03/27/17 13:00 RPR Titer Nonreactive (NONREACTIVE) 03/27/17 12:00 Assessment: 03/28/17 09:07 WITHDRAWAL SYMPTOM Plan: CONTINUE DETOX,BACTRIM DS 1 TAB PO BID FOR 7 DYS FOR CELLULITIS,K DUR 20 MEQ PO BID FOR 3 DAYS FOR HYPKALEMIA K IS 3.2.REPEAT K IN AM
--- NOTE | 2017-03-28 09:52 | PN ---
S Progress Note Note: Patient approached three times by psychiatric nurse practitioner for psychiatric consultation. Pt. refused
[2017-03-28] MEDS ORDERED: POTASSIUM CHLORIDE TABS 20 MEQ TABLET.ER (FP) PO SCH (10:00)
[2017-03-28] MEDS ORDERED: METHADONE HCL 10 MG TABLET (FOR DETOX USE ONLY) PO ONE (10:00)
[2017-03-28] MEDS: SULFAMETHOXAZOLE/TRIMETHOPRIM 800MG/160MG D.S. TABLET PO SCH ×2 (10:27→22:13)
[2017-03-28] MEDS: PRENATAL VITAMINS W/ FOLIC ACID TABLET (FP) PO SCH ×2 (10:28→10:50)
[2017-03-28] MEDS: NICOTINE 14 MG/24 HOURS TOPICAL PATCH TD SCH (10:28)
[2017-03-28] MEDS: POTASSIUM CHLORIDE TABS 20 MEQ TABLET.ER (FP) PO SCH ×3 (10:50→22:13)
--- NOTE | 2017-03-28 15:22 | CONSULT ---
[facility] Psychiatric Consult - Data Date of interview: 03/28/17 Admission source: [facility] Identifying data: This is one of multiple admissions to [facility] for this 41 y/ o female seeking detox treatment on for heroin and cocaine dependence.Patient is single,a mother of two,domiciled,unemployed and supported on SSI benefits. Substance Abuse History: Confirmed by the patient in this interview.Details in current [facility] report : Smoking history: Current every day smoker. Have you smoked in the past 12 months: Yes. Aproximately how many cigarettes per day: 10. Cigars Per Day: 0. Hx Chewing Tobacco Use: No. Initiated information on smoking cessation: Yes. 'Breaking Loose' booklet given: 03/27/17. - Substance & Tx. History. Hx Alcohol Use: No (DENIES AT THIS TIME). Hx Substance Use: Yes (HEROIN/COCAINE). Substance Use Type: Cocaine, Heroin. Hx Substance Use Treatment: Yes (LAST TX AT [facility] DETOX). - Substances Abused. Cocaine. Route: Injection. Frequency: Daily. Amount used: $60. Age of first use: 25. Date of Last Use: 03/26/17. Heroin. Route: Injection. Frequency: Daily. Amount used: 12 BAGS. Age of first use: 25. Date of Last Use: 03/27/17 Medical History: Hepatitis C,cellulitis of right forearm (complication of IV use of drugs) and a history of orthosurgery for fracture of left foot (09/29/16). Psychiatric History: Patient admits to a history of multiple psychiatric hospitalizations since onset of psychiatric illness (age 16).Past psychiatric inpatient care at several institutions ([facility]).Diagnosed with Bipolar Disorder,MDD and Anxiety Disorder.Ms Camarillo is already known to this marketing writer.She has been prescribed abilify,lexapro,zolpidem,clonazepam in the past.Has a well established history of non-adherence to OPD care and medications.Patient declares that she dropped out of treatment at the [facility] ([place] ) about 9-10 months ago.Took medications only during her most recent admission to [facility] in January 2017.Never followed up with aftercare.No longer on methadone maintenance.Ms Camarillo denies history of suicide attempts. Physical/Sexual Abuse/Trauma History: Patient denies history of abuse. Additional Comment: Urine Drug Screen Results: STEVIE-Cocaine, OPI-Opiates, OXY- Oxycodone.Noted. Mental Status Exam - Mental Status Exam Alert and Oriented to: Time, Place, Person Cognitive Function: Grossly Intact Patient Appearance: Unkempt, Disheveled (thin habitus) Mood: Nervous, Withdrawn, Anxious Affect: Mood Congruent, Constricted Patient Behavior: Restless, Fatigued, Cooperative Speech Pattern: Clear Voice Loudness: Normal Thought Process: Intact, Goal Oriented Thought Disorder: Not Present Hallucinations: Denies Suicidal Ideation: Denies Homicidal Ideation: Denies Insight/Judgement: Poor Sleep: Poorly, Difficulty falling asleep (wants ambien at bedtime) Appetite: Good Muscle strength/Tone: Normal Gait/Station: Normal Psychiatric Findings - Problem List ([place] 1, 2,3) (1) Opioid dependence with withdrawal Current Visit: Yes Status: Acute (2) Cocaine dependence, uncomplicated Current Visit: Yes Status: Acute (3) Nicotine dependence Current Visit: Yes Status: Acute Qualifiers: Nicotine product type: cigarettes Substance use status: in withdrawal Qualified Code(s): F17.213 - Nicotine dependence, cigarettes, with withdrawal (4) Substance induced mood disorder Current Visit: Yes Status: Acute (5) Bipolar II disorder Current Visit: Yes Status: Chronic Comment: As per records and self- report.Non compliant with medications + OPD care.Stopped going to the [facility] clinic for aftercare. (6) Insomnia Current Visit: Yes Status: Chronic - Initial Treatment Plan Initial Treatment Plan: Previous records are reviewed.Psychoeducation.Sleep hygiene discussed.Detoxification in progress.Medications (at patient's request) : abilify 5 mg po hs (titration to follow) + ambien 5 mg po hs prn.Side effects/ benefits of both drugs are discussed with the patient.Ms Camarillo consented ( verbally) to follow this plan of care.Observation.
[2017-03-28] MEDS ORDERED: hydrOXYzine PAMOATE 50 MG CAPSULE (FP) PO PRN (15:25)
[2017-03-28] MEDS ORDERED: IBUPROFEN 600 MG TABLET (FP) PO PRN (15:25)
[2017-03-28] MEDS ORDERED: ONDANSETRON *ODT* 4 MG TABLET SL PRN (15:35)
[2017-03-28] MEDS: CYCLOBENZAPRINE HCL 10 MG TABLET (FP) PO PRN (22:13)
[2017-03-28] MEDS: ZOLPIDEM TARTRATE 5 MG TABLET PO PRN (22:13)
[2017-03-28] MEDS: ARIPiprazole 5 MG TABLET (FP) PO SCH ×2 (22:13→22:43)
[2017-03-28] MEDS: THIAMINE HCL 100 MG TABLET (FP) PO SCH (22:43)
[2017-03-29] MEDS: diazePAM 5 MG TABLET PO PRN ×3 (06:43→20:20)
--- NOTE | 2017-03-29 09:35 | PN ---
BHS COWS - Scale Resting Pulse: 1= [place] 81-100 Sweatin= Chills/Flushing Restless Observation: 3= Extraneous Movement Pupil Size: 1= Pupils >than Normal Bone or Joint Aches: 2= Severe Diffuse Aches Runny Nose/ Eye Tearin= Runny Nose/Eyes GI Upset > 30mins: 2= Nausea/Diarrhea Tremor Observation of Outstretched Hands: 2= Slight Tremor Visible Yawning Observation: 1= 1-2x During Session Anxiety or Irritability: 2=Irritable/Anxious Goose Flesh Skin: 0=Smooth Skin COWS Score: 17 BHS Progress Note (SOAP) Subjective: ALERT,IRRITABLE,ANXIOUS,INTERRUPTED SLEEP,PAIN IN THE BODY AND BACK,NON COMPLIANCE Objective: 03/29/17 09:34 Vital Signs Temperature 97.2 F L 03/29/17 06:33 Pulse Rate 96 H 03/29/17 06:33 Respiratory Rate 20 03/29/17 06:33 Blood Pressure 111/77 03/29/17 06:33 O2 Sat by Pulse Oximetry (%) Assessment: 03/29/17 09:35 WITHDRAWAL SYMPTOM Plan: CONTINUE DETOX,K DUR FOR POTASSIUM REPLACEMENT,FOLLOW UP K
[2017-03-29] MEDS ORDERED: METHADONE HCL 5 MG TABLET (FOR DETOX USE ONLY) PO ONE (10:00)
[2017-03-29] MEDS: POTASSIUM CHLORIDE TABS 20 MEQ TABLET.ER (FP) PO SCH ×2 (10:15→23:35)
[2017-03-29] MEDS: SULFAMETHOXAZOLE/TRIMETHOPRIM 800MG/160MG D.S. TABLET PO SCH ×2 (10:18→23:35)
[2017-03-29] MEDS: NICOTINE 14 MG/24 HOURS TOPICAL PATCH TD SCH (10:19)
[2017-03-29] MEDS: PRENATAL VITAMINS W/ FOLIC ACID TABLET (FP) PO SCH (10:19)
[2017-03-29] MEDS: CYCLOBENZAPRINE HCL 10 MG TABLET (FP) PO PRN (13:29)
[2017-03-29] MEDS: ZOLPIDEM TARTRATE 5 MG TABLET PO PRN (23:34)
[2017-03-29] MEDS: ARIPiprazole 5 MG TABLET (FP) PO SCH (23:37)
[2017-03-29] MEDS: THIAMINE HCL 100 MG TABLET (FP) PO SCH (23:37)
--- NOTE | 2017-03-30 07:24 | PN ---
[facility] Progress Note Note: Patient was seen and examined at bedside. She states, "I got up abruptly from the bed and fell on my buttock." No injury noted or reported. She denies pain, syncope, loss of consciousness and dizziness. V/S B/P 118/64, HR 97, RR18, Temp. 98.2F. Fall protocol #2 initiated. Staff instructed to monitor patient for fall.
--- NOTE | 2017-03-30 09:45 | PN ---
S Progress Note (SOAP) Subjective: sweat tremor restlessness anxiety patient reports fell last night, denies pain, denies sensory motor alteration tolerates fluid and food well ambulating steady gait Objective: 03/30/17 09:40 Vital Signs Temperature 98.2 F 03/30/17 06:30 Pulse Rate 97 H 03/30/17 06:30 Respiratory Rate 18 03/30/17 06:30 Blood Pressure 118/64 03/30/17 06:30 O2 Sat by Pulse Oximetry (%) Laboratory Last Values WBC 11.2 K/mm3 (4.0-10.0) H 03/27/17 12:00 RBC 3.91 M/mm3 (3.60-5.2) 03/27/17 12:00 Hgb 11.6 GM/dL (10.7-15.3) 03/27/17 12:00 Hct 34.6 % (32.4-45.2) 03/27/17 12:00 MCV 88.6 fl (80-96) 03/27/17 12:00 MCH 29.7 pg (25.7-33.7) 03/27/17 12:00 MCHC 33.6 g/dl (32.0-36.0) 03/27/17 12:00 RDW 13.5 % (11.6-15.6) 03/27/17 12:00 Plt Count 467 K/MM3 (134-434) H 03/27/17 12:00 MPV 7.1 fl (7.5-11.1) L 03/27/17 12:00 Sodium 143 mmol/L (136-145) 03/27/17 12:00 Potassium 3.2 mmol/L (3.5-5.1) L 03/27/17 12:00 Chloride 102 mmol/L (98-107) 03/27/17 12:00 Carbon Dioxide 32 mmol/L (21-32) D 03/27/17 12:00 Anion Gap 9 (8-16) 03/27/17 12:00 BUN 19 mg/dL (7-18) H D 03/27/17 12:00 Creatinine 0.7 mg/dL (0.55-1.02) 03/27/17 12:00 Creat Clearance w eGFR > 60 (>60) 03/27/17 12:00 Random Glucose 112 mg/dL (74-106) H 03/27/17 12:00 Calcium 8.8 mg/dL (8.5-10.1) 03/27/17 12:00 Total Bilirubin 0.3 mg/dL (0.2-1.0) D 03/27/17 12:00 AST 25 U/L (15-37) 03/27/17 12:00 ALT 30 U/L (12-78) 03/27/17 12:00 Alkaline Phosphatase 82 U/L (45-117) D 03/27/17 12:00 Total Protein 6.8 g/dl (6.4-8.2) 03/27/17 12:00 Albumin 3.1 g/dl (3.4-5.0) L 03/27/17 12:00 Urine Color Dkyellow 03/27/17 13:00 Urine Appearance Cloudy 03/27/17 13:00 Urine pH 5.0 (5.0-8.0) 03/27/17 13:00 Ur Specific [place] 1.025 (1.001-1.035) 03/27/17 13:00 Urine Protein Negative (NEGATIVE) 03/27/17 13:00 Urine Glucose (UA) Negative (NEGATIVE) 03/27/17 13:00 Urine Ketones Negative (NEGATIVE) 03/27/17 13:00 Urine Blood Negative (NEGATIVE) 03/27/17 13:00 Urine Nitrite Negative (NEGATIVE) 03/27/17 13:00 Urine Bilirubin Negative (NEGATIVE) 03/27/17 13:00 Urine Urobilinogen 4.0 e.u/dl mg/dL (0.2-1.0) H 03/27/17 13:00 Urine WBC (Auto) 32 /hpf (3-5) 03/27/17 13:00 Urine RBC (Auto) 4 /hpf (0-3) 03/27/17 13:00 Ur Epithelial Cells Rare /HPF (FEW) 03/27/17 13:00 Calcium Oxalate Crystal Many /hpf (NONE SEEN) 03/27/17 13:00 Urine Bacteria Few /hpf (NONE SEEN) 03/27/17 13:00 Hyaline Casts 3 /lpf 03/27/17 13:00 Urine Mucus Rare 03/27/17 13:00 RPR Titer Nonreactive (NONREACTIVE) 03/27/17 12:00 lab noted Assessment: 03/30/17 09:43 withdrawal sx Plan: continue detox
[2017-03-30] MEDS ORDERED: METHADONE HCL 5 MG TABLET (FOR DETOX USE ONLY) PO ONE (10:00)
[2017-03-30 10:59] VITALS: BP 126/63; PULSE 98; TEMP 97.9
--- NOTE | 2017-03-30 14:05 | DS ---
[facility] Detox Discharge Summary Admission Date: 03/27/17 Discharge Date: 03/30/17 - History Present History: Alcohol Dependence, Opioid Dependence Pertinent Past History: patient fell 03/29/16, hold valium prn, patient demands valium "I need valium every day" explained valium prn first 72 hours of detox vital sign withing normal range risk of give valium out weight the benefits patient insists to leave the facility - Physical Exam Results Vital Signs: Vital Signs Temperature 97.9 F 03/30/17 10:00 Pulse Rate 98 H 03/30/17 10:00 Respiratory Rate 18 03/30/17 10:00 Blood Pressure 126/63 03/30/17 10:00 O2 Sat by Pulse Oximetry (%) Pertinent Admission Physical Exam Findings: withdrawal sx Vital Signs Temperature 97.9 F 03/30/17 10:00 Pulse Rate 98 H 03/30/17 10:00 Respiratory Rate 18 03/30/17 10:00 Blood Pressure 126/63 03/30/17 10:00 O2 Sat by Pulse Oximetry (%) Laboratory Last Values WBC 11.2 K/mm3 (4.0-10.0) H 03/27/17 12:00 RBC 3.91 M/mm3 (3.60-5.2) 03/27/17 12:00 Hgb 11.6 GM/dL (10.7-15.3) 03/27/17 12:00 Hct 34.6 % (32.4-45.2) 03/27/17 12:00 MCV 88.6 fl (80-96) 03/27/17 12:00 MCH 29.7 pg (25.7-33.7) 03/27/17 12:00 MCHC 33.6 g/dl (32.0-36.0) 03/27/17 12:00 RDW 13.5 % (11.6-15.6) 03/27/17 12:00 Plt Count 467 K/MM3 (134-434) H 03/27/17 12:00 MPV 7.1 fl (7.5-11.1) L 03/27/17 12:00 Sodium 143 mmol/L (136-145) 03/27/17 12:00 Potassium 3.2 mmol/L (3.5-5.1) L 03/27/17 12:00 Chloride 102 mmol/L (98-107) 03/27/17 12:00 Carbon Dioxide 32 mmol/L (21-32) D 03/27/17 12:00 Anion Gap 9 (8-16) 03/27/17 12:00 BUN 19 mg/dL (7-18) H D 03/27/17 12:00 Creatinine 0.7 mg/dL (0.55-1.02) 03/27/17 12:00 Creat Clearance w eGFR > 60 (>60) 03/27/17 12:00 Random Glucose 112 mg/dL (74-106) H 03/27/17 12:00 Calcium 8.8 mg/dL (8.5-10.1) 03/27/17 12:00 Total Bilirubin 0.3 mg/dL (0.2-1.0) D 03/27/17 12:00 AST 25 U/L (15-37) 03/27/17 12:00 ALT 30 U/L (12-78) 03/27/17 12:00 Alkaline Phosphatase 82 U/L (45-117) D 03/27/17 12:00 Total Protein 6.8 g/dl (6.4-8.2) 03/27/17 12:00 Albumin 3.1 g/dl (3.4-5.0) L 03/27/17 12:00 Urine Color Dkyellow 03/27/17 13:00 Urine Appearance Cloudy 03/27/17 13:00 Urine pH 5.0 (5.0-8.0) 03/27/17 13:00 Ur Specific [place] 1.025 (1.001-1.035) 03/27/17 13:00 Urine Protein Negative (NEGATIVE) 03/27/17 13:00 Urine Glucose (UA) Negative (NEGATIVE) 03/27/17 13:00 Urine Ketones Negative (NEGATIVE) 03/27/17 13:00 Urine Blood Negative (NEGATIVE) 03/27/17 13:00 Urine Nitrite Negative (NEGATIVE) 03/27/17 13:00 Urine Bilirubin Negative (NEGATIVE) 03/27/17 13:00 Urine Urobilinogen 4.0 e.u/dl mg/dL (0.2-1.0) H 03/27/17 13:00 Urine WBC (Auto) 32 /hpf (3-5) 03/27/17 13:00 Urine RBC (Auto) 4 /hpf (0-3) 03/27/17 13:00 Ur Epithelial Cells Rare /HPF (FEW) 03/27/17 13:00 Calcium Oxalate Crystal Many /hpf (NONE SEEN) 03/27/17 13:00 Urine Bacteria Few /hpf (NONE SEEN) 03/27/17 13:00 Hyaline Casts 3 /lpf 03/27/17 13:00 Urine Mucus Rare 03/27/17 13:00 RPR Titer Nonreactive (NONREACTIVE) 03/27/17 12:00 lab noted - Treatment Hospital Course: Detox Protocol Followed, Responded well - Medication Discharge Medications: Ambulatory Orders Aripiprazole [Abilify -] 20 mg PO HS 02/23/16 - AMA Did Patient Leave Against Medical Advice: Yes
[2017-03-31] MEDS ORDERED: METHADONE HCL 10 MG TABLET (FOR DETOX USE ONLY) PO ONE (10:00)
[2017-04-01] MEDS ORDERED: METHADONE HCL 5 MG TABLET (FOR DETOX USE ONLY) PO ONE (06:00)
== END 2017-03-30 11:08 | disposition left against medical advice (07) | DRG 770 ==
LOC: YASAS 10:41 → Y6N 13:08
PROVIDERS: ADMIT Internal Medicine; ATTEND Internal Medicine
PROC: HZ2ZZZZ Detoxification Services for Substance Abuse Treatment (ICD-10-PCS; principal; 2017-03-27)
DX: F14.23 Cocaine dependence with withdrawal (principal); F17.213 Nicotine dependence, cigarettes, with withdrawal; F19.24 Other psychoactive substance dependence with psychoactive substance-induced mood disorder; F31.81 Bipolar II disorder; G47.00 Insomnia, unspecified; B18.2 Chronic viral hepatitis C; L03.113 Cellulitis of right upper limb; L03.114 Cellulitis of left upper limb; R63.4 Abnormal weight loss; Z68.1 Body mass index [BMI] 19.9 or less, adult
CPT/HCPCS: 36415; 80053; 81003; 81015; 85027; 86593; 93005; 93010

== ENCOUNTER 2017-05-22 19:30 | Inpatient (IN) | payer OTHER ==
[2017-05-22 19:52] VITALS: BMI 19.7
--- NOTE | 2017-05-22 20:31 | HP ---
COWS - Scale Resting Pulse: 1= SD 81-100 Sweatin=Flushed/Facial Moisture Restless Observation: 5= Unable to Sit Still Pupil Size: 1= Pupils >than Normal Bone or Joint Aches: 4=Acute Joint/Muscle Pain Runny Nose/ Eye Tearin= Nasal Congestion GI Upset > 30mins: 0= None Tremor Observation: 2= Slight Tremor Visible Yawning Observation: 0= None Anxiety or Irritability: 4=Extreme Anxiety Goose Flesh Skin: 0=Smooth Skin COWS Score: 20 Admission ROS S - HPI Chief Complaint: SEEKING DETOX FOR C/O OPIATE WITHDRAWAL SX'S Allergies/Adverse Reactions: Allergies Allergy/AdvReac Type Severity Reaction Status Date / Time fish derived Allergy Severe Hives Verified 05/22/17 20:24 Penicillins Allergy Rash Verified 05/22/17 20:24 History of Present Illness: 41 Y.O. FEMLAE WITH LONG HX/O OPIOID DEPENDENCE SEEKING DETOX TXMENT. CLIENT IS KNOWN TO THIS PROGRAM. LAST HERE 2017. SHE SIGNED OUT AMA ON HER LAST ADMISSION. D/W CLIENT ABOUT THE IMPORTANCE OF COMPLETING TXMENT. CLIENT VERBALIZED UNDERSTANDING. SELF REFERRED. REPORTS LONGEST CLEAN TIME 4 YEARS RELAPSING LAST YEAR. DENIES LEGALS. Exam Limitations: No Limitations - Ebola screening Have you traveled outside of the country in the last 21 days: No Have you had contact with anyone from an Ebola affected area: No Have you been sick,other than usual withdrawal symptoms: No Do you have a fever: No - Review of Systems Constitutional: Chills, Night Sweats, Changes in sleep, Unintentional Wgt. Loss EENT: reports: Nose Congestion Respiratory: reports: No Symptoms reported Cardiac: reports: No Symptoms Reported GI: reports: Diarrhea : reports: No Symptoms Reported Musculoskeletal: reports: No Symptoms Reported Integumentary: reports: Other (SWOLLEN PAINFUL IV/ INJ SITE DUE TO INFILTRATION TO R FOREARM) Neuro: reports: No Symptoms reported Endocrine: reports: No Symptoms Reported Hematology: reports: No Symptoms Reported Psychiatric: reports: Anxious, Depressed Other Systems: Reviewed and Negative Patient History - Patient Medical History Hx Anemia: No Hx Asthma: No Hx Chronic Obstructive Pulmonary Disease (COPD): No Hx Cancer: No Hx Cardiac Disorders: Yes (H/O endocarditis) Hx Congestive Heart Failure: No Hx Hypertension: No Hx Hypercholesterolemia: No Hx Pacemaker: No HX Cerebrovascular Accident: No Hx Seizures: No Hx Dementia: No Hx Diabetes: No Hx Gastrointestinal Disorders: No Hx Liver Disease: No Hx Genitourinary Disorders: No Hx Sexually Transmitted Disorders: No Hx Renal Disease (ESRD): No Hx Thyroid Disease: No Hx Human Immunodeficiency Virus (HIV): No Hx Hepatitis C: Yes (NOT TREATED) Hx Depression: Yes Hx Suicide Attempt: No Hx Bipolar Disorder: Yes Hx Schizophrenia: No Other Medical History: ANXIETY - Patient Surgical History Past Surgical History: Yes Hx Neurologic Surgery: No Hx Cataract Extraction: No Hx Cardiac Surgery: No Hx Lung Surgery: No Hx Breast Surgery: No Hx Breast Biopsy: No Hx Abdominal Surgery: No Hx Appendectomy: No Hx Cholecystectomy: No Hx Genitourinary Surgery: No Hx Section: No Hx Orthopedic Surgery: No Hx Hysterectomy: No Other Surgical History: ON NECK DUE TO ABCESS. Anesthesia Reaction: No - PPD History Previous Implant?: Yes Documented Results: Negative w/proof Implanted On Prior [facility] Admission?: Yes Date: 03/29/17 Results: 0 mm PPD to be Administered?: No - Reproductive History Patient is a Female of Child Bearing Age (11 -55 yrs old): Yes Last Menstrual Period: 12/30/16 LMP comment: IRREGULAR Patient : No ([facility] - Smoking Cessation Smoking history: Current every day smoker Have you smoked in the past 12 months: Yes Aproximately how many cigarettes per day: 10 Cigars Per Day: 0 Hx Chewing Tobacco Use: No Initiated information on smoking cessation: Yes 'Breaking Loose' booklet given: 05/22/17 - Substance & Tx. History Hx Alcohol Use: No Hx Substance Use: Yes Substance Use Type: Cocaine, Heroin Hx Substance Use Treatment: Yes ([facility]) - Substances Abused Heroin Route: Injection Frequency: Daily Amount used: 8 BAGS Age of first use: 25 Date of Last Use: 05/22/17 Cocaine Route: Inhalation Frequency: 1-2 times per week Amount used: $40 Age of first use: 29 Date of Last Use: 05/22/17 Family Disease History - Family Disease History Family Disease History: Heart Disease: Father (HTN;ALCOHOLISM), Other: Father Admission Physical Exam BHS - Vital Signs Vital Signs: Vital Signs - 24 hr 05/22/17 19:48 Temperature 96.9 F L Pulse Rate 95 H Respiratory 17 Rate Blood Pressure 99/81 - Physical General Appearance: Yes: Appropriately Dressed, Mild Distress, Cachetic, Tremorous, Anxious, Other (MALODUROUS) HEENTM: Yes: EOMI, Normocephalic, Normal Voice, EDITA, Pharynx Normal, Nasal Congestion, Other (TOP DENTURES NO BOTTOM TEETH) Respiratory: Yes: Chest Non-Tender, Lungs Clear, Normal Breath Sounds, No Respiratory Distress, No Accessory Muscle Use Neck: Yes: No masses,lesions,Nodules, Supple, Trachea in good position Breast: Yes: Breast Exam Deferred Cardiology: Yes: Regular Rhythm, S1, S2, Tachycardia Abdominal: Yes: Normal Bowel Sounds, Non Tender, Soft Genitourinary: Yes: Within Normal Limits Back: Yes: Normal Inspection Musculoskeletal: Yes: full range of Motion, Gait Steady Extremities: Yes: Normal Range of Motion, Non-Tender, Tremors, Other (R ARM INJECTION SITE WITH INFILTRATON. NO REDNESS OR WARMTH NOTED AT THIS TIME) Neurological: Yes: feeder associate II-XII NML intact, Fully Oriented, Alert, Motor Strength 5/5 Integumentary: Yes: Normal Color, Dry, Warm, Track G[place] (RIGHT FOREARM) Lymphatic: Yes: Within Normal Limits - Diagnostic (1) Cocaine dependence, uncomplicated Current Visit: No Status: Acute (2) Nicotine dependence Current Visit: No Status: Acute Qualifiers: Nicotine product type: cigarettes Substance use status: in withdrawal Qualified Code(s): F17.213 - Nicotine dependence, cigarettes, with withdrawal (3) Opioid dependence with withdrawal Current Visit: No Status: Acute (4) Hepatitis C Current Visit: No Status: Chronic Qualifiers: Viral hepatitis chronicity: chronic Hepatic coma status: without hepatic coma Qualified Code(s): B18.2 - Chronic viral hepatitis C Cleared for Admission [facility] - Detox or Rehab [facility] Level of Care: Medically Managed Detox Regimen/Protocol: Methadone Claeared for Rehab Admission: No [facility] Breath Alcohol Content Breath Alcohol Content: 0 Urine Pregancy Test - Result Urine Test Results: Negative- NO Line Present Urine Drug Screen - Results Drug Screen Negative: No Urine Drug Screen Results: STEVIE-Cocaine, OPI-Opiates
[2017-05-22] MEDS ORDERED: ACETAMINOPHEN 325 MG TABLET (FP) PO PRN (20:44)
[2017-05-22] MEDS ORDERED: LOPERAMIDE HCL 2 MG CAPSULE PO PRN (20:44)
[2017-05-22] MEDS ORDERED: MENTHOL/PHENOL 1 EACH UD MM PRN (20:44)
[2017-05-22] MEDS ORDERED: guaiFENesin/D-METHORPHAN HB 10 ML UNIT-DOSE CUPS PO PRN (20:44)
[2017-05-22] MEDS ORDERED: P-EPHED 60MG/TRIPROLIDI 2.5MG TABLET PO PRN (20:44)
[2017-05-22] MEDS ORDERED: MAG HYDROX/AL HYDROX/SIMETH 30 ML UNIT-DOSE CUP PO PRN (20:44)
[2017-05-22] MEDS ORDERED: METHADONE HCL 10 MG TABLET (FOR DETOX USE ONLY) PO ONE ×2 (20:44→23:00)
[2017-05-22] MEDS ORDERED: MAGNESIUM HYDROX 2400MG/30ML ORAL SUSPENSION 30 ML CUP PO PRN (20:44)
[2017-05-22] MEDS ORDERED: IBUPROFEN 400 MG TABLET (FP) PO PRN (20:44)
[2017-05-22] MEDS ORDERED: MAGNESIUM CITRATE 300 ML BOTTLE PO PRN (20:44)
[2017-05-22] MEDS ORDERED: hydrOXYzine PAMOATE 50 MG CAPSULE (FP) PO PRN (20:44)
[2017-05-22] MEDS ORDERED: NICOTINE POLACRILEX 2 MG GUM BC PRN (20:44)
[2017-05-22] MEDS: THIAMINE HCL 100 MG TABLET (FP) PO SCH (22:12)
[2017-05-22] MEDS: BACITRACIN 0.9 GM PACKET TP SCH (22:12)
[2017-05-22] MEDS: diazePAM 5 MG TABLET PO PRN (22:13)
[2017-05-22 22:56] LABS: URINE APPEARANCE TURBID; URINE BILIRUBIN NEGATIVE (NEGATIVE); URINE BLOOD NEGATIVE (NEGATIVE); URINE COLOR AMBER; URINE GLUCOSE (UA) NEGATIVE (NEGATIVE); URINE KETONE NEGATIVE (NEGATIVE); URINE NITRITE POSITIVE (NEGATIVE); URINE PROTEIN NEGATIVE (NEGATIVE); URINE UROBILINOGEN NEGATIVE mg/dL (0.2-1.0)
[2017-05-22 22:57] LABS: URINE LEUK ESTERASE 2+ (NEGATIVE)
[2017-05-22 23:00] LABS: EPI CELLS RARE /HPF (FEW); URINE BACTERIA RARE /hpf (NONE SEEN); URINE MUCUS RARE
[2017-05-23] MEDS: diazePAM 5 MG TABLET PO PRN ×4 (02:49→23:09)
[2017-05-23] MEDS ORDERED: METHADONE HCL 10 MG TABLET (FOR DETOX USE ONLY) PO ONE (10:00)
--- NOTE | 2017-05-23 10:27 | EKG ---
Test Reason : Blood Pressure : / mmHG Vent. Rate : 086 BPM Atrial Rate : 086 BPM P-R Int : 138 ms QRS Dur : 084 ms QT Int : 338 ms P-R-T Axes : 072 076 076 degrees QTc Int : 404 ms NORMAL SINUS RHYTHM NORMAL ECG WHEN COMPARED WITH ECG OF 27-MAR-2017 13:35, QT HAS SHORTENED Confirmed by BUD CLEMENTE MD ([id number]) on 05/23/2017 10:27:24 AM Referred By: Confirmed By:BUD CLEMENTE MD
[2017-05-23] MEDS: PRENATAL VITAMINS W/ FOLIC ACID TABLET (FP) PO SCH (10:44)
[2017-05-23] MEDS: BACITRACIN 0.9 GM PACKET TP SCH ×2 (10:47→23:09)
[2017-05-23] MEDS: NICOTINE 14 MG/24 HOURS TOPICAL PATCH TD SCH (10:47)
[2017-05-23] MEDS ORDERED: ONDANSETRON *ODT* 4 MG TABLET SL PRN (11:01)
--- NOTE | 2017-05-23 11:01 | PN ---
BHS COWS - Scale Resting Pulse: 1= NE 81-100 Sweatin=Flushed/Facial Moisture Restless Observation: 1= Difficult to Sit Still Pupil Size: 0= Normal to Room Light Bone or Joint Aches: 2= Severe Diffuse Aches Runny Nose/ Eye Tearin= Runny Nose/Eyes GI Upset > 30mins: 2= Nausea/Diarrhea Tremor Observation of Outstretched Hands: 2= Slight Tremor Visible Yawning Observation: 2= >3x During Session Anxiety or Irritability: 2=Irritable/Anxious Goose Flesh Skin: 3=Piloerection COWS Score: 19 BHS Progress Note (SOAP) Subjective: irritable agitation anxiety body aches sweats stomach cramp Objective: 05/23/17 10:58 Vital Signs Temperature 98.1 F 05/23/17 10:00 Pulse Rate 99 H 05/23/17 10:00 Respiratory Rate 20 05/23/17 10:00 Blood Pressure 110/72 05/23/17 10:00 O2 Sat by Pulse Oximetry (%) Laboratory Tests 05/22/17 22:40 Urine Color Halle Urine Appearance Turbid Urine pH 5.0 Ur Specific [place] 1.026 Urine Protein Negative Urine Glucose (UA) Negative Urine Ketones Negative Urine Blood Negative Urine Nitrite Positive Urine Bilirubin Negative Urine Urobilinogen Negative Ur Leukocyte Esterase 2+ H Urine WBC (Auto) 27 Urine RBC (Auto) 7 Ur Epithelial Cells Rare Urine Bacteria Rare Urine Mucus Rare labs pending repeat u/a aaox3 ambulating no acute distress Assessment: 05/23/17 10:58 withdrawal sx Plan: continue detox increase fluids labs pending
[2017-05-23 14:58] LABS: HEMATOCRIT 36.5 % (32.4-45.2); MCH 29.3 pg (25.7-33.7); MEAN CELL VOLUME 88.8 fl (80-96); PLATELET COUNT 369 K/MM3 (134-434); RBC 4.11 M/mm3 (3.60-5.2); RDW 13.9 % (11.6-15.6); WHITE BLOOD COUNT 6.4 K/mm3 (4.0-10.0)
[2017-05-23 15:24] LABS: ANION GAP 11 (8-16); BLOOD UREA NITROGEN 16 mg/dL (7-18); CALCIUM 8.9 mg/dL (8.5-10.1); CHLORIDE 102 mmol/L (98-107); CO2 29 mmol/L (21-32); POTASSIUM 3.9 mmol/L (3.5-5.1); SODIUM 142 mmol/L (136-145)
[2017-05-23 15:29] LABS: ALK PHOS 109 U/L (45-117); BILIRUBIN,TOTAL 0.3 mg/dL (0.2-1.0); CREATININE 0.7 mg/dL (0.55-1.02); GLUCOSE,RANDOM 89 mg/dL (74-106); SGOT/AST 29 U/L (15-37); SGPT/ALT 30 U/L (12-78)
--- NOTE | 2017-05-23 17:19 | PN ---
S Progress Note Note: Psychiatric Nurse Practitioner note: Word Processor approached patient for psychiatric consultation. Pt. refused by stating , " I DONT HAVE TO SEE YOU. AND I DONT WANT TO SEE YOU LATER." Pt refused.
[2017-05-23] MEDS: THIAMINE HCL 100 MG TABLET (FP) PO SCH (23:09)
[2017-05-24] MEDS ORDERED: METHADONE HCL 5 MG TABLET (FOR DETOX USE ONLY) PO ONE (10:00)
[2017-05-24] MEDS: diazePAM 5 MG TABLET PO PRN ×3 (10:46→23:03)
[2017-05-24] MEDS: BACITRACIN 0.9 GM PACKET TP SCH ×2 (10:46→23:10)
[2017-05-24] MEDS: PRENATAL VITAMINS W/ FOLIC ACID TABLET (FP) PO SCH (10:46)
[2017-05-24] MEDS: NICOTINE 14 MG/24 HOURS TOPICAL PATCH TD SCH (10:47)
[2017-05-24] MEDS ORDERED: cloNIDine HCL 0.1 MG TABLET PO ONE (11:30)
[2017-05-24] MEDS: CYCLOBENZAPRINE HCL 10 MG TABLET (FP) PO SCH ×2 (14:36→23:03)
--- NOTE | 2017-05-24 16:23 | PN ---
S CIWA - CIWA Score Nausea/Vomitin Muscle Tremors: 3 Anxiety: 3 Agitation: 3 Paroxysmal Sweats: 2 Orientation: 0-Oriented Tacttile Disturbances: 2-Mild Itch/Numbness/Burn Auditory Disturbances: 1-Very Mild Visual Disturbances: 1-Very Mild Sensitivity Headache: 2-Mild CIWA-Ar Total Score: 20 BHS COWS - Scale Resting Pulse: 1= [place] 81-100 Sweatin= Chills/Flushing Restless Observation: 3= Extraneous Movement Pupil Size: 1= Pupils >than Normal Bone or Joint Aches: 2= Severe Diffuse Aches Runny Nose/ Eye Tearin= Runny Nose/Eyes GI Upset > 30mins: 2= Nausea/Diarrhea Tremor Observation of Outstretched Hands: 2= Slight Tremor Visible Yawning Observation: 1= 1-2x During Session Anxiety or Irritability: 2=Irritable/Anxious Goose Flesh Skin: 0=Smooth Skin COWS Score: 17 BHS Progress Note (SOAP) Subjective: ALERT,IRRITABLE,ANXIOUS,INTERRUPTED SLEEP,TREMOR Objective: 05/24/17 16:21 Vital Signs Temperature 98.2 F 05/24/17 11:53 Pulse Rate 93 H 05/24/17 11:53 Respiratory Rate 16 05/24/17 11:53 Blood Pressure 114/70 05/24/17 11:53 O2 Sat by Pulse Oximetry (%) Laboratory Last Values WBC 6.4 K/mm3 (4.0-10.0) D 05/23/17 10:00 RBC 4.11 M/mm3 (3.60-5.2) 05/23/17 10:00 Hgb 12.0 GM/dL (10.7-15.3) 05/23/17 10:00 Hct 36.5 % (32.4-45.2) 05/23/17 10:00 MCV 88.8 fl (80-96) 05/23/17 10:00 MCH 29.3 pg (25.7-33.7) 05/23/17 10:00 MCHC 33.0 g/dl (32.0-36.0) 05/23/17 10:00 RDW 13.9 % (11.6-15.6) 05/23/17 10:00 Plt Count 369 K/MM3 (134-434) D 05/23/17 10:00 MPV 7.0 fl (7.5-11.1) L 05/23/17 10:00 Sodium 142 mmol/L (136-145) 05/23/17 10:00 Potassium 3.9 mmol/L (3.5-5.1) 05/23/17 10:00 Chloride 102 mmol/L (98-107) 05/23/17 10:00 Carbon Dioxide 29 mmol/L (21-32) 05/23/17 10:00 Anion Gap 11 (8-16) 05/23/17 10:00 BUN 16 mg/dL (7-18) 05/23/17 10:00 Creatinine 0.7 mg/dL (0.55-1.02) 05/23/17 10:00 Creat Clearance w eGFR > 60 (>60) 05/23/17 10:00 Random Glucose 89 mg/dL (74-106) 05/23/17 10:00 Calcium 8.9 mg/dL (8.5-10.1) 05/23/17 10:00 Total Bilirubin 0.3 mg/dL (0.2-1.0) 05/23/17 10:00 AST 29 U/L (15-37) 05/23/17 10:00 ALT 30 U/L (12-78) 05/23/17 10:00 Alkaline Phosphatase 109 U/L (45-117) 05/23/17 10:00 Total Protein 7.0 g/dl (6.4-8.2) 05/23/17 10:00 Albumin 3.0 g/dl (3.4-5.0) L 05/23/17 10:00 Urine Color Halle 05/22/17 22:40 Urine Appearance Turbid 05/22/17 22:40 Urine pH 5.0 (5.0-8.0) 05/22/17 22:40 Ur Specific [place] 1.026 (1.001-1.035) 05/22/17 22:40 Urine Protein Negative (NEGATIVE) 05/22/17 22:40 Urine Glucose (UA) Negative (NEGATIVE) 05/22/17 22:40 Urine Ketones Negative (NEGATIVE) 05/22/17 22:40 Urine Blood Negative (NEGATIVE) 05/22/17 22:40 Urine Nitrite Positive (NEGATIVE) 05/22/17 22:40 Urine Bilirubin Negative (NEGATIVE) 05/22/17 22:40 Urine Urobilinogen Negative mg/dL (0.2-1.0) 05/22/17 22:40 Ur Leukocyte Esterase 2+ (NEGATIVE) H 05/22/17 22:40 Urine WBC (Auto) 27 /hpf (3-5) 05/22/17 22:40 Urine RBC (Auto) 7 /hpf (0-3) 05/22/17 22:40 Ur Epithelial Cells Rare /HPF (FEW) 05/22/17 22:40 Urine Bacteria Rare /hpf (NONE SEEN) 05/22/17 22:40 Urine Mucus Rare 05/22/17 22:40 RPR Titer Nonreactive (NONREACTIVE) 05/23/17 10:00 HIV 1&2 Antibody Screen Negative 05/23/17 10:00 HIV P24 Antigen Negative 05/23/17 10:00 Assessment: 05/24/17 16:22 WITHDRAWAL SYMPTOM Plan: CONTINUE DETOX,REPEAT UA,ENCOURAGE ORL FLUID,
[2017-05-24] MEDS: THIAMINE HCL 100 MG TABLET (FP) PO SCH (23:03)
[2017-05-24] MEDS: cloNIDine HCL 0.1 MG TABLET PO SCH (23:05)
[2017-05-25] MEDS: CYCLOBENZAPRINE HCL 10 MG TABLET (FP) PO SCH ×3 (07:33→22:43)
[2017-05-25] MEDS: diazePAM 5 MG TABLET PO PRN ×2 (07:55→18:51)
[2017-05-25] MEDS ORDERED: METHADONE HCL 5 MG TABLET (FOR DETOX USE ONLY) PO ONE (10:00)
[2017-05-25] MEDS: BACITRACIN 0.9 GM PACKET TP SCH ×2 (10:27→23:31)
[2017-05-25] MEDS: cloNIDine HCL 0.1 MG TABLET PO SCH ×2 (10:28→22:43)
[2017-05-25] MEDS: PRENATAL VITAMINS W/ FOLIC ACID TABLET (FP) PO SCH (10:28)
[2017-05-25] MEDS: NICOTINE 14 MG/24 HOURS TOPICAL PATCH TD SCH (10:28)
--- NOTE | 2017-05-25 14:52 | PN ---
BHS Progress Note (SOAP) Subjective: sweat tremor anxiety mild gi upset restlessness irritable Objective: 05/25/17 14:51 Vital Signs Temperature 97 F L 05/25/17 10:53 Pulse Rate 103 H 05/25/17 10:53 Respiratory Rate 20 05/25/17 10:53 Blood Pressure 114/72 05/25/17 10:53 O2 Sat by Pulse Oximetry (%) Laboratory Last Values WBC 6.4 K/mm3 (4.0-10.0) D 05/23/17 10:00 RBC 4.11 M/mm3 (3.60-5.2) 05/23/17 10:00 Hgb 12.0 GM/dL (10.7-15.3) 05/23/17 10:00 Hct 36.5 % (32.4-45.2) 05/23/17 10:00 MCV 88.8 fl (80-96) 05/23/17 10:00 MCH 29.3 pg (25.7-33.7) 05/23/17 10:00 MCHC 33.0 g/dl (32.0-36.0) 05/23/17 10:00 RDW 13.9 % (11.6-15.6) 05/23/17 10:00 Plt Count 369 K/MM3 (134-434) D 05/23/17 10:00 MPV 7.0 fl (7.5-11.1) L 05/23/17 10:00 Sodium 142 mmol/L (136-145) 05/23/17 10:00 Potassium 3.9 mmol/L (3.5-5.1) 05/23/17 10:00 Chloride 102 mmol/L (98-107) 05/23/17 10:00 Carbon Dioxide 29 mmol/L (21-32) 05/23/17 10:00 Anion Gap 11 (8-16) 05/23/17 10:00 BUN 16 mg/dL (7-18) 05/23/17 10:00 Creatinine 0.7 mg/dL (0.55-1.02) 05/23/17 10:00 Creat Clearance w eGFR > 60 (>60) 05/23/17 10:00 Random Glucose 89 mg/dL (74-106) 05/23/17 10:00 Calcium 8.9 mg/dL (8.5-10.1) 05/23/17 10:00 Total Bilirubin 0.3 mg/dL (0.2-1.0) 05/23/17 10:00 AST 29 U/L (15-37) 05/23/17 10:00 ALT 30 U/L (12-78) 05/23/17 10:00 Alkaline Phosphatase 109 U/L (45-117) 05/23/17 10:00 Total Protein 7.0 g/dl (6.4-8.2) 05/23/17 10:00 Albumin 3.0 g/dl (3.4-5.0) L 05/23/17 10:00 Urine Color Halle 05/22/17 22:40 Urine Appearance Turbid 05/22/17 22:40 Urine pH 5.0 (5.0-8.0) 05/22/17 22:40 Ur Specific [place] 1.026 (1.001-1.035) 05/22/17 22:40 Urine Protein Negative (NEGATIVE) 05/22/17 22:40 Urine Glucose (UA) Negative (NEGATIVE) 05/22/17 22:40 Urine Ketones Negative (NEGATIVE) 05/22/17 22:40 Urine Blood Negative (NEGATIVE) 05/22/17 22:40 Urine Nitrite Positive (NEGATIVE) 05/22/17 22:40 Urine Bilirubin Negative (NEGATIVE) 05/22/17 22:40 Urine Urobilinogen Negative mg/dL (0.2-1.0) 05/22/17 22:40 Ur Leukocyte Esterase 2+ (NEGATIVE) H 05/22/17 22:40 Urine WBC (Auto) 27 /hpf (3-5) 05/22/17 22:40 Urine RBC (Auto) 7 /hpf (0-3) 05/22/17 22:40 Ur Epithelial Cells Rare /HPF (FEW) 05/22/17 22:40 Urine Bacteria Rare /hpf (NONE SEEN) 05/22/17 22:40 Urine Mucus Rare 05/22/17 22:40 RPR Titer Nonreactive (NONREACTIVE) 05/23/17 10:00 HIV 1&2 Antibody Screen Negative 05/23/17 10:00 HIV P24 Antigen Negative 05/23/17 10:00 lab noted Assessment: 05/25/17 14:51 withdrawal sx Plan: continue detox
[2017-05-25 18:27] LABS: URINE APPEARANCE SLCLOUDY; URINE BILIRUBIN NEGATIVE (NEGATIVE); URINE BLOOD NEGATIVE (NEGATIVE); URINE COLOR YELLOW; URINE GLUCOSE (UA) NEGATIVE (NEGATIVE); URINE KETONE NEGATIVE (NEGATIVE); URINE NITRITE POSITIVE (NEGATIVE); URINE PROTEIN NEGATIVE (NEGATIVE); URINE UROBILINOGEN NEGATIVE mg/dL (0.2-1.0)
[2017-05-25 18:28] LABS: URINE LEUK ESTERASE 1+ (NEGATIVE)
[2017-05-25 18:31] LABS: EPI CELLS RARE /HPF (FEW); URINE BACTERIA MANY /hpf (NONE SEEN); URINE MUCUS RARE
[2017-05-25] MEDS: THIAMINE HCL 100 MG TABLET (FP) PO SCH (22:43)
[2017-05-26] MEDS ORDERED: diphenhydrAMINE HCL 25 MG CAPSULE (FP) PO ONE (01:14)
[2017-05-26] MEDS: CYCLOBENZAPRINE HCL 10 MG TABLET (FP) PO SCH (07:17)
--- NOTE | 2017-05-26 09:30 | PN ---
S Progress Note (SOAP) Subjective: alert oriented x 3 tolerate food and fluid well no acute distress Objective: 05/26/17 09:26 Vital Signs Temperature 96.3 F L 05/26/17 06:00 Pulse Rate 87 05/26/17 06:00 Respiratory Rate 18 05/26/17 06:00 Blood Pressure 102/69 05/26/17 06:00 O2 Sat by Pulse Oximetry (%) Laboratory Last Values WBC 6.4 K/mm3 (4.0-10.0) D 05/23/17 10:00 RBC 4.11 M/mm3 (3.60-5.2) 05/23/17 10:00 Hgb 12.0 GM/dL (10.7-15.3) 05/23/17 10:00 Hct 36.5 % (32.4-45.2) 05/23/17 10:00 MCV 88.8 fl (80-96) 05/23/17 10:00 MCH 29.3 pg (25.7-33.7) 05/23/17 10:00 MCHC 33.0 g/dl (32.0-36.0) 05/23/17 10:00 RDW 13.9 % (11.6-15.6) 05/23/17 10:00 Plt Count 369 K/MM3 (134-434) D 05/23/17 10:00 MPV 7.0 fl (7.5-11.1) L 05/23/17 10:00 Sodium 142 mmol/L (136-145) 05/23/17 10:00 Potassium 3.9 mmol/L (3.5-5.1) 05/23/17 10:00 Chloride 102 mmol/L (98-107) 05/23/17 10:00 Carbon Dioxide 29 mmol/L (21-32) 05/23/17 10:00 Anion Gap 11 (8-16) 05/23/17 10:00 BUN 16 mg/dL (7-18) 05/23/17 10:00 Creatinine 0.7 mg/dL (0.55-1.02) 05/23/17 10:00 Creat Clearance w eGFR > 60 (>60) 05/23/17 10:00 Random Glucose 89 mg/dL (74-106) 05/23/17 10:00 Calcium 8.9 mg/dL (8.5-10.1) 05/23/17 10:00 Total Bilirubin 0.3 mg/dL (0.2-1.0) 05/23/17 10:00 AST 29 U/L (15-37) 05/23/17 10:00 ALT 30 U/L (12-78) 05/23/17 10:00 Alkaline Phosphatase 109 U/L (45-117) 05/23/17 10:00 Total Protein 7.0 g/dl (6.4-8.2) 05/23/17 10:00 Albumin 3.0 g/dl (3.4-5.0) L 05/23/17 10:00 Urine Color Yellow 05/25/17 11:37 Urine Appearance Slcloudy 05/25/17 11:37 Urine pH 6.0 (5.0-8.0) 05/25/17 11:37 Ur Specific [place] 1.016 (1.001-1.035) 05/25/17 11:37 Urine Protein Negative (NEGATIVE) 05/25/17 11:37 Urine Glucose (UA) Negative (NEGATIVE) 05/25/17 11:37 Urine Ketones Negative (NEGATIVE) 05/25/17 11:37 Urine Blood Negative (NEGATIVE) 05/25/17 11:37 Urine Nitrite Positive (NEGATIVE) 05/25/17 11:37 Urine Bilirubin Negative (NEGATIVE) 05/25/17 11:37 Urine Urobilinogen Negative mg/dL (0.2-1.0) 05/25/17 11:37 Ur Leukocyte Esterase 1+ (NEGATIVE) H 05/25/17 11:37 Urine WBC (Auto) 23 /hpf (3-5) 05/25/17 11:37 Urine RBC (Auto) 2 /hpf (0-3) 05/25/17 11:37 Ur Epithelial Cells Rare /HPF (FEW) 05/25/17 11:37 Urine Bacteria Many /hpf (NONE SEEN) 05/25/17 11:37 Urine Mucus Rare 05/25/17 11:37 RPR Titer Nonreactive (NONREACTIVE) 05/23/17 10:00 HIV 1&2 Antibody Screen Negative 05/23/17 10:00 HIV P24 Antigen Negative 05/23/17 10:00 lab noted 05/26/17 09:29 begin bactrin ds bid x 5 days Assessment: 05/26/17 09:29 withdrawal sx 05/26/17 09:30 uti Plan: medically supervised detox continue bactrim ds bid
[2017-05-26] MEDS ORDERED: METHADONE HCL 10 MG TABLET (FOR DETOX USE ONLY) PO ONE (10:00)
[2017-05-26] MEDS ORDERED: SULFAMETHOXAZOLE/TRIMETHOPRIM 800MG/160MG D.S. TABLET PO SCH (10:00)
[2017-05-26] MEDS: NICOTINE 14 MG/24 HOURS TOPICAL PATCH TD SCH (11:16)
[2017-05-26] MEDS: PRENATAL VITAMINS W/ FOLIC ACID TABLET (FP) PO SCH (11:16)
[2017-05-26] MEDS: BACITRACIN 0.9 GM PACKET TP SCH (11:18)
[2017-05-26] MEDS: cloNIDine HCL 0.1 MG TABLET PO SCH (11:20)
--- NOTE | 2017-05-26 13:21 | DS ---
[facility] Detox Discharge Summary Admission Date: 05/22/17 Discharge Date: 05/26/17 - History Present History: Opioid Dependence Additional Comments: patient reports that in methadone program "more than" 100 mg every day, by history, patient wants more methadone counselor discuss the possibility of methadone maintenance program as aftercare PATIENT INSISTS TO LEAVE THE DETOX FACILITY BECAUSE THE COUNSELOR IS UNABLE TO PLACE PATIENT IN METHADONE PROGRAM TODAY, HEALTH TEACHING ON AVAILABLE PROGRAM AND POSSIBLE TREATMENT FOR RECOVERY, PATIENT WANTS SUBOXONE NOW AND REFUSES TO DISCUSS THE RISK AND BENEFIT OF SUBOXONE - Physical Exam Results Vital Signs: Vital Signs Temperature 96.3 F L 05/26/17 06:00 Pulse Rate 87 05/26/17 06:00 Respiratory Rate 18 05/26/17 06:00 Blood Pressure 102/69 05/26/17 06:00 O2 Sat by Pulse Oximetry (%) Pertinent Admission Physical Exam Findings: withdrawal sx Vital Signs Temperature 96.3 F L 05/26/17 06:00 Pulse Rate 87 05/26/17 06:00 Respiratory Rate 18 05/26/17 06:00 Blood Pressure 102/69 05/26/17 06:00 O2 Sat by Pulse Oximetry (%) Laboratory Last Values WBC 6.4 K/mm3 (4.0-10.0) D 05/23/17 10:00 RBC 4.11 M/mm3 (3.60-5.2) 05/23/17 10:00 Hgb 12.0 GM/dL (10.7-15.3) 05/23/17 10:00 Hct 36.5 % (32.4-45.2) 05/23/17 10:00 MCV 88.8 fl (80-96) 05/23/17 10:00 MCH 29.3 pg (25.7-33.7) 05/23/17 10:00 MCHC 33.0 g/dl (32.0-36.0) 05/23/17 10:00 RDW 13.9 % (11.6-15.6) 05/23/17 10:00 Plt Count 369 K/MM3 (134-434) D 05/23/17 10:00 MPV 7.0 fl (7.5-11.1) L 05/23/17 10:00 Sodium 142 mmol/L (136-145) 05/23/17 10:00 Potassium 3.9 mmol/L (3.5-5.1) 05/23/17 10:00 Chloride 102 mmol/L (98-107) 05/23/17 10:00 Carbon Dioxide 29 mmol/L (21-32) 05/23/17 10:00 Anion Gap 11 (8-16) 05/23/17 10:00 BUN 16 mg/dL (7-18) 05/23/17 10:00 Creatinine 0.7 mg/dL (0.55-1.02) 05/23/17 10:00 Creat Clearance w eGFR > 60 (>60) 05/23/17 10:00 Random Glucose 89 mg/dL (74-106) 05/23/17 10:00 Calcium 8.9 mg/dL (8.5-10.1) 05/23/17 10:00 Total Bilirubin 0.3 mg/dL (0.2-1.0) 05/23/17 10:00 AST 29 U/L (15-37) 05/23/17 10:00 ALT 30 U/L (12-78) 05/23/17 10:00 Alkaline Phosphatase 109 U/L (45-117) 05/23/17 10:00 Total Protein 7.0 g/dl (6.4-8.2) 05/23/17 10:00 Albumin 3.0 g/dl (3.4-5.0) L 05/23/17 10:00 Urine Color Yellow 05/25/17 11:37 Urine Appearance Slcloudy 05/25/17 11:37 Urine pH 6.0 (5.0-8.0) 05/25/17 11:37 Ur Specific [place] 1.016 (1.001-1.035) 05/25/17 11:37 Urine Protein Negative (NEGATIVE) 05/25/17 11:37 Urine Glucose (UA) Negative (NEGATIVE) 05/25/17 11:37 Urine Ketones Negative (NEGATIVE) 05/25/17 11:37 Urine Blood Negative (NEGATIVE) 05/25/17 11:37 Urine Nitrite Positive (NEGATIVE) 05/25/17 11:37 Urine Bilirubin Negative (NEGATIVE) 05/25/17 11:37 Urine Urobilinogen Negative mg/dL (0.2-1.0) 05/25/17 11:37 Ur Leukocyte Esterase 1+ (NEGATIVE) H 05/25/17 11:37 Urine WBC (Auto) 23 /hpf (3-5) 05/25/17 11:37 Urine RBC (Auto) 2 /hpf (0-3) 05/25/17 11:37 Ur Epithelial Cells Rare /HPF (FEW) 05/25/17 11:37 Urine Bacteria Many /hpf (NONE SEEN) 05/25/17 11:37 Urine Mucus Rare 05/25/17 11:37 RPR Titer Nonreactive (NONREACTIVE) 05/23/17 10:00 HIV 1&2 Antibody Screen Negative 05/23/17 10:00 HIV P24 Antigen Negative 05/23/17 10:00 lab noted patient refuses uti treatment health teaching on hygiene and hydration - Treatment Hospital Course: Detox Protocol Followed, Responded well - Medication Discharge Medications: Ambulatory Orders Aripiprazole [Abilify -] 20 mg PO HS 02/23/16 - Diagnosis (1) Nicotine dependence Current Visit: Yes Status: Acute Qualifiers: Nicotine product type: cigarettes Substance use status: in withdrawal Qualified Code(s): F17.213 - Nicotine dependence, cigarettes, with withdrawal (2) Opioid dependence with withdrawal Current Visit: Yes Status: Acute (3) Bipolar II disorder Current Visit: Yes Status: Suspected (4) Hepatitis C Current Visit: Yes Status: Chronic Qualifiers: Viral hepatitis chronicity: chronic Hepatic coma status: without hepatic coma Qualified Code(s): B18.2 - Chronic viral hepatitis C - AMA Did Patient Leave Against Medical Advice: Yes
[2017-05-26 13:54] VITALS: BP 109/78; PULSE 96; TEMP 97.5
[2017-05-27] MEDS ORDERED: METHADONE HCL 5 MG TABLET (FOR DETOX USE ONLY) PO ONE (06:00)
== END 2017-05-26 13:56 | disposition left against medical advice (07) | DRG 770 ==
LOC: YASAS 19:30 → Y6N 20:51
PROVIDERS: ADMIT Internal Medicine; ATTEND Internal Medicine
PROC: HZ2ZZZZ Detoxification Services for Substance Abuse Treatment (ICD-10-PCS; principal; 2017-05-22)
DX: F11.23 Opioid dependence with withdrawal (principal); F14.20 Cocaine dependence, uncomplicated; F17.213 Nicotine dependence, cigarettes, with withdrawal; F31.81 Bipolar II disorder; B18.2 Chronic viral hepatitis C; N39.0 Urinary tract infection, site not specified; G47.00 Insomnia, unspecified; R00.0 Tachycardia, unspecified; Z88.0 Allergy status to penicillin; Z91.013 Allergy to seafood; Z87.898 Personal history of other specified conditions
CPT/HCPCS: 36415; 80053; 81003; 81015; 85027; 86593; 87389; 93005; 93010; J0735

== ENCOUNTER 2017-08-22 16:13 | Inpatient (IN) | payer OTHER ==
[2017-08-22 16:38] VITALS: BMI 20.1
--- NOTE | 2017-08-22 18:26 | HP ---
COWS - Scale Resting Pulse: 1= [place] 81-100 Sweatin= Chills/Flushing Restless Observation: 5= Unable to Sit Still Pupil Size: 1= Pupils >than Normal Bone or Joint Aches: 0= None Runny Nose/ Eye Tearin= Runny Nose/Eyes GI Upset > 30mins: 2= Nausea/Diarrhea Tremor Observation: 2= Slight Tremor Visible Yawning Observation: 0= None Anxiety or Irritability: 2=Irritable/Anxious Goose Flesh Skin: 0=Smooth Skin COWS Score: [address] [facility] Chief Complaint: Here for opiate detox. C/o withdrawal. Allergies/Adverse Reactions: Allergies Allergy/AdvReac Type Severity Reaction Status Date / Time fish derived Allergy Severe Hives Verified 07/01/17 14:53 Penicillins Allergy Rash Verified 07/01/17 14:53 History of Present Illness: Heroin use for 12 years and stopped for 5. Restarted several months ago. Currentlu using 6 bags a day IV. Cocaine use started in and currently uses IV. Last heroin use this am. Last cocaine use 08/21. Hx. of depression and bipolar and was taking Abilify. Last use in June. States has had problems in the past in acting appropriately or staying in detox and vows to try to to better. Exam Limitations: No Limitations - Ebola screening Have you traveled outside of the country in the last 21 days: No Have you had contact with anyone from an Ebola affected area: No Have you been sick,other than usual withdrawal symptoms: No Do you have a fever: No - Review of Systems Constitutional: Chills, Diaphoresis, Unexplained wgt Loss (Not eating. Fair appetite.) EENT: reports: Nose Congestion, Dental Problems (Upper dentures. No difficulty chewing or swallowing.) Respiratory: reports: No Symptoms reported Cardiac: reports: No Symptoms Reported GI: reports: Constipated (BM's about every 3 days. No blood.), Nausea (r/t withdrawal), Poor Appetite, Abdominal cramping : reports: No Symptoms Reported Integumentary: reports: No Symptoms Reported, Pruritus (Dry itchy skin of face and hands. Scratch dewey.) Neuro: reports: Numbness (Numbness (R) thumb x 1 month for unknown reason. FROM. ) Endocrine: reports: No Symptoms Reported Hematology: reports: No Symptoms Reported Psychiatric: reports: Orientated x3 (On Abilify, but not recently. Denies suicide or violent ideation.), Agitated, Anxious, Depressed (Denies suicide or violent ideation.) Patient History - Patient Medical History Hx Anemia: No Hx Asthma: No Hx Chronic Obstructive Pulmonary Disease (COPD): No Hx Cancer: No Hx Cardiac Disorders: Yes (H/O endocarditis) Hx Congestive Heart Failure: No Hx Hypertension: No Hx Hypercholesterolemia: No Hx Pacemaker: No HX Cerebrovascular Accident: No Hx Seizures: No Hx Dementia: No Hx Diabetes: No Hx Gastrointestinal Disorders: No Hx Liver Disease: No Hx Genitourinary Disorders: No Hx Sexually Transmitted Disorders: No Hx Renal Disease (ESRD): No Hx Thyroid Disease: No Hx Human Immunodeficiency Virus (HIV): No (LAST 06/08 NEGATIVE) Hx Hepatitis C: Yes (NOT TREATED) Hx Depression: Yes (Denies suicide or violent ideation. ) Hx Suicide Attempt: No Hx Bipolar Disorder: Yes Hx Schizophrenia: No - Patient Surgical History Past Surgical History: Yes Hx Neurologic Surgery: No Hx Cataract Extraction: No Hx Cardiac Surgery: No Hx Lung Surgery: No Hx Breast Surgery: No Hx Breast Biopsy: No Hx Abdominal Surgery: No Hx Appendectomy: No Hx Cholecystectomy: No Hx Genitourinary Surgery: No Hx Section: No Hx Orthopedic Surgery: No Hx Hysterectomy: No Other Surgical History: ON NECK DUE TO ABCESS. Anesthesia Reaction: No - PPD History Previous Implant?: Yes Documented Results: Negative w/proof Implanted On Prior [facility] Admission?: Yes Date: 03/29/17 Results: 0 mm PPD to be Administered?: No - Reproductive History Patient is a Female of Child Bearing Age (11 -55 yrs old): Yes Last Menstrual Period: 12/30/16 (Unknown reason for amenorrhea. ) Patient : No - Smoking Cessation Smoking history: Current every day smoker Have you smoked in the past 12 months: Yes Aproximately how many cigarettes per day: 10 Cigars Per Day: 0 Hx Chewing Tobacco Use: No Initiated information on smoking cessation: Yes 'Breaking Loose' booklet given: 08/22/17 - Substance & Tx. History Hx Alcohol Use: No Hx Substance Use: Yes (Partial detox in July 2017) Substance Use Type: Cocaine, Heroin Hx Substance Use Treatment: Yes (Was on MMT x 4 years. Left in summer 2016) - Substances Abused Heroin Route: Injection Frequency: Daily Amount used: 6 bags Age of first use: 28 Date of Last Use: 08/22/17 (in am) Cocaine Route: Injection Frequency: 3-6 times per week Amount used: $20 Age of first use: 18 Date of Last Use: 08/21/17 Family Disease History - Family Disease History Family Disease History: Heart Disease: Father (HTN;ALCOHOLISM), Other: Father Admission Physical Exam [facility] - Vital Signs Vital Signs: Vital Signs - 24 hr 08/22/17 16:25 Temperature 98.3 F Pulse Rate 83 Respiratory 18 Rate Blood Pressure 125/80 - Physical General Appearance: Yes: Mild Distress, Tremorous, Anxious HEENTM: Yes: EOMI, Hearing grossly Normal, EDITA (Pupils 3 mm), Nasal Congestion , Rhinorrhea Respiratory: Yes: Lungs Clear, Normal Breath Sounds, No Respiratory Distress Neck: Yes: No masses,lesions,Nodules, Supple Breast: Yes: Breast Exam Deferred Cardiology: Yes: Regular Rhythm, Regular Rate, Systolic Murmur (No edema. Denies chest pain, SOB.) Abdominal: Yes: Non Tender, Soft, Increased Bowel Sounds Genitourinary: Yes: Within Normal Limits Back: Yes: Normal Inspection Musculoskeletal: Yes: full range of Motion, Gait Steady Extremities: Yes: Normal Capillary Refill, Normal Range of Motion, Non-Tender, Tremors Neurological: Yes: cooler deliverer II-XII NML intact, Fully Oriented, Alert, Motor Strength 5/5 Integumentary: Yes: Dry (Skin dry w/ decreased turgor. Mucous membranes dry. Lips dry w/ cracks. Superficial scratches on face and hands.), Track Dewey ( many old and new track dewey,) Lymphatic: Yes: Within Normal Limits - Diagnostic (1) Pruritus of skin Current Visit: Yes Status: Acute (2) Constipation Current Visit: Yes Status: Chronic Qualifiers: Constipation type: unspecified constipation type Qualified Code(s): K59.00 - Constipation, unspecified (3) Cocaine dependence, uncomplicated Current Visit: No Status: Chronic Comment: . (4) Nicotine dependence Current Visit: No Status: Acute Qualifiers: Nicotine product type: cigarettes Substance use status: in withdrawal Qualified Code(s): F17.213 - Nicotine dependence, cigarettes, with withdrawal Comment: . (5) Opioid dependence with withdrawal Current Visit: No Status: Acute Comment: . (6) Insomnia Current Visit: Yes Status: Chronic Qualifiers: Insomnia type: unspecified Qualified Code(s): G47.00 - Insomnia, unspecified Comment: . (7) Dehydration Current Visit: Yes Status: Acute Cleared for Admission [facility] - Detox or Rehab [facility] Level of Care: Medically Managed Detox Regimen/Protocol: Methadone [facility] Breath Alcohol Content Breath Alcohol Content: 0 Urine Pregancy Test - Result Urine Test Results: Negative- NO Line Present Urine Drug Screen - Results Drug Screen Negative: No Urine Drug Screen Results: STEVIE-Cocaine, OPI-Opiates
[2017-08-22] MEDS ORDERED: LOPERAMIDE HCL 2 MG CAPSULE PO PRN (18:46)
[2017-08-22] MEDS ORDERED: MAGNESIUM HYDROX 2400MG/30ML ORAL SUSPENSION 30 ML CUP PO PRN (18:46)
[2017-08-22] MEDS ORDERED: NICOTINE POLACRILEX 2 MG GUM BC PRN (18:46)
[2017-08-22] MEDS ORDERED: MAGNESIUM CITRATE 300 ML BOTTLE PO PRN (18:46)
[2017-08-22] MEDS ORDERED: guaiFENesin/D-METHORPHAN HB 10 ML UNIT-DOSE CUPS PO PRN (18:46)
[2017-08-22] MEDS ORDERED: MAG HYDROX/AL HYDROX/SIMETH 30 ML UNIT-DOSE CUP PO PRN (18:46)
[2017-08-22] MEDS ORDERED: ACETAMINOPHEN 325 MG TABLET (FP) PO PRN (18:46)
[2017-08-22] MEDS ORDERED: IBUPROFEN 400 MG TABLET (FP) PO PRN (18:46)
[2017-08-22] MEDS ORDERED: hydrOXYzine PAMOATE 50 MG CAPSULE (FP) PO PRN (18:46)
[2017-08-22] MEDS ORDERED: MENTHOL/PHENOL 1 EACH UD MM PRN (18:46)
[2017-08-22] MEDS ORDERED: P-EPHED 60MG/TRIPROLIDI 2.5MG TABLET PO PRN (18:46)
[2017-08-22] MEDS ORDERED: METHADONE HCL 10 MG TABLET (FOR DETOX USE ONLY) PO ONE ×2 (20:45→23:00)
[2017-08-22] MEDS ORDERED: MELATONIN 5 MG TABLETS PO PRN (22:00)
[2017-08-22] MEDS: DOCUSATE SODIUM 100 MG CAPSULE (FP) PO SCH (22:26)
[2017-08-22] MEDS: diazePAM 5 MG TABLET PO PRN (22:26)
[2017-08-22] MEDS: THIAMINE HCL 100 MG TABLET (FP) PO SCH (22:26)
[2017-08-22] MEDS ORDERED: TRIMETHOBENZAMIDE HCL 200MG/2ML INJ IM PRN (23:14)
[2017-08-23] MEDS: VITAMINS A AND D TOPICAL OINTMENT 60 GM TUBE TP SCH ×5 (00:36→23:03)
[2017-08-23] MEDS: diazePAM 5 MG TABLET PO PRN (05:35)
[2017-08-23] MEDS: TRIMETHOBENZAMIDE HCL 300 MG CAPSULE PO PRN (06:54)
[2017-08-23] MEDS ORDERED: TRIMETHOBENZAMIDE HCL 200MG/2ML INJ IM ONE (07:29)
[2017-08-23] MEDS ORDERED: ONDANSETRON *ODT* 4 MG TABLET SL PRN (08:33)
--- NOTE | 2017-08-23 08:38 | PN ---
[facility] COWS - Scale Resting Pulse: 1= [place] 81-100 Sweatin= Chills/Flushing Restless Observation: 3= Extraneous Movement Pupil Size: 1= Pupils >than Normal Bone or Joint Aches: 1= Mild Discomfort Runny Nose/ Eye Tearin= None GI Upset > 30mins: 5=Frequent Vomit/Diarrhea Tremor Observation of Outstretched Hands: 1= Tremor [place], Not Seen Yawning Observation: 0= None Anxiety or Irritability: 2=Irritable/Anxious Goose Flesh Skin: 0=Smooth Skin COWS Score: 15 [facility] Progress Note (SOAP) Subjective: Patient with hyperemesis throughout the night, very anxious and agitated. Objective: 08/23/17 08:36 Vital Signs Temperature 97.2 F L 08/23/17 06:00 Pulse Rate 76 08/23/17 06:00 Respiratory Rate 18 08/23/17 06:00 Blood Pressure 124/67 08/23/17 06:00 O2 Sat by Pulse Oximetry (%) Patient AOx3 +vomiting + anxious + agitation ambulating in the unit Labs pending, patient feeling sick and refuse blood drawn this AM Plan: Patient unable to tolerate PO meds methadone 10 mg IM orderd Zofran 8 mg SL PRN fluids as tolerated continue to detox continue to monitor
[2017-08-23] MEDS ORDERED: METHADONE HCL 10 MG TABLET (FOR DETOX USE ONLY) PO ONE (10:00)
[2017-08-23] MEDS ORDERED: METHADONE DETOX 10 MG/1 ML [20ML VIAL] IM ONE (10:45)
[2017-08-23] MEDS: NICOTINE 14 MG/24 HOURS TOPICAL PATCH TD SCH (11:04)
[2017-08-23] MEDS: PRENATAL VITAMINS W/ FOLIC ACID TABLET (FP) PO SCH (11:04)
[2017-08-23] MEDS: DOCUSATE SODIUM 100 MG CAPSULE (FP) PO SCH ×2 (11:17→22:49)
--- NOTE | 2017-08-23 12:08 | PN ---
DONALD Progress Note Note: Reports received from JASSI Archuleta stating the patient reports she sat up on her bed and hit her head against the night stand. Event is unwitnessed. Patient with hyperemesis since last evening, patient given tigan and IM methadone 10mg, with no symptom relief. No SOB, CP, vertigo. Vital Signs Temperature 97.2 F L 08/23/17 06:00 Pulse Rate 76 08/23/17 06:00 Respiratory Rate 18 08/23/17 06:00 Blood Pressure 124/67 08/23/17 06:00 O2 Sat by Pulse Oximetry (%) A/P AO x3 , no loss in LOC + hypermesis no adventitious breath sounds s1, s2 no JVD skin intact, no edema Plan: Fall Protocol #1 Patient to be evaluated at [facility] transferred via [facility], endorsed to Dr. Zambrano.
--- NOTE | 2017-08-23 13:54 | CONSULT ---
[facility] Psychiatric Consult - Data Date of interview: 08/23/17 Admission source: [facility] Identifying data: Patient is NOT available for psychiatric evaluation.Was transferred to [facility] for medical reasons.Examination deferred.
[2017-08-23] MEDS: THIAMINE HCL 100 MG TABLET (FP) PO SCH (22:49)
[2017-08-24] MEDS: TRIMETHOBENZAMIDE HCL 300 MG CAPSULE PO PRN (01:31)
[2017-08-24] MEDS: VITAMINS A AND D TOPICAL OINTMENT 60 GM TUBE TP SCH (06:25)
[2017-08-24] MEDS: diazePAM 5 MG TABLET PO PRN (06:29)
[2017-08-24] MEDS ORDERED: METHADONE HCL 5 MG TABLET (FOR DETOX USE ONLY) PO ONE (10:00)
[2017-08-24] MEDS: DOCUSATE SODIUM 100 MG CAPSULE (FP) PO SCH (10:49)
[2017-08-24] MEDS: NICOTINE 14 MG/24 HOURS TOPICAL PATCH TD SCH (10:49)
[2017-08-24] MEDS: PRENATAL VITAMINS W/ FOLIC ACID TABLET (FP) PO SCH (10:49)
[2017-08-24] MEDS ORDERED: ONDANSETRON *ODT* 4 MG TABLET SL ONE (11:00)
[2017-08-24 11:34] VITALS: BP 140/80; PULSE 88; TEMP 99.2
--- NOTE | 2017-08-24 11:47 | PN ---
BHS COWS - Scale Resting Pulse: 0= [place] 80 or Below Sweatin= Chills/Flushing Restless Observation: 1= Difficult to Sit Still Pupil Size: 1= Pupils >than Normal Bone or Joint Aches: 2= Severe Diffuse Aches Runny Nose/ Eye Tearin= Nasal Congestion GI Upset > 30mins: 2= Nausea/Diarrhea Tremor Observation of Outstretched Hands: 2= Slight Tremor Visible Yawning Observation: 2= >3x During Session Anxiety or Irritability: 2=Irritable/Anxious Goose Flesh Skin: 0=Smooth Skin COWS Score: 14 BHS Progress Note (SOAP) Subjective: joint pain body ache chill hot sweat tremor nausea no vomiting Objective: 08/24/17 11:46 Vital Signs Temperature 99.2 F 08/24/17 09:50 Pulse Rate 88 08/24/17 09:50 Respiratory Rate 18 08/24/17 09:50 Blood Pressure 140/80 08/24/17 09:50 O2 Sat by Pulse Oximetry (%) 08/24/17 11:53 no lab available cbc and chemistry been cancelled reorder lab work Assessment: 08/24/17 11:54 withdrawal sx nausea related to self induced ?? Plan: continue detox zofrain 8 mg x 1 prior to methadone po regimen patient tolerated methadone well no vomiting
--- NOTE | 2017-08-24 12:33 | DS ---
[facility] Detox Discharge Summary Admission Date: 08/22/17 Discharge Date: 08/24/17 - History Present History: Opioid Dependence Additional Comments: 41 years old female admitted 08/22/17 for opiate withdrawal sx reported no longer vomiting today and wants more methadone patient refused supportive measure patient insists to terminate opiate detox regimen patient wants to leave the detox facility "I have the money in my property" - Physical Exam Results Vital Signs: Vital Signs Temperature 99.2 F 08/24/17 09:50 Pulse Rate 88 08/24/17 09:50 Respiratory Rate 18 08/24/17 09:50 Blood Pressure 140/80 08/24/17 09:50 O2 Sat by Pulse Oximetry (%) Pertinent Admission Physical Exam Findings: opiate withdrawal sx Vital Signs Temperature 99.2 F 08/24/17 09:50 Pulse Rate 88 08/24/17 09:50 Respiratory Rate 18 08/24/17 09:50 Blood Pressure 140/80 08/24/17 09:50 O2 Sat by Pulse Oximetry (%) lab not available - Treatment Hospital Course: Detox Protocol Followed, Responded well Patient has Accepted a Rehab Referral to: [facility] support [facility] - Medication Discharge Medications: Ambulatory Orders Acetaminophen [Tylenol] 650 mg PO PRN PRN 08/23/17 Diazepam [Valium] 10 mg PO DAILY PRN 08/23/17 Docusate Sodium [Colace] 100 mg PO BID 08/23/17 Guaifenesin [Robitussin -] 10 ml PO Q6H PRN 08/23/17 Ibuprofen [Motrin -] 400 mg PO PRN PRN 08/23/17 Loperamide HCl [Imodium -] 4 mg PO PRN PRN 08/23/17 Mag Hydrox/Al Hydrox/Simeth [Mylanta *Suspension*] 30 ml PO ONCE PRN 08/23/17 Magnesium Citrate [Citroma -] 300 ml PO Q48H 08/23/17 Magnesium Hydrox 2400MG/30Ml [Milk of Magnesia -] 30 ml PO PRN PRN 08/23/17 Melatonin 5 mg PO PRN PRN 08/23/17 Menthol/Phenol [Cepastat Lozenge -] 1 each MM Q4H 08/23/17 Methadone [Dolophine -] 10 mg PO DAILY 08/23/17 Methadone [Dolophine -] 15 mg PO ONCE 08/23/17 Nicotine Patch [Nicoderm Patch -] 14 mg TD DAILY 08/23/17 Nicotine Polacrilex [Nicorette] 2 mg BC Q2H PRN 08/23/17 Ondansetron [Ondansetron Odt] 8 mg PO PRN PRN 08/23/17 P-Ephed 60Mg/Triprolidi 2.5MG [Actifed -] 1 combo PO Q6H 08/23/17 Thiamine Mononitrate [Vitamin B-1] 100 mg PO HS 08/23/17 Trimethobenzamide HCl [Tigan] 300 mg PO TID PRN 08/23/17 hydrOXYzine PAMOATE [Vistaril -] 50 mg PO Q4H PRN 08/23/17 - Diagnosis (1) Nicotine dependence Current Visit: Yes Status: Acute Qualifiers: Nicotine product type: cigarettes Substance use status: in withdrawal Qualified Code(s): F17.213 - Nicotine dependence, cigarettes, with withdrawal (2) Opioid dependence with withdrawal Current Visit: Yes Status: Acute (3) Hepatitis C Current Visit: No Status: Chronic Qualifiers: Viral hepatitis chronicity: chronic Hepatic coma status: without hepatic coma Qualified Code(s): B18.2 - Chronic viral hepatitis C - AMA Did Patient Leave Against Medical Advice: Yes
--- NOTE | 2017-08-24 22:44 | EKG ---
Test Reason : Blood Pressure : / mmHG Vent. Rate : 087 BPM Atrial Rate : 087 BPM P-R Int : 128 ms QRS Dur : 084 ms QT Int : 360 ms P-R-T Axes : 058 074 067 degrees QTc Int : 433 ms NORMAL SINUS RHYTHM NORMAL ECG WHEN COMPARED WITH ECG OF 01-JUL-2017 16:04, QUESTIONABLE CHANGE IN QRS AXIS T WAVE INVERSION NO LONGER EVIDENT IN INFERIOR LEADS Confirmed by PATY TURNER MD ([id number]) on 08/24/2017 10:44:25 PM Referred By: Confirmed By:PATY TURNER MD
[2017-08-25] MEDS ORDERED: METHADONE HCL 5 MG TABLET (FOR DETOX USE ONLY) PO ONE (10:00)
[2017-08-26] MEDS ORDERED: METHADONE HCL 10 MG TABLET (FOR DETOX USE ONLY) PO ONE (10:00)
[2017-08-27] MEDS ORDERED: METHADONE HCL 5 MG TABLET (FOR DETOX USE ONLY) PO ONE (06:00)
== END 2017-08-24 12:20 | disposition left against medical advice (07) | DRG 770 ==
LOC: YASAS 16:13 → Y6N 21:38
PROVIDERS: ADMIT Surgery; ATTEND Surgery
PROC: HZ2ZZZZ Detoxification Services for Substance Abuse Treatment (ICD-10-PCS; principal; 2017-08-22)
DX: F11.23 Opioid dependence with withdrawal (principal); F14.20 Cocaine dependence, uncomplicated; F17.213 Nicotine dependence, cigarettes, with withdrawal; E86.0 Dehydration; B18.2 Chronic viral hepatitis C; R11.2 Nausea with vomiting, unspecified; L29.8 Other pruritus; K59.00 Constipation, unspecified; G47.00 Insomnia, unspecified; W22.03XA Walked into furniture, initial encounter; Y93.89 Activity, other specified; Y92.230 Patient room in hospital as the place of occurrence of the external cause
CPT/HCPCS: 36415; 86593; 93005; 93010; Q0162

== ENCOUNTER 2017-08-23 13:05 | Emergency (ER) | payer OTHER ==
[2017-08-23 13:28] VITALS: BMI 24.2
--- NOTE | 2017-08-23 13:42 | PDOC ---
History of Present Illness - General Chief Complaint: Injury Stated Complaint: FALL Time Seen by Provider: 08/23/17 13:26 - History of Present Illness Initial Comments: 08/23/17 13:37 41 yo F with h/o cocaine dependence, opioid abuse on methadone maintenance, nicotine dependence who arrives from [facility] s/p closed head injury here for further evaluation. Patient uncooperative with history. Exam is limited. Patient states that she rolled over in bed 1-2 hours [employer] and hit left sided frontal parietal head, with absent LOC, neck/back injury, bleeding, or associated complaints. Patient with multiple episodes of nausea and non bilious vomiting for last 2 days while inpatient at [facility] detox/opioid withdrawal at [address] [place] [address]. Denies F/C, CP, SOB, abdominal pain, diarrhea, constipation, urinary complaints , weakness, lightheadedness, sensory changes. PMHx: as noted above. Denies anticoagulation. ROS: as noted above Past History - Past Medical History Allergies/Adverse Reactions: Allergies Allergy/AdvReac Type Severity Reaction Status Date / Time fish derived Allergy Severe Hives Verified 08/22/17 21:04 Penicillins Allergy Rash Verified 08/22/17 21:04 Home Medications: Ambulatory Orders Acetaminophen [Tylenol] 650 mg PO PRN PRN 08/23/17 Diazepam [Valium] 10 mg PO DAILY PRN 08/23/17 Docusate Sodium [Colace] 100 mg PO BID 08/23/17 Guaifenesin [Robitussin -] 10 ml PO Q6H PRN 08/23/17 Ibuprofen [Motrin -] 400 mg PO PRN PRN 08/23/17 Loperamide HCl [Imodium -] 4 mg PO PRN PRN 08/23/17 Mag Hydrox/Al Hydrox/Simeth [Mylanta *Suspension*] 30 ml PO ONCE PRN 08/23/17 Magnesium Citrate [Citroma -] 300 ml PO Q48H 08/23/17 Magnesium Hydrox 2400MG/30Ml [Milk of Magnesia -] 30 ml PO PRN PRN 08/23/17 Melatonin 5 mg PO PRN PRN 08/23/17 Menthol/Phenol [Cepastat Lozenge -] 1 each MM Q4H 08/23/17 Methadone [Dolophine -] 10 mg PO DAILY 08/23/17 Methadone [Dolophine -] 15 mg PO ONCE 08/23/17 Nicotine Patch [Nicoderm Patch -] 14 mg TD DAILY 08/23/17 Nicotine Polacrilex [Nicorette] 2 mg BC Q2H PRN 08/23/17 Ondansetron [Ondansetron Odt] 8 mg PO PRN PRN 08/23/17 P-Ephed 60Mg/Triprolidi 2.5MG [Actifed -] 1 combo PO Q6H 08/23/17 Thiamine Mononitrate [Vitamin B-1] 100 mg PO HS 08/23/17 Trimethobenzamide HCl [Tigan] 300 mg PO TID PRN 08/23/17 hydrOXYzine PAMOATE [Vistaril -] 50 mg PO Q4H PRN 08/23/17 Anemia: No Asthma: No Cancer: No Cardiac Disorders: Yes (H/O endocarditis) CVA: No COPD: No CHF: No Dementia: No Diabetes: No GI Disorders: No Disorders: No HTN: No Hypercholesterolemia: No Kidney Stones: No Liver Disease: No Psychiatric Problems: Yes (BIPOLAR,ANXIETY) Seizures: No Thyroid Disease: No - Surgical History Abdominal Surgery: No Appendectomy: No Cardiac Surgery: No Cholecystectomy: No Lung Surgery: No Neurologic Surgery: No Orthopedic Surgery: No - Reproductive History PID: No - Immunization History Immunization Up to Date: No - Suicide/Smoking/Psychosocial Hx Smoking History: Current every day smoker Have you smoked in the past 12 months: No Number of Cigarettes Smoked Daily: 10 Cigars Per Day: 0 Information on smoking cessation initiated: No 'Breaking Loose' booklet given: 08/22/17 Hx Alcohol Use: No Drug/Substance Use Hx: No Substance Use Type: Alcohol, Cocaine, Heroin, Marijuana, Opiates Hx Substance Use Treatment: Yes (Was on MMT x 4 years. Left in summer 2016) Review of Systems - Review of Systems Comments:: 08/23/17 13:42 GENERAL/CONSTITUTIONAL: No fever or chills. No weakness. HEAD, EYES, EARS, NOSE AND THROAT: No change in vision. No ear pain or discharge. No sore throat. CARDIOVASCULAR: No chest pain or shortness of breath RESPIRATORY: No cough, wheezing, or hemoptysis. GASTROINTESTINAL: +nausea, vomiting. No diarrhea or constipation. GENITOURINARY: No dysuria, frequency, or change in urination. MUSCULOSKELETAL: No joint or muscle swelling or pain. No neck or back pain. SKIN: No rash NEUROLOGIC: No headache, vertigo, loss of consciousness, or change in strength/ sensation. ENDOCRINE: No increased thirst. No abnormal weight change HEMATOLOGIC/LYMPHATIC: No anemia, easy bleeding, or history of blood clots. ALLERGIC/IMMUNOLOGIC: No hives or skin allergy. *Physical Exam - Vital Signs Last Vital Signs Temp Pulse Resp BP Pulse Ox 98.6 F 54 L 16 109/62 100 08/23/17 13:17 08/23/17 13:17 08/23/17 13:17 08/23/17 13:17 08/23/17 13:17 - Physical Exam Comments: 08/23/17 13:42 GENERAL: Awake, alert, and fully oriented, in no acute distress. Patient agitated and uncooperative with physical exam. HEAD: No signs of trauma, normocephalic, atraumatic EYES: PERRLA, EOMI, sclera anicteric, conjunctiva clear ENT: Auricles normal inspection, hearing grossly normal, nares patent, oropharynx clear without exudates. Moist mucosa NECK: Normal ROM, supple, no lymphadenopathy, JVD, or masses LUNGS: No distress, speaks full sentences, clear to auscultation bilaterally HEART: Regular rate and rhythm, normal S1 and S2, no murmurs, rubs or gallops, peripheral pulses normal and equal bilaterally. ABDOMEN: Soft, nontender, normoactive bowel sounds. No guarding, no rebound. No masses EXTREMITIES : Normal inspection, Normal range of motion, no edema. No clubbing or cyanosis. NEUROLOGICAL: Cranial nerves II through XII grossly intact. Normal speech, normal gait, no focal sensorimotor deficits SKIN: Warm, Dry, normal turgor, no rashes or lesions noted ED Treatment Course - LABORATORY CBC & Chemistry Diagram: 08/23/17 14:55 08/23/17 14:55 Medical Decision Making - Medical Decision Making 08/23/17 13:56 41 yo F with h/o cocaine dependence, heroin use on methadone maintenance ( 10 mg ) nicotine dependence who arrives from [facility] s/p closed head injury here for further evaluation. No LOC, GCS 15, AF, A&OX3. BP 109/62, HR 54. Pt. asymptomatic, with absent neuro deficits. Low suspicion of acute intracranial pathology with recent low grade mechanism of head injury. Denies MONTEMAYOR, or pain. Pt. with recurrent emesis x 2-3 days in setting of opioid withdrawal/detox. Will IVF resuscitate. Will assess for electrolyte abnml, toxic or metabolic derangements,acid-base disturbances, or underlying infection. ED Course: Zofran 4 mg PO SL NS CBC, CMP, UA 08/23/17 16:10 EKG: NSR with absent MICHELLE, STD, or TWI. Normal interval duration, and axis. CBC,CMP: Unremarkable Serum Preg: Neg 08/23/17 17:12 CTH: No acute intracranial pathology. Pt. stable and medically cleared for d/c back to rehab facility, with return precautions. *DC/Admit/Observation/Transfer Diagnosis at time of Disposition: Closed head injury Qualifiers: Encounter type: initial encounter Qualified Code(s): S09.90XA - Unspecified injury of head, initial encounter Nausea and vomiting Qualifiers: Vomiting type: unspecified Vomiting Intractability: non-intractable Qualified Code(s): R11.2 - Nausea with vomiting, unspecified - Discharge Dispostion Disposition: TRANSFER ACUTE CARE/OTHER HOSP Decision to Admit order: No - Referrals Referrals: Tommy Zarco MD, MD [Primary Care Provider] - - Patient Instructions Printed Discharge Instructions: DI for Opioid Addiction, DI for Closed Head Injury Additional Instructions: Please return to the emergency department with any new or worsening symptoms or concerns. Please follow up with your primary care physician within 72 hours. - Post Discharge Activity - Attestations Physician Attestion: 08/23/17 13:44 I attest to the information provided in this note.
[2017-08-23] MEDS ORDERED: ONDANSETRON *ODT* 4 MG TABLET SL ONE (13:52)
[2017-08-23] MEDS ORDERED: ONDANSETRON *ODT* 4 MG TABLET ONE (14:03)
[2017-08-23] MEDS ORDERED: SODIUM CHLORIDE 1,000 ML IV STA (14:06)
--- NOTE | 2017-08-23 14:50 | PDOC ---
Attending Attestation - Resident Resident Name: Richmond Rose - ED Attending Attestation I have performed the following: I have examined & evaluated the patient, The case was reviewed & discussed with the resident, I agree w/resident's findings & plan, Exceptions are as noted - Physicial Exam PE: 08/23/17 15:14 awake alert lungs clear heart rrr no mrg. abd sofft nt nd. ext wwp. nuero moves all foiur ext good strength. - Medical Decision Making pt wih n/v likely secondary to heroin withdrawal. differential electrolyte abnormality hypokalemia dehydration. will obtain ct head to r/o intracranial injury. fluids antiemetics. if negative. dc back to [facility]. 08/23/17 15:14 <Sarita Villa - Last Filed: 08/23/17 15:13> - HPI HPI: 08/23/17 14:54 Pt is a 41 yo F resident from [facility] with a PMHx of cocaine abuse, opioid abuse (on methadone regimen) who presents to the ED for further evaluation of head trauma. Patient is a poor historian and is uncooperative during history. As per nursing staff, patient rolled over bed and hit ground, striking the L side of her head. Patient denies LOC, blurry vision. Patient complains of nausea and vomiting secondary to withdrawal. Patient denies any pain or any further complaints. - Medical Decision Making 08/23/17 14:44 Patient seen self-inducing vomit with fingers in her mouth. 08/23/17 15:18 Patient was given juice and was found self inducing vomit. Documentation prepared by Anupama Conklin, acting as forensic medical examiner for Sarita Villa MD <Anupama Conklin - Last Filed: 08/23/17 15:22>
[2017-08-23 15:07] LABS: HEMATOCRIT 38.4 % (32.4-45.2); HEMOGLOBIN 12.6 GM/dL (10.7-15.3); LYMPH % 20.2 % (8-40); MCH 28.5 pg (25.7-33.7); MCHC 32.8 g/dl (32.0-36.0); MEAN CELL VOLUME 86.8 fl (80-96); MEAN PLT VOLUME 7.2 fl (7.5-11.1); MONO % 1.7 % (3.8-10.2); NEUT % 77.1 % (42.8-82.8); PLATELET COUNT 398 K/MM3 (134-434); RBC 4.42 M/mm3 (3.60-5.2); RDW 14.6 % (11.6-15.6); WHITE BLOOD COUNT 10.3 K/mm3 (4.0-10.0)
[2017-08-23 15:23] LABS: INR 0.99 (0.82-1.09); PROTHROMBIN TIME (PATIENT) 11.2 SEC (9.7-13.0)
[2017-08-23 15:35] LABS: ALBUMIN 3.7 g/dl (3.4-5.0); ALK PHOS 103 U/L (45-117); ANION GAP 11 (8-16); BILIRUBIN,TOTAL 0.4 mg/dL (0.2-1.0); BLOOD UREA NITROGEN 11 mg/dL (7-18); CALCIUM 8.9 mg/dL (8.5-10.1); CHLORIDE 101 mmol/L (98-107); CO2 26 mmol/L (21-32); CREATININE 0.6 mg/dL (0.55-1.02); GLUCOSE,RANDOM 139 mg/dL (74-106); SGPT/ALT 34 U/L (12-78); SODIUM 138 mmol/L (136-145); TOT PROT 7.9 g/dl (6.4-8.2)
[2017-08-23 15:39] LABS: SGOT/AST 49 U/L (15-37)
[2017-08-23 19:49] VITALS: BP 109/60; PULSE 56; TEMP 98.4
== END 2017-08-23 19:50 | disposition short-term general hospital (02) ==
LOC: JER 13:05
PROC: 3E0337Z Introduction of Electrolytic and Water Balance Substance into Peripheral Vein, Percutaneous Approach (ICD-10-PCS; principal; 2017-08-23)
DX: S09.8XXA Other specified injuries of head, initial encounter (principal); R11.2 Nausea with vomiting, unspecified; W06.XXXA Fall from bed, initial encounter; Y93.89 Activity, other specified; Y92.230 Patient room in hospital as the place of occurrence of the external cause; Y99.8 Other external cause status; F11.20 Opioid dependence, uncomplicated; F14.20 Cocaine dependence, uncomplicated; F17.210 Nicotine dependence, cigarettes, uncomplicated; F31.9 Bipolar disorder, unspecified; F41.9 Anxiety disorder, unspecified
CPT/HCPCS: 36415; 70450-TC; 80053; 84703; 85025; 85610; 96360; 99283-25; J7030; Q0162

== ENCOUNTER 2017-11-22 12:46 | Inpatient (IN) | payer OTHER ==
[2017-11-22 13:12] VITALS: BMI 19.7
--- NOTE | 2017-11-22 15:51 | HP ---
COWS - Scale Resting Pulse: 1= [place] 81-100 Sweatin= Chills/Flushing Restless Observation: 1= Difficult to Sit Still Pupil Size: 1= Pupils >than Normal Bone or Joint Aches: 2= Severe Diffuse Aches Runny Nose/ Eye Tearin= Runny Nose/Eyes GI Upset > 30mins: 2= Nausea/Diarrhea Tremor Observation: 1= Tremor [place], Not Seen Yawning Observation: 1= 1-2x During Session Anxiety or Irritability: 2=Irritable/Anxious Goose Flesh Skin: 3=Piloerection COWS Score: 17 Admission ROS S - HPI Chief Complaint: I almost yesterday, it scared me alot, I'm tired, I'm not happy with it, I can't do it anymore Allergies/Adverse Reactions: Allergies Allergy/AdvReac Type Severity Reaction Status Date / Time fish derived Allergy Severe Hives Verified 08/22/17 21:04 Penicillins Allergy Rash Verified 08/22/17 21:04 History of Present Illness: 42 yo woman here for detox from opiates - states she had a near overdose yesterday, denies seizures. History of being on methadone program (90mg) at [facility] but came off it a year ago and has relapsed. Tried suboxone but did not like it. Exam Limitations: Clinical Condition - Ebola screening Have you traveled outside of the country in the last 21 days: No (N) Have you had contact with anyone from an Ebola affected area: No Have you been sick,other than usual withdrawal symptoms: No Do you have a fever: No - Review of Systems Constitutional: Loss of Appetite, Night Sweats, Changes in sleep, Weakness EENT: reports: Blurred Vision, Nose Congestion Respiratory: reports: No Symptoms reported Cardiac: reports: No Symptoms Reported GI: reports: Diarrhea, Nausea, Poor Appetite, Indigestion, Abdominal cramping : reports: No Symptoms Reported Musculoskeletal: reports: Back Pain, Joint Pain, Muscle Pain Integumentary: reports: Dryness, Other (dorsal aspect of left hand tenderness at injection site) Neuro: reports: No Symptoms reported Endocrine: reports: No Symptoms Reported Hematology: reports: No Symptoms Reported Psychiatric: reports: Judgement Intact, Mood/Affect Appropiate, Anxious Other Systems: Reviewed and Negative Patient History - Patient Medical History Hx Anemia: No Hx Asthma: No Hx Chronic Obstructive Pulmonary Disease (COPD): No Hx Cancer: No Hx Cardiac Disorders: Yes (H/O endocarditis) Hx Congestive Heart Failure: No Hx Hypertension: No Hx Hypercholesterolemia: No Hx Pacemaker: No HX Cerebrovascular Accident: No Hx Seizures: No Hx Dementia: No Hx Diabetes: No Hx Gastrointestinal Disorders: No Hx Liver Disease: No Hx Genitourinary Disorders: No Hx Sexually Transmitted Disorders: No Hx Renal Disease (ESRD): No Hx Thyroid Disease: No Hx Human Immunodeficiency Virus (HIV): No (LAST 06/08 NEGATIVE) Hx Hepatitis C: Yes (NOT TREATED) Hx Depression: Yes (Denies suicide or violent ideation. ) Hx Suicide Attempt: No Hx Bipolar Disorder: Yes (no current meds - hx abilify, last hospitalized a year ago) Hx Schizophrenia: No - Patient Surgical History Past Surgical History: Yes Hx Neurologic Surgery: No Hx Cataract Extraction: No Hx Cardiac Surgery: No Hx Lung Surgery: No Hx Breast Surgery: No Hx Breast Biopsy: No Hx Abdominal Surgery: No Hx Appendectomy: No Hx Cholecystectomy: No Hx Genitourinary Surgery: No Hx Section: No Hx Orthopedic Surgery: No Hx Hysterectomy: No Other Surgical History: ON NECK DUE TO ABCESS. Anesthesia Reaction: No - PPD History Previous Implant?: Yes Documented Results: Negative w/proof Implanted On Prior R Admission?: Yes Date: 03/29/17 Results: 0 mm PPD to be Administered?: No - Reproductive History Patient is a Female of Child Bearing Age (11 -55 yrs old): Yes Last Menstrual Period: 12/30/16 - Smoking Cessation Smoking history: Current every day smoker Have you smoked in the past 12 months: No Aproximately how many cigarettes per day: 7 Cigars Per Day: 0 Hx Chewing Tobacco Use: No Initiated information on smoking cessation: Yes 'Breaking Loose' booklet given: 11/22/17 (give on floor) - Substance & Tx. History Hx Alcohol Use: No Hx Substance Use: Yes Substance Use Type: Cocaine, Heroin Hx Substance Use Treatment: Yes (detox, rehab,hx suboxone, hx methadone) - Substances Abused heroin Route: Injection Frequency: Daily Amount used: 4 bags Age of first use: 24 Date of Last Use: 11/22/17 cocaine Route: Injection Frequency: 3-6 times per week Amount used: $40 Age of first use: 24 Date of Last Use: 11/21/17 Family Disease History - Family Disease History Family Disease History: Heart Disease: Father (living, HTN;ALCOHOLISM), Other: Father, Mother (living, healthy), Sister (one living -healthy), Son (healthy - age 22) Admission Physical Exam [facility] - Vital Signs Vital Signs: Vital Signs - 24 hr 11/22/17 13:11 Temperature 98.5 F Pulse Rate 82 Respiratory 18 Rate Blood Pressure 113/65 - Physical General Appearance: Yes: Nourished, Appropriately Dressed, Moderate Distress, Thin, Anxious HEENTM: Yes: EOMI, Hearing grossly Normal, Normocephalic, Normal Voice, Pharynx Normal, Other (no teeth) Respiratory: Yes: Normal Breath Sounds, No Respiratory Distress Neck: Yes: No masses,lesions,Nodules Breast: Yes: Breast Exam Deferred Cardiology: Yes: Regular Rhythm, Regular Rate Abdominal: Yes: Non Tender, Flat Genitourinary: Yes: Within Normal Limits Back: Yes: Normal Inspection Musculoskeletal: Yes: full range of Motion, Gait Steady, Back pain, Muscle Pain Extremities: Yes: Normal Inspection, Normal Range of Motion Neurological: Yes: Fully Oriented, Alert, Motor Strength 5/5, Normal Mood/Affect , Normal Response Integumentary: Yes: Normal Color, Dry, Warm, Track [place] (dorsal aspects both hands - mild erythema, c/o left hand was puffy, tender) Lymphatic: Yes: Within Normal Limits - Diagnostic (1) Opioid dependence with withdrawal Current Visit: Yes Status: Acute Comment: . (2) Cocaine dependence, uncomplicated Current Visit: Yes Status: Chronic Comment: . (3) Cellulitis of left hand Current Visit: Yes Status: Acute (4) Hepatitis C Current Visit: Yes Status: Chronic Qualifiers: Viral hepatitis chronicity: chronic Hepatic coma status: without hepatic coma Qualified Code(s): B18.2 - Chronic viral hepatitis C (5) Nicotine dependence Current Visit: Yes Status: Acute Qualifiers: Nicotine product type: cigarettes Substance use status: uncomplicated Qualified Code(s): F17.210 - Nicotine dependence, cigarettes, uncomplicated (6) Weight loss Current Visit: Yes Status: Chronic Cleared for Admission [facility] - Detox or Rehab [facility] Level of Care: Medically Managed Detox Regimen/Protocol: Methadone [facility] Breath Alcohol Content Breath Alcohol Content: 0 Urine Pregancy Test - Result Urine Test Results: Negative- NO Line Present Urine Drug Screen - Results Drug Screen Negative: No Urine Drug Screen Results: STEVIE-Cocaine, OPI-Opiates
[2017-11-22] MEDS ORDERED: LOPERAMIDE HCL 2 MG CAPSULE PO PRN (15:58)
[2017-11-22] MEDS ORDERED: MENTHOL/PHENOL 1 EACH UD MM PRN (15:58)
[2017-11-22] MEDS ORDERED: P-EPHED 60MG/TRIPROLIDI 2.5MG TABLET PO PRN (15:58)
[2017-11-22] MEDS ORDERED: ACETAMINOPHEN 325 MG TABLET (FP) PO PRN (15:58)
[2017-11-22] MEDS ORDERED: MAGNESIUM HYDROX 2400MG/30ML ORAL SUSPENSION 30 ML CUP PO PRN (15:58)
[2017-11-22] MEDS ORDERED: hydrOXYzine PAMOATE 25 MG CAPSULE (FP) PO PRN (15:58)
[2017-11-22] MEDS ORDERED: IBUPROFEN 400 MG TABLET (FP) PO PRN (15:58)
[2017-11-22] MEDS ORDERED: MAGNESIUM CITRATE 300 ML BOTTLE PO PRN (15:58)
[2017-11-22] MEDS ORDERED: guaiFENesin/D-METHORPHAN HB 10 ML UNIT-DOSE CUPS PO PRN (15:58)
[2017-11-22] MEDS ORDERED: MAG HYDROX/AL HYDROX/SIMETH 30 ML UNIT-DOSE CUP PO PRN (15:58)
[2017-11-22] MEDS ORDERED: METHADONE HCL 10 MG TABLET (FOR DETOX USE ONLY) PO ONE ×2 (17:15→23:00)
[2017-11-22] MEDS: diazePAM 5 MG TABLET PO PRN ×2 (18:12→23:33)
[2017-11-22] MEDS: NICOTINE 14 MG/24 HOURS TOPICAL PATCH TD SCH (18:32)
[2017-11-22] MEDS ORDERED: MELATONIN 5 MG TABLETS PO PRN (22:00)
[2017-11-22] MEDS: THIAMINE HCL 100 MG TABLET (FP) PO SCH (23:33)
[2017-11-22] MEDS: SULFAMETHOXAZOLE/TRIMETHOPRIM 800MG/160MG D.S. TABLET PO SCH (23:37)
[2017-11-23] MEDS ORDERED: METHADONE HCL 10 MG TABLET (FOR DETOX USE ONLY) PO ONE (10:00)
--- NOTE | 2017-11-23 11:01 | PN ---
[facility] Progress Note Note: Several attempts were made to interview the patient, she is very hsngry, hostile amd highly uncooperative Records reviewed indicate that she is ad,iyyed to Detox for Heroin, cocaine dependence She has a psychiatric hisory diagnosed with Bipolar disorder Patient blayne uncooperative and insisted to leave her alone Nursing staff made aware
--- NOTE | 2017-11-23 11:59 | PN ---
BHS COWS - Scale Resting Pulse: 1= [place] 81-100 Sweatin= Chills/Flushing Restless Observation: 3= Extraneous Movement Pupil Size: 1= Pupils >than Normal Bone or Joint Aches: 2= Severe Diffuse Aches Runny Nose/ Eye Tearin= Nasal Congestion GI Upset > 30mins: 2= Nausea/Diarrhea Tremor Observation of Outstretched Hands: 1= Tremor [place], Not Seen Yawning Observation: 2= >3x During Session Anxiety or Irritability: 1=Feels Anxious/Irritable Goose Flesh Skin: 0=Smooth Skin COWS Score: 15 BHS Progress Note (SOAP) Subjective: body aches joints pain sweat tremor gi distress restlessness Objective: 11/23/17 13:05 Vital Signs Temperature 96.8 F L 11/22/17 23:32 Pulse Rate 75 11/22/17 23:32 Respiratory Rate 18 11/23/17 03:30 Blood Pressure 129/79 11/22/17 23:32 O2 Sat by Pulse Oximetry (%) 11/23/17 13:06 lab pending Assessment: 11/23/17 13:06 withdrawal sx Plan: continue detox
[2017-11-23] MEDS: PRENATAL VITAMINS W/ FOLIC ACID TABLET (FP) PO SCH (12:30)
[2017-11-23] MEDS: diazePAM 5 MG TABLET PO PRN ×3 (12:30→22:59)
[2017-11-23] MEDS: SULFAMETHOXAZOLE/TRIMETHOPRIM 800MG/160MG D.S. TABLET PO SCH ×2 (12:30→22:57)
[2017-11-23] MEDS: NICOTINE 14 MG/24 HOURS TOPICAL PATCH TD SCH (12:30)
[2017-11-23] MEDS: THIAMINE HCL 100 MG TABLET (FP) PO SCH (22:57)
[2017-11-23] MEDS: MINERAL OIL/PETROLAT/WATER TOPICAL CREAM 113 GM JAR TP SCH (23:31)
[2017-11-24] MEDS: diazePAM 5 MG TABLET PO PRN ×2 (04:14→10:19)
[2017-11-24 09:48] LABS: URINE APPEARANCE SLCLOUDY; URINE BILIRUBIN NEGATIVE (<2.0 mg/dL); URINE COLOR LTYELLOW; URINE GLUCOSE (UA) NEGATIVE (NEGATIVE); URINE KETONE NEGATIVE (NEGATIVE); URINE NITRITE NEGATIVE (NEGATIVE); URINE PROTEIN NEGATIVE (NEGATIVE); URINE UROBILINOGEN NEGATIVE mg/dL (0.2-1.0)
[2017-11-24 09:49] LABS: BASO % 0.4 % (0-2.0); EOS % 1.8 % (0-4.5); HEMATOCRIT 32.5 % (32.4-45.2); HEMOGLOBIN 10.7 GM/dL (10.7-15.3); LYMPH % 48.9 % (8-40); MCH 28.3 pg (25.7-33.7); MCHC 32.8 g/dl (32.0-36.0); MEAN CELL VOLUME 86.1 fl (80-96); MEAN PLT VOLUME 7.2 fl (7.5-11.1); MONO % 5.7 % (3.8-10.2); NEUT % 43.2 % (42.8-82.8); PLATELET COUNT 324 K/MM3 (134-434); RBC 3.77 M/mm3 (3.60-5.2); RDW 15.9 % (11.6-15.6); WHITE BLOOD COUNT 5.1 K/mm3 (4.0-10.0)
[2017-11-24 10:00] LABS: URINE LEUK ESTERASE 1+ (NEGATIVE)
[2017-11-24] MEDS ORDERED: METHADONE HCL 5 MG TABLET (FOR DETOX USE ONLY) PO ONE (10:00)
[2017-11-24 10:01] LABS: ALBUMIN 2.6 g/dl (3.4-5.0); ALK PHOS 85 U/L (45-117); ANION GAP 9 MMOL/L (8-16); BILIRUBIN,TOTAL 0.1 mg/dL (0.2-1.0); BLOOD UREA NITROGEN 15 mg/dL (7-18); CALCIUM 8.6 mg/dL (8.5-10.1); CHLORIDE 105 mmol/L (98-107); CO2 27 mmol/L (21-32); CREATININE 0.4 mg/dL (0.55-1.02); GLUCOSE,RANDOM 100 mg/dL (74-106); POTASSIUM 4.2 mmol/L (3.5-5.1); SGOT/AST 22 U/L (15-37); SGPT/ALT 20 U/L (12-78); SODIUM 141 mmol/L (136-145); TOT PROT 6.2 g/dl (6.4-8.2)
[2017-11-24] MEDS: NICOTINE 14 MG/24 HOURS TOPICAL PATCH TD SCH (10:18)
[2017-11-24] MEDS: SULFAMETHOXAZOLE/TRIMETHOPRIM 800MG/160MG D.S. TABLET PO SCH ×2 (10:18→22:49)
[2017-11-24] MEDS: PRENATAL VITAMINS W/ FOLIC ACID TABLET (FP) PO SCH (10:19)
[2017-11-24 10:35] LABS: EPI CELLS RARE /HPF (FEW); URINE BACTERIA MODERATE /hpf (NONE SEEN); URINE MUCUS RARE
[2017-11-24] MEDS ORDERED: diphenhydrAMINE HCL 50 MG CAPSULE PO ONE (13:53)
--- NOTE | 2017-11-24 13:56 | CONSULT ---
[facility] Psychiatric Consult - Data Date of interview: 11/24/17 Admission source: [facility] Identifying data: Patient is a 42 year old single female, mother of one, unemployed (denies receiving financial assistance) and currently homeless. This is one of multiple admissions for patient. Pt. admitted to for cocaine and opiate dependence. Substance Abuse History: Smoking Cessation. Smoking history: Current every day smoker. Have you smoked in the past 12 months: No. Aproximately how many cigarettes per day: 7. Cigars Per Day: 0. Hx Chewing Tobacco Use: No. Initiated information on smoking cessation: Yes. 'Breaking Loose' booklet given : 11/22/17 (give on floor). - Substance & Tx. History. Hx Alcohol Use: No. Hx Substance Use: Yes. Substance Use Type: Cocaine, Heroin. Hx Substance Use Treatment: Yes (detox, rehab,hx suboxone, hx methadone). - Substances Abused. heroin. Route: Injection. Frequency: Daily. Amount used: 4 bags. Age of first use: 24. Date of Last Use: 11/22/17. cocaine. Route: Injection. Frequency: 3-6 times per week. Amount used: $40. Age of first use: 24. Date of Last Use: 11/21/17 Medical History: h/o endocarditis and Hep C Psychiatric History: Patient reports multiple psychiatric hospitalizations, most recently two years ago at [facility]. Pt. is also known to [facility]. Diagnosis of Bipolar disorder. Most recent outpatient psychiatric services was provided one year ago at the [facility]. Pt. with a history of nonadherence to OPD. As per chart patient was restarted on abilify in June of 2017 but discontinued medication after discharge. Pt. requesting to restart medication today. Pt. currently presents with anxiety, restlessness, and voices telling her to leave detox. Pt. denies h/ o suicide attempt. Mental Status Exam - Mental Status Exam Alert and Oriented to: Time (slightly irritable), Place, Person Cognitive Function: Good Patient Appearance: Unkempt Mood: Anxious, Irritable Affect: Mood Congruent Patient Behavior: Crying, Appropriate Speech Pattern: Pressured Voice Loudness: Moderately Soft/Quiet Thought Process: Intact, Goal Oriented Thought Disorder: Not Present Hallucinations: Denies Suicidal Ideation: Denies Homicidal Ideation: Denies Insight/Judgement: Poor Sleep: Poorly Appetite: Fair Muscle strength/Tone: Normal Gait/Station: Normal Psychiatric Findings - Problem List ([place] 1, 2,3) (1) Substance induced mood disorder Current Visit: Yes Status: Acute Comment: . (2) Bipolar disorder Current Visit: Yes Status: Chronic Comment: .As per existing records and self-report.Total non-adherence to medications + OPD care. (3) Opioid dependence with withdrawal Current Visit: Yes Status: Acute Comment: . (4) Cocaine dependence, uncomplicated Current Visit: Yes Status: Chronic Comment: . (5) Nicotine dependence Current Visit: Yes Status: Chronic Qualifiers: Nicotine product type: cigarettes Substance use status: in withdrawal Qualified Code(s): F17.213 - Nicotine dependence, cigarettes, with withdrawal Comment: . (6) Insomnia Current Visit: Yes Status: Acute Qualifiers: Insomnia type: unspecified Qualified Code(s): G47.00 - Insomnia, unspecified Comment: . - Initial Treatment Plan Initial Treatment Plan: Psychoeducation provided. Detoxification in progress. Benadryl 50mg one time dose ordered for anxiety and restlessness. Will restart abilify 5mg qhs and order ambien 5mg qhs for insomnia. Verbal consent given.
--- NOTE | 2017-11-24 14:08 | PN ---
BHS COWS - Scale Resting Pulse: 1= [place] 81-100 Sweatin= Chills/Flushing Restless Observation: 1= Difficult to Sit Still Pupil Size: 1= Pupils >than Normal Bone or Joint Aches: 1= Mild Discomfort Runny Nose/ Eye Tearin= Nasal Congestion GI Upset > 30mins: 2= Nausea/Diarrhea Tremor Observation of Outstretched Hands: 2= Slight Tremor Visible Yawning Observation: 1= 1-2x During Session Anxiety or Irritability: 2=Irritable/Anxious Goose Flesh Skin: 0=Smooth Skin COWS Score: 13 BHS Progress Note (SOAP) Subjective: muscle cramping diarrhea restlessness anxiety trouble concentration Objective: 11/24/17 14:09 Vital Signs Temperature 98.1 F 11/24/17 13:17 Pulse Rate 89 11/24/17 13:17 Respiratory Rate 16 11/24/17 13:17 Blood Pressure 120/64 11/24/17 13:17 O2 Sat by Pulse Oximetry (%) Laboratory Last Values WBC 5.1 K/mm3 (4.0-10.0) 11/24/17 07:30 RBC 3.77 M/mm3 (3.60-5.2) 11/24/17 07:30 Hgb 10.7 GM/dL (10.7-15.3) 11/24/17 07:30 Hct 32.5 % (32.4-45.2) D 11/24/17 07:30 MCV 86.1 fl (80-96) 11/24/17 07:30 MCH 28.3 pg (25.7-33.7) 11/24/17 07:30 MCHC 32.8 g/dl (32.0-36.0) 11/24/17 07:30 RDW 15.9 % (11.6-15.6) H 11/24/17 07:30 Plt Count 324 K/MM3 (134-434) 11/24/17 07:30 MPV 7.2 fl (7.5-11.1) L 11/24/17 07:30 Absolute Neuts (auto) 2.2 K/mm3 (1.5-8.0) 11/24/17 07:30 Neutrophils % 43.2 % (42.8-82.8) D 11/24/17 07:30 Lymphocytes % 48.9 % (8-40) H D 11/24/17 07:30 Monocytes % 5.7 % (3.8-10.2) D 11/24/17 07:30 Eosinophils % 1.8 % (0-4.5) D 11/24/17 07:30 Basophils % 0.4 % (0-2.0) 11/24/17 07:30 Nucleated RBC % 0 % (0-0) 11/24/17 07:30 Sodium 141 mmol/L (136-145) 11/24/17 07:30 Potassium 4.2 mmol/L (3.5-5.1) 11/24/17 07:30 Chloride 105 mmol/L (98-107) 11/24/17 07:30 Carbon Dioxide 27 mmol/L (21-32) 11/24/17 07:30 Anion Gap 9 MMOL/L (8-16) 11/24/17 07:30 BUN 15 mg/dL (7-18) 11/24/17 07:30 Creatinine 0.4 mg/dL (0.55-1.02) L 11/24/17 07:30 Creat Clearance w eGFR > 60 (>60) 11/24/17 07:30 Random Glucose 100 mg/dL (74-106) 11/24/17 07:30 Calcium 8.6 mg/dL (8.5-10.1) 11/24/17 07:30 Total Bilirubin 0.1 mg/dL (0.2-1.0) L 11/24/17 07:30 AST 22 U/L (15-37) 11/24/17 07:30 ALT 20 U/L (12-78) 11/24/17 07:30 Alkaline Phosphatase 85 U/L (45-117) 11/24/17 07:30 Total Protein 6.2 g/dl (6.4-8.2) L 11/24/17 07:30 Albumin 2.6 g/dl (3.4-5.0) L 11/24/17 07:30 Urine Color Ltyellow 11/24/17 07:30 Urine Appearance Slcloudy 11/24/17 07:30 Urine pH 7.0 (5.0-8.0) D 11/24/17 07:30 Ur Specific [place] 1.014 (1.001-1.035) 11/24/17 07:30 Urine Protein Negative (NEGATIVE) 11/24/17 07:30 Urine Glucose (UA) Negative (NEGATIVE) 11/24/17 07:30 Urine Ketones Negative (NEGATIVE) 11/24/17 07:30 Urine Blood Negative (NEGATIVE) 11/24/17 07:30 Urine Nitrite Negative (NEGATIVE) 11/24/17 07:30 Urine Bilirubin Negative (<2.0 mg/dL) 11/24/17 07:30 Urine Urobilinogen Negative mg/dL (0.2-1.0) 11/24/17 07:30 Ur Leukocyte Esterase 1+ (NEGATIVE) H 11/24/17 07:30 Urine WBC (Auto) 7 /hpf (3-5) 11/24/17 07:30 Urine RBC (Auto) 1 /hpf (0-3) 11/24/17 07:30 Ur Epithelial Cells Rare /HPF (FEW) 11/24/17 07:30 Urine Bacteria Moderate /hpf (NONE SEEN) 11/24/17 07:30 Urine Mucus Rare 11/24/17 07:30 RPR Titer Nonreactive (NONREACTIVE) 11/24/17 07:30 lab noted 11/24/17 14:11 repeat ua Assessment: 11/24/17 14:10 withdrawal sx 11/24/17 14:11 Plan: continue detox repeat ua
--- NOTE | 2017-11-24 14:20 | EKG ---
Test Reason : Blood Pressure : / mmHG Vent. Rate : 067 BPM Atrial Rate : 067 BPM P-R Int : 128 ms QRS Dur : 084 ms QT Int : 416 ms P-R-T Axes : 054 073 070 degrees QTc Int : 439 ms NORMAL SINUS RHYTHM NORMAL ECG WHEN COMPARED WITH ECG OF 23-AUG-2017 14:49, NO SIGNIFICANT CHANGE WAS FOUND Confirmed by DOUG ANGLIN MD ([id number]) on 11/24/2017 2:19:56 PM Referred By: Confirmed By:DOUG ANGLIN MD
[2017-11-24] MEDS ORDERED: SIMETHICONE 80 MG TAB.CHEW (FP) PO PRN (20:44)
[2017-11-24] MEDS ORDERED: ARIPiprazole 5 MG TABLET (FP) PO SCH (22:00)
[2017-11-24] MEDS ORDERED: ZOLPIDEM TARTRATE 5 MG TABLET PO PRN (22:00)
[2017-11-24] MEDS: THIAMINE HCL 100 MG TABLET (FP) PO SCH (22:47)
[2017-11-24] MEDS: MINERAL OIL/PETROLAT/WATER TOPICAL CREAM 113 GM JAR TP SCH (22:47)
[2017-11-25 07:45] VITALS: BP 122/77; PULSE 88; TEMP 96.1
--- NOTE | 2017-11-25 08:26 | DS ---
[facility] Summary Admission Date: 11/22/17 Discharge Date: 11/25/17 - History Present History: Opioid Dependence Additional Comments: 42 YEARS OLD FEMALE ADMITTED ON 11/22/17 FOR OPIATE WITHDRAWAL SX ACCORDING TO THE NURSE REPORTED THAT THE PATIENT WANTED TO MAKE A PHONE CALL, DISSATISFIED ABOUT WAITING FOR THE COUNSELOR TO MAKE A PHONE CALL, DEMANDED TO TERMINATE THE DETOX REGIMEN AND WALKED OUT THE DETOX UNIT. PATIENT WAS BEEN OBSERVED BY THE NURSES AND THE NURSING STRAIGHT EDGER FROM THE UNIT TO SECURITY PROPERTY STORAGE ROOM. PATIENT LEFT THE FACILITY BEFORE THE INVENTORY CONTROL SUPERVISOR ARRIVAL TO THE DETOX UNIT. I HAVE NOT SEEN NOR EVALUATE THE PATIENT - Physical Exam Results Vital Signs: Vital Signs Temperature 96.1 F L 11/25/17 07:44 Pulse Rate 88 11/25/17 07:44 Respiratory Rate 18 11/25/17 07:44 Blood Pressure 122/77 11/25/17 07:44 O2 Sat by Pulse Oximetry (%) Pertinent Admission Physical Exam Findings: OPIATE WITHDRAWAL SX Vital Signs Temperature 96.1 F L 11/25/17 07:44 Pulse Rate 88 11/25/17 07:44 Respiratory Rate 18 11/25/17 07:44 Blood Pressure 122/77 11/25/17 07:44 O2 Sat by Pulse Oximetry (%) Laboratory Last Values WBC 5.1 K/mm3 (4.0-10.0) 11/24/17 07:30 RBC 3.77 M/mm3 (3.60-5.2) 11/24/17 07:30 Hgb 10.7 GM/dL (10.7-15.3) 11/24/17 07:30 Hct 32.5 % (32.4-45.2) D 11/24/17 07:30 MCV 86.1 fl (80-96) 11/24/17 07:30 MCH 28.3 pg (25.7-33.7) 11/24/17 07:30 MCHC 32.8 g/dl (32.0-36.0) 11/24/17 07:30 RDW 15.9 % (11.6-15.6) H 11/24/17 07:30 Plt Count 324 K/MM3 (134-434) 11/24/17 07:30 MPV 7.2 fl (7.5-11.1) L 11/24/17 07:30 Absolute Neuts (auto) 2.2 K/mm3 (1.5-8.0) 11/24/17 07:30 Neutrophils % 43.2 % (42.8-82.8) D 11/24/17 07:30 Lymphocytes % 48.9 % (8-40) H D 11/24/17 07:30 Monocytes % 5.7 % (3.8-10.2) D 11/24/17 07:30 Eosinophils % 1.8 % (0-4.5) D 11/24/17 07:30 Basophils % 0.4 % (0-2.0) 11/24/17 07:30 Nucleated RBC % 0 % (0-0) 11/24/17 07:30 Sodium 141 mmol/L (136-145) 11/24/17 07:30 Potassium 4.2 mmol/L (3.5-5.1) 11/24/17 07:30 Chloride 105 mmol/L (98-107) 11/24/17 07:30 Carbon Dioxide 27 mmol/L (21-32) 11/24/17 07:30 Anion Gap 9 MMOL/L (8-16) 11/24/17 07:30 BUN 15 mg/dL (7-18) 11/24/17 07:30 Creatinine 0.4 mg/dL (0.55-1.02) L 11/24/17 07:30 Creat Clearance w eGFR > 60 (>60) 11/24/17 07:30 Random Glucose 100 mg/dL (74-106) 11/24/17 07:30 Calcium 8.6 mg/dL (8.5-10.1) 11/24/17 07:30 Total Bilirubin 0.1 mg/dL (0.2-1.0) L 11/24/17 07:30 AST 22 U/L (15-37) 11/24/17 07:30 ALT 20 U/L (12-78) 11/24/17 07:30 Alkaline Phosphatase 85 U/L (45-117) 11/24/17 07:30 Total Protein 6.2 g/dl (6.4-8.2) L 11/24/17 07:30 Albumin 2.6 g/dl (3.4-5.0) L 11/24/17 07:30 Urine Color Ltyellow 11/24/17 07:30 Urine Appearance Slcloudy 11/24/17 07:30 Urine pH 7.0 (5.0-8.0) D 11/24/17 07:30 Ur Specific [place] 1.014 (1.001-1.035) 11/24/17 07:30 Urine Protein Negative (NEGATIVE) 11/24/17 07:30 Urine Glucose (UA) Negative (NEGATIVE) 11/24/17 07:30 Urine Ketones Negative (NEGATIVE) 11/24/17 07:30 Urine Blood Negative (NEGATIVE) 11/24/17 07:30 Urine Nitrite Negative (NEGATIVE) 11/24/17 07:30 Urine Bilirubin Negative (<2.0 mg/dL) 11/24/17 07:30 Urine Urobilinogen Negative mg/dL (0.2-1.0) 11/24/17 07:30 Ur Leukocyte Esterase 1+ (NEGATIVE) H 11/24/17 07:30 Urine WBC (Auto) 7 /hpf (3-5) 11/24/17 07:30 Urine RBC (Auto) 1 /hpf (0-3) 11/24/17 07:30 Ur Epithelial Cells Rare /HPF (FEW) 11/24/17 07:30 Urine Bacteria Moderate /hpf (NONE SEEN) 11/24/17 07:30 Urine Mucus Rare 11/24/17 07:30 RPR Titer Nonreactive (NONREACTIVE) 11/24/17 07:30 LAB NOTED - Treatment Hospital Course: Detox Protocol Followed, Responded well Patient has Accepted a Rehab Referral to: [facility] - Medication Discharge Medications: Ambulatory Orders NK [No Known Home Medication] 11/22/17 - Diagnosis (1) Opioid dependence with withdrawal Current Visit: Yes Status: Acute (2) Hepatitis C Current Visit: No Status: Chronic Qualifiers: Viral hepatitis chronicity: chronic Hepatic coma status: without hepatic coma Qualified Code(s): B18.2 - Chronic viral hepatitis C (3) Weight loss Current Visit: Yes Status: Acute - AMA Did Patient Leave Against Medical Advice: Yes
[2017-11-25] MEDS ORDERED: METHADONE HCL 5 MG TABLET (FOR DETOX USE ONLY) PO ONE (10:00)
[2017-11-26] MEDS ORDERED: METHADONE HCL 10 MG TABLET (FOR DETOX USE ONLY) PO ONE (10:00)
[2017-11-27] MEDS ORDERED: METHADONE HCL 5 MG TABLET (FOR DETOX USE ONLY) PO ONE (06:00)
== END 2017-11-25 08:00 | disposition left against medical advice (07) | DRG 770 ==
LOC: YASAS 12:46 → Y6N 16:58
PROC: HZ2ZZZZ Detoxification Services for Substance Abuse Treatment (ICD-10-PCS; principal; 2017-11-22)
DX: F11.23 Opioid dependence with withdrawal (principal); F14.20 Cocaine dependence, uncomplicated; F17.213 Nicotine dependence, cigarettes, with withdrawal; F19.24 Other psychoactive substance dependence with psychoactive substance-induced mood disorder; F31.9 Bipolar disorder, unspecified; G47.00 Insomnia, unspecified; B18.2 Chronic viral hepatitis C; L03.114 Cellulitis of left upper limb; R63.4 Abnormal weight loss; Z68.1 Body mass index [BMI] 19.9 or less, adult; Z88.0 Allergy status to penicillin; Z91.013 Allergy to seafood
CPT/HCPCS: 36415; 80053; 81003; 81015; 85025; 86593; 93005; 93010

== ENCOUNTER 2017-12-09 11:16 | Inpatient (IN) | payer OTHER ==
[2017-12-09 11:33] VITALS: BMI 19.7
--- NOTE | 2017-12-09 12:23 | HP ---
COWS - Scale Resting Pulse: 0= IN 80 or Below Restless Observation: 1= Difficult to Sit Still Pupil Size: 0= Normal to Room Light Bone or Joint Aches: 0= None Runny Nose/ Eye Tearin= None GI Upset > 30mins: 1= Stomach Cramp Tremor Observation: 0= None Yawning Observation: 0= None Anxiety or Irritability: 4=Extreme Anxiety Admission ROS S - HPI Chief Complaint: pt here requesting tx for opiate and cocaine use , reports in MMTP , latest use Friday morning 1 bag IVDU in hands ,needles from the pharmacy , denies sharing now, in the past yes, +re-using , left hand abscess , went to [facility] left AMA when lancing suggested , currently on 80 mg q d latest dose today .Cocaine 20 $ every other day , denies other illicits . upt neg [place] 0.000 pmhx: hep C no tx , dx 2002 RF=IVDU , bipolar d/o , depression, anxiety pshx : denies meds : denies Allergies/Adverse Reactions: Allergies Allergy/AdvReac Type Severity Reaction Status Date / Time fish derived Allergy Severe Hives Verified 12/09/17 11:31 Penicillins Allergy Severe Rash Verified 12/09/17 11:31 - Ebola screening Have you traveled outside of the country in the last 21 days: No Have you had contact with anyone from an Ebola affected area: No Have you been sick,other than usual withdrawal symptoms: No Do you have a fever: No Patient History - Patient Medical History Hx Anemia: No Hx Asthma: No Hx Chronic Obstructive Pulmonary Disease (COPD): No Hx Cancer: No Hx Cardiac Disorders: No Hx Congestive Heart Failure: No Hx Hypertension: No Hx Hypercholesterolemia: No Hx Pacemaker: No HX Cerebrovascular Accident: No Hx Seizures: No Hx Dementia: No Hx Diabetes: No Hx Gastrointestinal Disorders: No Hx Liver Disease: No Hx Genitourinary Disorders: No Hx Sexually Transmitted Disorders: No Hx Renal Disease (ESRD): No Hx Thyroid Disease: No Hx Human Immunodeficiency Virus (HIV): No (LAST 06/08 NEGATIVE) Hx Hepatitis C: Yes (NOT TREATED) Hx Depression: Yes Hx Suicide Attempt: No Hx Bipolar Disorder: Yes (no current meds - hx abilify, last hospitalized a year ago) Hx Schizophrenia: No - Patient Surgical History Past Surgical History: No Hx Neurologic Surgery: No Hx Cataract Extraction: No Hx Cardiac Surgery: No Hx Lung Surgery: No Hx Breast Surgery: No Hx Breast Biopsy: No Hx Abdominal Surgery: No Hx Appendectomy: No Hx Cholecystectomy: No Hx Genitourinary Surgery: No Hx Section: No Hx Orthopedic Surgery: No Hx Hysterectomy: No Other Surgical History: ON NECK DUE TO ABCESS. Anesthesia Reaction: No - PPD History Previous Implant?: Yes Implanted On Prior [facility] Admission?: Yes Date: 03/29/17 Results: 0 mm - Reproductive History Last Menstrual Period: 12/30/16 Patient : No - Smoking Cessation Smoking history: Current every day smoker Have you smoked in the past 12 months: No Aproximately how many cigarettes per day: 7 Cigars Per Day: 0 Hx Chewing Tobacco Use: No Initiated information on smoking cessation: No - Substances Abused Cocaine Route: Injection Frequency: Daily Amount used: $20 Age of first use: 25 Date of Last Use: 12/07/17 Heroin Route: Injection Frequency: 1-2 times per week Amount used: 1 bag Age of first use: 24 Date of Last Use: 12/06/17 Family Disease History - Family Disease History Family Disease History: Heart Disease: Father (living, HTN;ALCOHOLISM), Other: Father, Mother (living, healthy), Sister (one living -healthy), Son (healthy - age 22) Admission Physical Exam S - Vital Signs Vital Signs: Vital Signs - 24 hr 12/09/17 11:28 Temperature 97.8 F Pulse Rate 59 L Respiratory 18 Rate Blood Pressure 91/55 - Physical General Appearance: Yes: Disheveled, Moderate Distress HEENTM: Yes: Within Normal Limits, EOMI, Hearing grossly Normal, Normal ENT Inspection, Normocephalic, Normal Voice, EDITA, Pharynx Normal, Tm's normal, Other (edentulous) Respiratory: Yes: Within Normal Limits, Chest Non-Tender, Lungs Clear, Normal Breath Sounds, No Respiratory Distress, No Accessory Muscle Use Neck: Yes: Within Normal Limits, No masses,lesions,Nodules, Trachea in good position Breast: Yes: Breast Exam Deferred Cardiology: Yes: Within Normal Limits, Regular Rhythm, Regular Rate Abdominal: Yes: Within Normal Limits, Normal Bowel Sounds, Non Tender, Flat, Distended (constipated x 1 week), Other Genitourinary: Yes: Within Normal Limits Back: Yes: Within Normal Limits, Other (thoracolumbar scoliosis) Musculoskeletal: Yes: Within Normal Limits, full range of Motion, Gait Steady, Pelvis Stable Extremities: Yes: Within Normal Limits, Normal Capillary Refill, Normal Inspection, Normal Range of Motion, Non-Tender Neurological: Yes: Within Normal Limits, dietary services director II-XII NML intact, Fully Oriented, Alert, Motor Strength 5/5, Normal Mood/Affect, Normal Response Integumentary: Yes: Within Normal Limits, Normal Color, Dry, Warm, Track [place], Other (left hand dorsum w/ abscess) Lymphatic: Yes: Within Normal Limits Cleared for Admission [facility] - Detox or Rehab Detox Regimen/Protocol: Valium S Breath Alcohol Content Breath Alcohol Content: 0 Urine Pregancy Test - Result Urine Test Results: Negative- NO Line Present Urine Drug Screen - Results Drug Screen Negative: No Urine Drug Screen Results: STEVIE-Cocaine, OPI-Opiates, BZO-Benzodiazepines, MTD- Methadone
[2017-12-09] MEDS ORDERED: MAGNESIUM CITRATE 300 ML BOTTLE PO PRN (12:34)
[2017-12-09] MEDS ORDERED: hydrOXYzine PAMOATE 25 MG CAPSULE (FP) PO PRN (12:34)
[2017-12-09] MEDS ORDERED: MAG HYDROX/AL HYDROX/SIMETH 30 ML UNIT-DOSE CUP PO PRN (12:34)
[2017-12-09] MEDS ORDERED: MAGNESIUM HYDROX 2400MG/30ML ORAL SUSPENSION 30 ML CUP PO PRN (12:34)
[2017-12-09] MEDS ORDERED: ACETAMINOPHEN 325 MG TABLET (FP) PO PRN (12:34)
[2017-12-09] MEDS ORDERED: NICOTINE POLACRILEX 2 MG GUM BUC PRN (12:34)
[2017-12-09] MEDS ORDERED: IBUPROFEN 400 MG TABLET (FP) PO PRN (12:34)
[2017-12-09] MEDS: SULFAMETHOXAZOLE/TRIMETHOPRIM 800MG/160MG D.S. TABLET PO SCH ×2 (14:53→22:24)
[2017-12-09] MEDS: diazePAM 5 MG TABLET PO PRN ×2 (14:53→22:24)
--- NOTE | 2017-12-09 16:45 | EKG ---
Test Reason : Blood Pressure : / mmHG Vent. Rate : 056 BPM Atrial Rate : 056 BPM P-R Int : 138 ms QRS Dur : 090 ms QT Int : 446 ms P-R-T Axes : 050 069 059 degrees QTc Int : 430 ms SINUS BRADYCARDIA OTHERWISE NORMAL ECG WHEN COMPARED WITH ECG OF 22-NOV-2017 17:51, NO SIGNIFICANT CHANGE WAS FOUND Confirmed by Sinan Khan ([id number]) on 12/09/2017 4:44:39 PM Referred By: Confirmed By:Sinan Khan
[2017-12-09 19:01] LABS: URINE APPEARANCE SLCLOUDY; URINE BILIRUBIN NEGATIVE (<2.0 mg/dL); URINE COLOR YELLOW; URINE GLUCOSE (UA) NEGATIVE (NEGATIVE); URINE KETONE NEGATIVE (NEGATIVE); URINE LEUK ESTERASE TRACE (NEGATIVE); URINE NITRITE NEGATIVE (NEGATIVE); URINE PROTEIN NEGATIVE (NEGATIVE); URINE UROBILINOGEN 4.0 E.U/dl mg/dL (0.2-1.0)
[2017-12-09] MEDS ORDERED: MELATONIN 5 MG TABLETS PO PRN (22:00)
[2017-12-09] MEDS ORDERED: THIAMINE HCL 100 MG TABLET (FP) PO SCH (22:00)
[2017-12-10] MEDS ORDERED: METHADONE HCL 40 MG DISPERSABLE TABLET PO SCH (06:00)
[2017-12-10] MEDS: diazePAM 5 MG TABLET PO PRN (07:41)
[2017-12-10 09:51] VITALS: BP 90/54; PULSE 62; TEMP 98.1
[2017-12-10] MEDS ORDERED: PRENATAL VITAMINS W/ FOLIC ACID TABLET (FP) PO SCH (10:00)
[2017-12-10 10:19] LABS: HEMATOCRIT 35.6 % (32.4-45.2); HEMOGLOBIN 11.6 GM/dL (10.7-15.3); MCH 28.3 pg (25.7-33.7); MCHC 32.5 g/dl (32.0-36.0); MEAN CELL VOLUME 86.9 fl (80-96); MEAN PLT VOLUME 7.2 fl (7.5-11.1); PLATELET COUNT 479 K/MM3 (134-434); RBC 4.09 M/mm3 (3.60-5.2); RDW 15.7 % (11.6-15.6); WHITE BLOOD COUNT 6.3 K/mm3 (4.0-10.0)
[2017-12-10 10:38] LABS: CHLORIDE 101 mmol/L (98-107); SODIUM 137 mmol/L (136-145)
[2017-12-10 11:12] LABS: ALBUMIN 3.5 g/dl (3.4-5.0); ALK PHOS 103 U/L (45-117); ANION GAP 5 MMOL/L (8-16); BILIRUBIN,TOTAL 0.3 mg/dL (0.2-1); BLOOD UREA NITROGEN 9 mg/dL (7-18); CALCIUM 8.8 mg/dL (8.5-10.1); CO2 31 mmol/L (21-32); CREATININE 0.6 mg/dL (0.55-1.3); GLUCOSE,RANDOM 79 mg/dL (74-106); SGOT/AST 32 U/L (15-37); SGPT/ALT 25 U/L (13-61); TOT PROT 7.7 g/dl (6.4-8.2)
--- NOTE | 2017-12-10 11:22 | CONSULT ---
[facility] Psychiatric Consult - Data Date of interview: 12/10/17 Admission source: [facility] Identifying data: Patient is a 42 year old female. This is one of multiple admissions for patient. Pt irritable and refusing to answer additional questions. Substance Abuse History: Smoking Cessation. Smoking history: Current every day smoker. Have you smoked in the past 12 months: No. Aproximately how many cigarettes per day: 7. Cigars Per Day: 0. Hx Chewing Tobacco Use: No. Initiated information on smoking cessation: No. - Substances Abused. Cocaine. Route: Injection. Frequency: Daily. Amount used: $20. Age of first use: 25. Date of Last Use: 12/07/17. Heroin. Route: Injection. Frequency : 1-2 times per week. Amount used: 1 bag. Age of first use: 24. Date of Last Use: 12/06/17 Psychiatric History: Patient irritable. Refuses to see psychiatric nurse practitioner. Stated " you are not a psych doctor. I do not want to see you." Nursing staff informed.
[2017-12-10] MEDS: SULFAMETHOXAZOLE/TRIMETHOPRIM 800MG/160MG D.S. TABLET PO SCH (11:28)
--- NOTE | 2017-12-10 14:00 | PN ---
S Progress Note (SOAP) Subjective: I was supposed to go to rehab. I don't use benzo's. I always speak fast and move around "I'm Arabic". Sore on my wrist hurts when touched or if I move my wrist too much. It becomes sharp and goes to a "10". Objective: A&O x3. Moderately restless. Up and down from bed to walking in halls. No seating/perspiration. (L) wrist w/ abscess, approx 1 cm circular, w/ small amount of sang-purulent drainage. Wrist site tender to touch. Radial pulses +. Cap refill less than 3 sec. Vital Signs 12/10/17 09:50 Temperature 98.1 F Pulse Rate 62 Respiratory 16 Rate Blood Pressure 90/54 Lab Results WBC 6.3 K/mm3 (4.0-10.0) 12/10/17 06:00 RBC 4.09 M/mm3 (3.60-5.2) 12/10/17 06:00 Hgb 11.6 GM/dL (10.7-15.3) 12/10/17 06:00 Hct 35.6 % (32.4-45.2) 12/10/17 06:00 MCV 86.9 fl (80-96) 12/10/17 06:00 MCHC 32.5 g/dl (32.0-36.0) 12/10/17 06:00 RDW 15.7 % (11.6-15.6) H 12/10/17 06:00 Plt Count 479 K/MM3 (134-434) H D 12/10/17 06:00 Sodium 137 mmol/L (136-145) 12/10/17 06:00 Potassium 4.0 mmol/L (3.5-5.1) 12/10/17 06:00 Chloride 101 mmol/L (98-107) 12/10/17 06:00 Carbon Dioxide 31 mmol/L (21-32) 12/10/17 06:00 Anion Gap 5 MMOL/L (8-16) L 12/10/17 06:00 BUN 9 mg/dL (7-18) 12/10/17 06:00 Creatinine 0.6 mg/dL (0.55-1.3) 12/10/17 06:00 Random Glucose 79 mg/dL (74-106) 12/10/17 06:00 Calcium 8.8 mg/dL (8.5-10.1) 12/10/17 06:00 Labs reviewed Assessment: Cellulitis/abscess (L) wrist Methadone Maintenance Plan: Transfer to rehab. Continue Bactrim treatment and methadone maintenance while in rehab.
--- NOTE | 2017-12-10 14:03 | DS ---
[facility] Detox Discharge Summary Admission Date: 12/09/17 Discharge Date: 12/10/17 - History Present History: MMTP - Physical Exam Results Vital Signs: Vital Signs Temperature 98.1 F 12/10/17 09:50 Pulse Rate 62 12/10/17 09:50 Respiratory Rate 16 12/10/17 09:50 Blood Pressure 90/54 12/10/17 09:50 O2 Sat by Pulse Oximetry (%) Pertinent Admission Physical Exam Findings: Cellulitis w/ abscess (L) wrist. 12/10/17 12/10/17 06:00 06:00 WBC 6.3 RBC 4.09 Hgb 11.6 Hct 35.6 MCV 86.9 MCHC 32.5 RDW 15.7 H Plt Count 479 H D Sodium 137 Potassium 4.0 Chloride 101 Carbon Dioxide 31 Anion Gap 5 L BUN 9 Creatinine 0.6 12/09/17 17:30 Gram Stain - Pending Abscess Wound Culture - Pending Labs reviewed. - Treatment Hospital Course: Responded well, Discharged Condition Good - Medication Discharge Medications: Ambulatory Orders NK [No Known Home Medication] 11/22/17 - Diagnosis (1) Cellulitis of left hand Current Visit: Yes Status: Acute (2) Methadone maintenance therapy patient Current Visit: Yes Status: Chronic (3) Nicotine dependence Current Visit: Yes Status: Acute Qualifiers: Nicotine product type: cigarettes Substance use status: in withdrawal Qualified Code(s): F17.213 - Nicotine dependence, cigarettes, with withdrawal (4) Cocaine dependence, uncomplicated Current Visit: Yes Status: Chronic - AMA Did Patient Leave Against Medical Advice: No
[2017-12-10] MEDS ORDERED: BACITRACIN 0.9 GM PACKET TP SCH (22:00)
== END 2017-12-10 14:50 | disposition other institution (70) | DRG 773 ==
LOC: YASAS 11:16 → Y6N 13:05
PROC: HZ2ZZZZ Detoxification Services for Substance Abuse Treatment (ICD-10-PCS; principal; 2017-12-09)
DX: F14.20 Cocaine dependence, uncomplicated (principal); F11.20 Opioid dependence, uncomplicated; F17.213 Nicotine dependence, cigarettes, with withdrawal; F31.9 Bipolar disorder, unspecified; L03.114 Cellulitis of left upper limb; B18.2 Chronic viral hepatitis C; Z88.0 Allergy status to penicillin; Z91.018 Allergy to other foods
CPT/HCPCS: 36415; 80053; 81003; 81015; 85027; 86593; 87070; 87186; 87205; 87389; 93005; 93010

== ENCOUNTER 2017-12-10 15:14 | Inpatient (IN) | payer OTHER ==
[2017-12-10] MEDS ORDERED: hydrOXYzine PAMOATE 50 MG CAPSULE (FP) PO PRN (15:40)
[2017-12-10] MEDS ORDERED: MAGNESIUM HYDROX 2400MG/30ML ORAL SUSPENSION 30 ML CUP PO PRN (15:40)
[2017-12-10] MEDS ORDERED: IBUPROFEN 400 MG TABLET (FP) PO PRN (15:40)
[2017-12-10] MEDS ORDERED: MENTHOL/PHENOL 1 EACH UD MM PRN (15:40)
[2017-12-10] MEDS ORDERED: guaiFENesin/D-METHORPHAN HB 10 ML UNIT-DOSE CUPS PO PRN (15:40)
[2017-12-10] MEDS ORDERED: MAGNESIUM CITRATE 300 ML BOTTLE PO PRN (15:40)
[2017-12-10] MEDS ORDERED: P-EPHED 60MG/TRIPROLIDI 2.5MG TABLET PO PRN (15:40)
[2017-12-10] MEDS ORDERED: NICOTINE POLACRILEX 2 MG GUM BUC PRN (15:40)
[2017-12-10] MEDS ORDERED: MAG HYDROX/AL HYDROX/SIMETH 30 ML UNIT-DOSE CUP PO PRN (15:40)
[2017-12-10] MEDS ORDERED: ACETAMINOPHEN 325 MG TABLET (FP) PO PRN (15:40)
[2017-12-10] MEDS ORDERED: LOPERAMIDE HCL 2 MG CAPSULE PO PRN (15:40)
--- NOTE | 2017-12-10 16:03 | HP ---
Psychiatrist Admission - Data Date of interview: 12/10/17 Admission source: [address] [place] [address] Allergies/Adverse Reactions: Allergies Allergy/AdvReac Type Severity Reaction Status Date / Time fish derived Allergy Severe Hives Verified 12/09/17 11:31 Penicillins Allergy Severe Rash Verified 12/09/17 11:31 Date of last physical exam: 12/10/17 Concur with the findings of this exam: Yes - Substance Abuse/Tx History Hx Alcohol Use: Yes Hx Substance Use: Yes Psychiatric Findings - Problem List ([place] 1, 2,3) (1) Cellulitis of left hand Current Visit: Yes Status: Inactive (2) Nicotine dependence Current Visit: Yes Status: Chronic Qualifiers: (3) Methadone maintenance therapy patient Current Visit: Yes Status: Chronic (4) Cellulitis of right arm Current Visit: Yes Status: Inactive (5) Closed head injury Current Visit: Yes Status: Chronic (6) Cocaine dependence Current Visit: Yes Status: Chronic (7) Bipolar disorder Current Visit: Yes Status: Chronic Comment: .As per existing records and self-report.Total non-adherence to medications + OPD care. (8) Hepatitis C Current Visit: Yes Status: Chronic Qualifiers: (9) Personality disorder, unspecified Current Visit: Yes Status: Chronic Comment: . (10) Alcohol dependence Current Visit: Yes Status: Chronic - Initial Treatment Plan Initial Treatment Plan: Will monitor progress.
[2017-12-10] MEDS ORDERED: diphenhydrAMINE HCL 50 MG CAPSULE PO PRN (16:28)
[2017-12-10 16:37] VITALS: BP 90/53; PULSE 66; TEMP 98; BMI 20.5
[2017-12-10] MEDS ORDERED: COLLOIDAL OATMEAL 1 BAR EACH TP PRN (16:47)
[2017-12-10] MEDS ORDERED: ARIPiprazole 10 MG TABLET PO SCH (22:00)
[2017-12-10] MEDS ORDERED: SULFAMETHOXAZOLE/TRIMETHOPRIM 800MG/160MG D.S. TABLET PO SCH (22:00)
[2017-12-10] MEDS ORDERED: MELATONIN 5 MG TABLETS PO PRN (22:00)
[2017-12-10] MEDS ORDERED: THIAMINE HCL 100 MG TABLET (FP) PO SCH (22:00)
[2017-12-11] MEDS ORDERED: METHADONE HCL 40 MG DISPERSABLE TABLET PO SCH (06:00)
[2017-12-11] MEDS ORDERED: PRENATAL VITAMINS W/ FOLIC ACID TABLET (FP) PO SCH (10:00)
== END 2017-12-10 17:08 | disposition left against medical advice (07) | DRG 772 ==
LOC: YASAS 15:14 → Y3E 15:15
PROVIDERS: ADMIT Psychiatry & Neurology Psychiatry; ATTEND Psychiatry & Neurology Psychiatry
PROC: HZ42ZZZ Group Counseling for Substance Abuse Treatment, Cognitive-Behavioral (ICD-10-PCS; principal; 2017-12-10)
DX: F14.20 Cocaine dependence, uncomplicated (principal); F11.20 Opioid dependence, uncomplicated; F17.210 Nicotine dependence, cigarettes, uncomplicated; F31.9 Bipolar disorder, unspecified; F60.9 Personality disorder, unspecified; B18.2 Chronic viral hepatitis C; L03.114 Cellulitis of left upper limb; L03.113 Cellulitis of right upper limb; S09.8XXA Other specified injuries of head, initial encounter; X58.XXXA Exposure to other specified factors, initial encounter; Y93.89 Activity, other specified; Y92.89 Other specified places as the place of occurrence of the external cause; Y99.8 Other external cause status; F91.8 Other conduct disorders; Z91.19 Patient's noncompliance with other medical treatment and regimen

== ENCOUNTER 2018-04-27 10:21 | Emergency (ER) | payer OTHER | END 2018-04-27 13:33 | disposition home or self-care (01) | LOC: JERFT 10:21 ==

== ENCOUNTER 2018-05-14 09:16 | Inpatient (IN) | payer OTHER ==
[2018-05-14 09:31] VITALS: BMI 21.2
--- NOTE | 2018-05-14 11:28 | HP ---
CIWA Score - Admission Criteria [facility] Guidelines: Admission for Medically Managed Detox: Requires at least one of the followin. CIWA greater than 12 2. Seizures within the past 24 hours 3. Delirium tremens within the past 24 hours 4. Hallucinations within the past 24 hours 5. Acute intervention needed for co occurring medical disorder 6. Acute intervention needed for co occurring psychiatric disorder 7. Severe withdrawal that cannot be handled at a lower level of care (continued vomiting, continued diarrhea, abnormal vital signs) requiring intravenous medication and/or fluids 8. Admission ROS S - HPI Chief Complaint: i am here for rehab using cocaine,on mmtp 100 mgs/day,last medicated today Allergies/Adverse Reactions: Allergies Allergy/AdvReac Type Severity Reaction Status Date / Time fish derived Allergy Severe Hives Verified 04/27/18 11:16 Penicillins Allergy Severe Rash Verified 04/27/18 11:16 History of Present Illness: this 42 years old female with cocaine dependence,mmtp 100 mgs/day,last medicated today, multiple admissions in the past,last treatment [facility] in 02/08 hepatitis c weight loss nicotine 6 cigarette/day bipolar disorder,insomnia longest period of sobriety 2 and half year need help to come for rehab Exam Limitations: No Limitations - Ebola screening Have you traveled outside of the country in the last 21 days: No Have you had contact with anyone from an Ebola affected area: No Have you been sick,other than usual withdrawal symptoms: No - Review of Systems Constitutional: No Symptoms Reported EENT: reports: No Symptoms Reported Respiratory: reports: No Symptoms reported Cardiac: reports: No Symptoms Reported GI: reports: No Symptoms Reported : reports: No Symptoms Reported Musculoskeletal: reports: No Symptoms Reported Integumentary: reports: No Symptoms Reported Neuro: reports: No Symptoms reported Endocrine: reports: No Symptoms Reported Hematology: reports: No Symptoms Reported Psychiatric: reports: No Sypmtoms Reported, Judgement Intact, Mood/Affect Appropiate, Orientated x3, other (bipolar disorder,insomnia) Other Systems: Reviewed and Negative Patient History - Patient Medical History Hx Anemia: No Hx Asthma: No Hx Chronic Obstructive Pulmonary Disease (COPD): No Hx Cancer: No Hx Cardiac Disorders: No Hx Congestive Heart Failure: No Hx Hypertension: No Hx Hypercholesterolemia: No Hx Pacemaker: No HX Cerebrovascular Accident: No Hx Seizures: No Hx Dementia: No Hx Diabetes: No Hx Gastrointestinal Disorders: No Hx Liver Disease: No Hx Genitourinary Disorders: No Hx Sexually Transmitted Disorders: No Hx Renal Disease (ESRD): No Hx Thyroid Disease: No Hx Human Immunodeficiency Virus (HIV): No (LAST 03/10 negative) Hx Hepatitis C: Yes (NOT TREATED) Hx Depression: Yes (Bipolar disorder) Hx Suicide Attempt: No Hx Bipolar Disorder: Yes (no current meds - hx abilify, last hospitalized a year ago) Hx Schizophrenia: No Other Medical History: no suicidal,no homicidal - Patient Surgical History Past Surgical History: No Hx Neurologic Surgery: No Hx Cataract Extraction: No Hx Cardiac Surgery: No Hx Lung Surgery: No Hx Breast Surgery: No Hx Breast Biopsy: No Hx Abdominal Surgery: No Hx Appendectomy: No Hx Cholecystectomy: No Hx Genitourinary Surgery: No Hx Section: No Hx Orthopedic Surgery: No Hx Hysterectomy: No Other Surgical History: ON NECK DUE TO ABCESS. Anesthesia Reaction: No - PPD History Previous Implant?: Yes Documented Results: Negative w/proof Implanted On Prior [facility] Admission?: Yes Date: 03/29/17 Results: 0mm PPD to be Administered?: No - Reproductive History Patient is a Female of Child Bearing Age (11 -55 yrs old): Yes Last Menstrual Period: 01/22/17 Patient : No - Smoking Cessation Smoking history: Current every day smoker Have you smoked in the past 12 months: No Aproximately how many cigarettes per day: 7 Cigars Per Day: 0 Hx Chewing Tobacco Use: No Initiated information on smoking cessation: Yes 'Breaking Loose' booklet given: 05/14/18 - Substance & Tx. History Hx Alcohol Use: No Hx Substance Use: Yes Substance Use Type: Cocaine Hx Substance Use Treatment: Yes ([facility] in 02/08) - Substances Abused Cocaine Route: Smoking Frequency: 3-6 times per week Amount used: $40 Age of first use: 18 Date of Last Use: 05/13/18 Alprazolam (Xanax) Route: Oral Frequency: 1-3 times last 30 days Amount used: 1 tab Age of first use: 38 Date of Last Use: 05/07/18 Family Disease History - Family Disease History Family Disease History: Heart Disease: Father (living, HTN;ALCOHOLISM), Other: Father, Mother (living, healthy), Sister (one living -healthy), Son (healthy - age 22) Admission Physical Exam [facility] - Vital Signs Vital Signs: Vital Signs - 24 hr 05/14/18 09:28 Temperature 98 F Pulse Rate 77 Respiratory 17 Rate Blood Pressure 98/66 - Physical General Appearance: Yes: Within Normal Limits HEENTM: Yes: Normal ENT Inspection, EDITA, Pharynx Normal, Other (no teeth) Respiratory: Yes: Lungs Clear, Normal Breath Sounds, No Respiratory Distress Neck: Yes: Within Normal Limits, Supple, Trachea in good position Breast: Yes: Breast Exam Deferred Cardiology: Yes: Within Normal Limits, Regular Rhythm, Regular Rate, S1, S2 Abdominal: Yes: Within Normal Limits, Normal Bowel Sounds, Soft Genitourinary: Yes: Within Normal Limits Back: Yes: Within Normal Limits Musculoskeletal: Yes: Within Normal Limits Extremities: Yes: Within Normal Limits Neurological: Yes: tank 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 (6) Insomnia Current Visit: Yes Status: Acute (7) Xanax use disorder, mild, abuse Current Visit: Yes Status: Acute Cleared for Admission [facility] - Detox or Rehab Claeared for Rehab Admission: Yes [facility] Breath Alcohol Content Breath Alcohol Content: 0 Urine Pregancy Test - Result Urine Test Results: Negative- NO Line Present Urine Drug Screen - Results Drug Screen Negative: No Urine Drug Screen Results: STEVIE-Cocaine, MTD-Methadone Inpatient Rehab Admission - Rehab Decision to Admit Inpatient rehab admission?: Yes - Initial Determination Are CD services needed?: Yes Free of communicable disease: Yes Not in need of hospitalization: Yes - Rehab Admission Criteria Previous failed treatment: Yes Poor recovery environment: Yes Comorbidities: Yes Lacks judgement: No Patient is meeting Inpatient Rehab admission criteria:: Yes
[2018-05-14] MEDS ORDERED: MAGNESIUM CITRATE 300 ML BOTTLE PO PRN (11:38)
[2018-05-14] MEDS ORDERED: P-EPHED 60MG/TRIPROLIDI 2.5MG TABLET PO PRN (11:38)
[2018-05-14] MEDS ORDERED: ACETAMINOPHEN 325 MG TABLET (FP) PO PRN (11:38)
[2018-05-14] MEDS ORDERED: hydrOXYzine PAMOATE 25 MG CAPSULE (FP) PO PRN (11:38)
[2018-05-14] MEDS ORDERED: MENTHOL/PHENOL 1 EACH UD MM PRN (11:38)
[2018-05-14] MEDS ORDERED: guaiFENesin/D-METHORPHAN HB 10 ML UNIT-DOSE CUPS PO PRN (11:38)
[2018-05-14] MEDS ORDERED: LOPERAMIDE HCL 2 MG CAPSULE PO PRN (11:38)
[2018-05-14] MEDS ORDERED: MAGNESIUM HYDROX 2400MG/30ML ORAL SUSPENSION 30 ML CUP PO PRN (11:38)
[2018-05-14] MEDS ORDERED: MAG HYDROX/AL HYDROX/SIMETH 30 ML UNIT-DOSE CUP PO PRN (11:38)
[2018-05-14] MEDS ORDERED: IBUPROFEN 400 MG TABLET (FP) PO PRN (11:38)
[2018-05-14] MEDS ORDERED: diphenhydrAMINE HCL 50 MG CAPSULE PO PRN (11:44)
[2018-05-14] MEDS ORDERED: TUBERCULIN PPD 5 TU/0.1ML VIAL ID ONE (13:35)
[2018-05-14 16:51] LABS: HEMOGLOBIN 12.7 GM/dL (10.7-15.3); MCH 30.5 pg (25.7-33.7); MCHC 34.2 g/dl (32.0-36.0); MEAN CELL VOLUME 89.2 fl (80-96); MEAN PLT VOLUME 7.7 fl (7.5-11.1); PLATELET COUNT 415 K/MM3 (134-434); RBC 4.15 M/mm3 (3.60-5.2); RDW 14.8 % (11.6-15.6); WHITE BLOOD COUNT 4.5 K/mm3 (4.0-10.0)
[2018-05-14 17:03] LABS: ALBUMIN 3.4 g/dl (3.4-5.0); ALK PHOS 88 U/L (45-117); ANION GAP 6 MMOL/L (8-16); BILIRUBIN,TOTAL 0.2 mg/dL (0.2-1); BLOOD UREA NITROGEN 13 mg/dL (7-18); CHLORIDE 104 mmol/L (98-107); CO2 28 mmol/L (21-32); CREATININE 0.7 mg/dL (0.55-1.3); GLUCOSE,RANDOM 103 mg/dL (74-106); SGOT/AST 27 U/L (15-37); SGPT/ALT 23 U/L (13-61); SODIUM 138 mmol/L (136-145); TOT PROT 7.6 g/dl (6.4-8.2)
[2018-05-14 17:19] LABS: URINE APPEARANCE SLCLOUDY; URINE BILIRUBIN NEGATIVE (<2.0 mg/dL); URINE COLOR YELLOW; URINE GLUCOSE (UA) NEGATIVE (NEGATIVE); URINE KETONE NEGATIVE (NEGATIVE); URINE LEUK ESTERASE 1+ (NEGATIVE); URINE NITRITE NEGATIVE (NEGATIVE); URINE PROTEIN NEGATIVE (NEGATIVE); URINE UROBILINOGEN NEGATIVE mg/dL (0.2-1.0)
[2018-05-14] MEDS ORDERED: HYDROCORTISONE 1% TOPICAL OINT 30 GM TUBE TP PRN (17:24)
[2018-05-14 17:37] LABS: EPI CELLS MODERATE /HPF (FEW); URINE MUCUS RARE
[2018-05-14] MEDS ORDERED: THIAMINE HCL 100 MG TABLET (FP) PO SCH (22:00)
[2018-05-15 07:30] VITALS: BP 99/60; PULSE 61; TEMP 97.6
[2018-05-15] MEDS ORDERED: METHADONE HCL 10 MG TABLET PO SCH (07:30)
[2018-05-15] MEDS ORDERED: METHADONE HCL 10 MG TABLET ONE (07:57)
[2018-05-15] MEDS ORDERED: METHADONE HCL 40 MG DISPERSABLE TABLET ONE (07:58)
[2018-05-15] MEDS ORDERED: METHADONE 80 MG, METHADONE 20 MG PO SCH (08:00)
[2018-05-15] MEDS ORDERED: PRENATAL VITAMINS W/ FOLIC ACID TABLET (FP) PO SCH (10:00)
[2018-05-15] MEDS ORDERED: COLLOIDAL OATMEAL 1 BAR EACH TP PRN (11:06)
[2018-05-15] MEDS ORDERED: NICOTINE POLACRILEX 2 MG GUM BUC PRN (11:08)
[2018-05-15] MEDS ORDERED: HYDROCORTISONE 1% TOPICAL OINT 30 GM TUBE TP SCH (12:15)
[2018-05-15] MEDS ORDERED: NICOTINE 14 MG/24 HOURS TOPICAL PATCH TD SCH (12:15)
[2018-05-15] MEDS ORDERED: PT OWN MED DRAWER 7, Y5N ONE (12:51)
--- NOTE | 2018-05-15 17:42 | PN ---
[facility] Progress Note Note: Patient alert and oriented. Patient is in no apparent medical distress. Patient was admitted on 05/05/18 with cocaine use disorder. Patient with a hx opiate use disorder and on a MMTP receiving Methadone 100 mg PO Daily. Vital Signs - 24 hr 05/15/18 07:29 Temperature 97.6 F Pulse Rate 61 Respiratory 18 Rate Blood Pressure 99/60 Laboratory Last Values WBC 4.5 K/mm3 (4.0-10.0) 05/14/18 12:00 RBC 4.15 M/mm3 (3.60-5.2) 05/14/18 12:00 Hgb 12.7 GM/dL (10.7-15.3) 05/14/18 12:00 Hct 37.0 % (32.4-45.2) 05/14/18 12:00 MCV 89.2 fl (80-96) 05/14/18 12:00 MCH 30.5 pg (25.7-33.7) 05/14/18 12:00 MCHC 34.2 g/dl (32.0-36.0) 05/14/18 12:00 RDW 14.8 % (11.6-15.6) 05/14/18 12:00 Plt Count 415 K/MM3 (134-434) 05/14/18 12:00 MPV 7.7 fl (7.5-11.1) 05/14/18 12:00 Sodium 138 mmol/L (136-145) 05/14/18 12:00 Potassium 4.0 mmol/L (3.5-5.1) 05/14/18 12:00 Chloride 104 mmol/L (98-107) 05/14/18 12:00 Carbon Dioxide 28 mmol/L (21-32) 05/14/18 12:00 Anion Gap 6 MMOL/L (8-16) L 05/14/18 12:00 BUN 13 mg/dL (7-18) 05/14/18 12:00 Creatinine 0.7 mg/dL (0.55-1.3) 05/14/18 12:00 Creat Clearance w eGFR > 60 (>60) 05/14/18 12:00 Random Glucose 103 mg/dL (74-106) 05/14/18 12:00 Calcium 9.0 mg/dL (8.5-10.1) 05/14/18 12:00 Total Bilirubin 0.2 mg/dL (0.2-1) 05/14/18 12:00 AST 27 U/L (15-37) 05/14/18 12:00 ALT 23 U/L (13-61) 05/14/18 12:00 Alkaline Phosphatase 88 U/L (45-117) 05/14/18 12:00 Total Protein 7.6 g/dl (6.4-8.2) 05/14/18 12:00 Albumin 3.4 g/dl (3.4-5.0) 05/14/18 12:00 Urine Color Yellow 05/14/18 13:30 Urine Appearance Slcloudy 05/14/18 13:30 Urine pH 7.0 (5.0-8.0) 05/14/18 13:30 Ur Specific [place] 1.015 (1.010-1.035) 05/14/18 13:30 Urine Protein Negative (NEGATIVE) 05/14/18 13:30 Urine Glucose (UA) Negative (NEGATIVE) 05/14/18 13:30 Urine Ketones Negative (NEGATIVE) 05/14/18 13:30 Urine Blood Negative (NEGATIVE) 05/14/18 13:30 Urine Nitrite Negative (NEGATIVE) 05/14/18 13:30 Urine Bilirubin Negative (<2.0 mg/dL) 05/14/18 13:30 Urine Urobilinogen Negative mg/dL (0.2-1.0) 05/14/18 13:30 Ur Leukocyte Esterase 1+ (NEGATIVE) H 05/14/18 13:30 Urine WBC (Auto) 2 /hpf (3-5) 05/14/18 13:30 Urine RBC (Auto) 1 /hpf (0-3) 05/14/18 13:30 Ur Epithelial Cells Moderate /HPF (FEW) 05/14/18 13:30 Urine Mucus Rare 05/14/18 13:30 RPR Titer Nonreactive (NONREACTIVE) 05/14/18 12:00 Labs reviewed. Patient has been verbally abusive to staff and non-compliant with treatment team. Patient is not receiving any home medications and is referred back to her MMTP for continued care management. Patient administratively discharged.
== END 2018-05-15 17:05 | disposition left against medical advice (07) | DRG 772 ==
LOC: YASAS 09:16 → Y3E 11:36
PROVIDERS: ADMIT Neuromusculoskeletal Medicine & OMM; ATTEND Neuromusculoskeletal Medicine & OMM
PROC: HZ42ZZZ Group Counseling for Substance Abuse Treatment, Cognitive-Behavioral (ICD-10-PCS; principal; 2018-05-14)
DX: F14.20 Cocaine dependence, uncomplicated (principal); F13.10 Sedative, hypnotic or anxiolytic abuse, uncomplicated; F11.20 Opioid dependence, uncomplicated; F17.210 Nicotine dependence, cigarettes, uncomplicated; F31.9 Bipolar disorder, unspecified; G47.00 Insomnia, unspecified; B18.2 Chronic viral hepatitis C; Z88.0 Allergy status to penicillin; Z91.013 Allergy to seafood
CPT/HCPCS: 36415; 80053; 81003; 81015; 85027; 86593

== ENCOUNTER 2018-06-11 08:54 | Emergency (ER) | payer OTHER | END 2018-06-11 09:21 | disposition left against medical advice (07) | LOC: JER 08:54 ==

== ENCOUNTER 2018-07-28 12:51 | Inpatient (IN) | payer OTHER ==
[2018-07-28 15:57] VITALS: BMI 21.7
--- NOTE | 2018-07-28 16:45 | HP ---
CIWA Score - Admission Criteria OASAS Guidelines: Admission for Medically Managed Detox: Requires at least one of the followin. CIWA greater than 12 2. Seizures within the past 24 hours 3. Delirium tremens within the past 24 hours 4. Hallucinations within the past 24 hours 5. Acute intervention needed for co occurring medical disorder 6. Acute intervention needed for co occurring psychiatric disorder 7. Severe withdrawal that cannot be handled at a lower level of care (continued vomiting, continued diarrhea, abnormal vital signs) requiring intravenous medication and/or fluids 8. Admission ROS [facility] Chief Complaint: rehab from cocaine 42 yo with HCV- about to start treatment at [facility], at [facility] methadone, here to stop cocaine use. says she is on abilify but not taking b/c she says she does not have a psychiatrist Methadone 100mg/day cocaine- once she starts $200/day when she is on a binge pt states she stopped Benzo use- last week DUR- no meds Utox: cory, MTD, Bzo Allergies/Adverse Reactions: Allergies Allergy/AdvReac Type Severity Reaction Status Date / Time fish derived Allergy Severe Hives Verified 07/28/18 15:57 Penicillins Allergy Severe Rash Verified 07/28/18 15:57 Exam Limitations: No Limitations - Ebola screening Have you traveled outside of the country in the last 21 days: No Have you had contact with anyone from an Ebola affected area: No Patient History - Patient Medical History Hx Anemia: No Hx Asthma: No Hx Chronic Obstructive Pulmonary Disease (COPD): No Hx Cancer: No Hx Cardiac Disorders: No Hx Congestive Heart Failure: No Hx Hypertension: No Hx Hypercholesterolemia: Yes (? per patient she was told by a doctor -on no meds ) Hx Pacemaker: No HX Cerebrovascular Accident: No Hx Seizures: No Hx Dementia: No Hx Diabetes: No Hx Gastrointestinal Disorders: No Hx Liver Disease: Yes (Hep C) Hx Genitourinary Disorders: No Hx Sexually Transmitted Disorders: No Hx Renal Disease (ESRD): No Hx Thyroid Disease: No Hx Human Immunodeficiency Virus (HIV): No (LAST 03/10 negative) Hx Hepatitis C: Yes (NOT TREATED) Hx Depression: Yes (Bipolar disorder) Hx Suicide Attempt: No Hx Bipolar Disorder: Yes (no current meds - hx abilify, last hospitalized a year ago) Hx Schizophrenia: No - Patient Surgical History Past Surgical History: No Hx Neurologic Surgery: No Hx Cataract Extraction: No Hx Cardiac Surgery: No Hx Lung Surgery: No Hx Breast Surgery: No Hx Breast Biopsy: No Hx Abdominal Surgery: No Hx Appendectomy: No Hx Cholecystectomy: No Hx Genitourinary Surgery: No Hx Section: No Hx Orthopedic Surgery: No Hx Hysterectomy: No Other Surgical History: ON NECK DUE TO ABCESS. Anesthesia Reaction: No - PPD History Date: 03/29/17 Results: 0mm - Reproductive History Last Menstrual Period: 01/22/17 - Smoking Cessation Smoking history: Current every day smoker Have you smoked in the past 12 months: No Aproximately how many cigarettes per day: 10 Cigars Per Day: 0 Hx Chewing Tobacco Use: No Initiated information on smoking cessation: Yes 'Breaking Loose' booklet given: 07/28/18 - Substance & Tx. History Hx Substance Use: Yes Substance Use Type: None, Cocaine Hx Substance Use Treatment: Yes - Substances abused Benzodiazepine (Klonopin) Substance route: Oral Frequency: Daily Amount used: 2 pills Age of first use: 42 Date of last use: 06/29/18 Other Other (specify): Ativan Substance route: Oral Frequency: Daily Amount used: 2 pills Age of first use: 42 Date of last use: 06/29/18 Alcohol Substance route: Oral Frequency: Daily Amount used: 1 pint/ 7 dollars Age of first use: 14 Date of last use: 07/03/18 Cocaine Substance route: Inhalation Frequency: 3-6 times per week Amount used: 100 dollars Age of first use: 25 Date of last use: 07/26/18 Family Disease History - Family Disease History Family Disease History: Heart Disease: Father (living, HTN;ALCOHOLISM, COPD), Other: Grandparent (cihorris ), Father, Mother (living, healthy), Sister (one living -healthy), Son (healthy - age 22, daughter 13 ) Admission Physical Exam [facility] - Vital Signs Vital Signs: Vital Signs - 24 hr 07/28/18 15:53 Temperature 99.2 F Pulse Rate 78 Respiratory 18 Rate Blood Pressure 101/73 Breathalyzer - Breathalyzer Breathalyzer: 0 Urine Drug Screen - Test Device Lot number: [id number] Expiration date: 02/21/20 - Control Is test valid?: Yes - Results Drug screen NEGATIVE: No Urine drug screen results: CORY-Cocaine, MTD-Methadone, BZO-Benzodiazepines Inpatient Rehab Admission - Rehab Decision to Admit Inpatient rehab admission?: Yes - Initial Determination Are CD services needed?: Yes Free of communicable disease: Yes Not in need of hospitalization: Yes - Rehab Admission Criteria Previous failed treatment: Yes Poor recovery environment: Yes Comorbidities: Yes Lacks judgement: Yes Patient is meeting Inpatient Rehab admission criteria:: Yes (cocaine use)
[2018-07-28] MEDS ORDERED: ACETAMINOPHEN 325 MG TABLET (FP) PO PRN (16:46)
[2018-07-28] MEDS ORDERED: LOPERAMIDE HCL 2 MG CAPSULE PO PRN (16:46)
[2018-07-28] MEDS ORDERED: P-EPHED 60MG/TRIPROLIDI 2.5MG TABLET PO PRN (16:46)
[2018-07-28] MEDS ORDERED: MAGNESIUM HYDROX 2400MG/30ML ORAL SUSPENSION 30 ML CUP PO PRN (16:46)
[2018-07-28] MEDS ORDERED: MAGNESIUM CITRATE 300 ML BOTTLE PO PRN (16:46)
[2018-07-28] MEDS ORDERED: MAG HYDROX/AL HYDROX/SIMETH 30 ML UNIT-DOSE CUP PO PRN (16:46)
[2018-07-28] MEDS ORDERED: guaiFENesin 200 MG/10 ML 10 ML UNIT-DOSE CUPS PO PRN (16:46)
[2018-07-28] MEDS ORDERED: hydrOXYzine PAMOATE 25 MG CAPSULE (FP) PO PRN (16:46)
[2018-07-28] MEDS ORDERED: MENTHOL/PHENOL 1 EACH UD MM PRN (16:46)
[2018-07-28] MEDS ORDERED: diphenhydrAMINE HCL 25 MG CAPSULE (FP) PO PRN (16:48)
[2018-07-28] MEDS: IBUPROFEN 400 MG TABLET (FP) PO PRN (21:54)
[2018-07-28] MEDS: THIAMINE HCL 100 MG TABLET (FP) PO SCH (21:55)
[2018-07-28] MEDS ORDERED: MELATONIN 5 MG TABLETS PO PRN (22:00)
[2018-07-29] MEDS ORDERED: METHADONE HCL 10 MG TABLET PO SCH (06:30)
[2018-07-29] MEDS ORDERED: METHADONE HCL 10 MG TABLET ONE (07:00)
[2018-07-29] MEDS ORDERED: METHADONE HCL 40 MG DISPERSABLE TABLET ONE (07:00)
[2018-07-29] MEDS: METHADONE 80 MG, METHADONE 20 MG PO SCH (07:01)
[2018-07-29] MEDS: IBUPROFEN 400 MG TABLET (FP) PO PRN (10:24)
[2018-07-29] MEDS: PRENATAL VITAMINS W/ FOLIC ACID TABLET (FP) PO SCH (10:25)
--- NOTE | 2018-07-29 11:27 | CONSULT ---
[facility] Psychiatric Consult - Data Date of interview: 07/29/18 Admission source: Self-referred Identifying data: Ms Camarillo is a 42 years old single female, unemployed, homeless seeking [facility] treatment for alcohol, cocaine and benzodiazepine Substance Abuse History: Reports history of alcohol, cocaine, klonopin and ativan use. Refer to addiction counselor's summary for further information Medical History: Significant for hepatitis C, dyslipidemia. Patient is on methadone 100 mg/day from [facility]. Smokes 10 cigarettes daily Psychiatric History: Patient reports long and extensive psychiatric history started back in her teens.She was dx with Bipolar disorder.patient has been hospitalized multiple times to [facility] [place] mostly due to severe depression, mood instabulity,drug use.She reports most recent admission about 2 years ago to [facility].Most recent outpatient follow up care was provided about 1 years ago by paychiatrist at [facility].No suicidal history.Patient reports poor compliance with psychiatric after care.She is not willing to take psychotropic medications at present.
--- NOTE | 2018-07-29 15:23 | PN ---
[facility] Progress Note Note: Patient was unwilling to talk to board writer when she was asked
[2018-07-29 15:28] LABS: HEMATOCRIT 33.2 % (32.4-45.2); MCH 29.8 pg (25.7-33.7); MEAN CELL VOLUME 90.4 fl (80-96); MEAN PLT VOLUME 7.2 fl (7.5-11.1); PLATELET COUNT 288 K/MM3 (134-434); RBC 3.67 M/mm3 (3.60-5.2); RDW 15.2 % (11.6-15.6)
[2018-07-29 15:37] LABS: ALBUMIN 3.4 g/dl (3.4-5.0); ALK PHOS 84 U/L (45-117); ANION GAP 4 MMOL/L (8-16); BILIRUBIN,TOTAL 0.3 mg/dL (0.2-1); BLOOD UREA NITROGEN 17 mg/dL (7-18); CALCIUM 8.6 mg/dL (8.5-10.1); CHLORIDE 103 mmol/L (98-107); CO2 33 mmol/L (21-32); CREATININE 0.6 mg/dL (0.55-1.3); GLUCOSE,RANDOM 93 mg/dL (74-106); POTASSIUM 4.3 mmol/L (3.5-5.1); SGOT/AST 28 U/L (15-37); SGPT/ALT 28 U/L (13-61); SODIUM 139 mmol/L (136-145); TOT PROT 6.7 g/dl (6.4-8.2)
[2018-07-29] MEDS: THIAMINE HCL 100 MG TABLET (FP) PO SCH (21:55)
[2018-07-29] MEDS: BACITRACIN 0.9 GM PACKET TP SCH (21:55)
[2018-07-30] MEDS ORDERED: METHADONE HCL 10 MG TABLET ONE (03:21)
[2018-07-30] MEDS ORDERED: METHADONE HCL 40 MG DISPERSABLE TABLET ONE (03:22)
[2018-07-30] MEDS: METHADONE 80 MG, METHADONE 20 MG PO SCH (06:23)
[2018-07-30 06:51] VITALS: BP 96/60; PULSE 73; TEMP 98
[2018-07-30] MEDS: BACITRACIN 0.9 GM PACKET TP SCH (09:54)
[2018-07-30] MEDS: PRENATAL VITAMINS W/ FOLIC ACID TABLET (FP) PO SCH (09:54)
[2018-07-30] MEDS: IBUPROFEN 400 MG TABLET (FP) PO PRN (09:55)
--- NOTE | 2018-07-30 11:39 | PN ---
[facility] Progress Note (SOAP) Subjective: Patient is leaving AMA. Wants to go to her Methadone program, feeling very anxious. Patient was referred to counselor, but became very angry and refused to wait to see counselor and demanded to leave immediately. Objective: A+O x3; no neurological deficits noted. However, she is appears highly anxious, cursing and demanding to leave. Refusing examination. Observation finds no deficits or physical problems to prevent her from leaving. 07/30/18 11:39 CBC, BMP 07/29/18 11:20 07/29/18 11:20 Vital Signs (72 hours) 07/28/18 07/28/18 07/29/18 15:53 18:00 00:30 Temperature 99.2 F 97.7 F Pulse Rate 78 67 Respiratory 18 18 16 Rate Blood Pressure 101/73 97/66 07/29/18 07/29/18 07/30/18 03:30 07:09 06:51 Temperature 97.8 F 98.0 F Pulse Rate 66 73 Respiratory 16 18 18 Rate Blood Pressure 96/62 96/60 07/30/18 11:40 Assessment: Medically stable for discharge. ETOH abuse, chronic Opioid Abuse, chronic Cocaine abuse, chronic Anxiety, Hepatitis C 07/30/18 11:41 Plan: Encouraged patient to stay and complete rehab, she refused. States she will be going to her Methadone program. There are no formal discharge plans at present due to patient's insistence on leaving and refusal to be seen by counselor.
== END 2018-07-30 11:55 | disposition left against medical advice (07) | DRG 770 ==
LOC: YASAS 12:51 → Y3E 17:17
PROVIDERS: ADMIT Neuromusculoskeletal Medicine & OMM; ATTEND Neuromusculoskeletal Medicine & OMM
PROC: HZ42ZZZ Group Counseling for Substance Abuse Treatment, Cognitive-Behavioral (ICD-10-PCS; principal; 2018-07-28)
DX: F11.20 Opioid dependence, uncomplicated (principal); F13.20 Sedative, hypnotic or anxiolytic dependence, uncomplicated; F14.20 Cocaine dependence, uncomplicated; F17.210 Nicotine dependence, cigarettes, uncomplicated; F41.9 Anxiety disorder, unspecified; B18.2 Chronic viral hepatitis C; Z91.013 Allergy to seafood; Z88.8 Allergy status to other drugs, medicaments and biological substances
CPT/HCPCS: 36415; 80053; 81025; 85027; 86593

== ENCOUNTER 2018-09-30 13:13 | Inpatient (IN) | payer OTHER ==
[2018-09-30 17:20] VITALS: BMI 22.3
--- NOTE | 2018-09-30 18:22 | HP ---
CIWA Score Nausea/Vomitin-No Nausea/No Vomiting Muscle Tremors: 1-None Visible, but [place] Anxiety: 3 Agitation: 0-Normal Activity Paroxysmal Sweats: 2 Orientation: 0-Oriented Tacttile Disturbances: 1-Very Mild Itch/Numbness Auditory Disturbances: 0-None Visual Disturbances: 1-Very Mild Sensitivity Headache: 0-None Present CIWA-Ar Total Score: 8 - Admission Criteria OASAS Guidelines: Admission for Medically Managed Detox: Requires at least one of the followin. CIWA greater than 12 2. Seizures within the past 24 hours 3. Delirium tremens within the past 24 hours 4. Hallucinations within the past 24 hours 5. Acute intervention needed for co occurring medical disorder 6. Acute intervention needed for co occurring psychiatric disorder 7. Severe withdrawal that cannot be handled at a lower level of care (continued vomiting, continued diarrhea, abnormal vital signs) requiring intravenous medication and/or fluids 8. Patient presents the following: Acute intervention needed for co-occurring med or psych disorder Admission Criteria Met: Admission criteria met Admission ROS [facility] Chief Complaint: xanax / klonopin detox Allergies/Adverse Reactions: Allergies Allergy/AdvReac Type Severity Reaction Status Date / Time fish derived Allergy Severe Hives Verified 09/30/18 17:11 Penicillins Allergy Severe Rash Verified 09/30/18 17:11 History of Present Illness: Patient is a 42 yo with hx of alcohol, cocaine and xanax/ klonopin dependence is here seeking inpatient detox. Patient is known to the program, last FILE[facility] tx at [facility] rehab 07/28/18 -07/30/18 left AMA. Patient connected to [facility] 100 mg, last medicated today, dose pending verification. PMHX: Hep C (pending treatment at [facility]). Psych: depression and bipolar, does not see psych in the community. Denies hx of seizures, reports hx of syncope, last episode two days ago. Exam Limitations: No Limitations - Ebola screening Have you traveled outside of the country in the last 21 days: No (N) Have you had contact with anyone from an Ebola affected area: No Do you have a fever: No - Review of Systems Constitutional: Chills EENT: reports: Nose Congestion Respiratory: reports: No Symptoms reported Cardiac: reports: No Symptoms Reported GI: reports: Diarrhea, Poor Appetite, Abdominal cramping : reports: No Symptoms Reported Musculoskeletal: reports: Back Pain, Gout Integumentary: reports: No Symptoms Reported Neuro: reports: No Symptoms reported Endocrine: reports: No Symptoms Reported Hematology: reports: No Symptoms Reported Psychiatric: reports: No Sypmtoms Reported, Anxious Other Systems: Reviewed and Negative Patient History - Patient Medical History Hx Anemia: No Hx Asthma: No Hx Chronic Obstructive Pulmonary Disease (COPD): No Hx Cancer: No Hx Cardiac Disorders: No Hx Congestive Heart Failure: No Hx Hypertension: No Hx Hypercholesterolemia: Yes (? per patient she was told by a doctor -on no meds ) Hx Pacemaker: No HX Cerebrovascular Accident: No Hx Seizures: No Hx Dementia: No Hx Diabetes: No Hx Gastrointestinal Disorders: No Hx Liver Disease: Yes (Hep C) Hx Genitourinary Disorders: No Hx Sexually Transmitted Disorders: No Hx Renal Disease (ESRD): No Hx Thyroid Disease: No Hx Human Immunodeficiency Virus (HIV): No (LAST 03/10 negative) Hx Hepatitis C: Yes (NOT TREATED) Hx Depression: Yes Hx Suicide Attempt: No Hx Bipolar Disorder: Yes (no current meds - hx abilify, last hospitalized a year ago) Hx Schizophrenia: No - Patient Surgical History Past Surgical History: No Hx Neurologic Surgery: No Hx Cataract Extraction: No Hx Cardiac Surgery: No Hx Lung Surgery: No Hx Breast Surgery: No Hx Breast Biopsy: No Hx Abdominal Surgery: No Hx Appendectomy: No Hx Cholecystectomy: No Hx Genitourinary Surgery: No Hx Section: No Hx Orthopedic Surgery: No Hx Hysterectomy: No Other Surgical History: ON NECK DUE TO ABCESS. Anesthesia Reaction: No - PPD History Previous Implant?: No Documented Results: Negative w/proof Date: 07/30/18 Results: 0mm PPD to be Administered?: No - Reproductive History Last Menstrual Period: 01/22/17 - Smoking Cessation Smoking history: Current every day smoker Have you smoked in the past 12 months: No Aproximately how many cigarettes per day: 5 Cigars Per Day: 0 Hx Chewing Tobacco Use: No Initiated information on smoking cessation: Yes 'Breaking Loose' booklet given: 09/30/18 - Substance & Tx. History Hx Alcohol Use: Yes Hx Substance Use: Yes Substance Use Type: Alcohol, Cocaine, Tranquilizers Hx Substance Use Treatment: Yes - Substances abused Benzodiazepine (Klonopin) Substance route: Oral Frequency: Daily Amount used: 2 pills Age of first use: 42 Date of last use: 06/29/18 Other Other (specify): Ativan Substance route: Oral Frequency: Daily Amount used: 2 pills Age of first use: 42 Date of last use: 06/29/18 Alcohol Substance route: Oral Frequency: Daily Amount used: 1 pint/ 7 dollars Age of first use: 14 Date of last use: 07/03/18 Cocaine Substance route: Inhalation Frequency: 1-2 times per week Amount used: 40 dollars Age of first use: 25 Date of last use: 09/28/18 Alprazolam (Xanax) Substance route: Oral Frequency: Daily Amount used: 2 mg Age of first use: 25 Date of last use: 09/27/18 Family Disease History - Family Disease History Family Disease History: Heart Disease: Father (living, HTN;ALCOHOLISM, COPD), Other: Grandparent (cihorris ), Father, Mother (living, healthy), Sister (one living -healthy), Son (healthy - age 22, daughter 13 ) Admission Physical Exam [facility] - Vital Signs Vital Signs: Vital Signs - 24 hr 09/30/18 09/30/18 17:10 17:53 Temperature 97.1 F L 97.1 F L Pulse Rate 64 64 Respiratory 16 16 Rate Blood Pressure 86/50 L 86/50 L - Physical General Appearance: Yes: Disheveled, Thin, Anxious HEENTM: Yes: Hearing grossly Normal, Normal ENT Inspection, Normocephalic, Normal Voice, EDITA, Pharynx Normal, Tm's normal, Other (edentulous, cheilithis) Respiratory: Yes: Chest Non-Tender, Lungs Clear, Normal Breath Sounds, No Respiratory Distress, No Accessory Muscle Use Neck: Yes: Within Normal Limits Breast: Yes: Breast Exam Deferred Cardiology: Yes: Regular Rhythm, Regular Rate Abdominal: Yes: Normal Bowel Sounds, Non Tender, Flat, Soft Genitourinary: Yes: Within Normal Limits Back: Yes: Normal Inspection Musculoskeletal: Yes: full range of Motion, Gait Steady, Pelvis Stable Extremities: Yes: Normal Capillary Refill, Normal Inspection, Normal Range of Motion, Non-Tender 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 NML intact, Fully Oriented, Alert, Motor Strength 5/5, Depressed Affect Integumentary: Yes: Normal Color, Dry, Warm Lymphatic: Yes: Within Normal Limits - Diagnostic (1) Sedative, hypnotic or anxiolytic dependence with withdrawal, uncomplicated Current Visit: Yes Status: Acute (2) Alcohol dependence with uncomplicated withdrawal Current Visit: Yes Status: Chronic (3) Cocaine dependence Current Visit: Yes Status: Chronic Qualifiers: Substance use status: uncomplicated Qualified Code(s): F14.20 - Cocaine dependence, uncomplicated (4) Hepatitis C Current Visit: Yes Status: Chronic Qualifiers: Viral hepatitis chronicity: chronic Hepatic coma status: without hepatic coma Qualified Code(s): B18.2 - Chronic viral hepatitis C Comment: Patient reports will follow up at the [facility] for treatment (5) Methadone maintenance therapy patient Current Visit: Yes Status: Chronic Comment: on MMTP at [facility] on 100 mg qd, dose pending verification (6) Nicotine dependence Current Visit: No Status: Chronic Qualifiers: Nicotine product type: cigarettes Substance use status: in withdrawal Qualified Code(s): F17.213 - Nicotine dependence, cigarettes, with withdrawal Comment: . Cleared for Admission S - Detox or Rehab [facility] Level of Care: Medically Managed Detox Regimen/Protocol: Valium Breathalyzer - Breathalyzer Breathalyzer: 0 Urine Drug Screen - Test Device Lot number: [id number] Expiration date: 07/21/20 - Control Is test valid?: Yes - Results Drug screen NEGATIVE: No Urine drug screen results: THC-Marijuana, STEVIE-Cocaine, MET-Methamphetamine, MTD- Methadone, BZO-Benzodiazepines Inpatient Rehab Admission - Rehab Decision to Admit Inpatient rehab admission?: No
[2018-09-30] MEDS ORDERED: MAGNESIUM HYDROX 2400MG/30ML ORAL SUSPENSION 30 ML CUP PO PRN (18:27)
[2018-09-30] MEDS ORDERED: IBUPROFEN 400 MG TABLET (FP) PO PRN (18:27)
[2018-09-30] MEDS ORDERED: BISMUTH SUBSALICYLATE 524 MG/30 ML UD PO PRN (18:27)
[2018-09-30] MEDS ORDERED: MELATONIN 5 MG TABLETS PO PRN (18:27)
[2018-09-30] MEDS ORDERED: MENTHOL/PHENOL 1 EACH UD MM PRN (18:27)
[2018-09-30] MEDS ORDERED: METHOCARBAMOL 500 MG TABLET PO PRN (18:27)
[2018-09-30] MEDS ORDERED: MAG HYDROX/AL HYDROX/SIMETH 30 ML UNIT-DOSE CUP PO PRN (18:27)
[2018-09-30] MEDS ORDERED: NICOTINE POLACRILEX 2 MG GUM BUC PRN (18:27)
[2018-09-30] MEDS ORDERED: MAGNESIUM CITRATE 300 ML BOTTLE PO PRN (18:27)
[2018-09-30] MEDS ORDERED: ACETAMINOPHEN 325 MG TABLET (FP) PO PRN (18:27)
[2018-09-30] MEDS: diazePAM 5 MG TABLET PO PRN (19:21)
[2018-09-30] MEDS: diazePAM 5 MG TABLET PO SCH ×2 (22:46→23:45)
[2018-09-30] MEDS: THIAMINE HCL 100 MG TABLET (FP) PO SCH (22:47)
[2018-10-01] MEDS: diazePAM 5 MG TABLET PO SCH ×3 (06:54→22:40)
[2018-10-01] MEDS ORDERED: METHADONE HCL 10 MG TABLET PO SCH (07:00)
[2018-10-01] MEDS ORDERED: METHADONE HCL 40 MG DISPERSABLE TABLET ONE (07:31)
[2018-10-01] MEDS ORDERED: METHADONE HCL 10 MG TABLET ONE (07:31)
[2018-10-01] MEDS: METHADONE 80 MG, METHADONE 20 MG PO SCH (07:36)
--- NOTE | 2018-10-01 09:59 | CONSULT ---
[facility] Psychiatric Consult - Data Date of interview: 10/01/18 Admission source: [facility] Identifying data: Patient is a 42 year old single female, mother of two, unemployed, resides with a friend, and is not currently provided with financial assistance. This is one of multiple admissions for patient. Patient admitted to for marijuana, cocaine, methamphetamine dependence. Substance Abuse History: - Smoking Cessation. Smoking history: Current every day smoker. Have you smoked in the past 12 months: No. Aproximately how many cigarettes per day: 5. Cigars Per Day: 0. Hx Chewing Tobacco Use: No. Initiated information on smoking cessation: Yes. 'Breaking Loose' booklet given : 09/30/18. - Substance & Tx. History. Hx Alcohol Use: Yes. Hx Substance Use : Yes. Substance Use Type: Alcohol, Cocaine, Tranquilizers. Hx Substance Use Treatment: Yes. - Substances abused. Benzodiazepine (Klonopin). Substance route: Oral. Frequency: Daily. Amount used: 2 pills. Age of first use: 42. Date of last use: 06/29/18. Other. Other (specify): Ativan. Substance route: Oral. Frequency: Daily. Amount used: 2 pills. Age of first use: 42. Date of last use: 06/29/18. Alcohol. Substance route: Oral. Frequency: Daily. Amount used: 1 pint/ 7 dollars. Age of first use: 14. Date of last use : 07/03/18. Cocaine. Substance route: Inhalation. Frequency: 1-2 times per week. Amount used: 40 dollars. Age of first use: 25. Date of last use: . Alprazolam (Xanax). Substance route: Oral. Frequency: Daily. Amount used: 2 mg. Age of first use: 25. Date of last use: 09/27/18 Medical History: hypercholesterolemia, Hep C Psychiatric History: Patient reports multiple psychiatric hospitalizations, most recently in 2018 at [place]. Patient is also known to [facility]. Diagnosis of Bipolar disorder. Most recent outpatient psychiatric services was provided 1-2 years ago at the [facility] and reports taking abilify. Pt. with a history of nonadherence to medications and outpatient psychiatric care. At present patient is mildly sedated and irritable. Physical/Sexual Abuse/Trauma History: Not willing to discuss. Mental Status Exam - Mental Status Exam Alert and Oriented to: Time, Place, Person Cognitive Function: Good Patient Appearance: Well Groomed Mood: Withdrawn, Irritable (slightly irritable) Affect: Mood Congruent Patient Behavior: Sedated, Fatigued Speech Pattern: Delayed Voice Loudness: Normal Thought Process: Goal Oriented Thought Disorder: Not Present Hallucinations: Denies Suicidal Ideation: Denies Homicidal Ideation: Denies Insight/Judgement: Poor Sleep: Poorly Appetite: Fair Muscle strength/Tone: Normal Gait/Station: Normal Psychiatric Findings - Problem List ([place] 1, 2,3) (1) Substance induced mood disorder Current Visit: Yes Status: Acute (2) Sedative, hypnotic or anxiolytic dependence with withdrawal, uncomplicated Current Visit: Yes Status: Acute (3) Alcohol dependence with uncomplicated withdrawal Current Visit: Yes Status: Chronic (4) Cocaine dependence Current Visit: Yes Status: Chronic Qualifiers: Substance use status: uncomplicated Qualified Code(s): F14.20 - Cocaine dependence, uncomplicated (5) Methadone maintenance therapy patient Current Visit: Yes Status: Chronic Comment: on MMTP at [facility] on 100 mg qd, dose pending verification (6) Bipolar disorder Current Visit: Yes Status: Chronic (7) Substance-induced sleep disorder Current Visit: Yes Status: Acute - Initial Treatment Plan Initial Treatment Plan: Psychoeducation provided. Detoxification in progress. Will order Abilify 5mg HS + benadryl 25 q6h for anxiety and Benadryl 50mg HS. Benefits and side effects discussed. Verbal consent given.
[2018-10-01] MEDS ORDERED: diphenhydrAMINE HCL 25 MG CAPSULE (FP) PO PRN (10:14)
[2018-10-01 10:17] LABS: HEMATOCRIT 37.5 % (32.4-45.2); HEMOGLOBIN 12.6 GM/dL (10.7-15.3); MCH 30.5 pg (25.7-33.7); MCHC 33.6 g/dl (32.0-36.0); MEAN CELL VOLUME 90.9 fl (80-96); MEAN PLT VOLUME 7.5 fl (7.5-11.1); RBC 4.12 M/mm3 (3.60-5.2); RDW 14.6 % (11.6-15.6); WHITE BLOOD COUNT 5.7 K/mm3 (4.0-10.0)
--- NOTE | 2018-10-01 10:21 | PN ---
[facility] CIWA - CIWA Score Nausea/Vomitin-Mild Nausea/No Vomiting Muscle Tremors: 2 Anxiety: 3 Agitation: 1-Slight > Activity Paroxysmal Sweats: No Perspiration Orientation: 0-Oriented Tacttile Disturbances: 0-None Auditory Disturbances: 0-None Visual Disturbances: 0-None Headache: 0-None Present CIWA-Ar Total Score: 7 S Progress Note (SOAP) Subjective: 42 years old female admitted on 09/30 18 for benzo withdrawal sx history of hepatitis C patient was doing well in methadone program of 100 mg po daily patient stated the weakness of stay away from benzo [facility] patient reported that she fell "days" ago treated at [facility] ER discharged with motrin for right forehead "pump" and skin abrasion on both knees both knees skin intact no dewey of skin abrasion but healed scars noted no redness no swell patient reported that she spill coffee on her left upper thigh earlier today left upper thigh skin intact no redness none tender no swell full range of motion of the left hip and left knee denies pain Objective: 10/01/18 10:27 Vital Signs Temperature 97.1 F L 10/01/18 06:59 Pulse Rate 76 10/01/18 06:59 Respiratory Rate 17 10/01/18 06:59 Blood Pressure 97/62 10/01/18 06:59 O2 Sat by Pulse Oximetry (%) Laboratory Last Values Sodium 141 mmol/L (136-145) 10/01/18 07:00 Potassium 4.4 mmol/L (3.5-5.1) 10/01/18 07:00 Chloride 108 mmol/L (98-107) H 10/01/18 07:00 Carbon Dioxide 28 mmol/L (21-32) 10/01/18 07:00 Anion Gap 5 MMOL/L (8-16) L 10/01/18 07:00 BUN 16.8 mg/dL (7-18) 10/01/18 07:00 Creatinine 0.7 mg/dL (0.55-1.3) 10/01/18 07:00 Est GFR (CKD-EPI)AfAm 122.13 10/01/18 07:00 Est GFR (CKD-EPI)NonAf 105.37 10/01/18 07:00 Random Glucose 97 mg/dL (74-106) 10/01/18 07:00 Calcium 8.6 mg/dL (8.5-10.1) 10/01/18 07:00 Total Bilirubin 0.2 mg/dL (0.2-1) 10/01/18 07:00 AST 22 U/L (15-37) 10/01/18 07:00 ALT 28 U/L (13-61) 10/01/18 07:00 Alkaline Phosphatase 80 U/L (45-117) 10/01/18 07:00 Total Protein 7.0 g/dl (6.4-8.2) 10/01/18 07:00 Albumin 3.4 g/dl (3.4-5.0) 10/01/18 07:00 lab noted ensure 120 ml bid po Assessment: 10/01/18 10:27 benzo withdrawal sx Plan: continue benzo detox
[2018-10-01 10:23] LABS: ALBUMIN 3.4 g/dl (3.4-5.0); BILIRUBIN,TOTAL 0.2 mg/dL (0.2-1); BLOOD UREA NITROGEN 16.8 mg/dL (7-18); CALCIUM 8.6 mg/dL (8.5-10.1); CREATININE 0.7 mg/dL (0.55-1.3); POTASSIUM 4.4 mmol/L (3.5-5.1)
[2018-10-01 10:35] LABS: PLATELET COUNT 333 K/MM3 (134-434)
[2018-10-01] MEDS: PRENATAL VITAMINS W/ FOLIC ACID TABLET (FP) PO SCH (10:41)
[2018-10-01] MEDS: NICOTINE 14 MG/24 HOURS TOPICAL PATCH TD SCH (10:41)
[2018-10-01] MEDS: ACETAMINOPHEN 325 MG TABLET (FP) PO PRN (10:41)
[2018-10-01] MEDS: diazePAM 5 MG TABLET PO PRN (17:58)
[2018-10-01] MEDS ORDERED: diphenhydrAMINE HCL 50 MG CAPSULE PO PRN (22:00)
[2018-10-01] MEDS: ARIPiprazole 5 MG TABLET (FP) PO SCH (22:40)
[2018-10-01] MEDS: THIAMINE HCL 100 MG TABLET (FP) PO SCH (22:40)
[2018-10-02] MEDS ORDERED: METHADONE HCL 10 MG TABLET ONE (04:27)
[2018-10-02] MEDS ORDERED: METHADONE HCL 40 MG DISPERSABLE TABLET ONE (04:28)
[2018-10-02] MEDS: diazePAM 5 MG TABLET PO SCH ×2 (05:55→17:07)
[2018-10-02] MEDS: METHADONE 80 MG, METHADONE 20 MG PO SCH (05:56)
[2018-10-02] MEDS: NICOTINE 14 MG/24 HOURS TOPICAL PATCH TD SCH (10:23)
[2018-10-02] MEDS: PRENATAL VITAMINS W/ FOLIC ACID TABLET (FP) PO SCH (10:23)
[2018-10-02] MEDS: ACETAMINOPHEN 325 MG TABLET (FP) PO PRN (10:24)
[2018-10-02] MEDS: diazePAM 5 MG TABLET PO PRN (11:55)
--- NOTE | 2018-10-02 15:46 | PN ---
[facility] CIWA - CIWA Score Nausea/Vomitin (Diarrhea.) Muscle Tremors: None Anxiety: 3 Agitation: 2 Paroxysmal Sweats: No Perspiration Orientation: 0-Oriented Tacttile Disturbances: 2-Mild Itch/Numbness/Burn Auditory Disturbances: 0-None Visual Disturbances: 2-Mild Sensitivity Headache: 0-None Present CIWA-Ar Total Score: 11 [facility] Progress Note (SOAP) Subjective: Anxious, Diarrhea. Objective: PATIENT A & O X 3, OBSERVED AMBULATING ON UNIT UNASSISTED. IN NO ACUTE DISTRESS. 10/02/18 15:49 Vital Signs Temperature 96.9 F L 10/02/18 13:09 Pulse Rate 63 10/02/18 13:09 Respiratory Rate 18 10/02/18 13:09 Blood Pressure 91/50 L 10/02/18 13:09 O2 Sat by Pulse Oximetry (%) Laboratory Tests 09/30/18 10/01/18 10/01/18 17:53 07:00 07:00 WBC 5.7 RBC 4.12 Hgb 12.6 Hct 37.5 MCV 90.9 MCH 30.5 MCHC 33.6 RDW 14.6 Plt Count 333 MPV 7.5 Sodium 141 Potassium 4.4 Chloride 108 H Carbon Dioxide 28 Anion Gap 5 L BUN 16.8 Creatinine 0.7 Est GFR (CKD-EPI)AfAm 122.13 Est GFR (CKD-EPI)NonAf 105.37 Random Glucose 97 Calcium 8.6 Total Bilirubin 0.2 AST 22 ALT 28 Alkaline Phosphatase 80 Total Protein 7.0 Albumin 3.4 POC Urine HCG, Qual Negative RPR Titer 10/01/18 07:00 WBC RBC Hgb Hct MCV MCH MCHC RDW Plt Count MPV Sodium Potassium Chloride Carbon Dioxide Anion Gap BUN Creatinine Est GFR (CKD-EPI)AfAm Est GFR (CKD-EPI)NonAf Random Glucose Calcium Total Bilirubin AST ALT Alkaline Phosphatase Total Protein Albumin POC Urine HCG, Qual RPR Titer Nonreactive LABS NOTED. Assessment: 10/02/18 15:51 WITHDRAWAL SYMPTOMS. Plan: CONTINUE DETOX. INCREASE DAILY PO WATER INTAKE. PRN PEPTO-BISMOL PO FOR DIARRHEA. PATIENT SCHEDULED FOR DISCHARGE FROM DETOX UNIT TOMORROW.
[2018-10-02 21:33] VITALS: PULSE 74
[2018-10-02] MEDS: THIAMINE HCL 100 MG TABLET (FP) PO SCH (22:17)
[2018-10-02] MEDS: ARIPiprazole 5 MG TABLET (FP) PO SCH (22:17)
[2018-10-03] MEDS ORDERED: METHADONE HCL 40 MG DISPERSABLE TABLET ONE (04:44)
[2018-10-03] MEDS ORDERED: METHADONE HCL 10 MG TABLET ONE (04:44)
[2018-10-03] MEDS: METHADONE 80 MG, METHADONE 20 MG PO SCH (05:43)
[2018-10-03] MEDS ORDERED: diazePAM 5 MG TABLET PO ONE (06:00)
[2018-10-03 07:01] VITALS: BP 96/46; TEMP 96.7
--- NOTE | 2018-10-03 20:21 | DS ---
[facility] Detox Discharge Summary Admission Date: 09/30/18 Discharge Date: 10/03/18 - History Present History: Alcohol Dependence, Cocaine Dependence, Opioid Dependence, Sedative Dependence, MMTP Additional Comments: PATIENT REFERRED TO [facility] ([place], [place]) FOR AFTERCARE. PATIENT WAS DISCHARGED FROM DETOX UNIT IN STABLE MEDICAL CONDITION. Pertinent Past History: Hep C, Depression, M.M.T.P., Nicotine Dependence, Hypercholesterolemia, Bipolar Disorder. - Physical Exam Results Vital Signs: Vital Signs Temperature 96.7 F L 10/03/18 07:01 Pulse Rate 74 10/03/18 07:01 Respiratory Rate 18 10/03/18 07:01 Blood Pressure 96/46 L 10/03/18 07:01 O2 Sat by Pulse Oximetry (%) Pertinent Admission Physical Exam Findings: WITHDRAWAL SYMPTOMS. Laboratory Tests 09/30/18 10/01/18 10/01/18 17:53 07:00 07:00 WBC 5.7 RBC 4.12 Hgb 12.6 Hct 37.5 MCV 90.9 MCH 30.5 MCHC 33.6 RDW 14.6 Plt Count 333 MPV 7.5 Sodium 141 Potassium 4.4 Chloride 108 H Carbon Dioxide 28 Anion Gap 5 L BUN 16.8 Creatinine 0.7 Est GFR (CKD-EPI)AfAm 122.13 Est GFR (CKD-EPI)NonAf 105.37 Random Glucose 97 Calcium 8.6 Total Bilirubin 0.2 AST 22 ALT 28 Alkaline Phosphatase 80 Total Protein 7.0 Albumin 3.4 POC Urine HCG, Qual Negative RPR Titer 10/01/18 07:00 WBC RBC Hgb Hct MCV MCH MCHC RDW Plt Count MPV Sodium Potassium Chloride Carbon Dioxide Anion Gap BUN Creatinine Est GFR (CKD-EPI)AfAm Est GFR (CKD-EPI)NonAf Random Glucose Calcium Total Bilirubin AST ALT Alkaline Phosphatase Total Protein Albumin POC Urine HCG, Qual RPR Titer Nonreactive LABS NOTED. - Treatment Hospital Course: Detox Protocol Followed, Detoxed Safely, Responded well, Discharged Condition Good, Rehab Referral Accepted Patient has Accepted a Rehab Referral to: [facility] ([place], [place]). - Medication Discharge Medications: Ambulatory Orders Aripiprazole [Abilify -] 20 mg PO DAILY 07/28/18 - Diagnosis (1) Sedative, hypnotic or anxiolytic dependence with withdrawal, uncomplicated Status: Acute (2) Cocaine dependence, uncomplicated Status: Chronic (3) Hepatitis C Status: Chronic Qualifiers: Viral hepatitis chronicity: chronic Hepatic coma status: without hepatic coma Qualified Code(s): B18.2 - Chronic viral hepatitis C (4) Alcohol dependence with uncomplicated withdrawal Status: Acute (5) Methadone maintenance therapy patient Status: Chronic (6) Nicotine dependence Status: Chronic Qualifiers: Nicotine product type: cigarettes Substance use status: in withdrawal Qualified Code(s): F17.213 - Nicotine dependence, cigarettes, with withdrawal (7) Substance induced mood disorder Status: Acute (8) Substance-induced sleep disorder Status: Acute (9) Bipolar disorder Status: Chronic Qualifiers: Active/Remission status: remission status unspecified Qualified Code(s): F31.9 - Bipolar disorder, unspecified - AMA Did Patient Leave Against Medical Advice: No
== END 2018-10-03 08:11 | disposition home or self-care (01) | DRG 773 ==
LOC: YASAS 13:13 → Y3N 18:41
PROVIDERS: ADMIT Surgery; ATTEND Surgery
PROC: HZ2ZZZZ Detoxification Services for Substance Abuse Treatment (ICD-10-PCS; principal; 2018-09-30)
DX: F10.230 Alcohol dependence with withdrawal, uncomplicated (principal); F13.230 Sedative, hypnotic or anxiolytic dependence with withdrawal, uncomplicated; F11.20 Opioid dependence, uncomplicated; F14.20 Cocaine dependence, uncomplicated; F17.210 Nicotine dependence, cigarettes, uncomplicated; F19.24 Other psychoactive substance dependence with psychoactive substance-induced mood disorder; F19.282 Other psychoactive substance dependence with psychoactive substance-induced sleep disorder; F31.9 Bipolar disorder, unspecified; E78.00 Pure hypercholesterolemia, unspecified; B18.2 Chronic viral hepatitis C; Z88.0 Allergy status to penicillin; Z91.013 Allergy to seafood
CPT/HCPCS: 36415; 80053; 81025; 85027; 86593

== ENCOUNTER 2018-11-22 10:59 | Inpatient (IN) | payer OTHER ==
[2018-11-22 12:53] VITALS: BMI 20.1
--- NOTE | 2018-11-22 13:14 | HP ---
CIWA Score Nausea/Vomitin Muscle Tremors: 3 Anxiety: 3 Agitation: 2 Paroxysmal Sweats: 1-Minimal Palms Moist Orientation: 0-Oriented Tacttile Disturbances: 1-Very Mild Itch/Numbness Auditory Disturbances: 0-None Visual Disturbances: 0-None Headache: 2-Mild CIWA-Ar Total Score: 14 - Admission Criteria OASAS Guidelines: Admission for Medically Managed Detox: Requires at least one of the followin. CIWA greater than 12 2. Seizures within the past 24 hours 3. Delirium tremens within the past 24 hours 4. Hallucinations within the past 24 hours 5. Acute intervention needed for co occurring medical disorder 6. Acute intervention needed for co occurring psychiatric disorder 7. Severe withdrawal that cannot be handled at a lower level of care (continued vomiting, continued diarrhea, abnormal vital signs) requiring intravenous medication and/or fluids 8. Admission ROS [facility] Chief Complaint: i need help to stop drinking alcohol,crack,klonopin Allergies/Adverse Reactions: Allergies Allergy/AdvReac Type Severity Reaction Status Date / Time fish derived Allergy Severe Hives Verified 11/22/18 12:44 Penicillins Allergy Severe Rash Verified 11/22/18 12:44 History of Present Illness: this 43 years old female with alcohol,crack and klonopin dependence seeking detox, multiple admissions in detox but keep relapsing last detox 09/30/09 to 10/03/18 [facility] mmtp 100 mgs/day,last medicated today denied seizure denied syncope hepatitis c no treatment weight loss longest period of sobriety 5 years 2012 to 2016 bipolar disorder,depression,personality disorder plan for rehab after detox Exam Limitations: No Limitations - Ebola screening Have you traveled outside of the country in the last 21 days: No (N) Have you had contact with anyone from an Ebola affected area: No Do you have a fever: No - Review of Systems Constitutional: Chills, Loss of Appetite, Malaise, Night Sweats, Changes in sleep, Weakness, Unintentional Wgt. Loss EENT: reports: Nose Congestion Respiratory: reports: No Symptoms reported Cardiac: reports: No Symptoms Reported GI: reports: Nausea, Poor Appetite, Abdominal cramping : reports: No Symptoms Reported Musculoskeletal: reports: Muscle Pain Integumentary: reports: Dryness Neuro: reports: Headache, Tremors Endocrine: reports: No Symptoms Reported Hematology: reports: No Symptoms Reported Psychiatric: reports: No Sypmtoms Reported, Judgement Intact, Mood/Affect Appropiate, Orientated x3, other (bipolar disorder,depression,personality disorder) Other Systems: Reviewed and Negative Patient History - Patient Medical History Hx Anemia: No Hx Asthma: No Hx Chronic Obstructive Pulmonary Disease (COPD): No Hx Cancer: No Hx Cardiac Disorders: No Hx Congestive Heart Failure: No Hx Hypertension: No Hx Hypercholesterolemia: Yes (? per patient she was told by a doctor -on no meds ) Hx Pacemaker: No HX Cerebrovascular Accident: No Hx Seizures: No Hx Dementia: No Hx Diabetes: No Hx Gastrointestinal Disorders: No Hx Liver Disease: Yes (Hep C) Hx Genitourinary Disorders: No Hx Sexually Transmitted Disorders: No Hx Renal Disease (ESRD): No Hx Thyroid Disease: No Hx Human Immunodeficiency Virus (HIV): No (LAST 10/09 negative) Hx Hepatitis C: Yes (NOT TREATED) Hx Depression: Yes Hx Suicide Attempt: No Hx Bipolar Disorder: Yes (no current meds - hx abilify, last hospitalized a year ago) Hx Schizophrenia: No Other Medical History: no suicidal,no homicidal - Patient Surgical History Past Surgical History: No Hx Neurologic Surgery: No Hx Cataract Extraction: No Hx Cardiac Surgery: No Hx Lung Surgery: No Hx Breast Surgery: No Hx Breast Biopsy: No Hx Abdominal Surgery: No Hx Appendectomy: No Hx Cholecystectomy: No Hx Genitourinary Surgery: No Hx Section: No Hx Orthopedic Surgery: No Hx Hysterectomy: No Other Surgical History: ON NECK DUE TO ABCESS. Anesthesia Reaction: No - PPD History Previous Implant?: Yes Documented Results: Negative w/o proof Implanted On Prior [facility] Admission?: Yes Date: 07/30/18 Results: 0mm PPD to be Administered?: No - Reproductive History Patient is a Female of Child Bearing Age (11 -55 yrs old): Yes Last Menstrual Period: 11/13/18 Patient : No - Smoking Cessation Smoking history: Current every day smoker Have you smoked in the past 12 months: No Aproximately how many cigarettes per day: 8 Cigars Per Day: 0 Hx Chewing Tobacco Use: No Initiated information on smoking cessation: No 'Breaking Loose' booklet given: 11/22/18 - Substance & Tx. History Hx Alcohol Use: Yes Hx Substance Use: No Substance Use Type: Alcohol, Cocaine, Tranquilizers Hx Substance Use Treatment: Yes ([facility] 09/30/18 to 10/03/18) - Substances abused Benzodiazepine (Klonopin) Substance route: Oral Frequency: Daily Amount used: 2 pills 2mgs Age of first use: 42 Date of last use: 11/21/18 Other Other (specify): Ativan Substance route: Oral Frequency: Daily Amount used: 2 pills Age of first use: 42 Date of last use: 06/29/18 Alcohol Substance route: Oral Frequency: Daily Amount used: 1 pint of liquor/5 of 22 ozs Age of first use: 11 Date of last use: 11/21/18 Cocaine Substance route: Inhalation Frequency: 1-2 times per week Amount used: 40 dollars Age of first use: 25 Date of last use: 11/21/18 Alprazolam (Xanax) Substance route: Oral Frequency: Daily Amount used: 2 mg Age of first use: 25 Date of last use: 09/27/18 Family Disease History - Family Disease History Family Disease History: Heart Disease: Father (living, HTN;ALCOHOLISM, COPD), Other: Grandparent (cihorris ), Father, Mother (living, healthy), Sister (one living -healthy), Son (healthy - age 22, daughter 13 ) Admission Physical Exam [facility] - Vital Signs Vital Signs: Vital Signs - 24 hr 11/22/18 12:42 Temperature 97.0 F L Pulse Rate 65 Respiratory 18 Rate Blood Pressure 111/64 - Physical General Appearance: Yes: Moderate Distress, Tremorous, Irritable, Sweating, Anxious HEENTM: Yes: Normal ENT Inspection, EDITA, Pharynx Normal, Other (crack of lip) Respiratory: Yes: Lungs Clear, Normal Breath Sounds, No Respiratory Distress Neck: Yes: Within Normal Limits, Supple, Trachea in good position Breast: Yes: Breast Exam Deferred Cardiology: Yes: Within Normal Limits, Regular Rhythm, Regular Rate, S1, S2 Abdominal: Yes: Within Normal Limits, Normal Bowel Sounds, Non Tender, Soft Genitourinary: Yes: Within Normal Limits Back: Yes: Muscle Spasm Musculoskeletal: Yes: Back pain, Muscle Pain Extremities: Yes: Within Normal Limits, Normal Range of Motion, Tremors Neurological: Yes: chief clerk II-XII NML intact, Fully Oriented, Alert, Motor Strength 5/5 Integumentary: Yes: Within Normal Limits, Dry - Diagnostic (1) Alcohol dependence with uncomplicated withdrawal Current Visit: No Status: Acute (2) Dehydration Current Visit: No Status: Acute (3) Insomnia Current Visit: No Status: Acute Qualifiers: Insomnia type: unspecified Qualified Code(s): G47.00 - Insomnia, unspecified Comment: . (4) Sedative, hypnotic or anxiolytic dependence with withdrawal, uncomplicated Current Visit: No Status: Acute (5) Weight loss Current Visit: No Status: Acute (6) Cocaine dependence Current Visit: No Status: Chronic Qualifiers: Substance use status: uncomplicated Qualified Code(s): F14.20 - Cocaine dependence, uncomplicated (7) Hepatitis C Current Visit: No Status: Chronic Qualifiers: Viral hepatitis chronicity: chronic Hepatic coma status: without hepatic coma Qualified Code(s): B18.2 - Chronic viral hepatitis C Comment: Patient reports will follow up at the [facility] for treatment (8) Methadone maintenance therapy patient Current Visit: No Status: Chronic Comment: on MMTP at [facility] on 100 mg qd , dose pending verification (9) Nicotine dependence Current Visit: No Status: Chronic Qualifiers: Nicotine product type: cigarettes Substance use status: in withdrawal Qualified Code(s): F17.213 - Nicotine dependence, cigarettes, with withdrawal Comment: . Cleared for Admission S - Detox or Rehab S Level of Care: Medically Managed Detox Regimen/Protocol: Valium Breathalyzer - Breathalyzer Breathalyzer: 0 Urine Drug Screen - Test Device Lot number: [id number] Expiration date: 07/21/20 - Control Is test valid?: Yes - Results Drug screen NEGATIVE: No Urine drug screen results: THC-Marijuana, STEVIE-Cocaine, MET-Methamphetamine, MTD- Methadone, BZO-Benzodiazepines Inpatient Rehab Admission - Rehab Decision to Admit Inpatient rehab admission?: No
[2018-11-22] MEDS ORDERED: MAGNESIUM CITRATE 300 ML BOTTLE PO PRN (13:28)
[2018-11-22] MEDS ORDERED: BISMUTH SUBSALICYLATE 524 MG/30 ML UD PO PRN (13:28)
[2018-11-22] MEDS ORDERED: MENTHOL/PHENOL 1 EACH UD MM PRN (13:28)
[2018-11-22] MEDS ORDERED: IBUPROFEN 400 MG TABLET (FP) PO PRN (13:28)
[2018-11-22] MEDS ORDERED: MAG HYDROX/AL HYDROX/SIMETH 30 ML UNIT-DOSE CUP PO PRN (13:28)
[2018-11-22] MEDS ORDERED: MELATONIN 5 MG TABLETS PO PRN (13:28)
[2018-11-22] MEDS ORDERED: ACETAMINOPHEN 325 MG TABLET (FP) PO PRN ×2 (13:28)
[2018-11-22] MEDS ORDERED: hydrOXYzine PAMOATE 25 MG CAPSULE (FP) PO PRN (13:28)
[2018-11-22] MEDS ORDERED: MAGNESIUM HYDROX 2400MG/30ML ORAL SUSPENSION 30 ML CUP PO PRN (13:28)
[2018-11-22] MEDS ORDERED: METHOCARBAMOL 500 MG TABLET PO PRN (13:28)
[2018-11-22] MEDS: diazePAM 5 MG TABLET PO PRN (14:24)
[2018-11-22] MEDS: BACITRACIN 0.9 GM PACKET TP SCH ×2 (15:49→22:18)
[2018-11-22] MEDS: THIAMINE HCL 100 MG TABLET (FP) PO SCH (22:17)
[2018-11-22] MEDS: diazePAM 5 MG TABLET PO SCH (22:40)
[2018-11-23] MEDS: diazePAM 5 MG TABLET PO SCH ×3 (06:46→22:32)
[2018-11-23] MEDS: diazePAM 5 MG TABLET PO PRN (07:17)
[2018-11-23] MEDS ORDERED: METHADONE HCL 10 MG TABLET PO ONE (08:45)
[2018-11-23] MEDS ORDERED: METHADONE 80 MG, METHADONE 20 MG PO ONE (09:15)
[2018-11-23] MEDS ORDERED: METHADONE HCL 10 MG TABLET ONE (09:29)
[2018-11-23] MEDS ORDERED: METHADONE HCL 40 MG DISPERSABLE TABLET ONE (09:30)
[2018-11-23] MEDS: BACITRACIN 0.9 GM PACKET TP SCH ×2 (10:41→22:49)
[2018-11-23] MEDS: PRENATAL VITAMINS W/ FOLIC ACID TABLET (FP) PO SCH (10:42)
[2018-11-23 11:16] LABS: EPI CELLS 4.8 /HPF (0-5/HPF); HYALINE CASTS 466 /lpf (0-8); PH,URINE 5.5 (5.0-8.0); URINE APPEARANCE TURBID; URINE BACTERIA 78.6 /hpf (NEGATIVE); URINE BILIRUBIN NEGATIVE (NEGATIVE); URINE COLOR YELLOW; URINE CRYSTALS CALCIUM OXALATE=1+ /hpf; URINE GLUCOSE (UA) NEGATIVE (NEGATIVE); URINE KETONE NEGATIVE (NEGATIVE); URINE LEUK ESTERASE 2+ (NEGATIVE); URINE NITRITE NEGATIVE (NEGATIVE); URINE PROTEIN NEGATIVE (NEGATIVE); URINE WBC 91 /hpf (0-5)
--- NOTE | 2018-11-23 13:28 | PN ---
[facility] CIWA - CIWA Score Nausea/Vomitin-No Nausea/No Vomiting Muscle Tremors: 3 Anxiety: 2 Agitation: 2 Paroxysmal Sweats: 3 Orientation: 0-Oriented Tacttile Disturbances: 0-None Auditory Disturbances: 0-None Visual Disturbances: 0-None Headache: 0-None Present CIWA-Ar Total Score: 10 S Progress Note (SOAP) Subjective: agitation sweats shakes interrupted sleep irritable Objective: 11/23/18 13:26 Vital Signs Temperature 97.0 F L 11/23/18 10:00 Pulse Rate 80 11/23/18 10:00 Respiratory Rate 16 11/23/18 10:00 Blood Pressure 106/81 11/23/18 10:00 O2 Sat by Pulse Oximetry (%) Laboratory Tests 11/23/18 07:30 Urine Color Yellow Urine Appearance Turbid Urine pH 5.5 D Ur Specific [place] 1.020 Urine Protein Negative Urine Glucose (UA) Negative Urine Ketones Negative Urine Blood Negative Urine Nitrite Negative Urine Bilirubin Negative Urine Urobilinogen 1.0 Ur Leukocyte Esterase 2+ H Urine WBC (Auto) 91 Urine Casts (Auto) 466 U Epithel Cells (Auto) 4.8 Urine Crystals (Auto) Calcium oxalate=1+ Urine Bacteria (Auto) 78.6 aaox3 ambulating no acute distress will reorder labs Assessment: 11/23/18 13:28 withdrawal sx Plan: continue detox increase fluids pending lab results
--- NOTE | 2018-11-23 16:05 | CONSULT ---
[facility] Psychiatric Consult - Data Date of interview: 11/23/18 Admission source: [facility] Identifying data: This is one of multiple admissions to [facility] for this 43 y/ o female self-referred for detoxification (heroin, benzodiazepine, cocaine). Interviewed on . Patient is single, a mother of two, homeless, unemployed, deprived of financial assistance ([employer] benefits cut-off) and supported on undisclosed sources of income. Substance Abuse History: Confirmed by patient in this interview. Details in current [facility] report for details : Smoking history: Current every day smoker. Have you smoked in the past 12 months: No. Aproximately how many cigarettes per day: 8. Cigars Per Day: 0. Hx Chewing Tobacco Use: No. Initiated information on smoking cessation: No. 'Breaking Loose' booklet given: . - Substance & Tx. History. Hx Alcohol Use: Yes. Hx Substance Use: No. Substance Use Type: Alcohol, Cocaine, Tranquilizers. Hx Substance Use Treatment : Yes ([facility] 09/30/18 to 10/03/18). - Substances abused. Benzodiazepine ( Klonopin). Substance route: Oral. Frequency: Daily. Amount used: 2 pills 2mgs. Age of first use: 42. Date of last use: 11/21/18. Other. Other ( specify): Ativan. Substance route: Oral. Frequency: Daily. Amount used: 2 pills. Age of first use: 42. Date of last use: 06/29/18. Alcohol. Substance route: Oral. Frequency: Daily. Amount used: 1 pint of liquor/5 of 22 ozs. Age of first use: 11. Date of last use: 11/21/18. Cocaine. Substance route: Inhalation. Frequency: 1-2 times per week. Amount used: 40 dollars. Age of first use: 25. Date of last use: 11/21/18. Alprazolam ( Xanax). Substance route: Oral. Frequency: Daily. Amount used: 2 mg. Age of first use: 25. Date of last use: 09/27/18 Medical History: Medical history is remarkable for hepatitis C, a distant antecedent of cellulitis of right forearm (complication of IV use of drugs) and a history of orthosurgery for fracture of left foot (09/29/16). Psychiatric History: Patient endorses a history of multiple psychiatric hospitalizations. Early onset of psychiatric illness (age 16). Ms Camarillo is known to various institutions ([facility], [facility], [facility]). She has been diagnosed with Bipolar Disorder. Chronically non-adherent to OPD care + psychotropic medications. Already known history of past treatment with abilify, lexapro, zolpidem, clonazepam and various other formulations. Patient [facility]. No reported history of suicide attempts. Physical/Sexual Abuse/Trauma History: Not discussed. Patient declines. Additional Comment: Urine drug screen results: THC-Marijuana, STEVIE-Cocaine, MET- Methamphetamine, MTD-Methadone, BZO-Benzodiazepines. Noted. Mental Status Exam - Mental Status Exam Alert and Oriented to: Time, Place, Person Patient Appearance: Unkempt, Disheveled (small stature, frail habitus, edentulous and appearing much older than stated age) Mood: Angry, Hostile, Irritable Affect: Mood Congruent, Constricted Patient Behavior: Sedated (falling asleep during the interview; moderately sedated from medications), Fatigued Speech Pattern: Delayed, Slurred Voice Loudness: Normal Thought Process: Goal Oriented Thought Disorder: Not Present Hallucinations: Denies Suicidal Ideation: Denies Homicidal Ideation: Denies Insight/Judgement: Poor Sleep: Well Appetite: Poor, Weight loss Gait/Station: Other (slow, unsteady) Psychiatric Findings - Problem List ([place] 1, 2,3) (1) Alcohol dependence with uncomplicated withdrawal Current Visit: Yes Status: Acute (2) Opioid dependence with withdrawal Current Visit: Yes Status: Acute Comment: . (3) Sedative, hypnotic or anxiolytic dependence with withdrawal, uncomplicated Current Visit: Yes Status: Acute (4) Opioid dependence on agonist therapy Current Visit: Yes Status: Chronic (5) Cocaine dependence Current Visit: Yes Status: Chronic Qualifiers: Substance use status: uncomplicated Qualified Code(s): F14.20 - Cocaine dependence, uncomplicated (6) Nicotine dependence Current Visit: Yes Status: Chronic Qualifiers: Nicotine product type: cigarettes Substance use status: in withdrawal Qualified Code(s): F17.213 - Nicotine dependence, cigarettes, with withdrawal Comment: . (7) Substance induced mood disorder Current Visit: Yes Status: Chronic Comment: . (8) Bipolar disorder Current Visit: Yes Status: Chronic Qualifiers: Active/Remission status: remission status unspecified Qualified Code(s): F31.9 - Bipolar disorder, unspecified Comment: According to existing records and self-report. History of total non- adherence to medications + OPD care. (9) Non-compliance Current Visit: Yes Status: Chronic - Initial Treatment Plan Initial Treatment Plan: Psychoeducation. Sleep hygiene. Support. Detoxification. Will not resume aripriprazole at this time in view of current sedated state. Falls precautions. Observation.
[2018-11-23] MEDS ORDERED: ARIPiprazole 10 MG TABLET PO SCH (22:00)
[2018-11-23] MEDS ORDERED: ARIPiprazole 5 MG TABLET (FP) PO SCH (22:00)
[2018-11-23] MEDS: THIAMINE HCL 100 MG TABLET (FP) PO SCH (22:33)
[2018-11-24] MEDS ORDERED: METHADONE HCL 10 MG TABLET ONE (04:21)
[2018-11-24] MEDS ORDERED: METHADONE HCL 40 MG DISPERSABLE TABLET ONE (04:22)
[2018-11-24] MEDS: METHADONE 80 MG, METHADONE 20 MG PO SCH (05:38)
[2018-11-24] MEDS: diazePAM 5 MG TABLET PO SCH ×2 (05:39→17:13)
[2018-11-24] MEDS ORDERED: METHADONE HCL 40 MG DISPERSABLE TABLET PO SCH (06:00)
--- NOTE | 2018-11-24 09:35 | PN ---
[facility] CIWA - CIWA Score Nausea/Vomitin-No Nausea/No Vomiting Muscle Tremors: 3 Anxiety: 2 Agitation: 2 Paroxysmal Sweats: 2 Orientation: 0-Oriented Tacttile Disturbances: 0-None Auditory Disturbances: 0-None Visual Disturbances: 0-None Headache: 0-None Present CIWA-Ar Total Score: 9 S Progress Note (SOAP) Subjective: sweats mild shakes interrupted sleep tired Objective: 11/24/18 09:34 Vital Signs Temperature 96.8 F L 11/24/18 09:27 Pulse Rate 63 11/24/18 09:27 Respiratory Rate 16 11/24/18 09:27 Blood Pressure 93/57 L 11/24/18 09:27 O2 Sat by Pulse Oximetry (%) Laboratory Tests 11/23/18 07:30 Urine Color Yellow Urine Appearance Turbid Urine pH 5.5 D Ur Specific [place] 1.020 Urine Protein Negative Urine Glucose (UA) Negative Urine Ketones Negative Urine Blood Negative Urine Nitrite Negative Urine Bilirubin Negative Urine Urobilinogen 1.0 Ur Leukocyte Esterase 2+ H Urine WBC (Auto) 91 Urine Casts (Auto) 466 U Epithel Cells (Auto) 4.8 Urine Crystals (Auto) Calcium oxalate=1+ Urine Bacteria (Auto) 78.6 rest of labs pending aaox3 ambulating no acute distress Assessment: 11/24/18 09:34 mild withdrawal sx Plan: continue detox increase fluids pending labs
[2018-11-24 09:54] LABS: BASO % 0.8 % (0-2.0); EOS % 1.7 % (0-4.5); HEMATOCRIT 34.9 % (32.4-45.2); HEMOGLOBIN 11.6 GM/dL (10.7-15.3); LYMPH % 52.9 % (8-40); MCH 30.7 pg (25.7-33.7); MCHC 33.3 g/dl (32.0-36.0); MEAN CELL VOLUME 92.3 fl (80-96); MEAN PLT VOLUME 7.2 fl (7.5-11.1); MONO % 6.9 % (3.8-10.2); NEUT % 37.7 % (42.8-82.8); PLATELET COUNT 363 K/MM3 (134-434); RBC 3.78 M/mm3 (3.60-5.2); RDW 14.1 % (11.6-15.6)
[2018-11-24] MEDS: PRENATAL VITAMINS W/ FOLIC ACID TABLET (FP) PO SCH (10:15)
[2018-11-24] MEDS: BACITRACIN 0.9 GM PACKET TP SCH ×2 (10:15→22:09)
[2018-11-24 10:16] LABS: ALBUMIN 3.2 g/dl (3.4-5.0); BILIRUBIN,TOTAL 0.2 mg/dL (0.2-1); BLOOD UREA NITROGEN 15.3 mg/dL (7-18); CALCIUM 8.9 mg/dL (8.5-10.1); CREATININE 0.5 mg/dL (0.55-1.3); POTASSIUM 4.4 mmol/L (3.5-5.1); TOT PROT 6.6 g/dl (6.4-8.2)
[2018-11-24] MEDS ORDERED: FUROSEMIDE 20 MG TABLET (FP) PO ONE (12:17)
--- NOTE | 2018-11-24 12:19 | PN ---
[facility] Progress Note Note: pt c/o of swelling of her lower legs. legs assessed some swelling with pitting edema noted. pt is able to walk no redness noted on skin. will order 20mg lasix x one and encouraged pt keep legs elevated. pt in agreement.
[2018-11-24] MEDS: diazePAM 5 MG TABLET PO PRN (14:55)
[2018-11-24] MEDS: THIAMINE HCL 100 MG TABLET (FP) PO SCH (22:10)
[2018-11-25] MEDS ORDERED: METHADONE HCL 40 MG DISPERSABLE TABLET ONE (04:29)
[2018-11-25] MEDS ORDERED: METHADONE HCL 10 MG TABLET ONE (04:29)
[2018-11-25] MEDS ORDERED: diazePAM 5 MG TABLET PO ONE (06:00)
[2018-11-25] MEDS: METHADONE 80 MG, METHADONE 20 MG PO SCH (06:54)
[2018-11-25 09:16] VITALS: BP 97/60; PULSE 77; TEMP 97.3
[2018-11-25] MEDS: BACITRACIN 0.9 GM PACKET TP SCH (09:46)
[2018-11-25] MEDS: PRENATAL VITAMINS W/ FOLIC ACID TABLET (FP) PO SCH (09:46)
--- NOTE | 2018-11-25 10:03 | DS ---
[facility] Detox Discharge Summary Admission Date: 11/22/18 Discharge Date: 11/25/18 - History Present History: Alcohol Dependence, Cocaine Dependence, Opioid Dependence, Sedative Dependence - Physical Exam Results Vital Signs: Vital Signs Temperature 97.3 F L 11/25/18 09:15 Pulse Rate 77 11/25/18 09:15 Respiratory Rate 18 11/25/18 09:15 Blood Pressure 97/60 11/25/18 09:15 O2 Sat by Pulse Oximetry (%) Pertinent Admission Physical Exam Findings: pt arrived in withdrawals Laboratory Tests 11/23/18 11/24/18 11/24/18 07:30 07:00 07:00 WBC 5.0 RBC 3.78 Hgb 11.6 Hct 34.9 MCV 92.3 MCH 30.7 MCHC 33.3 RDW 14.1 Plt Count 363 MPV 7.2 L Absolute Neuts (auto) 1.9 Neutrophils % 37.7 L Lymphocytes % 52.9 H Monocytes % 6.9 Eosinophils % 1.7 Basophils % 0.8 Nucleated RBC % 0 Sodium 139 Potassium 4.4 Chloride 104 Carbon Dioxide 29 Anion Gap 6 L BUN 15.3 Creatinine 0.5 L Est GFR (CKD-EPI)AfAm 135.47 Est GFR (CKD-EPI)NonAf 116.89 Random Glucose 82 Calcium 8.9 Total Bilirubin 0.2 AST 26 ALT 24 Alkaline Phosphatase 65 Total Protein 6.6 Albumin 3.2 L Urine Color Yellow Urine Appearance Turbid Urine pH 5.5 D Ur Specific Hazel 1.020 Urine Protein Negative Urine Glucose (UA) Negative Urine Ketones Negative Urine Blood Negative Urine Nitrite Negative Urine Bilirubin Negative Urine Urobilinogen 1.0 Ur Leukocyte Esterase 2+ H Urine WBC (Auto) 91 Urine Casts (Auto) 466 U Epithel Cells (Auto) 4.8 Urine Crystals (Auto) Calcium oxalate=1+ Urine Bacteria (Auto) 78.6 RPR Titer 11/24/18 07:00 WBC RBC Hgb Hct MCV MCH MCHC RDW Plt Count MPV Absolute Neuts (auto) Neutrophils % Lymphocytes % Monocytes % Eosinophils % Basophils % Nucleated RBC % Sodium Potassium Chloride Carbon Dioxide Anion Gap BUN Creatinine Est GFR (CKD-EPI)AfAm Est GFR (CKD-EPI)NonAf Random Glucose Calcium Total Bilirubin AST ALT Alkaline Phosphatase Total Protein Albumin Urine Color Urine Appearance Urine pH Ur Specific Hazel Urine Protein Urine Glucose (UA) Urine Ketones Urine Blood Urine Nitrite Urine Bilirubin Urine Urobilinogen Ur Leukocyte Esterase Urine WBC (Auto) Urine Casts (Auto) U Epithel Cells (Auto) Urine Crystals (Auto) Urine Bacteria (Auto) RPR Titer Nonreactive today pt is aaox3 ambulating no acute distress no s/s of withdrawals - Treatment Hospital Course: Detox Protocol Followed, Detoxed Safely, Responded well, Discharged Condition Good, Rehab Referral Accepted Patient has Accepted a Rehab Referral to: referred to [facility] rehab however, she states she will come tomorrow. - Medication Discharge Medications: Ambulatory Orders Aripiprazole [Abilify -] 5 mg PO DAILY 07/28/18 - Diagnosis (1) Alcohol dependence with uncomplicated withdrawal Current Visit: Yes Status: Chronic (2) Sedative, hypnotic or anxiolytic dependence with withdrawal, uncomplicated Current Visit: Yes Status: Chronic (3) Bipolar disorder Current Visit: Yes Status: Chronic Qualifiers: Active/Remission status: remission status unspecified Qualified Code(s): F31.9 - Bipolar disorder, unspecified (4) Cocaine dependence Current Visit: Yes Status: Chronic Qualifiers: Substance use status: uncomplicated Qualified Code(s): F14.20 - Cocaine dependence, uncomplicated (5) Nicotine dependence Current Visit: Yes Status: Chronic Qualifiers: Nicotine product type: cigarettes Substance use status: uncomplicated Qualified Code(s): F17.210 - Nicotine dependence, cigarettes, uncomplicated (6) Opioid dependence on agonist therapy Current Visit: Yes Status: Chronic (7) Substance induced mood disorder Current Visit: Yes Status: Chronic (8) Diarrhea Current Visit: Yes Status: Acute Qualifiers: Diarrhea type: unspecified type Qualified Code(s): R19.7 - Diarrhea, unspecified (9) Substance-induced sleep disorder Current Visit: No Status: Acute (10) Bipolar disorder Current Visit: No Status: Chronic (11) Cocaine dependence, uncomplicated Current Visit: Yes Status: Chronic (12) Hepatitis C Current Visit: No Status: Chronic Qualifiers: Viral hepatitis chronicity: chronic Hepatic coma status: without hepatic coma Qualified Code(s): B18.2 - Chronic viral hepatitis C (13) Methadone maintenance therapy patient Current Visit: Yes Status: Chronic (14) Nicotine dependence Current Visit: Yes Status: Chronic Qualifiers: Nicotine product type: cigarettes Substance use status: uncomplicated Qualified Code(s): F17.210 - Nicotine dependence, cigarettes, uncomplicated (15) Personality disorder, unspecified Current Visit: No Status: Chronic - AMA Did Patient Leave Against Medical Advice: No
[2018-11-25] MEDS ORDERED: MIDAZOLAM HCL 2 MG/2 ML SINGLE DOSE VIAL ONE (10:58)
== END 2018-11-25 10:05 | disposition home or self-care (01) | DRG 773 ==
LOC: YASAS 10:59 → Y6N 13:54
PROVIDERS: ADMIT Surgery; ATTEND Surgery
PROC: HZ2ZZZZ Detoxification Services for Substance Abuse Treatment (ICD-10-PCS; principal; 2018-11-22)
DX: F10.230 Alcohol dependence with withdrawal, uncomplicated (principal); F11.23 Opioid dependence with withdrawal; F13.230 Sedative, hypnotic or anxiolytic dependence with withdrawal, uncomplicated; F14.20 Cocaine dependence, uncomplicated; F17.210 Nicotine dependence, cigarettes, uncomplicated; F19.282 Other psychoactive substance dependence with psychoactive substance-induced sleep disorder; F19.24 Other psychoactive substance dependence with psychoactive substance-induced mood disorder; F60.9 Personality disorder, unspecified; E86.0 Dehydration; B18.2 Chronic viral hepatitis C; R60.0 Localized edema; R19.7 Diarrhea, unspecified; R63.4 Abnormal weight loss; Z68.20 Body mass index [BMI] 20.0-20.9, adult; Z88.0 Allergy status to penicillin; Z91.013 Allergy to seafood; Z91.19 Patient's noncompliance with other medical treatment and regimen
CPT/HCPCS: 36415; 80053; 81003; 85025; 86593

== ENCOUNTER 2019-02-03 11:01 | Inpatient (IN) | payer OTHER ==
[2019-02-03 11:20] VITALS: BMI 20.5
--- NOTE | 2019-02-03 12:12 | HP ---
CIWA Score Nausea/Vomitin-Mild Nausea/No Vomiting Muscle Tremors: 3 Anxiety: 4-Mod. Anxious/Guarded Agitation: 4-Moderately Restless Paroxysmal Sweats: 3 Orientation: 1-Uncertain about Date Tacttile Disturbances: 0-None Auditory Disturbances: 0-None Visual Disturbances: 0-None Headache: 4-Moderately Severe CIWA-Ar Total Score: 20 - Admission Criteria OASAS Guidelines: Admission for Medically Managed Detox: Requires at least one of the followin. CIWA greater than 12 2. Seizures within the past 24 hours 3. Delirium tremens within the past 24 hours 4. Hallucinations within the past 24 hours 5. Acute intervention needed for co occurring medical disorder 6. Acute intervention needed for co occurring psychiatric disorder 7. Severe withdrawal that cannot be handled at a lower level of care (continued vomiting, continued diarrhea, abnormal vital signs) requiring intravenous medication and/or fluids 8. Admitting History and Physical - Admission History of Present Illness: 43 year old female with alcohol dependence with withdrawals. She was last admitted to detox 2 months ago and then she relapsed almost right away. She is willing to then follow up today with rehab and long-term residential treatment. She is drinking 6-7 nips daily and then vodka and pineapple shots daily, and sometimes beers afterwards. She had a blackout this past friday night into friday. She denies seizures upon withdrawals. She is in methadone program in [facility] and hasn't injected heroin in over one year. She smokes 6 ciggarettes daily since the age of [age] years old She is also using cocaine sporadically, $40 every 3-4 days, last used friday night. PMH: HCV and to start medications soon in the [facility], [facility] Psurg: None, except abscess left neck last year. All: Fish and Lactose, PCN History Source: Patient Limitations to Obtaining History: No Limitations - Past Medical History ...LMP: 11/13/18 Psych: Yes: Anxiety, Bipolar, Depression (has been non-compliant with Abilify) - Past Surgical History Additional Past Surgical History: abscess removal left neck. 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 History of Recent Travel: No Admission ROS [facility] - [facility] Allergies/Adverse Reactions: Allergies Allergy/AdvReac Type Severity Reaction Status Date / Time fish derived Allergy Severe Hives Verified 02/03/19 11:13 lactose Allergy Severe Nausea Verified 02/03/19 11:13 Penicillins Allergy Severe Rash Verified 02/03/19 11:13 Exam Limitations: No Limitations - Ebola screening Have you traveled outside of the country in the last 21 days: No Have you had contact with anyone from an Ebola affected area: No Have you been sick,other than usual withdrawal symptoms: No Do you have a fever: No - Review of Systems Constitutional: Chills, Loss of Appetite, Unintentional Wgt. Loss EENT: reports: No Symptoms Reported Respiratory: reports: No Symptoms reported Cardiac: reports: No Symptoms Reported GI: reports: Nausea, Abdominal cramping : reports: No Symptoms Reported Musculoskeletal: reports: No Symptoms Reported Integumentary: reports: No Symptoms Reported Neuro: reports: No Symptoms reported Endocrine: reports: No Symptoms Reported Hematology: reports: No Symptoms Reported Psychiatric: reports: Judgement Intact, Orientated x3, Anxious Other Systems: Reviewed and Negative Patient History - Patient Medical History Hx Anemia: No Hx Asthma: No Hx Chronic Obstructive Pulmonary Disease (COPD): No Hx Cancer: No Hx Cardiac Disorders: No Hx Congestive Heart Failure: No Hx Hypertension: No Hx Hypercholesterolemia: Yes (? per patient she was told by a doctor -on no meds ) Hx Pacemaker: No HX Cerebrovascular Accident: No Hx Seizures: No Hx Dementia: No Hx Diabetes: No Hx Gastrointestinal Disorders: No Hx Liver Disease: Yes (Hep C) Hx Genitourinary Disorders: No Hx Sexually Transmitted Disorders: No Hx Renal Disease (ESRD): No Hx Thyroid Disease: No Hx Human Immunodeficiency Virus (HIV): No (LAST 10/09 negative) Hx Hepatitis C: Yes (NOT TREATED) Hx Depression: Yes Hx Suicide Attempt: No Hx Bipolar Disorder: Yes (no current meds - hx abilify, last hospitalized a year ago) Hx Schizophrenia: No - Patient Surgical History Past Surgical History: No Hx Neurologic Surgery: No Hx Cataract Extraction: No Hx Cardiac Surgery: No Hx Lung Surgery: No Hx Breast Surgery: No Hx Breast Biopsy: No Hx Abdominal Surgery: No Hx Appendectomy: No Hx Cholecystectomy: No Hx Genitourinary Surgery: No Hx Section: No Hx Orthopedic Surgery: No Hx Hysterectomy: No Other Surgical History: ON NECK DUE TO ABCESS. Anesthesia Reaction: No - PPD History Previous Implant?: Yes Documented Results: Negative w/proof Implanted On Prior [facility] Admission?: Yes Date: 07/30/18 Results: 0mm PPD to be Administered?: No - Reproductive History Last Menstrual Period: 11/13/18 - Smoking Cessation Smoking history: Current every day smoker Have you smoked in the past 12 months: No Aproximately how many cigarettes per day: 8 Cigars Per Day: 0 Hx Chewing Tobacco Use: No Initiated information on smoking cessation: Yes 'Breaking Loose' booklet given: 02/03/19 - Substances abused Benzodiazepine (Klonopin) Substance route: Oral Frequency: Daily Amount used: 2 pills 2mgs Age of first use: 42 Date of last use: 11/21/18 Other Other (specify): Ativan Substance route: Oral Frequency: Daily Amount used: 2 pills Age of first use: 42 Date of last use: 06/29/18 Alcohol Substance route: Oral Frequency: Daily Amount used: 6 NIPS OF PINEAPPLE VODKA, 1 CAN OF BEER Age of first use: 11 Date of last use: 02/02/19 Cocaine Substance route: Inhalation Frequency: 3-6 times per week Amount used: 40 dollars Age of first use: 25 Date of last use: 01/31/19 Alprazolam (Xanax) Substance route: Oral Frequency: Daily Amount used: 2 mg Age of first use: 25 Date of last use: 09/27/18 Admission Physical Exam [facility] - Vital Signs Vital Signs: Vital Signs - 24 hr 02/03/19 11:10 Temperature 97.5 F L Pulse Rate 89 Respiratory 16 Rate Blood Pressure 104/64 Cleared for Admission [facility] - Detox or Rehab [facility] Level of Care: Medically Managed Detox Regimen/Protocol: Librium, Valium Claeared for Rehab Admission: No Screened but not Admitted - Documentation of Visit Screened but not Admitted: No Breathalyzer - Breathalyzer Breathalyzer: 0 (last drank 1 day ago) Urine Drug Screen - Test Device Lot number: [id number] Expiration date: 10/21/20 - Control Is test valid?: Yes - Results Drug screen NEGATIVE: No Urine drug screen results: STEVIE-Cocaine, MTD-Methadone Inpatient Rehab Admission - Rehab Decision to Admit Inpatient rehab admission?: No
[2019-02-03] MEDS ORDERED: MAGNESIUM CITRATE 300 ML BOTTLE PO PRN (12:18)
[2019-02-03] MEDS ORDERED: IBUPROFEN 400 MG TABLET (FP) PO PRN (12:18)
[2019-02-03] MEDS ORDERED: hydrOXYzine PAMOATE 25 MG CAPSULE (FP) PO PRN (12:18)
[2019-02-03] MEDS ORDERED: METHOCARBAMOL 500 MG TABLET PO PRN (12:18)
[2019-02-03] MEDS ORDERED: BISMUTH SUBSALICYLATE 524 MG/30 ML UD PO PRN (12:18)
[2019-02-03] MEDS ORDERED: MENTHOL/PHENOL 1 EACH UD MM PRN (12:18)
[2019-02-03] MEDS ORDERED: MAGNESIUM HYDROX 2400MG/30ML ORAL SUSPENSION 30 ML CUP PO PRN (12:18)
[2019-02-03] MEDS ORDERED: ACETAMINOPHEN 325 MG TABLET (FP) PO PRN ×2 (12:18)
[2019-02-03] MEDS ORDERED: MAG HYDROX/AL HYDROX/SIMETH 30 ML UNIT-DOSE CUP PO PRN (12:18)
[2019-02-03] MEDS ORDERED: MELATONIN 5 MG TABLETS PO PRN (12:18)
[2019-02-03] MEDS: diazePAM 5 MG TABLET PO PRN (14:02)
[2019-02-03] MEDS: diazePAM 5 MG TABLET PO SCH ×2 (14:32→22:59)
[2019-02-03 17:52] LABS: HEMATOCRIT 35.6 % (32.4-45.2); HEMOGLOBIN 12.1 GM/dL (10.7-15.3); MCH 30.6 pg (25.7-33.7); MCHC 33.8 g/dl (32.0-36.0); MEAN CELL VOLUME 90.5 fl (80-96); MEAN PLT VOLUME 7.4 fl (7.5-11.1); PLATELET COUNT 468 K/MM3 (134-434); RBC 3.94 M/mm3 (3.60-5.2); RDW 13.9 % (11.6-15.6); WHITE BLOOD COUNT 7.5 K/mm3 (4.0-10.0)
[2019-02-03 18:07] LABS: ALBUMIN 3.5 g/dl (3.4-5.0); BILIRUBIN,TOTAL 0.4 mg/dL (0.2-1); BLOOD UREA NITROGEN 13.4 mg/dL (7-18); CALCIUM 8.9 mg/dL (8.5-10.1); CREATININE 0.6 mg/dL (0.55-1.3); TOT PROT 7.2 g/dl (6.4-8.2)
[2019-02-03] MEDS: THIAMINE HCL 100 MG TABLET (FP) PO SCH (22:59)
[2019-02-04] MEDS: diazePAM 5 MG TABLET PO SCH ×3 (05:45→22:30)
[2019-02-04] MEDS ORDERED: METHADONE 80 MG, METHADONE 20 MG PO SCH ×2 (06:30→10:00)
[2019-02-04] MEDS ORDERED: METHADONE HCL 40 MG DISPERSABLE TABLET ONE (06:34)
[2019-02-04] MEDS ORDERED: METHADONE HCL 10 MG TABLET ONE (06:34)
[2019-02-04] MEDS ORDERED: ARIPiprazole 20 MG TABLET PO SCH (10:00)
[2019-02-04] MEDS ORDERED: METHADONE HCL 40 MG DISPERSABLE TABLET PO SCH (10:00)
[2019-02-04] MEDS: NICOTINE 7 MG/24 HOURS TOPICAL PATCH TD SCH (10:22)
[2019-02-04] MEDS: PRENATAL VITAMINS W/ FOLIC ACID TABLET (FP) PO SCH (10:22)
--- NOTE | 2019-02-04 12:23 | PN ---
S CIWA - CIWA Score Nausea/Vomitin-No Nausea/No Vomiting Muscle Tremors: 3 Anxiety: 1-Mildly Anxious Agitation: 2 Paroxysmal Sweats: 2 Orientation: 0-Oriented Tacttile Disturbances: 0-None Auditory Disturbances: 0-None Visual Disturbances: 0-None Headache: 0-None Present CIWA-Ar Total Score: 8 [facility] Progress Note (SOAP) Subjective: anxiety interrupted sleep body aches i prefer to have my methadone given to me at 6am Objective: 02/04/19 12:25 Vital Signs Temperature 98.2 F 02/04/19 09:57 Pulse Rate 76 02/04/19 09:57 Respiratory Rate 18 02/04/19 09:57 Blood Pressure 100/65 02/04/19 09:57 O2 Sat by Pulse Oximetry (%) Laboratory Tests 02/03/19 02/03/19 02/03/19 11:43 12:30 12:30 WBC 7.5 RBC 3.94 Hgb 12.1 Hct 35.6 MCV 90.5 MCH 30.6 MCHC 33.8 RDW 13.9 Plt Count 468 H D MPV 7.4 L Sodium 142 Potassium 4.0 Chloride 106 Carbon Dioxide 29 Anion Gap 7 L BUN 13.4 Creatinine 0.6 Est GFR (CKD-EPI)AfAm 127.58 Est GFR (CKD-EPI)NonAf 110.08 Random Glucose 129 H Calcium 8.9 Total Bilirubin 0.4 AST 24 ALT 23 Alkaline Phosphatase 84 Total Protein 7.2 Albumin 3.5 POC Urine HCG, Qual Negative RPR Titer 02/03/19 12:30 WBC RBC Hgb Hct MCV MCH MCHC RDW Plt Count MPV Sodium Potassium Chloride Carbon Dioxide Anion Gap BUN Creatinine Est GFR (CKD-EPI)AfAm Est GFR (CKD-EPI)NonAf Random Glucose Calcium Total Bilirubin AST ALT Alkaline Phosphatase Total Protein Albumin POC Urine HCG, Qual RPR Titer Nonreactive labs noted aaox3 ambulating no acute distress Assessment: 02/04/19 12:25 withdrawals Plan: continue detox methadone maintenance scheduled for 6am as per pt request.
--- NOTE | 2019-02-04 13:04 | CONSULT ---
[facility] Psychiatric Consult - Data Date of interview: 02/04/19 Psychiatric History: Patient approached job specification writer in the hallway and said:"I'm rakesh Camarillo, do you have to see me." She was led to the office and as job specification writer started to ask questions, she said:" I don't have patient to sit down, I' m Bipolar, I want my Abilify". As she was told that I cannot order her Abilify without talking to her, She walked out of the office cursing.
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
[2019-02-04] MEDS: diazePAM 5 MG TABLET PO PRN (15:40)
[2019-02-04] MEDS: THIAMINE HCL 100 MG TABLET (FP) PO SCH (22:31)
--- NOTE | 2019-02-04 23:01 | PN ---
S Progress Note Note: asked to see client for hitting head on table. as per staff client reports knodding while falling asleep and bumped head on table. policy writer sales attempted to interview and examine the client.Client refused stating "nothing happened I'm ok". cont to monitor for safety
[2019-02-05] MEDS ORDERED: METHADONE HCL 10 MG TABLET ONE (04:46)
[2019-02-05] MEDS ORDERED: METHADONE HCL 40 MG DISPERSABLE TABLET ONE (04:47)
[2019-02-05] MEDS ORDERED: METHADONE 80 MG, METHADONE 20 MG PO SCH (06:00)
[2019-02-05] MEDS ORDERED: diazePAM 5 MG TABLET PO SCH (06:00)
[2019-02-05 09:11] VITALS: BP 84/53; PULSE 73; TEMP 98.4
[2019-02-05] MEDS: NICOTINE 7 MG/24 HOURS TOPICAL PATCH TD SCH (10:14)
[2019-02-05] MEDS: diazePAM 5 MG TABLET PO PRN (10:14)
[2019-02-05] MEDS: PRENATAL VITAMINS W/ FOLIC ACID TABLET (FP) PO SCH (10:14)
--- NOTE | 2019-02-05 11:12 | PN ---
S CIWA - CIWA Score Nausea/Vomitin-No Nausea/No Vomiting Muscle Tremors: 1-None Visible, but [place] Anxiety: 1-Mildly Anxious Agitation: 1-Slight > Activity Paroxysmal Sweats: No Perspiration Orientation: 0-Oriented Tacttile Disturbances: 0-None Auditory Disturbances: 0-None Visual Disturbances: 0-None Headache: 1-Very Mild CIWA-Ar Total Score: 4 BHS Progress Note (SOAP) Subjective: alert,no complaint,stated using cane at home,requested cane Objective: 02/05/19 11:11 Vital Signs Temperature 98.4 F 02/05/19 09:10 Pulse Rate 73 02/05/19 09:10 Respiratory Rate 16 02/05/19 09:10 Blood Pressure 84/53 L 02/05/19 09:10 O2 Sat by Pulse Oximetry (%) Assessment: 02/05/19 11:11 no withdrawal symptom Plan: stable to be discharged to rehab [facility]
--- NOTE | 2019-02-05 11:14 | DS ---
[facility] Detox Discharge Summary Admission Date: 02/03/19 Discharge Date: 02/05/19 - History Present History: Alcohol Dependence Additional Comments: follow up with [facility] as arrangement Pertinent Past History: bipolar disorder - Physical Exam Results Vital Signs: Vital Signs Temperature 98.4 F 02/05/19 09:10 Pulse Rate 73 02/05/19 09:10 Respiratory Rate 16 02/05/19 09:10 Blood Pressure 84/53 L 02/05/19 09:10 O2 Sat by Pulse Oximetry (%) Pertinent Admission Physical Exam Findings: withdrawal signs and symptom - Treatment Hospital Course: Detox Protocol Followed, Detoxed Safely, Responded well, Discharged Condition Good, Rehab Referral Accepted Patient has Accepted a Rehab Referral to: [facility] - Medication Discharge Medications: Ambulatory Orders Aripiprazole [Abilify -] 5 mg PO DAILY 07/28/18 Methadone [Dolophine -] 100 mg PO DAILY 02/03/19 - Diagnosis (1) Alcohol dependence with uncomplicated withdrawal Current Visit: No Status: Chronic (2) Bipolar disorder Current Visit: No Status: Chronic Qualifiers: Active/Remission status: remission status unspecified Qualified Code(s): F31.9 - Bipolar disorder, unspecified (3) Hepatitis C Current Visit: No Status: Chronic Qualifiers: Viral hepatitis chronicity: chronic Hepatic coma status: without hepatic coma Qualified Code(s): B18.2 - Chronic viral hepatitis C (4) Use of cane as ambulatory aid Current Visit: Yes Status: Acute - AMA Did Patient Leave Against Medical Advice: No
[2019-02-06] MEDS ORDERED: diazePAM 5 MG TABLET PO ONE (06:00)
== END 2019-02-05 12:07 | disposition other institution (70) | DRG 774 ==
LOC: YASAS 11:01 → Y6N 13:13 → Y3N 02-04 15:33
PROVIDERS: ADMIT Allergy & Immunology; ATTEND Allergy & Immunology
PROC: HZ2ZZZZ Detoxification Services for Substance Abuse Treatment (ICD-10-PCS; principal; 2019-02-03)
DX: F10.230 Alcohol dependence with withdrawal, uncomplicated (principal); F14.10 Cocaine abuse, uncomplicated; F31.9 Bipolar disorder, unspecified; F41.9 Anxiety disorder, unspecified; E78.5 Hyperlipidemia, unspecified; B18.2 Chronic viral hepatitis C; Z99.89 Dependence on other enabling machines and devices; Z88.0 Allergy status to penicillin; Z91.013 Allergy to seafood; Z91.02 Food additives allergy status
CPT/HCPCS: 36415; 80053; 81025; 85027; 86593

== ENCOUNTER 2019-02-05 11:56 | Inpatient (IN) | payer OTHER ==
--- NOTE | 2019-02-05 14:29 | HP ---
[facility] Rehab Assess/Revision - Admission History Admitted to Rehab from: [facility] Date of Admission to Rehab: 02/05/19 - Vital signs Vital Signs: Vital Signs Period Temp Pulse Resp BP Sys/Real Pulse Ox Last 24 Hr 98.1 F 66 18 96/60 - Findings Detox History & Physical reviewed: Yes Concur with findings: Yes Comments/Additional Findings: for rehab as protocol Inpatient Rehab Admission - Rehab Decision to Admit Inpatient rehab admission?: Yes - Initial Determination Are CD services needed?: Yes Free of communicable disease: Yes Not in need of hospitalization: Yes - Rehab Admission Criteria Previous failed treatment: Yes Poor recovery environment: Yes Comorbidities: Yes Lacks judgement: No Patient is meeting Inpatient Rehab admission criteria:: Yes
[2019-02-05] MEDS ORDERED: MAG HYDROX/AL HYDROX/SIMETH 30 ML UNIT-DOSE CUP PO PRN (14:30)
[2019-02-05] MEDS ORDERED: LOPERAMIDE HCL 2 MG CAPSULE PO PRN (14:30)
[2019-02-05] MEDS ORDERED: MENTHOL/PHENOL 1 EACH UD MM PRN (14:30)
[2019-02-05] MEDS ORDERED: P-EPHED 60MG/TRIPROLIDI 2.5MG TABLET PO PRN (14:30)
[2019-02-05] MEDS ORDERED: hydrOXYzine PAMOATE 25 MG CAPSULE (FP) PO PRN (14:30)
[2019-02-05] MEDS ORDERED: MAGNESIUM CITRATE 300 ML BOTTLE PO PRN (14:30)
[2019-02-05] MEDS ORDERED: guaiFENesin 200 MG/10 ML 10 ML UNIT-DOSE CUPS PO PRN (14:30)
[2019-02-05] MEDS ORDERED: ACETAMINOPHEN 325 MG TABLET (FP) PO PRN (14:30)
[2019-02-05] MEDS ORDERED: MAGNESIUM HYDROX 2400MG/30ML ORAL SUSPENSION 30 ML CUP PO PRN (14:30)
[2019-02-05] MEDS: THIAMINE HCL 100 MG TABLET (FP) PO SCH (21:47)
[2019-02-05] MEDS ORDERED: MELATONIN 5 MG TABLETS PO PRN (22:00)
[2019-02-06] MEDS ORDERED: METHADONE HCL 10 MG TABLET ONE (06:25)
[2019-02-06] MEDS ORDERED: METHADONE HCL 40 MG DISPERSABLE TABLET ONE (06:25)
[2019-02-06] MEDS: METHADONE 80 MG, METHADONE 20 MG PO SCH (06:27)
[2019-02-06] MEDS: METHOCARBAMOL 500 MG TABLET PO PRN (09:09)
[2019-02-06] MEDS: PRENATAL VITAMINS W/ FOLIC ACID TABLET (FP) PO SCH (09:25)
[2019-02-06] MEDS ORDERED: METHADONE HCL 40 MG DISPERSABLE TABLET PO SCH (10:00)
--- NOTE | 2019-02-06 10:05 | PN ---
S Progress Note (SOAP) Subjective: Left leg swelling and pain Objective: 02/06/19 09:58 Significant swelling to left leg mostly in the calf, tenderness on palpation, non-pitting, denies trauma, there is no erythema or signs of infection. Patient denies history of same. History of Hep C, no prior treatment Assessment: 02/06/19 09:59 Swollen left lower leg Patient is s/p detox treatment from alcohol, currently in rehab, on methadone 100mg for maintenance Plan: Transfer to ER for doppler studies t/o r/o DVT
[2019-02-06] MEDS: IBUPROFEN 400 MG TABLET (FP) PO PRN (16:50)
[2019-02-06] MEDS: THIAMINE HCL 100 MG TABLET (FP) PO SCH (22:01)
[2019-02-07] MEDS ORDERED: METHADONE HCL 40 MG DISPERSABLE TABLET ONE (03:03)
[2019-02-07] MEDS ORDERED: METHADONE HCL 10 MG TABLET ONE (03:03)
[2019-02-07] MEDS: METHADONE 80 MG, METHADONE 20 MG PO SCH (06:07)
[2019-02-07] MEDS: PRENATAL VITAMINS W/ FOLIC ACID TABLET (FP) PO SCH (09:21)
[2019-02-07] MEDS ORDERED: ONDANSETRON *ODT* 4 MG TABLET SL PRN (14:52)
[2019-02-07] MEDS: IBUPROFEN 400 MG TABLET (FP) PO PRN (15:33)
[2019-02-07] MEDS: METHOCARBAMOL 500 MG TABLET PO PRN (15:33)
[2019-02-07] MEDS: THIAMINE HCL 100 MG TABLET (FP) PO SCH (21:52)
[2019-02-08] MEDS ORDERED: METHADONE HCL 40 MG DISPERSABLE TABLET ONE (06:33)
[2019-02-08] MEDS ORDERED: METHADONE HCL 10 MG TABLET ONE (06:33)
[2019-02-08] MEDS: METHADONE 80 MG, METHADONE 20 MG PO SCH (06:35)
[2019-02-08 07:46] VITALS: TEMP 97.8
[2019-02-08 09:05] VITALS: BP 100/64; PULSE 76
[2019-02-08] MEDS: PRENATAL VITAMINS W/ FOLIC ACID TABLET (FP) PO SCH (10:22)
[2019-02-08] MEDS: IBUPROFEN 400 MG TABLET (FP) PO PRN (10:24)
--- NOTE | 2019-02-08 11:31 | PN ---
[facility] Progress Note Note: Patient requested to leave rehab treatment today. Patient encouraged to stay in treatment to prevent relapse but refused. Patient states " I want to go, I have to go to my doctor and take care of some things. I also do not get along with some other peers here and it is better that I leave". Patient is currently on Methadone program in [facility] and is to follow up with program tomorrow morning. Patient encouraged patient to attend AA/NA group meetings to prevent relapse. Narcan Kit offered, however patient states she has kit from Methadone program. Patient is medically stable at this time and denies SI/HI. Vital Signs Temperature 97.8 F 02/08/19 07:45 Pulse Rate 76 02/08/19 09:04 Respiratory Rate 17 02/08/19 09:04 Blood Pressure 100/64 02/08/19 09:04 O2 Sat by Pulse Oximetry (%) Home Medications Medication Instructions Recorded Aripiprazole [Abilify -] 5 mg PO HS 07/28/18 Methadone [Dolophine -] 100 mg PO DAILY 02/03/19 PE: alert and oriented x 3 skin warm and dry +perrla, eoms intact bl gi nt, nd ext amb with cane, no visible tremors denies si/hi A/P ETOH dependence MMTP Patient signed out AMA
--- NOTE | 2019-02-08 11:32 | DS ---
[facility] Rehab Discharge Summary - [facility] Rehab Discharge Summary Admission Date: 02/05/19 Discharge Date: 02/08/19 - History Present History: Alcohol dependence, Sedative dependence - Discharge Physical Exam Vital Signs: Vital Signs Temperature 97.8 F 02/08/19 07:45 Pulse Rate 76 02/08/19 09:04 Respiratory Rate 17 02/08/19 09:04 Blood Pressure 100/64 02/08/19 09:04 O2 Sat by Pulse Oximetry (%) - Medication Discharge Medications: Ambulatory Orders Aripiprazole [Abilify -] 5 mg PO HS 07/28/18 Methadone [Dolophine -] 100 mg PO DAILY 02/03/19 - Medication-Assisted Treatment (MAT) MAT Follow-up Referral: [facility] program - Discharge Instructions Diet, activity, other medical instructions: Diet: reg as shine Activity: as shine Other medical instructions: follow up with pcp as recommended - AMA Did Patient Leave Against Medical Advice: Yes
== END 2019-02-08 11:44 | disposition left against medical advice (07) | DRG 770 ==
LOC: YASAS 11:56 → Y3E 11:59
PROVIDERS: ADMIT Neuromusculoskeletal Medicine & OMM; ATTEND Neuromusculoskeletal Medicine & OMM
PROC: HZ42ZZZ Group Counseling for Substance Abuse Treatment, Cognitive-Behavioral (ICD-10-PCS; principal; 2019-02-05)
DX: F10.20 Alcohol dependence, uncomplicated (principal); F13.20 Sedative, hypnotic or anxiolytic dependence, uncomplicated; F11.20 Opioid dependence, uncomplicated; B18.2 Chronic viral hepatitis C; M79.662 Pain in left lower leg; R22.42 Localized swelling, mass and lump, left lower limb; M79.89 Other specified soft tissue disorders; Z99.89 Dependence on other enabling machines and devices; Z88.0 Allergy status to penicillin; Z91.013 Allergy to seafood; Z91.02 Food additives allergy status

== ENCOUNTER 2019-02-06 10:42 | Emergency (ER) | payer OTHER ==
[2019-02-06 10:49] VITALS: TEMP 98.2; BMI 20.5
--- NOTE | 2019-02-06 10:51 | PDOC ---
History of Present Illness - General Chief Complaint: Edema Stated Complaint: LEFT LEG PAIN Time Seen by Provider: 02/06/19 10:46 History Source: Patient Exam Limitations: No Limitations, Other (Anxiety) - History of Present Illness Initial Comments: 43 year old female with PMH polysubstance abuse, HCV sent to ED from [facility] for LLE swelling since this AM. Pt denied pain, skin changes, fever, recent travel, bed rest, surgery <4 weeks, hx of malignancy, hormone use, hemoptysis, chest pain, shortness of breath. ROS General: denied fever, chills, generalized weakness. HEENT: denied sore throat, rhinorrhea, ear pain. Cardiovascular: admitted to leg swelling. denied chest pain, palpitations, syncope, diaphoresis. Respiratory: denied shortness of breath, cough, sputum production, hemoptysis. Gastrointestinal: denied abdominal pain, nausea, vomiting, diarrhea, constipation, blood in stool. Genitourinary: denied dysuria, increased urinary frequency, hematuria, urinary incontinence, flank pain. Back: denied back pain. Musculoskeletal: denied joint pain, muscle pain, joint swelling. Neurological: denied headache, dizziness, numbness, tingling, weakness. Integumentary: denied rash, laceration, abrasion. Hematologic/Lymphatic: denied bruising or bleeding. PE Constitutional: Well-nourished, Well-developed, appearing stated age. anxious. HEENT: head is normocephalic, atraumatic. EOMI. PERRLA. Neck: supple. Full ROM. Cardiovascular: regular heart rhythm. no murmurs. no pericardial friction rub. Respiratory: clear to auscultation bilaterally. no crackles, rhonchi or wheezing. no stridor. Gastrointestinal: soft, nontender. normal bowel sounds. no rebound, guarding, masses. Extremities: peripheral pulses intact. non pitting edema to LLE. no cellulitis, no erythema. varicose veins to LLE. Neurological: CN 2-12 grossly intact. moves all four extremities. Psych: anxious. awake, alert, oriented x3. follows commands. answers questions appropriately. Past History - Past Medical History Allergies/Adverse Reactions: Allergies Allergy/AdvReac Type Severity Reaction Status Date / Time fish derived Allergy Severe Hives Verified 02/06/19 10:44 lactose Allergy Severe Nausea Verified 02/06/19 10:44 Penicillins Allergy Severe Rash Verified 02/06/19 10:44 Home Medications: Ambulatory Orders Aripiprazole [Abilify -] 5 mg PO HS 07/28/18 Methadone [Dolophine -] 100 mg PO DAILY 02/03/19 - Reproductive History PID: Yes - Immunization History Immunization Up to Date: No - Psycho Social/Smoking Cessation Hx Smoking History: Current every day smoker Have you smoked in the past 12 months: Yes Number of Cigarettes Smoked Daily: 7 Cigars Per Day: 0 Information on smoking cessation initiated: Yes 'Breaking Loose' booklet given: 02/03/19 Hx Alcohol Use: Yes Drug/Substance Use Hx: Yes Substance Use Type: Alcohol, Cocaine, Tranquilizers Hx Substance Use Treatment: Yes *Physical Exam - Vital Signs Last Vital Signs Temp Pulse Resp BP Pulse Ox 98.2 F 71 20 102/68 97 02/06/19 10:44 02/06/19 10:44 02/06/19 10:44 02/06/19 10:44 02/06/19 10:44 Medical Decision Making - Medical Decision Making 43 year old female with above PMH sent to ED from [facility] for LLE swelling. Pt was very difficult to interview, as she continued to speak about when she was bitten by a dog many years ago, then was anxious about me listening to her lungs, and then was anxious at the mention of an X-ray. Initial Vital Signs Temp Pulse Resp BP Pulse Ox 98.2 F 71 20 102/68 97 02/06/19 10:44 02/06/19 10:44 02/06/19 10:44 02/06/19 10:44 02/06/19 10:44 Afebrile. No tachycardia. No tachypnea. Labs ordered: none Imaging ordered: LLE Duplex Medications ordered: none 02/06/19 12:21 US report: Name: [facility] DEPARTMENT OF RADIOLOGY Phys: Darshana Khoury RESIDENT : 1975 Age: 43 Sex: F [facility] Acct: [id number] Loc: [address] Exam Date: 02/06/19 Status: SULEIMAN [place] [address] Unit Number: [id number] EXAM#: TYPE/EXAM: RESULT: [id number] US/DUPLEX VASCUL US-2LEGS Bilateral lower extremity venous ultrasound Clinical information given: RLE swelling The exam was performed utilizing compression, grayscale, color flow and doppler sonography. There is no sonographic evidence of deep vein thrombosis. If there is clinical concern for possible isolated calf DVT or if there is a clinical diagnosis of uncomplicated superficial thrombophlebitis, then correlation with close follow up sonography is suggested. No obvious popliteal fossa cyst is visualized. Impression: No DVT is identified involving either leg. Please see above. Reported By: Quinton Arias MD 02/06/19 1203 DARSHANA KHOURY Signout given to [facility]. Pt to return to Rehab. Discharge - Discharge Information Problems reviewed: Yes Clinical Impression/Diagnosis: Swelling of lower extremity Condition: Stable Disposition: HOME - Admission No - Follow up/Referral - Patient Discharge Instructions Additional Instructions: Your ultrasound imaging was negative for a blood clot. Follow up with your primary care doctor within 3 days regarding your Emergency Department visit. Take Tylenol over the counter for pain. Elevate the leg above the heart. Return to the Emergency Department if the swelling does not decrease in a week return to the ED for repeat Ultrasound imaging. Return to the Emergency Department for chest pain, shortness of breath, vomiting , lightheadedness, passing out, palpitations. ----- US report: Name: [facility] DEPARTMENT OF RADIOLOGY Phys: Darshana Khoury RESIDENT : 1975 Age: 43 Sex: F [facility] Acct: [id number] Loc: [address] Exam Date: 02/06/19 Status: [facility] [place] [address] Unit Number: [id number] EXAM#: TYPE/EXAM: RESULT: [id number] US/DUPLEX VASCUL US-2LEGS Bilateral lower extremity venous ultrasound Clinical information given: RLE swelling The exam was performed utilizing compression, grayscale, color flow and doppler sonography. There is no sonographic evidence of deep vein thrombosis. If there is clinical concern for possible isolated calf DVT or if there is a clinical diagnosis of uncomplicated superficial thrombophlebitis, then correlation with close follow up sonography is suggested. No obvious popliteal fossa cyst is visualized. Impression: No DVT is identified involving either leg. Please see above. Reported By: Quinton Arias MD 02/06/19 7065 DARSHANA KHOURY - Post Discharge Activity
--- NOTE | 2019-02-06 11:10 | PDOC ---
Attending Attestation - Resident Resident Name: Darshana Thibodeaux - ED Attending Attestation I have performed the following: I have examined & evaluated the patient, The case was reviewed & discussed with the resident, I agree w/resident's findings & plan - HPI HPI: 02/06/19 11:10 43 YOF with Hep C, from [facility] for alcohol detox/rehab, on methadone presenting from with LLE swelling which she noticed this morning upon waking up. no trauma. no signs of infection. sent in for r/o DVT no h/o DVT/PE no cp or sob. denies injecting into leg. 02/06/19 11:42 02/06/19 11:43 - Physicial Exam PE: 02/06/19 11:09 Agree with the resident's HPI and PE as documented in the electronic medical record. NAD, well appearing, EOMI, PERRL, nl conjunctiva, anicteric; neck supple. lungs clear, RRR, abdomen soft nontender. no rebound, guarding. Back nontender. BURGESS x4, no focal neuro deficits. Normal color for ethnicity, WWP. LLE nonpitting edema, no tenderness. no skin discoloration or erythema. 02/06/19 11:42 - Medical Decision Making 02/06/19 11:09 Vital Signs Temp Pulse Resp BP Pulse Ox 98.2 F 71 20 102/68 97 02/06/19 10:44 02/06/19 10:44 02/06/19 10:44 02/06/19 10:44 02/06/19 10:44 ddx, dvt, superficial thrombophlebitis, msk strain, edema vs reviewed, wnl no pain. ambulatory. neuro vasc intact. no s/s infection or trauma. duplex ordered to eval for DVT Duplex is negative for DVT, no popliteal fossa cyst is noted. However patient instructed that if symptoms persist or worsen greater than 1 week should return for repeat duplex imaging to evaluate for propagation of clot. DC back to [facility] rehab, communicated back for discharge. 02/06/19 12:30 02/06/19 12:31
[2019-02-06 12:34] VITALS: BP 96/44; PULSE 72
== END 2019-02-06 13:18 | disposition home or self-care (01) ==
LOC: JER 10:42
DX: R60.0 Localized edema (principal); B18.2 Chronic viral hepatitis C; F10.10 Alcohol abuse, uncomplicated; F14.10 Cocaine abuse, uncomplicated; F13.10 Sedative, hypnotic or anxiolytic abuse, uncomplicated; F41.9 Anxiety disorder, unspecified; F31.9 Bipolar disorder, unspecified; F17.210 Nicotine dependence, cigarettes, uncomplicated; Z91.013 Allergy to seafood; Z88.0 Allergy status to penicillin; Z91.018 Allergy to other foods
CPT/HCPCS: 93970-TC; 99281-25

== ENCOUNTER 2021-04-28 11:43 | Inpatient (IN) | payer OTHER ==
[2021-04-28 13:02] VITALS: PULSE 71; TEMP 97.9; BMI 19.7
[2021-04-28 13:04] VITALS: BP 93/39
[2021-04-28] MEDS ORDERED: MAG HYDROX/AL HYDROX/SIMETH 30 ML UNIT-DOSE CUP PO PRN (13:40)
[2021-04-28] MEDS ORDERED: guaiFENesin 200 MG/10 ML 10 ML UNIT-DOSE CUPS PO PRN (13:40)
[2021-04-28] MEDS ORDERED: MAGNESIUM HYDROX 2400MG/30ML ORAL SUSPENSION 30 ML CUP PO PRN (13:40)
[2021-04-28] MEDS ORDERED: LOPERAMIDE HCL 2 MG CAPSULE PO PRN (13:40)
[2021-04-28] MEDS ORDERED: ACETAMINOPHEN 325 MG TABLET (FP) PO PRN (13:40)
[2021-04-28] MEDS ORDERED: MAGNESIUM CITRATE 300 ML BOTTLE PO PRN (13:40)
[2021-04-28] MEDS ORDERED: P-EPHED 60MG/TRIPROLIDI 2.5MG TABLET PO PRN (13:40)
[2021-04-28] MEDS ORDERED: IBUPROFEN 400 MG TABLET (FP) PO PRN (13:40)
[2021-04-28] MEDS ORDERED: MELATONIN 5 MG TABLETS PO PRN (13:40)
[2021-04-28] MEDS ORDERED: THIAMINE HCL 100 MG TABLET (FP) PO SCH (22:00)
[2021-04-29] MEDS ORDERED: PRENATAL VITAMINS W/ FOLIC ACID TABLET (FP) PO SCH (10:00)
== END 2021-04-29 07:14 | disposition left against medical advice (07) | DRG 770 ==
LOC: YASAS 11:43 → Y3W 14:17
PROVIDERS: ADMIT Allergy & Immunology; ATTEND Allergy & Immunology
PROC: HZ42ZZZ Group Counseling for Substance Abuse Treatment, Cognitive-Behavioral (ICD-10-PCS; principal; 2021-04-28)
DX: F14.20 Cocaine dependence, uncomplicated (principal); F11.20 Opioid dependence, uncomplicated; F17.210 Nicotine dependence, cigarettes, uncomplicated; Z88.0 Allergy status to penicillin; Z91.011 Allergy to milk products; Z91.013 Allergy to seafood
CPT/HCPCS: 81025; C9803; U0003; U0005

== ENCOUNTER 2022-08-12 21:06 | Inpatient (IN) | payer OTHER ==
[2022-08-12 21:43] VITALS: BMI 19.2
[2022-08-12] MEDS ORDERED: MELATONIN 5 MG TABLETS PO SCH (22:00)
[2022-08-12] MEDS ORDERED: BENZOCAINE/MENTHOL (CHLORASEPTIC ) LOZENGE MM PRN (23:08)
[2022-08-12] MEDS ORDERED: MAGNESIUM HYDROX 2400MG/30ML ORAL SUSPENSION 30 ML CUP PO PRN (23:08)
[2022-08-12] MEDS ORDERED: NICOTINE POLACRILEX 2 MG GUM BUC PRN (23:08)
[2022-08-12] MEDS ORDERED: IBUPROFEN 400 MG TABLET (FP) PO PRN (23:08)
[2022-08-12] MEDS ORDERED: ACETAMINOPHEN 325 MG TABLET (FP) PO PRN (23:08)
[2022-08-12] MEDS ORDERED: COLLOIDAL OATMEAL 1 BAR EACH TP PRN (23:08)
[2022-08-12] MEDS ORDERED: guaiFENesin 600 MG TABLET.ER (FP) PO PRN (23:08)
[2022-08-12] MEDS ORDERED: NALOXONE HCL (KLOXXADO) 8 MG SPRAY NS PRN (23:08)
[2022-08-12] MEDS ORDERED: IBUPROFEN 600 MG TABLET (FP) PO PRN (23:08)
[2022-08-12] MEDS ORDERED: NALOXONE HCL 0.4 MG/ML VIAL IM PRN (23:08)
[2022-08-12] MEDS ORDERED: POLYETHYLENE GLYCOL (HEALTHYLAX) 3350 17 GM PACKET PO PRN (23:08)
[2022-08-12] MEDS ORDERED: BENZONATATE 200 MG CAPSULE PO PRN (23:08)
[2022-08-12] MEDS ORDERED: LOPERAMIDE HCL 2 MG CAPSULE PO PRN (23:08)
[2022-08-12] MEDS ORDERED: AMMONIUM LACTATE 12% LOTION 225 GM BOTTLE TP PRN (23:08)
[2022-08-12] MEDS ORDERED: MAG HYDROX/AL HYDROX/SIMETH 30 ML UNIT-DOSE CUP PO PRN (23:08)
[2022-08-13] MEDS ORDERED: TUBERCULIN PPD 5 TU/0.1ML SYRINGE (IN PATIENT USE ONLY) ID ONE
[2022-08-13 07:34] VITALS: BP 105/54; PULSE 65; RESP 18; TEMP 97.3
[2022-08-13] MEDS ORDERED: methaDONE HCL 10 MG TABLET PO SCH (08:15)
[2022-08-13] MEDS ORDERED: methaDONE 80 MG, methaDONE 20 MG PO SCH (08:30)
[2022-08-13] MEDS ORDERED: PRENATAL VITAMINS W/ FOLIC ACID TABLET (FP) PO SCH (10:00)
[2022-08-13] MEDS ORDERED: NICOTINE 14 MG/24 HOURS TOPICAL PATCH TD SCH (10:00)
[2022-08-13 15:35] LABS: EPI CELLS 35 /uL (0-25.1); HYALINE CASTS 4 /uL (0-3.1); URINE APPEARANCE CLOUDY; URINE BACTERIA >9,000 /uL (0-1359); URINE BILIRUBIN NEGATIVE (NEGATIVE); URINE COLOR YELLOW; URINE GLUCOSE (UA) NEGATIVE (NEGATIVE); URINE KETONE NEGATIVE (NEGATIVE); URINE LEUK ESTERASE 2+ (NEGATIVE); URINE NITRITE POSITIVE (NEGATIVE); URINE PROTEIN NEGATIVE (NEGATIVE); URINE RBC 14 /uL (0-23.9); URINE WBC 256 /uL (0-25.8)
[2022-08-13] MEDS ORDERED: THIAMINE HCL 100 MG TABLET (FP) PO SCH (22:00)
== END 2022-08-13 09:20 | disposition home or self-care (01) | DRG 772 ==
LOC: YASAS 21:06 → Y5N 23:47
PROVIDERS: ADMIT Allergy & Immunology; ATTEND Psychiatry & Neurology Pain Medicine
PROC: HZ42ZZZ Group Counseling for Substance Abuse Treatment, Cognitive-Behavioral (ICD-10-PCS; principal; 2022-08-12)
DX: F14.20 Cocaine dependence, uncomplicated (principal); F11.20 Opioid dependence, uncomplicated; F17.210 Nicotine dependence, cigarettes, uncomplicated; F31.9 Bipolar disorder, unspecified; F41.9 Anxiety disorder, unspecified; F60.9 Personality disorder, unspecified; E78.5 Hyperlipidemia, unspecified; I95.9 Hypotension, unspecified; B18.2 Chronic viral hepatitis C; Z88.0 Allergy status to penicillin; Z91.011 Allergy to milk products; Z28.310 Unvaccinated for COVID-19; Z28.21 Immunization not carried out because of patient refusal
CPT/HCPCS: 81003; 81025; 93005; 93010; C9803-CS; U0003; U0005

== ENCOUNTER 2023-07-07 10:59 | Inpatient (IN) | payer OTHER ==
[2023-07-07 11:43] VITALS: BMI 19.7
[2023-07-07] MEDS ORDERED: MAGNESIUM HYDROX 2400MG/30ML ORAL SUSPENSION 30 ML CUP PO PRN (13:10)
[2023-07-07] MEDS ORDERED: LOPERAMIDE HCL 2 MG CAPSULE PO PRN (13:10)
[2023-07-07] MEDS ORDERED: NALOXONE HCL (KLOXXADO) 8 MG SPRAY NS PRN (13:10)
[2023-07-07] MEDS ORDERED: MAG HYDROX/AL HYDROX/SIMETH 30 ML UNIT-DOSE CUP PO PRN (13:10)
[2023-07-07] MEDS ORDERED: POLYETHYLENE GLYCOL (HEALTHYLAX) 3350 17 GM PACKET PO PRN (13:10)
[2023-07-07] MEDS ORDERED: hydrOXYzine PAMOATE 25 MG CAPSULE (FP) PO PRN (13:10)
[2023-07-07] MEDS ORDERED: NALOXONE HCL 0.4 MG/ML VIAL IM PRN (13:10)
[2023-07-07] MEDS ORDERED: BENZOCAINE/MENTHOL (CHLORASEPTIC ) LOZENGE MM PRN (13:10)
[2023-07-07] MEDS ORDERED: guaiFENesin 600 MG TABLET.ER (FP) PO PRN (13:10)
[2023-07-07] MEDS ORDERED: IBUPROFEN 400 MG TABLET (FP) PO PRN (13:10)
[2023-07-07] MEDS ORDERED: ACETAMINOPHEN 325 MG TABLET (FP) PO PRN (13:10)
[2023-07-07] MEDS ORDERED: BENZONATATE 200 MG CAPSULE PO PRN (13:10)
[2023-07-07 14:14] VITALS: BP 96/56; PULSE 76; RESP 16; TEMP 97.6
[2023-07-07] MEDS: PRENATAL VITAMINS W/ FOLIC ACID TABLET (FP) PO SCH (14:57)
[2023-07-07] MEDS: IBUPROFEN 600 MG TABLET (FP) PO PRN (14:58)
[2023-07-07] MEDS: TUBERCULIN PPD 5 TU/0.1ML VIAL ID ONE (18:48)
[2023-07-07] MEDS: MELATONIN 5 MG TABLETS PO SCH (22:37)
[2023-07-07] MEDS: THIAMINE HCL 100 MG TABLET (FP) PO SCH (22:37)
[2023-07-08] MEDS ORDERED: TUBERCULIN PPD 5 TU/0.1ML VIAL ID ONE (10:00)
[2023-07-08] MEDS ORDERED: methaDONE HCL 40 MG DISPERSABLE TABLET PO SCH (10:00)
== END 2023-07-08 07:48 | disposition left against medical advice (07) | DRG 770 ==
LOC: YASAS 10:59 → Y3NR 13:33
PROVIDERS: ADMIT Allergy & Immunology; ATTEND Psychiatry & Neurology Pain Medicine
PROC: HZ42ZZZ Group Counseling for Substance Abuse Treatment, Cognitive-Behavioral (ICD-10-PCS; principal; 2023-07-07)
DX: F14.20 Cocaine dependence, uncomplicated (principal); F11.20 Opioid dependence, uncomplicated; F17.210 Nicotine dependence, cigarettes, uncomplicated; F19.282 Other psychoactive substance dependence with psychoactive substance-induced sleep disorder; F19.24 Other psychoactive substance dependence with psychoactive substance-induced mood disorder; F31.9 Bipolar disorder, unspecified; F41.9 Anxiety disorder, unspecified; E78.5 Hyperlipidemia, unspecified; Z86.19 Personal history of other infectious and parasitic diseases; Z28.310 Unvaccinated for COVID-19; Z28.21 Immunization not carried out because of patient refusal
CPT/HCPCS: 80305; 80307; 81025; 87811